=== PATIENT | male | born 1950 | race Caucasian/White ===

== ENCOUNTER 2020-04-26 12:28 | Outpatient (CLI) | payer MEDICARE, OTHER, SELFPAY ==
--- NOTE | ~2020-04-26 | US_ITS ---
EXAMINATION: US thyroid EXAM DATE: 04/26/2020 13:09 INDICATION: Thyroid nodules. TECHNIQUE: Multiple grayscale and Doppler images of the thyroid were obtained (by a technologist who performed the scan) and subsequently reviewed. Individual nodules and recommendations may be reporte d in accordance with TI-RADS system as designated by the 2017 ACR White Paper TI-RADS committee. Kyle elation was made with prior thyroid ultrasound report from 06/18/2016. FINDINGS: Right thyroid lobe measures 7.0 x 3.3 x 3.3 cm, left measures 6.4 x 2.8 cm (3rd dimension not provide d). Right thyroid lobe is enlarged predominantly due to a nodule measuring 4.7 x 3.3 x 3.2 centimeter s, mixed cystic and solid (1 point), isoechoic (1 point), wider than tall, smooth margin, without ech ogenic foci, category TR3 for this nodule. Dimensions in 2016 states this nodule measured 3.8 x 2.6 x 2.1 cm at that time. Reportedly this nodule was previously in 2016 with results reported as consist ent with benign follicular nodule. There are 3 left thyroid nodules which are category TR 4. 1st nodule measures 1.1 x 0.8 x 1.1 cm, unchanged. 2nd nodule measures 1.8 x 1.5 x 1.6 cm (previously region was measured at 2.5 x 2.6 cm). A 3rd region, possible nodule measuring 1.2 x 1.9 x 1.7 cm although this could be just some heterogen eity. This region was not measured on prior study. IMPRESSION: 1. Multinodular goiter. Reviewed, dictated and finalized at location B. IMPRESSION: 1. Multinodular goiter.
== END 2020-04-26 12:29 | disposition home or self-care (01) ==
LOC: CHSIMG 12:36
PROVIDERS: PCP Internal Medicine; Visit Provider Internal Medicine
DX: E04.1 Nontoxic single thyroid nodule (principal)
CPT/HCPCS: 76536

== ENCOUNTER 2020-07-07 12:53 | Outpatient (CLI) | payer MEDICARE, OTHER, SELFPAY ==
--- NOTE | ~2020-07-07 | XR_ITS ---
EXAMINATION: XR chest 2V DATE: 07/07/2020 13:22 INDICATION: Diabetes. Preop. TECHNIQUE: Frontal and lateral views of the chest were obtained. COMPARISON: Chest 2 views 12/14/16 FINDINGS: The chest demonstrates clear lungs without pneumonia, pleural effusion, or pneumothorax. Th e heart size is normal. There is a left shoulder arthroplasty. There is a chronic compression fractur e of T11. IMPRESSION: 1. No acute cardiopulmonary disease. Reviewed, dictated and finalized at location A.
[2020-07-07 13:16] LABS: Basophils Absolute Auto 0.03 K/mm3 (0.00-0.10); Basophils Percent Auto 0.7 % (0.0-1.0); Eosinophils Absolute Auto 0.19 K/mm3 (0.02-0.50); Eosinophils Percent Auto 4.2 % (1.0-6.0); Hematocrit 37.9 % (37.0-46.0); Hemoglobin 13.2 g/dL (12.4-15.3); Immature Granulocyte Absolute 0.01 K/mm3 (0.00-0.00); Immature Granulocyte Percent A 0.2 % (0.0-0.0); Lymphocytes Absolute Auto 1.21 K/mm3 (1.10-4.50); Lymphocytes Percent Auto 26.9 % (18.0-42.0); Mean Corpuscular HGB Conc 34.8 g/dL (32.0-36.0); Mean Corpuscular Hemoglobin 29.4 pg (27.0-31.0); Mean Corpuscular Volume 84.4 fL (78.0-102.0); Mean Platelet Volume 9.8 fl (8.7-11.0); Monocytes Absolute Auto 0.39 K/mm3 (0.10-0.90); Monocytes Percent Auto 8.7 % (2.0-11.0); Neutrophils Absolute Auto 2.7 K/mm3 (1.7-7.2); Neutrophils Percent Auto 59.3 % (50.0-70.0); Platelet Count Result 161 K/mm3 (150-420); Red Blood Count 4.49 M/mm3 (4.70-6.10); Red Cell Distribution Width 11.9 % (11.6-14.4); White Blood Count 4.5 K/mm3 (4.8-10.8)
[2020-07-07 13:28] LABS: Hemoglobin A1C 5.8 % (<5.7)
[2020-07-07 13:29] LABS: Add Urine Microscopic? NO; Appearance Urine Clear (Clear); Bilirubin Urine Negative (Negative); Blood Urine Negative (Negative); Color Urine Yellow (Yellow); Glucose Urine UA Negative (Negative); Ketones Urine Negative (Negative); Leukocyte Esterase Ur Negative (Negative); Nitrate Urine Negative (Negative); Protein Urine Negative (Negative); Urobilinogen Urine 0.2 mg/dL (0.2-1.0)
[2020-07-07 13:49] LABS: Alanine Aminotransferase 34 U/L (16-63); Albumin Level 3.9 g/dL (3.4-5.0); Alkaline Phosphatase 85 U/L (46-116); Anion Gap 11 mmol/L (8-16); Aspartate Amino Transferase 20 U/L (15-37); Bilirubin,Total 0.6 mg/dL (0.00-1.00); Blood Urea Nitrogen 17 mg/dL (7-18); Calcium 9.1 mg/dL (8.5-10.1); Carbon Dioxide 27 mmol/L (21-32); Chloride 105 mmol/L (98-108); Estimated Glomerular Filt Rate > 60; Glucose 121 mg/dL (70-99); Osmolality Calculated 298 mOsm/kg (285-295); Potassium 4.4 mmol/L (3.5-5.1); Sodium 143 mmol/L (136-145); Total Protein 6.2 g/dL (6.4-8.2)
== END 2020-07-07 12:54 | disposition home or self-care (01) ==
LOC: CHSLAB 12:56
PROVIDERS: PCP Internal Medicine; Visit Provider Internal Medicine
DX: E11.9 Type 2 diabetes mellitus without complications (principal); Z01.818 Encounter for other preprocedural examination
CPT/HCPCS: 36415; 71046; 80053; 81003; 83036; 85025; 87081

== ENCOUNTER 2020-10-28 12:48 | Outpatient (CLI) | payer MEDICARE, SELFPAY ==
--- NOTE | ~2020-10-28 | XR_ITS ---
XR knee RT 3V DATE: 10/28/2020 13:17 INDICATION: Right anterior knee pain after a fall 3 weeks ago TECHNIQUE: [place], AP and lateral views COMPARISON: 12/25/2018 right knee FINDINGS: Probable knee joint effusion. There is tricompartment osteoarthritis, most prominent at the patellofemoral compartment. There is moderate loss of height of medial compartment joint space. Ther e is chondrocalcinosis of medial and lateral compartments. No fracture, dislocation, periosteal reaction or bone destruction. 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 No significant change since 12/25/2018 Reviewed, dictated and finalized at location B. 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 No significant change since 12/25/2018
== END 2020-10-28 12:49 | disposition home or self-care (01) ==
LOC: CHSIMG 12:52
PROVIDERS: PCP Internal Medicine; Visit Provider Internal Medicine
DX: M25.561 Pain in right knee (principal)
CPT/HCPCS: 73562

== ENCOUNTER 2020-11-08 16:40 | Outpatient (CLI) | payer MEDICARE, SELFPAY ==
--- NOTE | ~2020-11-08 | XR_ITS ---
EXAMINATION: XR knee LT min 4V DATE: 11/08/2020 17:08 INDICATION: Left knee pain TECHNIQUE: Four views of the left knee were obtained. COMPARISON: None. FINDINGS: Alignment is normal. No fracture or osteochondral lesion. There is moderate osteoarthritis of the knee. Chondrocalcinosis is noted. No joint effusion/synovitis. Anterior soft tissue swelling is present. IMPRESSION: 1. No acute osseous abnormality. Reviewed, dictated and finalized at location A. 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
== END 2020-11-08 16:41 | disposition home or self-care (01) ==
LOC: CHSIMG 16:41
PROVIDERS: PCP Internal Medicine; Visit Provider Internal Medicine
DX: M25.562 Pain in left knee (principal)
CPT/HCPCS: 73564

== ENCOUNTER 2021-03-27 10:24 | Outpatient (CLI) | payer MEDICARE, SELFPAY ==
[2021-03-27 10:41] LABS: Basophils Absolute Auto 0.03 K/mm3 (0.00-0.10); Basophils Percent Auto 0.5 % (0.0-1.0); Eosinophils Absolute Auto 0.18 K/mm3 (0.02-0.50); Eosinophils Percent Auto 2.9 % (1.0-6.0); Hematocrit 36.5 % (37.0-46.0); Immature Granulocyte Absolute 0.01 K/mm3 (0.00-0.00); Immature Granulocyte Percent A 0.2 % (0.0-0.0); Immature Platelet Fraction Pct 1.4 % (1.0-7.0); Lymphocytes Absolute Auto 0.91 K/mm3 (1.10-4.50); Lymphocytes Percent Auto 14.7 % (18.0-42.0); Mean Corpuscular HGB Conc 35.6 g/dL (32.0-36.0); Mean Corpuscular Hemoglobin 30.2 pg (27.0-31.0); Mean Corpuscular Volume 84.9 fL (78.0-102.0); Mean Platelet Volume 9.7 fl (8.7-11.0); Monocytes Absolute Auto 0.69 K/mm3 (0.10-0.90); Monocytes Percent Auto 11.2 % (2.0-11.0); Neutrophils Absolute Auto 4.4 K/mm3 (1.7-7.2); Neutrophils Percent Auto 70.5 % (50.0-70.0); Platelet Count Result 138 K/mm3 (150-420); Red Cell Distribution Width 11.9 % (11.6-14.4); White Blood Count 6.2 K/mm3 (4.8-10.8)
[2021-03-27 10:51] LABS: Add Urine Microscopic? YES; Appearance Urine Clear (Clear); Bilirubin Urine Negative (Negative); Blood Urine Negative (Negative); Color Urine Light Yellow (Yellow); Glucose Urine UA Negative (Negative); Ketones Urine Negative (Negative); Leukocyte Esterase Ur Trace (Negative); Nitrate Urine Negative (Negative); Protein Urine Negative (Negative); Specific Grav Ur <= 1.005 (1.010-1.020); Urobilinogen Urine 0.2 mg/dL (0.2-1.0)
[2021-03-27 10:55] LABS: Bacteria Urine None seen /hpf; RBC Urine None seen /hpf (0-2); WBC Urine None seen /hpf (0-3)
[2021-03-27 11:27] LABS: Alanine Aminotransferase 38 U/L (16-63); Albumin Level 3.7 g/dL (3.4-5.0); Alkaline Phosphatase 89 U/L (46-116); Anion Gap 9 mmol/L (8-16); Aspartate Amino Transferase 16 U/L (15-37); Bilirubin,Total 0.7 mg/dL (0.00-1.00); Blood Urea Nitrogen 22 mg/dL (7-18); Calcium 8.6 mg/dL (8.5-10.1); Carbon Dioxide 27 mmol/L (21-32); Chloride 107 mmol/L (98-108); Cholesterol 87 mg/dL (0-200); Estimated Glomerular Filt Rate > 60; Glucose 86 mg/dL (70-99); HDL Direct 34 mg/dL (40-60); LDL Cholesterol Calculated 19 mg/dL (<130); Osmolality Calculated 298 mOsm/kg (285-295); Sodium 143 mmol/L (136-145); Thyroid Stimulating Hormone 0.65 uIU/mL (0.36-3.74); Total Protein 6.1 g/dL (6.4-8.2); Triglycerides 172 mg/dL (0-150)
[2021-03-27 14:50] LABS: Hemoglobin A1C 5.5 % (<5.7)
[2021-03-30 18:36] LABS: Hepatitis C Signal to Cutoff 0.01 ratio (<1.00); Hepatitis C Virus Antibody Nonreactive (Nonreactive)
== END 2021-03-27 10:25 | disposition home or self-care (01) ==
LOC: CHSLAB 10:26
PROVIDERS: PCP Internal Medicine; Visit Provider Internal Medicine
DX: E78.5 Hyperlipidemia, unspecified (principal); I10 Essential (primary) hypertension; E11.9 Type 2 diabetes mellitus without complications
CPT/HCPCS: 36415; 80053; 80061; 81001; 83036; 84443; 85025; 85055

== ENCOUNTER 2021-11-16 09:43 | Outpatient (CLI) | payer MEDICARE, SELFPAY ==
[2021-11-16 10:02] LABS: Hematocrit 40.1 % (37.0-46.0); Mean Corpuscular HGB Conc 34.9 g/dL (32.0-36.0); Mean Corpuscular Volume 86.1 fL (78.0-102.0); Mean Platelet Volume 9.6 fl (8.7-11.0); Platelet Count Result 139 K/mm3 (150-420); Red Blood Count 4.66 M/mm3 (4.70-6.10); Red Cell Distribution Width 11.9 % (11.6-14.4); White Blood Count 3.8 K/mm3 (4.8-10.8)
[2021-11-16 10:17] LABS: Add Urine Microscopic? NO; Appearance Urine Clear (Clear); Bilirubin Urine Negative (Negative); Blood Urine Negative (Negative); Color Urine Yellow (Yellow); Glucose Urine UA Negative (Negative); Ketones Urine Negative (Negative); Leukocyte Esterase Ur Negative (Negative); Nitrate Urine Negative (Negative); Protein Urine Negative (Negative); Urobilinogen Urine 0.2 mg/dL (0.2-1.0)
[2021-11-16 11:00] LABS: Alanine Aminotransferase 39 U/L (16-63); Albumin Level 3.9 g/dL (3.4-5.0); Alkaline Phosphatase 71 U/L (46-116); Anion Gap 7 mmol/L (8-16); Aspartate Amino Transferase 21 U/L (15-37); Bilirubin,Total 0.6 mg/dL (0.00-1.00); Blood Urea Nitrogen 18 mg/dL (7-18); Calcium 8.8 mg/dL (8.5-10.1); Carbon Dioxide 30 mmol/L (21-32); Chloride 106 mmol/L (98-108); Cholesterol 97 mg/dL (0-200); Estimated Glomerular Filt Rate > 60; Glucose 96 mg/dL (70-99); HDL Direct 35 mg/dL (40-60); LDL Cholesterol Calculated 45 mg/dL (<130); Osmolality Calculated 297 mOsm/kg (285-295); Potassium 3.8 mmol/L (3.5-5.1); Prostate Specific Antigen 2.7 ng/mL (< OR = 4.0); Sodium 143 mmol/L (136-145); Total Protein 6.5 g/dL (6.4-8.2); Triglycerides 87 mg/dL (0-150)
[2021-11-16 11:08] LABS: Total Cells Counted 100
[2021-11-16 11:09] LABS: Band Neutrophils Percent 0 % (0-6); Basophils Absolute Manual 0.03 K/mm3 (0-0.1); Basophils Percent Manual 1 % (0-1); Eosinophils Absolute Manual 0.11 K/mm3 (0.02-0.5); Eosinophils Percent Manual 3 % (1-6); Lymphocytes Absolute Manual 0.87 K/mm3 (1.1-4.5); Lymphocytes Percent Manual 23 % (18-44); Monocytes Absolute Manual 0.22 K/mm3 (0.1-0.90); Monocytes Percent Manual 6 % (3-9); Neutrophils Absolute Manual 2.54 K/mm3 (1.3-6.7); Neutrophils Percent Manual 67 % (46-73); Platelet Estimate Adequate (Adequate)
== END 2021-11-16 09:44 | disposition home or self-care (01) ==
LOC: CHSLAB 09:45
PROVIDERS: PCP Internal Medicine; Visit Provider Internal Medicine
DX: E11.9 Type 2 diabetes mellitus without complications (principal); E78.5 Hyperlipidemia, unspecified; I10 Essential (primary) hypertension; Z12.5 Encounter for screening for malignant neoplasm of prostate
CPT/HCPCS: 36415; 80053; 80061; 81003; 84153; 85025; G0103

== ENCOUNTER 2022-02-12 15:19 | Outpatient (CLI) | payer MEDICARE, SELFPAY ==
--- NOTE | ~2022-02-12 | XR_ITS ---
XR chest 2V 02/12/2022 15:55 Indication: Hypertension. Preop back surgery. Procedure: 2 view chest Comparison: Comparison to multiple prior studies sequentially, with oldest reviewed study dated 06/10. Findings: Heart size normal. No focal air space disease, pulmonary edema, pleural effusion or suspect ed pneumothorax. No acute osseous abnormality. There is a left shoulder arthroplasty. There is scolio sis. Impression: 1: No acute cardiopulmonary disease. Reviewed, dictated and finalized at location B. Impression: 1: No acute cardiopulmonary disease.
--- NOTE | 2022-02-12 15:40 | ECG_ITS ---
Measurements Intervals [place] Rate: 58 P: 52 MO: 249 QRS: -3 QRSD: 103 T: 39 QT: 373 QTc: 368 Interpretive Statements SINUS BRADYCARDIA WITH FIRST DEGREE AV BLOCK Electronically Signed On 02-13-2022 11:09:25 CDT by Yohan Strauss M.D.
== END 2022-02-12 15:20 | disposition home or self-care (01) ==
LOC: CHSIMG 15:22
PROVIDERS: PCP Internal Medicine; Visit Provider Internal Medicine
DX: Z01.818 Encounter for other preprocedural examination (principal); I10 Essential (primary) hypertension
CPT/HCPCS: 71046; 93005

== ENCOUNTER 2022-03-08 14:35 | Outpatient (CLI) | payer MEDICARE, SELFPAY ==
[2022-03-08 15:26] LABS: SARS-CoV-2 RNA PCR Negative (Negative)
== END 2022-03-08 14:36 | disposition home or self-care (01) ==
LOC: CHSLAB 14:38
PROVIDERS: PCP Internal Medicine; Visit Provider Nurse Practitioner Family
DX: J06.9 Acute upper respiratory infection, unspecified (principal); Z20.822 Contact with and (suspected) exposure to COVID-19
CPT/HCPCS: C9803; U0003; U0005

== ENCOUNTER 2022-03-20 09:55 | Outpatient (CLI) | payer MEDICARE, SELFPAY ==
[2022-03-20 10:16] LABS: Basophils Absolute Auto 0.05 K/mm3 (0.00-0.10); Basophils Percent Auto 1.1 % (0.0-1.0); Eosinophils Percent Auto 4.3 % (1.0-6.0); Hematocrit 41.1 % (37.0-46.0); Hemoglobin 14.3 g/dL (12.4-15.3); Immature Granulocyte Absolute 0.01 K/mm3 (0.00-0.00); Immature Granulocyte Percent A 0.2 % (0.0-0.0); Lymphocytes Absolute Auto 0.93 K/mm3 (1.10-4.50); Lymphocytes Percent Auto 19.9 % (18.0-42.0); Mean Corpuscular HGB Conc 34.8 g/dL (32.0-36.0); Mean Corpuscular Hemoglobin 29.9 pg (27.0-31.0); Mean Platelet Volume 9.4 fl (8.7-11.0); Monocytes Absolute Auto 0.51 K/mm3 (0.10-0.90); Monocytes Percent Auto 10.9 % (2.0-11.0); Neutrophils Percent Auto 63.6 % (50.0-70.0); Platelet Count Result 120 K/mm3 (150-420); Red Blood Count 4.78 M/mm3 (4.70-6.10); Red Cell Distribution Width 11.9 % (11.6-14.4); White Blood Count 4.7 K/mm3 (4.8-10.8)
[2022-03-20 10:44] LABS: Alanine Aminotransferase 39 U/L (16-63); Albumin Level 3.4 g/dL (3.4-5.0); Alkaline Phosphatase 64 U/L (46-116); Anion Gap 6 mmol/L (8-16); Aspartate Amino Transferase 19 U/L (15-37); Bilirubin,Total 0.8 mg/dL (0.00-1.00); Blood Urea Nitrogen 20 mg/dL (7-18); Calcium 8.6 mg/dL (8.5-10.1); Carbon Dioxide 26 mmol/L (21-32); Chloride 106 mmol/L (98-108); Estimated Glomerular Filt Rate > 60; Glucose 90 mg/dL (70-99); Osmolality Calculated 288 mOsm/kg (285-295); Potassium 4.2 mmol/L (3.5-5.1); Sodium 138 mmol/L (136-145)
[2022-03-20 10:45] LABS: CRP < 0.2 mg/dL (0.0-0.9)
== END 2022-03-20 09:56 | disposition home or self-care (01) ==
LOC: CHSLAB 09:58
PROVIDERS: PCP Internal Medicine; Visit Provider Internal Medicine
DX: R21 Rash and other nonspecific skin eruption (principal); L23.7 Allergic contact dermatitis due to plants, except food; I10 Essential (primary) hypertension
CPT/HCPCS: 36415; 80053; 85025; 86140

== ENCOUNTER 2022-07-18 07:58 | Outpatient (CLI) | payer MEDICARE, SELFPAY ==
--- NOTE | ~2022-07-18 | CT_ITS ---
EXAMINATION: CT soft tissue neck w con DATE: 07/18/2022 09:18 INDICATION: Left parotid swelling. TECHNIQUE: Computed tomography (CT) of the neck was performed with 75 mL Omnipaque-350 intravenous co ntrast. Automated exposure control and iterative reconstruction technique were employed. The dose-leno gth product was 474.58 mGy-cm. COMPARISON: Chest CT 06/13/2016 FINDINGS: Again seen is a multinodular goiter extending into the superior mediastinum. There are no p athologically enlarged lymph nodes. There is plaque in the proximal internal carotid arteries with 0% stenosis relative to normal distal artery lumen diameters. There is a 1.2 x 1.0 cm mass in superfici al left parotid gland. There is a 2.1 x 1.4 cm mass in superficial left parotid gland. There is sever e cervical spondylosis. IMPRESSION: 1. Two masses in superficial left parotid gland. The differential diagnosis includes benign mixed maite or, Warthin tumor, and less likely kris metastatic disease or primary malignancy. Consider ultrasoun d-guided fine-needle aspiration. Reviewed, dictated and finalized at location A. 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 Two masses in superficial left parotid gland. The differential diagnosis inc ludes benign mixed tumor, Warthin tumor, and less likely kris metastatic disea se or primary malignancy. Consider ultrasound-guided fine-needle aspiration.
[2022-07-18 08:12] LABS: Basophils Absolute Auto 0.03 K/mm3 (0.00-0.10); Basophils Percent Auto 0.7 % (0.0-1.0); Eosinophils Absolute Auto 0.13 K/mm3 (0.02-0.50); Eosinophils Percent Auto 2.9 % (1.0-6.0); Hematocrit 41.9 % (37.0-46.0); Hemoglobin 14.4 g/dL (12.4-15.3); Immature Granulocyte Absolute 0.01 K/mm3 (0.00-0.00); Immature Granulocyte Percent A 0.2 % (0.0-0.0); Lymphocytes Absolute Auto 1.14 K/mm3 (1.10-4.50); Lymphocytes Percent Auto 25.6 % (18.0-42.0); Mean Corpuscular HGB Conc 34.4 g/dL (32.0-36.0); Mean Corpuscular Volume 87.3 fL (78.0-102.0); Mean Platelet Volume 9.3 fl (8.7-11.0); Monocytes Absolute Auto 0.44 K/mm3 (0.10-0.90); Monocytes Percent Auto 9.9 % (2.0-11.0); Neutrophils Absolute Auto 2.7 K/mm3 (1.7-7.2); Neutrophils Percent Auto 60.7 % (50.0-70.0); Platelet Count Result 147 K/mm3 (150-420); Red Cell Distribution Width 11.9 % (11.6-14.4); White Blood Count 4.5 K/mm3 (4.8-10.8)
[2022-07-18 08:38] LABS: Hemoglobin A1C 5.1 % (<5.7)
[2022-07-18 08:39] LABS: Alanine Aminotransferase 30 U/L (16-63); Albumin Level 3.9 g/dL (3.4-5.0); Alkaline Phosphatase 78 U/L (46-116); Anion Gap 5 mmol/L (8-16); Aspartate Amino Transferase 15 U/L (15-37); Bilirubin,Total 0.6 mg/dL (0.00-1.00); Blood Urea Nitrogen 18 mg/dL (7-18); Calcium 8.8 mg/dL (8.5-10.1); Carbon Dioxide 30 mmol/L (21-32); Chloride 106 mmol/L (98-108); Estimated Glomerular Filt Rate > 60; Glucose 107 mg/dL (70-99); Lactate Dehydrogenase 153 U/L (85-227); Osmolality Calculated 293 mOsm/kg (285-295); Potassium 4.1 mmol/L (3.5-5.1); Sodium 141 mmol/L (136-145); Total Protein 6.7 g/dL (6.4-8.2)
[2022-07-23 17:06] LABS: Reference Lab Test Name FLOW CYTOMETRY
== END 2022-07-18 07:59 | disposition home or self-care (01) ==
LOC: CHSIMG 08:00
PROVIDERS: PCP Internal Medicine; Visit Provider Internal Medicine
DX: D72.819 Decreased white blood cell count, unspecified (principal); D69.6 Thrombocytopenia, unspecified; E11.9 Type 2 diabetes mellitus without complications; R22.0 Localized swelling, mass and lump, head
CPT/HCPCS: 36415; 70491; 80053; 83036; 83615; 85025; 88184; 88185; 88189; Q9967

== ENCOUNTER 2022-11-13 13:25 | Outpatient (RCR) | payer MEDICARE, SELFPAY ==
--- NOTE | 2022-11-13 14:33 | PTOPEVAL1 ---
Assessment and note entered by Louisa Bermudez DPT Evaluation Information Assessment Status Evaluation Diagnosis low back pain and weakness Onset 10/29/22 Subjective Information Patient reports he had back surgery on 10/29/22 from L4-S1. He states since surgery his pain has improved a lot. He reports that pain occurs after he gets tired and that pain is in the legs with what feels like sciatic pain. Prior to surgery patient reports he had back pain for 10 years. Patient reports that dressing, reaching into cabinets and cooking. Patient's restrictions of no lifting over 8#, no bending and no twisting. Patient reports he uses the FWW at all times now but does report he had a STC that he used prior to surgery. RTMD is 11/14/22. 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 Reported Pain Level Pain Score 0: Self Report Assessment PT Clinical Summary Patient is a 72 year old male who presents to PT s /p low back surgery. He demonstrates decreased B LE strength, decreased LE flexibility and impaired gait impairing his ability to care for his , cook and complete house hold tasks. He would benefit from skilled PT to address impairments and return to PLOF. Plan of Care Interventions Electrical Stimulation,Gait Training,Hot Pack/Cold Pack,Manual Therapy,Neuro Re-education,Patient/ Caregiver Educati,Therapeutic Activities, Therapeutic Exercise,Self-Care/Home Management PT Services Indicated Yes Treatment Frequency and 2x weekly x 12 visits Duration These treatments will address the objective and functional deficits as defined above. The patient will be advanced safely and appropriately in order for the patient to progress towards his/her prior level of function. Additional exercises will be introduced and as well as a comprehensive home exercise program upon discharge, if needed, ?to ensure carryover of functional gains achieved in the clinic. This treatment plan has been reviewed and agreement upon by the patient.
--- NOTE | 2022-12-20 10:56 | PTOPREEVAL ---
Assessment and note entered by Neisha Wiggins, PT Evaluation Information Assessment Status Re-evaluation Diagnosis s/p L4-S1 fusion Onset 10/29/22 Subjective Information Boo reports he had L4-S1 fusion on 10/29/22. He is having a little pain first thing in the am but it subsides as he moves around. He uses a cane around the house but a walker when out of the house. He has increased pain with lifting his walker and his 's wheelchair into and out of his vehicle. He has 4 steps out the back door which he handles without increased pain. He also c /o left calf pain after he has a restless leg syndrome attack. He saw his surgeon a couple Reported Pain Level Pain Score 0: Self Report Assessment PT Clinical Summary Boo Rodrigues is 7.5 weeks s/p L4-S1 fusion. He is reporting minimal pain since surgery with moderate pain upon waking and after lifting his walker and 's wheelchair into and out of his vehicle a couple times. He also has decreased endurance for walking and activity. He objectively demonstrates decreased lumbar AROM, decreased core strenth, impaired gait, decreased endurance, and decreased functional abilities. He will benefit from skilled PT to address these limitations. Plan of Care Interventions Electrical Stimulation,Gait Training,Hot Pack/Cold Pack,Manual Therapy,Neuro Re-education,Patient/ Caregiver Educati,Therapeutic Activities, Therapeutic Exercise PT Services Indicated Yes Treatment Frequency and 2 times a week for 12 visits Duration These treatments will address the objective and functional deficits as defined above. The patient will be advanced safely and appropriately in order for the patient to progress towards his/her prior level of function. Additional exercises will be introduced and as well as a comprehensive home exercise program upon discharge, if needed, ?to ensure carryover of functional gains achieved in the clinic. This treatment plan has been reviewed and agreement upon by the patient.
--- NOTE | 2023-02-07 10:09 | PTOPDC ---
Assessment and note entered by Neisha Wiggins, PT Evaluation Information Assessment Status Discharge Diagnosis s/p L4-S1 fusion Onset 10/29/22 Subjective Information Boo Rodrigues reports he has stiffness in his lower back first thing in the morning that improves with moving around. He notes stiffness and pain do not last more than 5 minutes. He notes pain at worst has been 3-4/10 which typically occurs with pulling weeds or sweeping the floor. He has returned to all other daily activities without difficulty. He feels he has improved 97% overall since initiating PT. Reported Pain Level Pain Score 0: Self Report Assessment PT Clinical Summary Boo Rodrigues has completed 13 skilled PT visits following a L4-S1 fusion performed on 10/29/22. He is reporting a 97% overall improvement with ability to perform all daily activities. He is able to take care of his who is in wheelchair and his only complaint is stiffness in the morning and mild pain with yard work. He objectively demonstrates functional lumbar AROM without pain elicited, good bilateral LE and core strength, good static and dynamic balance, normal gait, and good endurance. He will be discharged to an independent [facility]. Plan of Care PT Services Indicated Yes
== END 2023-02-07 23:59 | disposition home or self-care (01) ==
LOC: CHSPT 13:25
PROVIDERS: PCP Internal Medicine
DX: M43.10 Spondylolisthesis, site unspecified (principal)
CPT/HCPCS: 97110; 97112; 97161; 97530; 97750

== ENCOUNTER 2023-05-14 11:48 | Outpatient (CLI) | payer MEDICARE, SELFPAY ==
[2023-05-14 12:03] LABS: Appearance Urine Clear (Clear); Basophils Absolute Auto 0.03 K/mm3 (0.00-0.10); Basophils Percent Auto 0.7 % (0.0-1.0); Bilirubin Urine Negative (Negative); Blood Urine Negative (Negative); Color Urine Light Yellow (Yellow); Eosinophils Absolute Auto 0.17 K/mm3 (0.02-0.50); Eosinophils Percent Auto 3.8 % (1.0-6.0); Glucose Urine UA Negative (Negative); Hemoglobin 14.1 g/dL (12.4-15.3); Immature Granulocyte Absolute 0.01 K/mm3 (0.00-0.00); Immature Granulocyte Percent A 0.2 % (0.0-0.0); Ketones Urine Negative (Negative); Leukocyte Esterase Ur Negative LEU/UL (Negative); Lymphocytes Absolute Auto 1.07 K/mm3 (1.10-4.50); Lymphocytes Percent Auto 23.7 % (18.0-42.0); Mean Corpuscular HGB Conc 33.6 g/dL (32.0-36.0); Mean Corpuscular Hemoglobin 27.1 pg (27.0-31.0); Mean Corpuscular Volume 80.6 fL (78.0-102.0); Mean Platelet Volume 9.2 fl (8.7-11.0); Monocytes Absolute Auto 0.65 K/mm3 (0.10-0.90); Monocytes Percent Auto 14.4 % (2.0-11.0); Neutrophils Absolute Auto 2.6 K/mm3 (1.7-7.2); Neutrophils Percent Auto 57.2 % (50.0-70.0); Nitrate Urine Negative (Negative); Platelet Count Result 180 K/mm3 (150-420); Protein Urine Negative (Negative); Red Blood Count 5.21 M/mm3 (4.70-6.10); Red Cell Distribution Width 13.2 % (11.6-14.4); Specific Grav Ur <= 1.005 (1.010-1.020); Urobilinogen Urine 0.2 mg/dL (0.2-1.0); White Blood Count 4.5 K/mm3 (4.8-10.8); pH Urine 5.5 (5.0-8.0)
[2023-05-14 12:07] LABS: Add Urine Microscopic? NO
[2023-05-14 12:12] LABS: Hemoglobin A1C 6.2 % (<5.7)
[2023-05-14 13:17] LABS: Alanine Aminotransferase 43 U/L (16-63); Albumin Level 3.7 g/dL (3.4-5.0); Alkaline Phosphatase 106 U/L (46-116); Anion Gap 5 mmol/L (8-16); Aspartate Amino Transferase 25 U/L (15-37); Bilirubin,Total 0.5 mg/dL (0.00-1.00); Blood Urea Nitrogen 16 mg/dL (7-18); Calcium 9.3 mg/dL (8.5-10.1); Carbon Dioxide 30 mmol/L (21-32); Chloride 105 mmol/L (98-108); Cholesterol 109 mg/dL (0-200); Creatine Kinase 116 U/L (39-308); Estimated Glomerular Filt Rate > 60; Free T4 Free Thyroxine 0.34 ng/dL (0.76-1.46); Glucose 97 mg/dL (70-99); HDL Direct 29 mg/dL (40-60); LDL Cholesterol Calculated 13 mg/dL (<130); Osmolality Calculated 291 mOsm/kg (285-295); Potassium 4.8 mmol/L (3.5-5.1); Prostate Specific Antigen 1.7 ng/mL (< OR = 4.0); Sodium 140 mmol/L (136-145); Thyroid Stimulating Hormone 0.72 uIU/mL (0.36-3.74); Total Protein 6.6 g/dL (6.4-8.2); Triglycerides 336 mg/dL (0-150)
== END 2023-05-14 11:49 | disposition home or self-care (01) ==
LOC: CHSLAB 11:50
PROVIDERS: PCP Internal Medicine; Visit Provider Nurse Practitioner Family
DX: Z12.5 Encounter for screening for malignant neoplasm of prostate (principal); E11.9 Type 2 diabetes mellitus without complications; F34.1 Dysthymic disorder; I95.9 Hypotension, unspecified; R42 Dizziness and giddiness; G47.9 Sleep disorder, unspecified; I15.9 Secondary hypertension, unspecified; F32.A Depression, unspecified
CPT/HCPCS: 36415; 80053; 80061; 81003; 82550; 83036; 84153; 84439; 84443; 85025; G0103

== ENCOUNTER 2023-07-29 11:03 | Outpatient (CLI) | payer MEDICARE, SELFPAY | END 2023-07-29 11:04 | disposition home or self-care (01) | LOC: CHSAUDIO 11:05 | PROVIDERS: PCP Internal Medicine; Visit Provider Internal Medicine | DX: H90.3 Sensorineural hearing loss, bilateral (principal) | CPT/HCPCS: 92557; 92567 ==

== ENCOUNTER 2023-09-11 09:30 | Outpatient (CLI) | payer MEDICARE, SELFPAY ==
--- NOTE | ~2023-09-11 | XR_ITS ---
Left Hand Technique: PA, oblique, and lateral views were obtained. Clinical History: Thumb pain Findings: No acute fracture or dislocation is seen. Osseous alignment is anatomic. There is mild dege nerative change of the first CMC joint. Soft tissues are unremarkable. Impression: Mild degenerative change of the first CMC joint. Reviewed, dictated and finalized at location . 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
== END 2023-09-11 09:31 | disposition home or self-care (01) ==
LOC: CHSIMG 09:32
PROVIDERS: PCP Internal Medicine; Visit Provider Internal Medicine
DX: M25.542 Pain in joints of left hand (principal)
CPT/HCPCS: 73130

== ENCOUNTER 2023-10-10 10:30 | Outpatient (RCR) | payer MEDICARE, SELFPAY | END 2023-10-10 23:59 | disposition home or self-care (01) | LOC: ANHAUDIO 10:30 | PROVIDERS: PCP Internal Medicine; Visit Provider Audiologist | DX: Z46.1 Encounter for fitting and adjustment of hearing aid (principal) | CPT/HCPCS: 99199; V5257 ==

== ENCOUNTER 2023-11-12 09:32 | Outpatient (CLI) | payer MEDICARE, SELFPAY ==
[2023-11-12 09:58] LABS: Basophils Absolute Auto 0.03 K/mm3 (0.00-0.10); Basophils Percent Auto 0.7 % (0.0-1.0); Eosinophils Absolute Auto 0.16 K/mm3 (0.02-0.50); Eosinophils Percent Auto 3.5 % (1.0-6.0); Hematocrit 40.2 % (37.0-46.0); Hemoglobin 13.8 g/dL (12.4-15.3); Immature Granulocyte Absolute 0.01 K/mm3 (0.00-0.00); Immature Granulocyte Percent A 0.2 % (0.0-0.0); Lymphocytes Absolute Auto 1.05 K/mm3 (1.10-4.50); Lymphocytes Percent Auto 22.8 % (18.0-42.0); Mean Corpuscular HGB Conc 34.3 g/dL (32.0-36.0); Mean Corpuscular Hemoglobin 27.2 pg (27.0-31.0); Mean Corpuscular Volume 79.3 fL (78.0-102.0); Mean Platelet Volume 9.8 fl (8.7-11.0); Monocytes Absolute Auto 0.54 K/mm3 (0.10-0.90); Monocytes Percent Auto 11.7 % (2.0-11.0); Neutrophils Absolute Auto 2.8 K/mm3 (1.7-7.2); Neutrophils Percent Auto 61.1 % (50.0-70.0); Platelet Count Result 169 K/mm3 (150-420); Red Blood Count 5.07 M/mm3 (4.70-6.10); Red Cell Distribution Width 12.8 % (11.6-14.4); White Blood Count 4.6 K/mm3 (4.8-10.8)
[2023-11-12 10:49] LABS: Alanine Aminotransferase 36 U/L (16-63); Albumin Level 3.6 g/dL (3.4-5.0); Alkaline Phosphatase 93 U/L (46-116); Anion Gap 8 mmol/L (8-16); Aspartate Amino Transferase 23 U/L (15-37); Bilirubin,Total 0.8 mg/dL (0.00-1.00); Blood Urea Nitrogen 21 mg/dL (7-18); Calcium 8.7 mg/dL (8.5-10.1); Carbon Dioxide 29 mmol/L (21-32); Chloride 102 mmol/L (98-108); Cholesterol 95 mg/dL (0-200); Estimated Glomerular Filt Rate > 60; Free T3 2.52 pg/mL (2.18-3.98); Free T4 Free Thyroxine 0.37 ng/dL (0.76-1.46); Glucose 165 mg/dL (70-99); HDL Direct 34 mg/dL (40-60); LDL Cholesterol Calculated 5 mg/dL (<130); Osmolality Calculated 295 mOsm/kg (285-295); Potassium 4.1 mmol/L (3.5-5.1); Sodium 139 mmol/L (136-145); Thyroid Stimulating Hormone 0.44 uIU/mL (0.36-3.74); Total Protein 6.3 g/dL (6.4-8.2); Triglycerides 278 mg/dL (0-150)
== END 2023-11-12 09:33 | disposition home or self-care (01) ==
LOC: CHSLAB 09:34
PROVIDERS: PCP Internal Medicine; Visit Provider Internal Medicine
DX: E11.9 Type 2 diabetes mellitus without complications (principal); E03.9 Hypothyroidism, unspecified; I10 Essential (primary) hypertension
CPT/HCPCS: 36415; 80053; 80061; 83036; 84439; 84443; 84481; 85025

== ENCOUNTER 2024-02-12 22:34 | Emergency (ER) | payer MEDICARE, SELFPAY ==
[2024-02-12 22:35] VITALS: BP 134/76; PULSE 63; RESP 18; TEMP 36.1; O2SAT 96
[2024-02-12] MEDS: LIDOCAINE HCL 1% LOCAL INJ 10 ML VIAL INFILTRATE (23:05)
--- NOTE | 2024-02-12 23:10 | PC.NURSE ---
DR EISENBERG AT PATIENT BEDSIDE FOR SUTURING.
--- NOTE | 2024-02-12 23:15 | ED.GENADULT ---
HPI - General Adult General Chief complaint: Wound/Laceration Stated complaint: finger lac History of Present Illness HPI narrative: this is a 74-year-old male presenting for a finger laceration. He was trying to cut a dog disc and half using a pair of alex and missed and cut his middle finger. He has a v-shaped laceration to his left middle finger. No weakness in the extremity. Sensation intact. Tetanus is up-to-date. Related Data Allergies Allergy/AdvReac Type Severity Reaction Status Date / Time diazepam Allergy Unknown Verified 07/11/20 16:10 [employer] [facility] Allergy Mild Uncoded 07/11/20 16:10 [facility] Family History Family History (System 07/11/20 @ 16:10 by Mariah Arriaga) Mother Hypertension Family history of diabetes mellitus in first degree relative Family history of coronary artery disease Family history of malignant neoplasm of breast in first degree relative Diabetes mellitus Family history of cardiovascular disease Grandparent Cerebrovascular accident Family history of malignant neoplasm Family history of coronary artery disease Social History Social History (System 07/11/20 @ 16:10 by Mariah Arriaga) Smoking status: Never smoker Alcohol intake: never Exam Narrative: APPEARANCE: No apparent distress. Head: atraumatic. EYES: EOMI, NOSE: Atraumatic NECK: Trachea midline RESPIRATORY: No increased rate of breathing CARDIOVASCULAR: RRR, ABDOMINAL: Non-distended MUSCULOSKELETAl: No obvious deformities NEURO: Alert. Moving 4/4 extremities SKIN:: 2 cm v-shaped laceration to the proximal phalanx of the left middle finger. No foreign bodies noted. No damage to the deeper structures. Extension flexion of the finger intact. Cap refill less than 2sec PSYCHIATRIC: Normal affect Course Vital Signs Vital signs: Vital Signs Temperature 96.9 F L 02/12/24 22:35 Pulse Rate 63 02/12/24 22:35 Respiratory Rate 18 02/12/24 22:35 Blood Pressure 134/76 02/12/24 22:35 Pulse Oximetry 96 02/12/24 22:35 Oxygen Delivery Room Air 02/12/24 22:35 Temperature 96.9 F L 02/12/24 22:35 Pulse Rate 63 02/12/24 22:35 Respiratory Rate 18 02/12/24 22:35 Blood Pressure 134/76 02/12/24 22:35 Pulse Oximetry 96 02/12/24 22:35 Oxygen Delivery Room Air 02/12/24 22:35 Procedures Laceration Laceration 1: Date: 02/12/24 Site: hand Side (If applicable): left Size (cm): 2.0 Description: flap Depth: simple, single layer Local Anesthetic: lidocaine 1% Amount of anesthesia used (mL): 6 Pre-repair: wound explored, irrigated extensively and deep structures intact ====== Skin Level ====== Skin layer closed with: nylon Size (cm): 4-0 Number of sutures: 5 Technique: simple, interrupted ====== Subcutaneous Layer ====== ====== Muscle Layer ====== ====== Tendon Layer ====== Medical Decision Making MDM Narrative Medical decision making narrative: -Course: 74-year-old male presenting with a laceration to his middle finger. Wound was repaired. tetanus update. Patient discharged on a course of Keflex with primary care follow-up. Two weeks for suture removal. -Procedures: Laceration repair -RX Keflex 500 mg b.i.d. x5 days Vital Signs Vital Signs: Vital Signs Temperature 96.9 F L 02/12/24 22:35 Pulse Rate 63 02/12/24 22:35 Respiratory Rate 18 02/12/24 22:35 Blood Pressure 134/76 02/12/24 22:35 Pulse Oximetry 96 02/12/24 22:35 Oxygen Delivery Room Air 02/12/24 22:35 Temperature 96.9 F L 02/12/24 22:35 Pulse Rate 63 02/12/24 22:35 Respiratory Rate 18 02/12/24 22:35 Blood Pressure 134/76 02/12/24 22:35 Pulse Oximetry 96 02/12/24 22:35 Oxygen Delivery Room Air 02/12/24 22:35 Discharge Plan Discharge Clinical Impression: Laceration Patient Disposition: Home, Self-Care Condition: Stable Ins
== END 2024-02-12 23:50 | disposition home or self-care (01) ==
PROVIDERS: Emergency Provider Emergency Medicine; PCP Internal Medicine
DX: S61.213A Laceration without foreign body of left middle finger without damage to nail, initial encounter (principal); W27.2XXA Contact with scissors, initial encounter
CPT/HCPCS: 12001; 99283

== ENCOUNTER 2024-03-11 08:57 | Outpatient (RCR) | payer MEDICARE, SELFPAY ==
--- NOTE | 2024-03-11 10:06 | PTOPEVAL1 ---
Assessment and note entered by Marlon Jerry Evaluation Information Assessment Status Evaluation Diagnosis low back pain, previous L4-S1 fusion ICD-10 Condition Codes (PT) Pain in low back M54.50 Onset 12/11/23 Subjective Information Pt. reports that about 3 months ago he started noticing increasing back pain with activity. He describes pain in the middle of the low back and stays near the spine. He states that he enjoys gardening, but states that he cannot bend without pain to complete his gardening. He states that he can stand for about 30 minutes before having to sit due to back pain. He reports that he enjoys working in his garage, but states that it is becoming difficult to bend. He states that his is wc bound and states that he has to care for his . He reports that his goal is to reduce his pain and be able to stand and walk longer. Reported Pain Level Pain Score 3: Self Report Assessment PT Clinical Summary Pt. is a 74 year old male who enters the clinic due to low back pain. He presents with impaired postural awareness, impaired gait, impaired l.e. strength, pain and functional decline. Continued skilled PT is indicated in order to improve these areas to allow for improve comfort with IADL's and help to improve standing endurance. Plan of Care Interventions Electrical Stimulation,Gait Training,Hot Pack/Cold Pack,Manual Therapy,Neuro Re-education,Patient/ Caregiver Educati,Therapeutic Activities, Therapeutic Exercise PT Services Indicated Yes Treatment Frequency and 2x/week x 10 visits Duration These treatments will address the objective and functional deficits as defined above. The patient will be advanced safely and appropriately in order for the patient to progress towards his/her prior level of function. Additional exercises will be introduced and as well as a comprehensive home exercise program upon discharge, if needed, ?to ensure carryover of functional gains achieved in the clinic. This treatment plan has been reviewed and agreement upon by the patient.
--- NOTE | 2024-03-11 10:07 | OPREHPOC ---
Outpatient Therapy Plan of Care This is a Multidisciplinary Plan of Care that may contain components documented by all disciplines (PT, OT, and ST.) PT Problem 1 PT Problem #1 Knowledge Deficit PT Goal 1 Goal Pt. will be independent with a HEP addressing trunk mobility and core stability. Target Visit 2 PT Problem 2 PT Problem #2 Impaired Flexibility PT Goal 1 Goal Pt. will present at less than 20 degrees from full knee extension with the 90/90 test Target Visit 10 PT Problem 3 PT Problem #3 Impaired Range of Motion PT Goal 1 Goal Pt. will improve trunk flexion and be able to safely lift a light object from floor to waist with proper mechanics Target Visit 10 PT Problem 4 PT Problem #4 Impaired Functional Mobil PT Goal 1 Goal Pt. will present with less than 15% limitation on the Modified Oswestry indicating overall functional improvement. Target Visit 10 PT Problem 5 PT Problem #5 Impaired Strength PT Goal 1 Goal Pt. will present with 4+/5 strength or greater at the l.e.
--- NOTE | 2024-04-01 15:06 | PCPTNOTE ---
pt cancelled due to having issues.
--- NOTE | 2024-04-22 15:09 | PCPTNOTE ---
Pt. cancelled his appointment due to having increased pain. He requested to come in next week.
--- NOTE | 2024-04-28 11:03 | OPREHPOC ---
Outpatient Therapy Plan of Care This is a Multidisciplinary Plan of Care that may contain components documented by all disciplines (PT, OT, and ST.) PT Problem 1 PT Problem #1 Knowledge Deficit PT Goal 1 Goal / Goal Update Pt. will be independent with a HEP addressing trunk mobility and core stability. Target Visit 2 Progress Met PT Problem 2 PT Problem #2 Impaired Flexibility PT Goal 1 Goal / Goal Update Pt. will present at less than 20 degrees from full knee extension with the 90/90 test Target Visit 16 Progress Not Met PT Problem 3 PT Problem #3 Impaired Range of Motion PT Goal 1 Goal / Goal Update Pt. will improve trunk flexion and be able to safely lift a light object from floor to waist with proper mechanics Target Visit 16 Progress Partially Met PT Problem 4 PT Problem #4 Impaired Functional Mobil PT Goal 1 Goal / Goal Update Pt. will present with less than 15% limitation on the Modified Oswestry indicating overall functional improvement. Target Visit 16 Progress Not Met PT Problem 5 PT Problem #5 Impaired Strength PT Goal 1 Goal / Goal Update Pt. will present with 4+/5 strength or greater at the l.e. Target Visit 10 Progress Met PT Goal 2 Goal / Goal Update 1. patient will display 5/5 bilateral hip strength 2. patient will display 4/5 or better core strength Target Visit 16
--- NOTE | 2024-04-28 11:03 | PTOPREEVAL ---
Assessment and note entered by JT File, PT Evaluation Information Assessment Status Re-evaluation Diagnosis low back pain, previous L4-S1 fusion ICD-10 Condition Codes (PT) Pain in low back M54.50 Onset 12/11/23 Subjective Information patient reports on 04/16/24 he carried some trash out for the first time. he reports he had to carry the trash in one hand and walk roughly 80ft. he reports no injury at the time, but woke up the next day in pain. he reports in therapy on he was really sore and unable to walk well. he reports he has no yet recovered from this set back , and believes he needs to continue therapy. Reported Pain Level Pain Score 4: Self Report Assessment PT Clinical Summary mr. nixon presents to skilled PT with an acute flare up and set back of progress. he is limited in ambulation and activities again due to pain from a lifting/carry injury at home. he has made progress and partially achieved goals for HEP performance, ROM, and strength. however, given his recent set back and lack of achievement of all goals, patient would benefit from continued skilled PT Plan of Care Interventions Electrical Stimulation,Gait Training,Hot Pack/Cold Pack,Manual Therapy,Neuro Re-education,Patient/ Caregiver Educati,Therapeutic Activities, Therapeutic Exercise PT Services Indicated Yes Treatment Frequency and continue skilled PT 2x weekly for 6 more visits Duration These treatments will address the objective and functional deficits as defined above. The patient will be advanced safely and appropriately in order for the patient to progress towards his/her prior level of function. Additional exercises will be introduced and as well as a comprehensive home exercise program upon discharge, if needed, ?to ensure carryover of functional gains achieved in the clinic. This treatment plan has been reviewed and agreement upon by the patient.
--- NOTE | 2024-05-19 13:15 | PTOPDC ---
Assessment and note entered by Louias Calloway DPT Evaluation Information Assessment Status Discharge Diagnosis low back pain, previous L4-S1 fusion ICD-10 Condition Codes (PT) Pain in low back M54.50 Onset 12/11/23 Subjective Information patient reports he is back to level he was prior to carrying his trash that caused increased pain. patient reports he can lift light objects up off of the ground with no difficulty. he reports he has been able to return to walking out in the yard and completing house hold tasks. Reported Pain Level Pain Score 0: Self Report Assessment PT Clinical Summary Mr. Herrera attended 16 visits of skilled PT with great progression towards goals. He has been able to demonstrate ability to picker operator object from the ground, improved LE strength and improve HS flexibility. He reports he has been able to picker operator light objects from the ground, ambulate around the yard and complete house hold tasks. He is independent with HEP and appropriate for DC at this time. Plan of Care PT Services Indicated No
== END 2024-05-19 20:00 | disposition home or self-care (01) ==
LOC: CHSPT 08:57
DX: Z98.1 Arthrodesis status (principal)
CPT/HCPCS: 97110; 97112; 97150; 97161; 97530

== ENCOUNTER 2024-04-27 11:28 | Outpatient (RCR) | payer MEDICARE, SELFPAY | END 2024-07-26 23:59 | disposition home or self-care (01) | LOC: CHSAUDIO 11:28 | PROVIDERS: PCP Internal Medicine; Visit Provider Internal Medicine | DX: Z46.1 Encounter for fitting and adjustment of hearing aid (principal) | CPT/HCPCS: 99199 ==

== ENCOUNTER 2024-06-11 10:02 | Emergency (ER) | payer MEDICARE, SELFPAY ==
[2024-06-11 10:03] VITALS: BP 159/71; PULSE 64; RESP 18; TEMP 35.4; O2SAT 95
--- NOTE | 2024-06-11 10:21 | ED.WOUNDLAC ---
HPI - Wound/Laceration General Chief Complaint: Wound/Laceration Stated Complaint: cut finger Source: patient Mode of arrival: ambulatory Limitations: no limitations History of Present Illness HPI narrative: patient while using his saw cause an avulsion/laceration to his distal left index finger no other injuries currently not bleeding up-to-date with his tetanus. Onset (ago): hour(s) Location: other Extremity Location: Left: hand ( laceration distal end of his left index finger) Place: home Patient tetanus UTD: Yes Context: accidental Associated symptoms: none Related Data Allergies Allergy/AdvReac Type Severity Reaction Status Date / Time diazepam Allergy Unknown Verified 07/11/20 16:10 TRANQUILIZERS UNK Allergy Mild Uncoded 07/11/20 16:10 Review of Systems Review of Systems: All systems reviewed & are unremarkable except as noted in HPI and below PMFSH Past Medical History Medical History Patient denies medical problems Family History Family History Mother Hypertension Family history of diabetes mellitus in first degree relative Family history of coronary artery disease Family history of malignant neoplasm of breast in first degree relative Diabetes mellitus Family history of cardiovascular disease Grandparent Cerebrovascular accident Family history of malignant neoplasm Family history of coronary artery disease Social History Social History Smoking status: Never smoker Alcohol intake: never Exam Const: General: healthy appearing and no acute distress Nutritional Appearance: well nourished Orientation/consciousness: patient oriented x3 Resp: Effort & Inspection: normal respiratory effort Auscultation: clear to auscultation bilaterally Cardio: Rate: regular rate Rhythm: regular rhythm Skin: Wounds: wounds noted Neuro: General: patient oriented x3, moves all extremities and no meningeal signs Course Course Emergency Course: patient had 2 sutures and Dermabond placed on his left index finger up-to-date with his tetanus patient tolerated procedure well Vital Signs Vital signs: Vital Signs Temperature 35.4 C L 06/11/24 10:03 Pulse Rate 64 06/11/24 10:03 Respiratory Rate 18 06/11/24 10:03 Blood Pressure 159/71 H 06/11/24 10:03 Pulse Oximetry 95 06/11/24 10:03 Oxygen Delivery Room Air 06/11/24 10:03 Temperature 35.4 C L 06/11/24 10:03 Pulse Rate 64 06/11/24 10:03 Respiratory Rate 18 06/11/24 10:03 Blood Pressure 159/71 H 06/11/24 10:03 Pulse Oximetry 95 06/11/24 10:03 Oxygen Delivery Room Air 06/11/24 10:03 Procedures Laceration Laceration 1: Date: 06/11/24 Time: Site: hand Side (If applicable): left Size (cm): 2 Description: linear Depth: simple, single layer Local Anesthetic: lidocaine 1% Amount of anesthesia used (mL): 4 Pre-repair: wound explored and irrigated ====== Skin Level ====== Skin layer closed with: vicryl and dermabond Size (cm): 4-0 Number of sutures: 2 ====== Subcutaneous Layer ====== ====== Muscle Layer ====== ====== Tendon Layer ====== Critical Care Time Critical Care Time Critical Care Time: No Discharge Plan Discharge Clinical Impression: Laceration Condition: Stable Instructions: Antibiotic Form, Laceration (ED) Additional Instructions: advised follow-up with primary in 1 week for suture removal. Prescriptions: No Action cephalexin 500 mg capsule 500 mg PO Q12H Qty: 10 0RF Follow-up/Referrals: Dave,Italia Gamino MD [Primary Care Provider] - Time of Disposition: 10:25
== END 2024-06-11 10:32 | disposition home or self-care (01) ==
PROVIDERS: Emergency Provider Emergency Medicine; PCP Family Medicine
DX: S61.211A Laceration without foreign body of left index finger without damage to nail, initial encounter (principal); W27.0XXA Contact with workbench tool, initial encounter
CPT/HCPCS: 12001; 99282; 99283; J2003

== ENCOUNTER 2024-07-08 09:59 | Emergency (ER) | payer MEDICARE, SELFPAY ==
--- NOTE | ~2024-07-08 | XR_ITS ---
EXAMINATION: XR knee RT 3V DATE: 07/08/2024 10:21 INDICATION: Right knee pain post fall TECHNIQUE: Anteroposterior, oblique and crosstable lateral views of the right knee were obtained COMPARISON: 10/28/2020 FINDINGS: Alignment is normal. No fracture. Chondrocalcinosis in the medial and lateral compartments of the ri ght knee. There is at least mild joint space narrowing the medial compartment right knee which could be underestimated on nonweightbearing imaging. Small marginal osteophytes in all 3 compartments consi stent with tricompartmental osteoarthritis with moderate to severe joint space narrowing at the later al patellofemoral compartment evident on the sunrise view from the prior study which is not obtained in the current study. No right knee joint effusion. Calcified likely loose osteochondral bodies along the superior and lateral margin of the patella. Prepatellar soft tissue swelling. IMPRESSION: 1. Chondrocalcinosis and tricompartmental osteoarthritis at the right knee with no joint effusion or acute osseous abnormality. Reviewed, dictated and finalized at location A.
[2024-07-08 10:07] VITALS: BP 161/77; PULSE 76; RESP 20; TEMP 36.4; O2SAT 96
--- NOTE | 2024-07-08 10:11 | ED_ITS ---
HPI - Extremity Injury (Lower) General Chief Complaint: Extremity Injury, Lower Stated Complaint: leg injury Source: patient Mode of arrival: ambulatory Limitations: no limitations History of Present Illness HPI Narrative: 74-year-old male with a history of extensive lumbar spondylosis, spondylolisthesis status post L4-S1 spinal fusion 2 years ago presents to the ED with -- 2 day history of right knee pain. Patient had his legs crossed and any attempted to get up when he noted sharp severe pain about his right knee joint. Subsequently he has not been able to lock his knee while walking. The patient walked into the ED without any difficulty. No other complaint. MD complaint: knee injury Onset (ago): day(s) ( 2 days) Injury: Right: knee Type of Injury: unknown Place: home Severity: moderate Relieving factors: nothing Exacerbating factors: weight bearing Other symptoms: none Related Data Allergies Allergy/AdvReac Type Severity Reaction Status Date / Time diazepam Allergy Unknown Unknown Verified 07/08/24 10:17 TRANQUILIZERS UNK Allergy Mild Unknown Uncoded 07/08/24 10:17 Review of Systems Review of Systems: All systems reviewed & are unremarkable except as noted in HPI and below Constitutional: Constitutional: Reports as per HPI and Reports no additional constitutional complaints Eyes: Eyes: Reports as per HPI and Reports no additional eye complaints ENT: Reports system reviewed and no additional complaints, except as documented and Reports as per HPI Cardiovascular: Cardiovascular: Reports as per HPI and Reports no additional cardiovascular complaints Respiratory: Respiratory: Reports as per HPI and Reports no additional respiratory complaints Gastrointestinal: Gastrointestinal: Reports as per HPI and Reports no additional gastrointestinal complaints Genitourinary: Genitourinary: Reports no additional male genitourinary complaints and Reports as per HPI Musculoskeletal: Musculoskeletal: Reports no additional musculoskeletal complaints Comments: swelling and pain about the right knee joint. Normal range of motion of the right knee. Integumentary/Breasts: Skin/Breast: Reports system reviewed and no additional complaints, except as docu and Reports as per HPI Neurologic: Reports system reviewed and no additional complaints, except as documented and Reports as per HPI Psychiatric: Psychiatric: Reports no additional psychiatric complaints and Reports as per HPI Endocrine: Endocrine: Reports no additional endocrine complaints and Reports as per HPI Hematologic/Lymphatic: Hematologic/Lymphatic: Reports no additional hematologic/lymphatic complaints and Reports as per HPI Allergic/Immunologic: Allergic/Immunologic: Reports no additional allergic/im munologic complaints and Reports as per [facility] Past Medical History Medical History (Updated 07/08/24 @ 11:18 by Negro Wright MD) Patient denies medical problems Spondylolisthesis Surgical History Surgical History (Updated 07/08/24 @ 10:17 by Negro Wright MD) S/P lumbar spinal fusion Family History Family History Mother Hypertension Family history of diabetes mellitus in first degree relative Family history of coronary artery disease Family history of malignant neoplasm of breast in first degree relative Diabetes mellitus Family history of cardiovascular disease Grandparent Cerebrovascular accident Family history of malignant neoplasm Family history of coronary artery disease Social History Social History Smoking status: Never smoker Alcohol intake: never Exam Narrative: vitals are stable. Afebrile Const: General: no acute distress Nutritional Appearance: well nourished Orientation/consciousness: patient oriented x3 Limitations: no limitations HENMT: Head: normal to inspection Ears: external ears normal Face/Nose/Sinus: Normal external nose present Face and sinus: normal facial exam Mouth: Yes Normal oral and palatal mucosa present Throat: posterior oropharynx normal Eyes: Conjunctivae: conjunctivae normal Pupils: Equal, round and reactive pupils present EOM: EOMs intact bilaterally Direct Ophthalmoscopy: no photophobia Neck: Neck: normal visual inspection, no lymphadenopathy and no meningeal signs Chest: Chest palpation & inspection: normal inspection of the chest Resp: Effort & Inspection: normal respiratory effort Auscultation: clear to auscultation bilaterally Cardio: Rate: regular rate Rhythm: regular rhythm GI: GI Palp: Yes Soft to palpation Auscultation: normal bowel sounds Other: no tenderness/ rigidity /rebound. : General: Yes no CVA tenderness Back/Spine/Pelvis: Back: no CVA tenderness Skin: General skin exam: normal color Rashes: no rashes Wounds: no wounds Neuro: General: patient oriented x3, moves all extremities, no meningeal signs, no focal motor deficits and CN's II-XI intact bilaterally Cranial nerves: Yes Nystagmus not present Speech: normal speech Gait exam (Neuro): Normal gait present Extrem: General: normal to inspection Other: Tenderness superior and lateral to the right knee. Normal range of motion of the knee. Psych: Mental Status: mental status grossly normal Affect: normal affect Attitude: cooperative Course Course Emergency Course: Knee pain-- x-ray of knee revealed chondrocalcinosis with tricompartmental osteoarthritis Vital Signs Vital signs: Vital Signs Temperature 36.4 C 07/08/24 10:07 Pulse Rate 76 07/08/24 10:07 Respiratory Rate 20 07/08/24 10:07 Blood Pressure 161/77 H 07/08/24 10:07 Pulse Oximetry 96 07/08/24 10:07 Oxygen Delivery Room Air 07/08/24 10:07 Temperature 36.4 C 07/08/24 10:07 Pulse Rate 76 07/08/24 10:07 Respiratory Rate 20 07/08/24 10:07 Blood Pressure 161/77 H 07/08/24 10:07 Pulse Oximetry 96 07/08/24 10:07 Oxygen Delivery Room Air 07/08/24 10:07 MDM - Extremity Injury (Lower) MDM Narrative Medical decision making narrative: knee pain secondary to severe tricompartmental osteoarthritis and chondrocalcinosis. Differential Diagnosis Differential diagnosis: Likely acute internal derangement of knee Medical Records Attestation: I reviewed the patient's medical records. Lab Data Attestation: I reviewed the patient's lab results. Discharge Plan Discharge Clinical Impression: Osteoarthritis of right knee Qualifiers: Osteoarthritis type: unspecified Qualified Code(s): M17.11 - Unilateral primary osteoarthritis, right knee Patient Disposition: Home, Self-Care Condition: Stable Instructions: Antibiotic Form, Osteoarthritis (ED) Patient Language: Russian Prescriptions: New hydrocodone-acetaminophen 5-325 mg tablet 1 tablet PO Q8H PRN (Reason: pain) Qty: 10 0RF Follow-up/Referrals: UNKNOWN,DOCTOR [Non-Staff] - Time of Disposition: :17
[2024-07-08 11:24] VITALS: BP 171/63; PULSE 59; RESP 20; TEMP 36.4; O2SAT 95
== END 2024-07-08 11:26 | disposition home or self-care (01) ==
PROVIDERS: Emergency Provider Internal Medicine Critical Care Medicine; PCP Family Medicine
DX: M17.11 Unilateral primary osteoarthritis, right knee (principal)
CPT/HCPCS: 73562; 99283

== ENCOUNTER 2024-07-22 14:25 | Outpatient (CLI) | payer MEDICARE, SELFPAY ==
--- NOTE | ~2024-07-22 | XR_ITS ---
AP view of the pelvis and AP and lateral views of the left hip Clinical history: Pain Findings: No acute fracture or dislocation is seen. Osseous alignment is anatomic. Bilateral hip and SI joint spaces are preserved. Lumbosacral spinal fixation hardware noted. Soft tissues are unremarka ble. Impression: No acute abnormality. Lumbosacral spinal fixation hardware. Reviewed, dictated and finalized at location . RVISOR MENDING Impression: No acute abnormality. Lumbosacral spinal fixation hardware.
--- NOTE | ~2024-07-22 | XR_ITS ---
AP and lateral views of the left femur Clinical History: Pain Findings: No acute fracture or dislocation is seen. Osseous alignment is anatomic. Visualized joint s paces are grossly preserved. Soft tissues are unremarkable. Impression: Unremarkable left femoral radiographs. Reviewed, dictated and finalized at location M. CAPTAIN Impression: Unremarkable left femoral radiographs.
== END 2024-07-22 14:26 | disposition home or self-care (01) ==
PROVIDERS: PCP Family Medicine; Visit Provider Family Medicine
DX: S79.912A Unspecified injury of left hip, initial encounter (principal)
CPT/HCPCS: 73502; 73552

== ENCOUNTER 2024-09-10 07:03 | Outpatient (CLI) | payer MEDICARE, SELFPAY ==
--- NOTE | ~2024-09-10 | MR_ITS ---
MRI of the brain Clinical History: Left leg weakness Technique: Axial and sagittal T1-weighted images were acquired. These were followed by axial T2-weigh gwen, diffusion weighted, gradient, and FLAIR images. Findings: There is no acute infarct, intracranial hemorrhage or mass lesion. There are minimal chroni c white matter changes in the periventricular white matter. Ventricles and subarachnoid spaces are unremarkable. Orbits are unremarkable. Paranasal sinuses and m astoid air cells are clear. Major intracranial flow voids are intact. Sagittal midline structures are intact. IMPRESSION: Minimal chronic microvascular ischemic change, otherwise unremarkable exam. Reviewed, dictated and finalized at location M. 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
--- NOTE | ~2024-09-10 | US_ITS ---
EXAMINATION: US carotid duplex BI DATE: 09/10/2024 08:07 INDICATION: Syncope and collapse TECHNIQUE: Grayscale, color Doppler, and pulsed Doppler images of the cervical carotid arteries were obtained. The degree of vessel stenosis is placed in one of the following categories: normal, <50%, 5 0-69%, >=70% but less than near-occlusion, near-occlusion, or total occlusion. Note that percent sten osis relative to normal distal artery lumen diameter is indirectly measured from velocity measurement s as described by Timur, et al. Radiology 2003; [id number]. COMPARISON: None. FINDINGS: RIGHT: The right common carotid artery (CCA) peak systolic velocity (PSV) is 89 cm/s. The right internal car otid artery (ICA) PSV is 75 cm/s. The right ICA end-diastolic velocity (EDV) is 27 cm/s. The right IC A/CCA PSV ratio is 0.8. Grayscale and color Doppler images yield an estimate of <50% diameter reducti on from plaque in the ICA. The external carotid artery (ECA) PSV is 89 cm/s. There is antegrade flow in the right vertebral artery. LEFT: The left CCA PSV is 92 cm/s. The left ICA PSV is 74 cm/s. The left ICA EDV is 26 cm/s. The left ICA/C CA PSV ratio is 0.8. Grayscale and color Doppler images yield an estimate of <50% diameter reduction from plaque in the ICA. The ECA PSV is 69 cm/s. There is antegrade flow in the left vertebral artery. IMPRESSION: 1. <50% stenosis in the right internal carotid artery. 2. <50% stenosis in the left internal carotid artery. Reviewed, dictated and finalized at location B. 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
== END 2024-09-10 07:04 | disposition home or self-care (01) ==
LOC: CHSIMG 07:05
PROVIDERS: PCP Family Medicine; Visit Provider Family Medicine
DX: R55 Syncope and collapse (principal); R29.898 Other symptoms and signs involving the musculoskeletal system; I65.23 Occlusion and stenosis of bilateral carotid arteries
CPT/HCPCS: 70551; 93880

== ENCOUNTER 2024-09-17 09:29 | Outpatient (CLI) | payer MEDICARE, SELFPAY ==
--- NOTE | 2024-09-21 09:28 | WPDHOLTEREM ---
Holter/Event Monitor Holter/Event Monitor Date of procedure: 09/17/24 Holter/Event Procedure: 48 Hr Holter Monitor Indications: Syncope Conclusion: 1. 48 hour holter monitor on 09/17/24. 2. Underlying rhythm is sinus rhythm. HR range 50-94 bpm; average HR 63 bpm. 3. There are 46 premature supraventricular complexes and 10 supraventricular couplets. No supraventricular tachycardia. 4. There are 1 premature ventricular complex and 1 ventricular couplet. No ventricular tachycardia. 5. No sinoatrial or atrioventricular blocks. No significant pauses greater than 2 seconds. 6. No symptoms available for correlation.
== END 2024-09-17 09:30 | disposition home or self-care (01) ==
LOC: CHSCARD 09:32
PROVIDERS: PCP Family Medicine; Visit Provider Family Medicine
DX: R55 Syncope and collapse (principal); R29.898 Other symptoms and signs involving the musculoskeletal system
CPT/HCPCS: 93225; 93226

== ENCOUNTER 2024-11-16 10:23 | Outpatient (CLI) | payer MEDICARE, SELFPAY ==
--- NOTE | ~2024-11-16 | XR_ITS ---
XR knee LT 3V Ordering provider: Italia Acosta, History: . LEFT KNEE PAIN . Comparison: None. FINDINGS: BONES: No acute fracture or dislocation. JOINT SPACES: Normal. Chondrocalcinosis. Osteophytes in the patella. SOFT TISSUES: Normal. IMPRESSION: No acute osseous abnormality left knee. Chondrocalcinosis. Reviewed, dictated and finalized at location A.
--- NOTE | ~2024-11-16 | XR_ITS ---
XR hip LT 2V w AP pelvis Ordering provider: Italia Acosta, History: . LEFT HIP PAIN . Comparison: July 22, 2024 FINDINGS: BONES: No acute fracture or dislocation. HIP JOINT SPACES: Normal. SACROILIAC JOINT SPACES/LUMBAR SPINE: The sacroiliac joint spaces are normal. Mild degenerative fountain es of the visualized lower lumbar spine. Postoperative changes in the spine. PUBIC SYMPHYSIS: Pubic symphysitis. SOFT TISSUES: Normal. IMPRESSION: No acute osseous abnormality pelvis and left hip. Reviewed, dictated and finalized at location A.
--- OUTSIDE RECORDS SUMMARY | 2024-11-16 12:11 | XMS_ITS | Referral Summary ---
Author Organization [facility] Address [address] [place] [address] Care Team Providers Care Ship Worker Name Role Phone David Casanova MD Primary Care Provider [phone] Eamon Lucia RN Unavailable Unav ailable Allergies No known active allergies Medications metoprolol XL (TOPROL-XL) 25 mg 24 hr tabletIndication s:hypertension Take 1 tablet (25 mg total) by mouth every morning 5 8 Active ergocalciferol, vitamin D2, 50 mcg (2,000 unit) capsuleIndicatio ns:Osteoporosis Take 2,000 Units by mouth nightly 0 9 Active finasteride (PROSCAR) 5 mg tabletIndication s:benign prostatic hyperplasia with lower urinary tract sx Take 1 tablet (5 mg total) by mouth nightly 0 Active sodium chloride (Jo 128) 5 % ophthalmic ointmentIndicati ons:Ssl-leb-csls erprint corneal dystrophy APPLY 1/4 INCH INTO BOTH EYES AT NIGHT 3.5 g 11 0 Active Additional Information Patient taking differently: 1 drop each eye Nightly, APPLY 1/4 INCH INTO BOTH EYES AT NIGHT,Indications: Corneal Edema, Informant: Self, Reported on 09/11/2023 montelukast (SINGULAIR) 10 mg tabletIndication s:allergies Take 1 tablet (10 mg total) by mouth as needed 0 Active buPROPion SR (WELLBUTRIN SR) 150 mg 12 hr tabletIndication s:Anxiety with Depression Take 1 tablet (150 mg total) by mouth 2 (two) times a day 0 Active OneTouch Ultra Blue Test Strip strip 1 Active atorvastatin (LIPITOR) 10 mg tabletIndication s:hyperlipidemia Take 1 tablet (10 mg total) by mouth nightly 2 Active pregabalin (LYRICA) 150 mg capsuleIndicatio ns:Restless Legs Syndrome,neurpat hic pain Take 1 cap a.m., 1 cap p.m., and 2 caps bedtime 360 capsule 1 2 Active Additional Information Patient taking differently: 150-300 mg oral 3 times daily, 1 tablet in the morning, 1 tablet after lunch, 2 tablets at bedtime. , Indications: Restless Legs Syndrome, nerve pain, Informant: Self, Reported on 09/11/2023 losartan (COZAAR) 100 mg tabletIndication s:hypertension Take 1 tablet (100 mg total) by mouth nightly at bedtime. 3 Active folic acid (FOLVITE) 1 mg tabletIndication s:Folate Deficiency Take 1 tablet (1 mg total) by mouth nightly Active milk thistle 175 mg tabletIndication s:supplement Take 1 tablet (175 mg total) by mouth nightly Active triamcinolone (KENALOG) 0.1 % creamIndications :skin rash Apply topically as needed for rash or irritation 3 Active liothyronine (CYTOMEL) 25 mcg tabletIndication s:depression Take 1 tablet (25 mcg total) by mouth 2 (two) times a day Active metFORMIN (GLUCOPHAGE) 500 mg tabletIndication s:type 2 diabetes mellitus Take 1 tablet (500 mg total) by mouth 2 (two) times a day 3 Active cyanocobalamin, vitamin B-12, (VITAMIN B-12 ORAL)Indications :supplement Take 1 tablet by mouth 4 (four) times a week Adenotype only, no particular days Active oxyCODONE (ROXICODONE) 5 mg immediate release tabletIndication s:Pain Take 1 tablet (5 mg total) by mouth every 4 (four) hours as needed for pain for up to 8 doses May also take half a tablet (2.5 mg total) by mouth every 4 (four) hours as needed for pain instead of a full tablet 8 tablet 4 Active Additional Information Patient not taking.Reported on 05/27/2024 acetaminophen (TYLENOL) 325 mg tablet Take 2 tablets (650 mg total) by mouth every 6 (six) hours as needed for pain for up to 30 doses 30 tablet 1 4 Active ibuprofen (ADVIL,MOTRIN) 600 mg tablet Take 1 tablet (600 mg total) by mouth every 6 (six) hours as needed for pain 30 tablet 1 4 Active Active Problems Problem Noted Date Diagnosed Date Mild cognitive impairment 11/21/2023 Type 2 diabetes mellitus wit hout complication, without long-term current use of insulin 11/08/2022 Spondylolisthesis 10/29/2022 Parotid mass 08/21/2022 Overview (10/16/2023): DIAGNOSIS: Left parotid tumors PROCEDURE PERFORMED: ([facility] 09/30/23) Left parotidectomy Osteoarthritis of spine with radiculopathy, lumb ar region 04/27/2021 Overview (04/27/2021): Added automatically from request for surgery [id number] Frequent falls 02/21/2021 Primary osteoarthritis of right knee 11/17/2020 Lumbar spondylosis 06/17/2020 Overview (06/17/2020): Added automatically from request for surgery [id number] Chronic use of opiate drug for therapeutic purpo se 11/29/2019 Overview (10/08/2022): Chronic Opioid Therapy - 10/08/21 Current opioid: - tramadol - 100 mg QID = 400 mg max/day Morphine daily equivalent: 40 mg/day Other : NO NSAIDS - elevated his blood pressure Benzo : none Storage : told to keep secure Plan: Continue, encourage restricting uses possible Urine Drug Screen [facility] 11/10/19 - consistent with prescribed tramadol Urine Drug Screen [facility] 11/21/20 - consistent with prescribed tramadol Urine drug screen [facility] 07/04/22 - consistent with prescribed tramadol Lumbar radiculopathy 11/02/2019 Displacement of lumbar intervertebral disc 07/19 Nocturnal leg cramps 05/13/2019 Agb-gnm-ehglqgxatfd 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 Right posterior capsular opacification 9 Age-related nuclear cataract of left eye 019 Varicose veins of bilateral lower extremities wi th pain 04/18/2017 Osteoarthritis of hip 03/03/2017 Obstructive sleep apnea syndrome in adult 2016 Diabetes mellitus 11/27/2016 Palpitations 10/15/2016 Diabetes mellitus 10/15/2016 Lumbago 10/01/2016 Right shoulder pain 05/30/2015 Chronic pain 07/14/2013 Other chronic pain 07/14/2013 Obesity 07/14/2013 Sciatica neuralgia 07/14/2013 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 07/14/2013 Increased frequency of urination 12/09/2012 Seizure 04/16/2011 Abnormal electrocardiogram 01/01/2011 Chest pain, unspecified 01/01/2011 Family history of heart disease 01/01/2011 Shortness of breath 01/01/2011 Sleep apnea 01/01/2011 Abnormal weight gain 09/12/2010 Attention deficit disorder (ADD) without hyperac tivity 09/12/2010 Anaclitic depression 09/12/2010 Pain in extremity 09/12/2010 Restless leg syndrome 09/12/2010 Encounter for preventive health examination 01/07 Immunizations Immunization Administration Dates Next Due Influenza, Quadrivalent, Hig h Dose, Preservative Free, Intrr 05/19/2020 Influenza, Trivalent, Adjuva nted, Intramuscular 05/28/2018 Influenza, Trivalent, High D ose, Split, Preservative Free, Intramuscular 05/21/2019 Pfizer SARS-CoV-2 Monovalent Vaccination (12+ Yrs) PURPLE 06/12/2021,11/01/2020,10/11/2020 ZOSTER Recombinant 05/21/2019,03/05/2019 Social History Tobacco Use Types Packs/Day Years Used Date Smoking Tobacco: Never Passive Smoke Exposure: Current Smokeless Tobacco: Never Tobacco Cessation:Counseling Given: Not Answered Alcohol Use Standard Drinks/Week Comments Not Currently 0 (1 standard drink = 0.6 oz pur e alcohol) denies AUDIT-C Answer Date Recorded Q1: How often do you have a drink containing alcohol? Never 09/11/2023 Q2: How many drinks containi ng alcohol do you have on a typical day when you are drinking? Patient does not drink Q3: How often do you have si x or more drinks on one occasion? Never 09/11/2023 Personal Safety Answer Date Recorded Have you ever been in or are you currently in a harmful physical or emotional relationship or is someone making you feel afraid or unsafe? 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 Gender Identity Not on file Sexual Orientation Not on file Occupation Industry Job Start Date Job End Date RETIRED Not on file Not on file Not on file Last Filed Vital Signs Vital Sign Reading Time Taken Comments Blood Pressure 146/78 05/27/2024 11:06 AM CDT Pulse 60 05/27/2024 11:06 AM CDT Temperature 36.5 C (97.7 F) 05/27/2024 11:06 AM CDT Respiratory Rate 18 10/01/2023 7:57 AM HARDSCAPE FOREMAN Oxygen Saturation 99% 05/27/2024 11:06 AM CDT Inhaled Oxygen Concentration - - Weight 118.2 kg (260 lb 8 oz) 05/27/2024 11:06 A M CDT Height 167.6 cm (5' 6 ) 05/27/2024 11:06 AM CDT Body Mass Index 42.05 05/27/2024 11:06 AM CDT Plan of Treatment Not on file Goals Goal Patient Goal Type Associated Problems Recent Progress Patient-Stated? Author CCM Chronic Pain Care Plan Chronic Care Management Improving( 12:43 PM HARDSCAPE FOREMAN) Rabia Davies, RN Note: Problem: Chronic Pain Goals: 1. Minimize further functional decline 2. Maximize quality of life 3. Control pain Strategies: - Activity/exercise program recommendation - Conservative stepwise pain medicine strategy with multi-disciplinary approach - Recommend healthy lifestyle strategies and compensatory methods as needed Medical Devices Implanted Type Area Facilities Supervisor Device Identifier Shelf Expiration Date Model / Serial / Lot Lt Total Shoulder Arthroplasty Left: Shoulder Procedures Procedure Name Priority Date/Time Associated Diagnosis Comments EGFR Routine 05/28/2022 9:35 AM CDT Preoperative testing POCT HEMOGLOBIN A1C Routine 05/28/2022 9 :16 AM CDT from Last 3 Months or Most Recently Relevant to Health Maintenance Results * eGFR (05/28/2022 9:35 AM CDT) eGFR >90 90 - 130 mL/min/1. 73 m2 [facility] Comment: Interpretive Data Reference Interval Normal >/= 90 mL/min/1.73m2 Mildly decreased* 60 - 89 mL/min/1.73m2 Mildly to moderately decreased 45 - 59 mL/min/1.73m2 Moderately to severely decreased 30 - 44 mL/min/1.73m2 Severely decreased 15 - 29 mL/min/1.73m2 Kidney Failure < 15 mL/min/1.73m2 *Relative to young adult level Estimated glomerular filtration rate is determined by the 2020 CKD-EPI equation recommended by the National Kidney Foundation (A Unifying Approach to GFR Estimation: Recommendations of the NKF-ASK Task Force on Reassessing the Inclusion of Race in Diagnosing Kidney Disease, JASN 2020). The CKD-EPI equation should not be used for patients with unstable renal function and has not been validated in children and those over 70. Current interpretive data was last reviewed 2021. Blood 05/28/2022 9:35 AM CDT 05/28/2022 10:25 AM CDT us Yang Rose NP LAB BLOOD ORDERABLES [facility] al Result [facility] Department [place] [address] * POCT hemoglobin A1c (05/28/2022 9:16 AM CDT) Hgb A1C, POC 5.6 4.0 - 5.6 % [facility] Est Average Gluc POC 114 mg/dL [facility] Comment: The ADA recommends reporting an estimated Average Glucose (eAG) with all Hemoglobin A1c results using the equation derived from a study of 507 normal and diabetic adults. Minority populations were underrepresented and children were not included. (Diabetes Care 31:9002-9797, 2008). The eAG is not equivalent to a fasting glucose. Blood 05/28/2022 9:16 AM CDT 05/28/2022 9:16 AM CDT Dre Riggins MD POINT OF CARE TEST ORDERABLES F inal Result [facility] Department [place] [address] from Last 3 Months or Most Recently Relevant to Health Maintenance Insurance MEDICARE [facility] Address: [address] [address] [place] [address] [facility] MDCR HMO REF [facility] MEDICARE Address: [address] [address] [place] [address] MEDICARE SOLUTIONS MEDICARE SOLUTIONS Advance Directives For more information, please contact: [phone] * Full Code (Latest Code Status on File) Date Activated Date Inactivated Comments 09/30/2023 7:34 PM 10/01/2023 5:13 PM Care Teams Ship Worker Relationship Specialty Start Date End Date David Casanova MD PCP - General Internal Medicine 10/02/18 Eamon Lucia, RN Registered Nurse 07/03/19
--- OUTSIDE RECORDS SUMMARY | 2024-11-16 12:11 | XMS_ITS | Encounter Summary ---
Author Organization [facility] Healthcare Address [address] [place] [address] Care Team Providers Care Operations Lieutenant Name Role Phone Regino García MD Primary Care Provider [phone] David Casanova MD Primary Care Provider [phone] Eamon Lucia RN Unavailable Unav ailable Encounter Details Date Type Department Care Team (Late st Contact Info) Description 03/05/2018 Telephone [facility] [address] [facility] [address] [place], [place] [id number] Richie Garcia MD [address] [facility] [phone] [place] [address] Social History Tobacco Use Types Packs/Day Years Used Date Smoking Tobacco: Never Assessed Sex and Gender Information Value Date Recorded Sex Assigned at Not on file 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
--- OUTSIDE RECORDS SUMMARY | 2024-11-16 12:11 | XMS_ITS | Encounter Summary ---
Author Organization [facility] Address [address] [place] [address] Phone Care Team Providers Care Purchasing Clerk Name Role Phone David Casanova MD Primary Care Provider [phone] Eamon Lucia RN Unavailable Unav ailable Encounter Details Date Type Department Care Team (Latest Contact Info) Description 12/06/2020 Orders Only [facility] Scanning, Provider Social History Tobacco Use Types Packs/Day Years Used Date Smoking Tobacco: Never Smokeless Tobacco: Never Alcohol Use Standard Drinks/Week Comments Not Currently 0 (1 standard drink = 0.6 oz pur e alcohol) denies AUDIT-C Answer Date Recorded Q1: How often do you have a drink containing alc ohol? Never 11/21/2020 Average Number of Drinks Not on file 021 Q3: How often do you have si x or more drinks on one occasion? 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 Author [facility] Chronic Pain Care Plan Chronic Care Management Improving( 12:43 PM CUTTER GRINDER) No Rabia Aquino RN Note: Problem: Chronic Pain Goals: 1. Minimize further functional decline 2. Maximize quality of life 3. Control pain Strategies: - Activity/exercise program recommendation - Conservative stepwise pain medicine strategy with multi-disciplinary approach - Recommend healthy lifestyle strategies and compensatory methods as needed documented as of this encounter Procedures Procedure Name Priority Date/Time Associated Diagnosis Comments SLEEP LAB/STUDY - RESULT 12/06/2020 documented in this encounter Results * SLEEP LAB/STUDY - RESULT (12/06/2020) us Provider Scanning Final Result documented in this encounter Visit Diagnoses Not on filedocumented in this encounter Care Teams Purchasing Clerk Relationship Specialty Start Date End Date David Casanova MD PCP - General Internal Medicine 10/02/18 Eamon Lucia, RN Registered Nurse 07/03/19 documented as of this encounter
--- OUTSIDE RECORDS SUMMARY | 2024-11-16 12:11 | XMS_ITS | Encounter Summary ---
Author Organization [facility] Healthcare Address [address] [place] [address] Care Team Providers Care Director Of Event Management Name Role Phone David Casanova MD Primary Care Provider [phone] Eamon Lucia RN Unavailable Unav ailable Encounter Details Date Type Department Care Team (Late st Contact Info) Description 10/17/2021 Telephone [facility] [address] [facility] [address] [place], [place] [id number] Richie Garcia MD [address] [facility] [address] [facility] [phone] [place], [place] [id number] Social History Tobacco Use Types Packs/Day Years Used Date Smoking Tobacco: Never Smokeless Tobacco: Never Alcohol Use Standard Drinks/Week Comments Not Currently 0 (1 standard drink = 0.6 oz pur e alcohol) denies AUDIT-C Answer Date Recorded Q1: How often do you have a drink containing alc ohol? Never 03/03/2021 Average Number of Drinks Not on file 021 Q3: How often do you have si x or more drinks on one occasion? 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 Minimize further functional decline 2. Maximize quality of life 3. Control pain Strategies: - Activity/exercise program recommendation - Conservative stepwise pain medicine strategy with multi-disciplinary approach - Recommend healthy lifestyle strategies and compensatory methods as needed documented as of this encounter Visit Diagnoses Not on filedocumented in this encounter Care Teams Director Of Event Management Relationship Specialty Start Date End Date David Casanova MD PCP - General Internal Medicine 10/02/18 Eamon Lucia, RN Registered Nurse 07/03/19 documented as of this encounter
--- OUTSIDE RECORDS SUMMARY | 2024-11-16 12:11 | XMS_ITS | Continuity of Care Document ---
Author Organization [facility] Address [address] [place] [address] [address] [place] [address] Phone Care Team Providers Care External Auditor Name Role Phone Nilo Stout Unavailable Unavailable Procedures Procedure Date Eye Exam, New Patient Refraction Advance Directives Directive Yes / No Effective Date File Name No Information Encounters Encounter Description Practice Location Reason(s) For Visit Diagnoses Date Provider Providers Copied on Encounter [facility], [id number] [place] [address] [address], [place], [place], [id number], [place] tel:[phone] [facility] No Information [phone]. [address] [facility] , [address], [place], [address], [place]. tel:[phone] Family History Family Member Type Diagnosis Age At Onset No Information Payers Payer name Insurance type Covered green party ID Authorfaithrosey chhayakriss(s) [employer] SOI 09 [id number] Social History Type Description Quantity Date Captured Comments Sex Male Smoking Status No Information Chief Complaint And Reason For Visit No Information Reason For Referral Reason For Referral No Information History Of Present Illness Encounter Date Complaint History Of Prese nt Illness No Information Functional Status Date Functional Assessmen t No Information Instructions Date Instruction Additional Infor mation No Information Assessments Type Assessment Date No Information Patient Care Teams Name Effective Dates (start - stop) Status Members No Information
--- OUTSIDE RECORDS SUMMARY | 2024-11-16 12:11 | XMS_ITS | Encounter Summary ---
Author Organization [facility] Healthcare Address [address] [place] [address] Care Team Providers Care Signal Manager Name Role Phone Regino García MD Primary Care Provider [phone] David Casanova MD Primary Care Provider [phone] Eamon Lucia RN Unavailable Unav ailable Reason for Visit * Reason Onset Date Comments Med Refill 08/05/2018 Encounter Details Date Type Department Care Team (Late st Contact Info) Description 08/05/2018 Telephone [facility] [address] [facility] [address] [place], [place] [id number] Richie Garcia MD [address] [facility] [address] 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 He was hesitant to make an appointment but I did convince him to see Darya. Appointment made for 08-15- @ 11 am. Refill sent to resident pool. EM TRAINER documented in this encounter Plan of Treatment Not on file documented as of this encounter Visit Diagnoses Not on filedocumented in this encounter Care Teams Signal Manager Relationship Specialty Start Date End Date Regino García MD PCP - General 11/09/16 10/01/18 David Casanova MD PCP - General Internal Medicine 10/02/18 Eamon Lucia, RN Registered Nurse 07/03/19 documented as of this encounter
--- OUTSIDE RECORDS SUMMARY | 2024-11-16 12:11 | XMS_ITS | Referral Summary ---
Author Organization [facility] Address [address] [place] [address] Care Team Providers Care Bulker Name Role Phone David Casanova MD Primary Care Provider [phone] Source Comments [facility],non-owned Affiliates and Associated Physician Practices is amultiple site organization consisting of ambulatory clinics and hospital sitesin [place], [place], [place] and [place]. This disclosure is being madepursuant to the Care Everywhere program and may not contain all information available regarding this patient. Last updated 18.[facility] Allergies No known active allergies Medications * Be aware that medications may not be up to date on this document. Alwaysverify current medications with the patient. Medication Sig Dispensed Refills Start Date End Date Status atorvastatin (Lipitor) 10 MG tablet Take 1 (one) tablet by mouth once daily Active baclofen (Lioresal) 10 MG tablet Take 1 (one) tablet by mouth 3 times daily Active buPROPion XL 24hr (Wellbutrin-XL) 150 MG tablet Take 1 (one) tablet by mouth 2 times daily Active cyanocobalamin, vitamin B-12, 2500 MCG tablet Dissolve 1 (one) tablet under the tongue Two times a week Active finasteride (Proscar) 5 MG tablet Take 1 (one) tablet by mouth once daily Active liothyronine (Cytomel) 25 MCG tablet Take 1 (one) tablet by mouth 2 times daily 04/24/2022 Active pregabalin (Lyrica) 150 MG capsule Take 1 cap a.m., 1 cap p.m., and 2 caps bedtime 01/24/2022 Active folic acid (Folvite) 1 MG tablet Take 1 (one) tablet by mouth once daily Active MILK THISTLE PO Take by mouth once daily Active Vzln-Jvlxxm-G-Biot -C80-Vddc 160-1.7 MG TABS Active metoprolol succinate XL 24hr (Toprol XL) 25 MG tablet Take 1 (one) tablet by mouth once daily Active semaglutide (Ozempic) 2 MG/1.5ML pen Inject subcutaneously every 7 days Wednesdays Active acetaminophen (Tylenol) 325 MG tablet Take 2 (two) tablets by mouth every 4 hours Maximum allowable Acetaminophen amount = 4 Grams (4000 mg) / 24 hours. 11/01/2022 Active docusate sodium (Colace) 100 MG capsule Take 1 (one) capsule by mouth once daily 0 11/01/2022 Active polyethylene glycol 3350 (Miralax) 17 GM/SCOOP powder Take 17 (seventeen) g by mouth once daily 238 g 11/01/2022 Active buPROPion SR 12hr (Wellbutrin-SR) 150 MG tablet 08/15/2022 Active menthol, Topical Analgesic, (GNP THERAPEUTIC BLUE GEL) 2 % gel Apply 1 Dose to affected area as needed Active montelukast (Singulair) 10 MG tablet 08/27/2022 Active oxyCODONE, immediate release, (Roxicodone) 5 MG tabletIndications: Spondylolisthesis, unspecified spinal region Take 1 (one) tablet by mouth every 4 hours as needed 12 tablet 11/08/2022 Active metFORMIN (Glucophage) 500 MG tablet 11/21/2022 Active losartan (Cozaar) 100 MG tablet 01/17/2023 Active Active Problems Problem Noted Date Diagnosed Date Type 2 diabetes mellitus wit hout complication, without long-term current use of insulin 11/08/2022 Spondylolisthesis, unspecified spinal region Social History Tobacco Use Types Packs/Day Years Used Date Smoking Tobacco: Never Smokeless Tobacco: Never Tobacco Cessation:Counseling Given: Not Answered Alcohol Use Standard Drinks/Week Comments Not Currently 0 (1 standard drink = 0.6 oz pur e alcohol) AUDIT-C Answer Date Recorded Q1: How often do you have a drink containing alc ohol? Monthly or less 10/31/2022 Q2: How many drinks containi ng alcohol do you have on a typical day when you are drinking? 1 or 2 10/31/2022 Q3: How often do you have si x or more drinks on one occasion? Never 10/31/2022 Overall Financial Resource Strain (CARDIA) Answe r Date Recorded How hard is it for you to pa y for the very basics like food, housing, medical care, and heating? Not hard at all 10/31/2022 PHQ-2 Answer Date Recorded Patient Health Questionnaire-2 Score 0 01/14/2024 [facility] - Occupational Stress Questionnaire Answer Date Recorded Do you feel stress - tense, restless, nervous, or anxious, or unable to sleep at night because your mind is troubled all the time - these days? Only a little 10/31/2022 Hunger Vital Sign Answer Date Recorded Within the past 12 months, y ou worried that your food would run out before you got the money to buy more. Never true 10/31/19 23 Within the past 12 months, t he food you bought just didn't last and you didn't have money to get more. Never true 10/31/2022 PRAPARE - Transportation Answer Date Re corded In the past 12 months, has l ack of transportation kept you from medical appointments or from getting medications? No 10/11 In the past 12 months, has l ack of transportation kept you from meetings, work, or from getting things needed for daily living? No 10/31/2022 Housing Stability Vital Sign Answer Reji e Recorded In the last 12 months, was t here a time when you were not able to pay the mortgage or rent on time? No 10/31/2022 In the last 12 months, how many places have you lived? 1 10/31/2022 In the last 12 months, was t here a time when you did not have a steady place to sleep or slept in a snf (including now)? No 10/31/2022 Sex and Gender Information Value Date Recorded Sex Assigned at Not on file Gender Identity Not on file Sexual Orientation Not on file Last Filed Vital Signs Vital Sign Reading Time Taken Comments Blood Pressure 142/79 11/08/2022 7:52 AM BUSINESS TEAM LEADER Pulse 57 11/08/2022 7:52 AM BUSINESS TEAM LEADER Temperature 36.4 C (97.5 F) 11/08/2022 7:52 AM BUSINESS TEAM LEADER Respiratory Rate 18 11/08/2022 7:52 AM BUSINESS TEAM LEADER Oxygen Saturation 96% 11/08/2022 7:52 AM BUSINESS TEAM LEADER Inhaled Oxygen Concentration - - Weight 110.7 kg (244 lb) 06/11/2023 11:58 AM CDT Height 167.6 cm (5' 6 ) 06/11/2023 11:58 AM CDT Body Mass Index 39.38 06/11/2023 11:58 AM CDT Functional Status Functional Status Response Date of Assess ment Is person deaf or have serious hearing difficult y? Yes 10/31/2022 Is person blind or have serious difficulty seein g? No 10/31/2022 Does person have serious dif ficulty walking/climbing stairs? Yes 10/31/2022 Does person have difficulty dressing/bathing? No 10/31/2022 Does person have difficulty doing errands alone? No 10/31/2022 Cognitive Status Response Date of Assessm ent Does person have difficulty concentrating/remembering/making decisions? Yes 10/31/2022 Plan of Treatment Not on file Medical Devices Implanted Type Area Mergers And Acquisitions Consultant Device Identifier Shelf Expiration Date Model / Serial / Lot Graft Bone Canc 30ml Cube Frzdr Irr Implanted:Qty: 1 on 10/29/2022 by Shaggy Rodriguez MD at [facility] N/A: Spine Lumbar Allosource 03/28/2027 [id number] / / [id number] Graft Bone Accell Evo3 Dbm 10ml Ptty - [id number] Implanted:Qty: 1 on 10/29/2022 by Shaggy Rodriguez MD at [facility] N/A: Spine Lumbar Integra [employer] 09/05/2023 / [id number] / [id number] Graft Bone Accell Evo3 Dbm 10ml Ptty - [id number] Implanted:Qty: 1 on 10/29/2022 by Shaggy Rodriguez MD at [facility] N/A: Spine Lumbar Inte[employer] 09/05/2023 / [id number] / [id number] Eit Plif H 13mm, 8 Degrees, 26/9 Implanted:Qty: 1 on 10/29/2022 by Shaggy Rodriguez MD at [facility] N/A: Spine Lumbar [id number] / / [id number] Screw 7.5mm 45mm Pa Spne Pdcl Xpdm Ti Implanted:Qty: 4 on 10/29/2022 by Shaggy Rodriguez MD at [facility] N/A: Spine Lumbar Synthes Spine [id number] / / Screw 7.5mm 50mm Pa Spne Pdcl Xpdm Ti Implanted:Qty: 2 on 10/29/2022 by Shaggy Rodriguez MD at [facility] N/A: Spine Lumbar Synthes Spine [id number] / / Screw Set Ti 5.5mm Spne 1 Inr Ma Xpdm Implanted:Qty: 6 on 10/29/2022 by Shaggy Rodriguez MD at [facility] N/A: Spine Lumbar Synthes Spine [id number] / / 65mm Mike Implanted:Qty: 2 on 10/29/2022 by Shaggy Rodriguez MD at [facility] N/A: Spine Lumbar Synthes Spine [id number] / / Procedures Procedure Name Priority Date/Time Associated Diagnosis Comments BASIC METABOLIC PANEL (CALCIUM TOTAL) Routine 11/08/2022 4:32 AM BUSINESS TEAM LEADER Spondylolisthesis, unspecified spinal region HEMOGLOBIN A1C Routine 10/30/2022 1:36 AM BUSINESS TEAM LEADER from Last 3 Months or Most Recently Relevant to Health Maintenance Results * (ABNORMAL) BASIC METABOLIC PANEL (CALCIUM TOTAL) (11/08/2022 4:32 AM BUSINESS TEAM LEADER) BUN 15 7 - 26 mg/dL 11/08/2022 5:28 AM [facility] Creatinine 0.82 0.71 - 1.16 mg/dL 11/08/2022 5:28 AM [facility] Sodium 138 136 - 145 mmol/L 11/08/2022 5:28 AM [facility] Potassium 3.9 3.5 - 4.5 mmol/L 11/08/2022 5:28 AM [facility] Chloride 108(H) 98 - 107 mmol/L 11/08/2022 5:28 AM [facility] CO2 21(L) 22 - 29 mmol/L 11/08/2022 5:28 AM [facility] Glucose 111 70 - 115 mg/dL 11/08/2022 5:28 AM [facility] Calcium 9.3 8.4 - 10.2 mg/dL 11/08/2022 5:28 AM [facility] Anion Gap 13 8 - 18 11/08/2022 5:28 AM [facility] BUN/Creatinine Ratio 18 7 - 23 11/08/2022 5:28 AM [facility] Osmolality Calculated 288 270 - 300 mOsm/kg 11/08/2022 5:28 AM [facility] eGFR by CKD-EPI >90 >=90 mL/min/1.7 3 m2 11/08/2022 5:28 AM [facility] Blood BLOOD SPECIMEN / Unknown Lab Venipuncture / Unknown 11/08/2022 4:32 AM BUSINESS TEAM LEADER 11/08/2022 4:59 AM [facility] Shaggy Rodriguez MD LAB - CHEMISTRY ANDREW LEW[facility] Organization Address City/State/ZIP Co de Phone Number [facility] [address] [place] [id number] [phone] * HEMOGLOBIN A1C (10/30/2022 1:36 AM [facility]) Hemoglobin A1c 5.3 <=5.6 % 10/30/2022 11:47 AM [facility] Estimated Average Glucose 105 mg/dL 10/30/2022 11:47 AM [facility] Comment: HbA1c Interpretation: Normal : < 5.7% Pre-diabetes: 5.7-6.4% Diabetes: Equal to or greater than 6.5% Test results diagnostic of diabetes should be repeated for confirmation. Treatment target values recommended by ADA and other clinical organizations should be used to evaluate metabolic control in patients. Reference: [place] Diabetes Association, Standards of Care in Diabetes -2020 In patients 70 years and older consider HbA1c target range of 7.0-7.5% (Reference: Omi Garcia et al. JAMDA. 2012) The Sebia assay for the measurement of HbA1c is a National Glycohemoglobin Standardization Program (NGSP) certified method. Blood BLOOD SPECIMEN / Unknown Lab Venipuncture / Unknown 10/30/2022 1:36 AM BUSINESS TEAM LEADER 10/30/2022 2:37 AM BUSINESS TEAM LEADER Shaggy Rodriguez MD LAB - CHEMISTRY ANDREW LEWIS [facility] [address] [place] [address], [facility] [phone] from Last 3 Months or Most Recently Relevant to Health Maintenance Advance Directives * Full Code (Latest Code Status on File) Date Activated Date Inactivated Comments 10/29/2022 7:45 PM 11/08/2022 3:30 PM Care Teams Bulker Relationship Specialty Start Date End Date David Casanova MD [address] [place], [place] [id number] PCP - General 06/25/22
--- OUTSIDE RECORDS SUMMARY | 2024-11-16 12:11 | XMS_ITS | Clinical Summary ---
Author Organization [facility] Address [address] [place] [address] Phone Care Team Providers Care Braided Band Assembler Name Role Phone Unavailable Primary Care Provider Unavailabl e Allergies No known active allergies Medications traMADoL (ULTRAM) 50 mg tablet Take 1 Tablet by mouth every 6 hours as needed. Active celecoxib (CeleBREX) 200 mg capsule Take 200 mg by mouth 2 times daily. Active baclofen (LIORESAL) 10 mg tablet Take 1 Tablet by mouth 3 times daily. Active finasteride (PROSCAR) 5 mg tablet Take 5 mg by mouth daily. Active atorvastatin (LIPITOR) 10 mg tablet Take 10 mg by mouth daily. Active losartan (COZAAR) 50 mg tablet Take 50 mg by mouth daily. Active buPROPion HCL (WELLBUTRIN XL) 150 mg Extended Release 24 hour tablet Take 150 mg by mouth daily in the morning. Active metFORMIN (GLUCOPHAGE) 500 mg tablet Take 500 mg by mouth 2 times daily with meals. Active pregabalin (LYRICA) 150 mg Capsule Take 150 mg by mouth 2 times daily. Active liothyronine (CYTOMEL) 25 mcg Tablet Take 25 mcg by mouth daily. Active Family History Medical History Relation Name Comments Diabetes Father Heart Disease Father No Known Problems Maternal Grandfather No Known Problems Maternal Grandmother Breast Cancer Mother Cancer Mother Breast Diabetes Mother Heart Disease Mother Hypertension Mother No Known Problems Paternal Grandfather No Known Problems Paternal Grandmother Relation Name Status Comments Father Maternal Grandfather Maternal Grandmother Mother Paternal Grandfather Paternal Grandmother Social History Tobacco Use Types Packs/Day Years Used Date Smoking Tobacco: Never Smokeless Tobacco: Never Tobacco Cessation:Counseling Given: Not Answered Alcohol Use Standard Drinks/Week Comments Not Currently 0 (1 standard drink = 0.6 oz pur e alcohol) Sex and Gender Information Value Date Recorded Sex Assigned at Not on file Legal Sex Male 3:45 PM CDT Gender Identity Not on file Sexual Orientation Not on file Plan of Treatment Health Maintenance Due Date Last Done Comments DTAP/TDAP/TD VACCINES (1 - Tdap) 02/07/1971 COLORECTAL SCREENING 02/07/1997 Colorectal Cancer Screening 02/07/1997 FIT-DNA Q 3 years 02/07/1997 FIT/FOBT Q 1 year 02/07/1997 Flex Sig/CT Colonography Q 5 years 02/07/1997 PNEUMOCOCCAL VACCINE 50+ YEARS (1 of 1 - PCV) 02/08/20 02 ZOSTER VACCINE (1 of 2) 02/07/2002 INFLUENZA VACCINE (#1) 2024 RSV VACCINE (60+ or ) (1 - 1-dose 75+ series) 02/07/2027
--- OUTSIDE RECORDS SUMMARY | 2024-11-16 12:11 | XMS_ITS | Clinical Summary ---
Author Organization [facility] Address [address] [place] [address] Care Team Providers Care Lance Crewmember/Mlrs Sergeant Name Role Phone David Casanova MD Primary Care Provider [phone] Social History Tobacco Use Types Packs/Day Years Used Date Smoking Tobacco: Never Assessed Sex and Gender Information Value Date Recorded Sex Assigned at Not on file Legal Sex Male 10:28 PM AIRPLANE FUELER Gender Identity Not on file Sexual Orientation Not on file Plan of Treatment Health Maintenance Due Date Last Done Comments Colorectal Cancer Screening Colonoscopy (10 Years) 1950 Hepatitis C 02/07/1970 DTaP, Tdap and Td Vaccines ( 1 - Tdap) 02/07/1971 Zoster Vaccines (1 of 2) 02/07/2002 Pneumococcal Vaccine: 65+ Ye ars (1 of 1 - PCV) 02/07/2017 COVID-19 Vaccine ( - 2023-2 5 season) 2024 Influenza Adult (#1) 2024 RSV Immunization or 60+ Years (1 - 1-dose 75+ series) 02/07/2027 Meningococcal B Vaccine Aged Out No l onger eligible based on patient's age to complete this topic Meningococcal Vaccine Aged Out No isamar braxton eligible based on patient's age to complete this topic RSV Immunizations Under 20 Months Aged Out No longer eligible based on patient's age to complete this topic Care Teams Lance Crewmember/Mlrs Sergeant Relationship Specialty Start Date End Date David Casanova MD [address] [place] [id number] PCP - General INTERNAL MEDICINE 10/23/21
--- OUTSIDE RECORDS SUMMARY | 2024-11-16 12:11 | XMS_ITS | Encounter Summary ---
Author Organization [facility] Address [address] [place] [address] Phone Care Team Providers Care Vending Machine Coin Collector Name Role Phone David Casanova MD Primary Care Provider [phone] Eamon Lucia RN Unavailable Unav ailable Encounter Details Date Type Department Care Team (Latest Contact Info) Description 05/12/2019 Orders Only [facility] SLEEP Scanning, Provider Social History Tobacco Use Types Packs/Day Years Used Date Smoking Tobacco: Never Smokeless Tobacco: Never Sex and Gender Information Value Date Recorded Sex Assigned at Not on file Legal Sex Male 1:07 AM VETERINARY PARASITOLOGIST Gender Identity Not on file Sexual Orientation Not on file documented as of this encounter Plan of Treatment Not on file documented as of this encounter Goals Goal Patient Goal Type Associated Problems Recent Progress Patient-Stated? Author CCM Chronic Pain Care Plan Chronic Care Management Improving( 12:43 PM VETERINARY PARASITOLOGIST) No Rabia Aquino, RN Note: Problem: Chronic Pain Goals: 1. Minimize further functional decline 2. Maximize quality of life 3. Control pain Strategies: - Activity/exercise program recommendation - Conservative stepwise pain medicine strategy with multi-disciplinary approach - Recommend healthy lifestyle strategies and compensatory methods as needed documented as of this encounter Procedures Procedure Name Priority Date/Time Associated Diagnosis Comments SLEEP LAB/STUDY - RESULT 05/12/2019 documented in this encounter Results * SLEEP LAB/STUDY - RESULT (05/12/2019) us Provider Scanning Final Result documented in this encounter Visit Diagnoses Not on filedocumented in this encounter Care Teams Vending Machine Coin Collector Relationship Specialty Start Date End Date David Casanova MD PCP - General Internal Medicine 10/02/18 Eamon Lucia, RN Registered Nurse 07/03/19 documented as of this encounter
--- OUTSIDE RECORDS SUMMARY | 2024-11-16 12:11 | XMS_ITS | CONTINUITY OF CARE DOCUMENT ---
Author Name ty, ty Address Unknown Organization [facility] Address [address] [place] [address] Phone [phone] Care Team Providers Care Water Tester Name Role Phone Ariadna Jimenes MD Unavailable JAZZ CLEMONS MD Unavailable JAZZ CLEMONS MD Unavailable [phone] PROBLEMS Condition Status Date Provider Notes Chest pain--nl cath 2017 active Ariadna vargas MD Shortness of breath active Arianda Jimenes MD ANA active Ariadna Jimenes MD FAMILY HISTORY OF HEART DISEASE completed - Ariadna Jimenes MD ABNORMAL ELECTROCARDIOGRAM completed 01/01 - Ariadna Jimenes MD Diabetes mellitus active Ariadna Jimenes MD Palpitations PVCS active Ariadna Jimenes MD Preoperative cardiovascular evaluation--back surgery active Ariadna Jimenes MD ENCOUNTERS Date Type Provider Location Encounter Diag nosis - In-person encounter Office Visit Ariadna Jimenes MD [place] [facility] Chest pain--nl cath 2017Shortness of breathOSAFAMILY HISTORY OF HEART DISEASEABNORMAL ELECTROCARDIOGRAMPreoperative cardiovascular evaluation--back surgery - In-person encounter Office Visit Ariadna Jimenes MD [place] [facility] - In-person encounter Office Visit Ariadna Jimenes MD [place] [facility] Diabetes mellitusPalpitations PVCS - In-person encounter Office Visit Ariadna Jimenes MD [place] [facility] - In-person encounter Office Visit Ariadna Jimenes MD [place] [facility] Chest pain--nl cath 2017 - In-person encounter Office Visit Ariadna Jimenes MD [place] [facility] Chest pain--nl cath 2016Shortness of breathOSA VITAL SIGNS Date Observation Value Provider Body Mass Index (Ratio) 36.49 kg/m2 Ricky Jimenes MD blood pressure, diastolic 72 mm[Hg] Gauri castelan [place] blood pressure, systolic 151 mm[Hg] Vince agus [place] oxygen saturation, oximetry 99 % Leila Dawson pulse rate 93 /min Leila pope weight E&M 233 [lb_av] Leila pope respiratory rate E&M 16 /min Shira Dawson blood pressure, cuff size large Gauri castelan [place] height E&M 67 [in_i] Leila pope Body Mass Index (Ratio) 42.60 kg/m2 Ricky Jimenes MD blood pressure, cuff size large Ke henoki Deya blood pressure, diastolic 70 mm[Hg] Bud whitingi Deya blood pressure, systolic 132 mm[Hg] Chayito Falk oxygen saturation, oximetry 95 % Savanah Falk respiratory rate E&M 16 /min Savanah finley pulse rate 78 /min Saavnah perkins weight E&M 272 [lb_av] Savanah perkins height E&M 67 [in_i] Savanah perkins Body Mass Index (Ratio) 44.26 kg/m2 Ricky Jimenes MD blood pressure, diastolic 74 mm[Hg] Verona Armijo blood pressure, systolic 132 mm[Hg] Gayla Armijo oxygen saturation, oximetry 96 % Shoshana Armijo respiratory rate E&M 18 /min Elio Armijo pulse rate 86 /min Shoshana luna weight E&M 282.6 [lb_av] Shoshana khan height E&M 67 [in_i] Shoshana luna blood pressure, diastolic 86 mm[Hg] Baltazar Young RN blood pressure, systolic 153 mm[Hg] Dharmesh Young RN pulse rate 82 /min Dharmesh Young RN oxygen saturation, oximetry 98 % Dharmesh Young RN respiratory rate E&M 16 /min Dharmesh tracy RN Body Mass Index (Ratio) 46.06 kg/m2 Dharmesh Young RN weight E&M 293 [lb_av] Dharmesh Young RN height E&M 67 [in_i] Dharmesh Young RN blood pressure, diastolic 87 mm[Hg] Richards blood pressure, systolic 141 mm[Hg] Sandip Driver pulse rate 75 /min Olga Driver oxygen saturation, oximetry 96 % Olga Driver respiratory rate E&M 16 /min Olga Driver weight E&M 294 [lb_av] Olga Driver blood pressure, diastolic 82 mm[Hg] Richards blood pressure, systolic 122 mm[Hg] Sandip Driver pulse rate 79 /min Olga Driver oxygen saturation, oximetry 95 % Olga Driver respiratory rate E&M 16 /min Olga Driver weight E&M 293 [lb_av] Olga Driver ALLERGIES No Known Drug Allergies HISTORY OF MEDICATION USE Medication Status Instructions Dates Provider Indications Com ments MAGNESIUM CAPSULE active 133 mg once a day Savanah Deya Toprol XL 25 mg tablet extended release 24 hr active 1 tablet once a day Ariadna Jimenes MD sertraline 100 mg tablet active once a day Shoshana Armijo LORAZEPAM TABLET completed as directed - Savanah Falk metformin 500 mg tablet active twice a day Shoshana Armijo METOPROLOL TARTRATE 25 MG ORAL TABLET completed one tab po twice daily - Shoshana Armijo PLETAL 100 MG ORAL TABLET completed - Shoshana Armijo ASPIRIN 325 MG ORAL TABLET completed ONE TAB. twice DAILY - Shoshana BUSHP NIACIN 250 MG ORAL TABLET completed daily - Shoshana Armijo SLOW-MAG TABLET DELAYED RELEASE completed - Shoshana Armijo MIRAPEX TABLET active Ariadna Jimenes MD ASPIRIN 325 MG ORAL TABLET completed ONE TAB. DAILY - Shoshana Armijo Wellbutrin XL 300 mg tablet extended release 24 hr active 1 tablet once a day Leila Dawson SOCIAL HISTORY Date Observation Value Provider social history E&M Marital Statu s: Smoking History: Xochilt grimaldo has never smoked. Chintan Flor passive cigarette sm mee exposure no Leila Dawson smoking status Never smoker Leila Juarez social history reviewed E&M revi ewed - no changes required Chintan Flor alcohol use no Savanah ramoser drug use no Savanah ramoser passive cigarette sm mee exposure no Savanah Falk smoking status Never smoker Savanah henderson social history E&M Marital Statu s: Smoking History: P re has never smoked. Ariadna Jimenes MD social history reviewed E&M revi ewed - no changes required Ariadna Jimenes MD alcohol use no Shoshana luna drug use no Shoshana luna passive cigarette sm mee exposure no Shoshana Armijo smoking status Never smoker Shoshana Jimenez social history reviewed E&M reviewed Ariadna Jimenes MD drug use no Dharmesh Young RN passive cigarette sm mee exposure no Dharmesh Young RN smoking status never smoker Dharmesh Young RN social history reviewed E&M reviewed Ariadna Jimenes MD social history E&M Marital Status: Douglas d Ariadna Jimenes MD drug use none Ariadna Jimenes MD social history reviewed E&M reviewed Ariadna Jimenes MD MENTAL STATUS Date Observation Value Provider assessment of judgme nt and insight E&M Alert and oriented to time, place and person. Mood and affect are normal.Alert and oriented to time, place and person. Mood and affect are normal. Ariadna Jimenes MD assessment of judgme nt and insight E&M Alert and oriented to time, place and person. Mood and affect are normal.Alert and oriented to time, place and person. Mood and affect are normal. Ariadna Jimenes MD assessment of judgme nt and insight E&M Alert and oriented to time, place and person. Mood and affect are normal.Alert and oriented to time, place and person. Mood and affect are normal. Ariadna Jimenes MD FAMILY HISTORY Family Member Condition Mother Family History Unkno wn INSURANCE PROVIDERS Payer name Policy type / Coverage type [place] red green party ID [facility] MEDICARE COMPLETE HMO Other [id number] ADVANCE DIRECTIVES Name Date DISCUSSED - NO DECISION MADE TREATMENT PLAN Date Name Performer [id number],Chintan Lowe i [id number],Chintan Woodruff i [id number],SChintan i [id number],S, Chintan Arnett i [id number],S, Chintan Arnett i Cardiology Chintan Arnetti Cardiology Chintan Arnetti Cardiology Chintan Arnetti Cardiology Chintan Arnetti Cardiology Chintan Arnettelie Cardiology Ariadna Jimenes MD Cardiology Ariadna Jimenes MD Cardiology Ariadna Jimenes MD Cardiology Ariadna Jimenes MD : H is updated medication list for this problem includes: Aspirin 325 Mg Tabs (Aspirin) ..... One tab. daily Slow-mag Tbec (Magnesium cl-calcium carbonate tbec) Aspirin 325 Mg Tabs (Aspirin) ..... One tab. twice daily Metoprolol Tartrate 25 Mg Tabs (Metoprolol tartrate) ..... One tab po twice daily Ariadna Jimenes MD : H is updated medication list for this problem includes: Aspirin 325 Mg Tabs (Aspirin) ..... One tab. daily Aspirin 325 Mg Tabs (Aspirin) ..... One tab. twice daily Pletal 100 Mg Tabs (Cilostazol) Metoprolol Tartrate 25 Mg Tabs (Metoprolol tartrate) ..... One tab po twice daily BP today: 153/86 Prior BP: 141/87 (01/30/2011) N uclear Stress Findings: 1. Regadenoson mediated myocardial perfusion study 2 . Normal left ventricular systolic function with a calculated ejection fraction of 50%. 3 . No obvious significant scintigraphic evidence of myocardial ischemia or scar. (01/17/2011) Ariadna Jimenes MD : H is updated medication list for this problem includes: Aspirin 325 Mg Tabs (Aspirin) ..... One tab. daily Aspirin 325 Mg Tabs (Aspirin) ..... One tab. twice daily Pletal 100 Mg Tabs (Cilostazol) Metoprolol Tartrate 25 Mg Tabs (Metoprolol tartrate) ..... One tab po twice daily BP today: 153/86 Prior BP: 141/87 (01/30/2011) N uclear Stress Findings: 1. Regadenoson mediated myocardial perfusion study 2 . Normal left ventricular systolic function with a calculated ejection fraction of 50%. 3 . No obvious significant scintigraphic evidence of myocardial ischemia or scar. (01/17/2011) Ariadna Jimenes MD follow up: H is updated medication list for this problem includes: Aspirin 81 Mg Tabs (Aspirin) ..... 1 tab daily Slow-mag Tbec (Magnesium cl-calcium carbonate tbec) BP today: 141/87 Prior BP: 122/82 (01/01/2011) N uclear Stress Findings: 1. Regadenoson mediated myocardial perfusion study 2 . Normal left ventricular systolic function with a calculated ejection fraction of 50%. 3 . No obvious significant scintigraphic evidence of myocardial ischemia or scar. (01/17/2011) E chocardiogram: Normal left ventricular systolic function. Normal left ventricular size. Normal left ventricular wall thickness. There is E to A wave reversal consistent with impaired LV relaxation. Normal E/E` 6.0. Left ventricular ejection fraction is estimated at 70%. No significant valvular abnormalities. - (01/17/2011) Ariadna Jimenes MD follow up: H is updated medication list for this problem includes: Aspirin 81 Mg Tabs (Aspirin) ..... 1 tab daily Ariadna Jimenes MD follow up: H is updated medication list for this problem includes: Aspirin 81 Mg Tabs (Aspirin) ..... 1 tab daily BP today: 141/87 Prior BP: 122/82 (01/01/2011) N uclear Stress Findings: 1. Regadenoson mediated myocardial perfusion study 2 . Normal left ventricular systolic function with a calculated ejection fraction of 50%. 3 . No obvious significant scintigraphic evidence of myocardial ischemia or scar. (01/17/2011) E chocardiogram: Normal left ventricular systolic function. Normal left ventricular size. Normal left ventricular wall thickness. There is E to A wave reversal consistent with impaired LV relaxation. Normal E/E` 6.0. Left ventricular ejection fraction is estimated at 70%. No significant valvular abnormalities. - (01/17/2011) Ariadna Jimenes MD follow up: H is updated medication list for this problem includes: Aspirin 81 Mg Tabs (Aspirin) ..... 1 tab daily Orders: E KG ([id number]) Ariadna Jimenes MD follow up: H is updated medication list for this problem includes: Aspirin 81 Mg Tabs (Aspirin) ..... 1 tab daily Slow-mag Tbec (Magnesium cl-calcium carbonate tbec) Ariadna Jimenes MD Date Name Stress Regadenoson HISTORY OF PROCEDURES Procedure Date Procedure Name Provider Procedure Notes S tatus EKG Ariadna Jimenes MD completed SNOMED-CT: 666568701965455 Current Medications Documented Ariadna Jimenes MD completed Stress EKG Richie Obrien MD completed Regadenoson, 4 units Richie Obrien MD completed Cardiolite, 2 units Richie Obrien MD completed SPECT Images Richie Obrien MD completed ZIO Holter [facility] Ariadna Jimenes MD co mpleted SNOMED-CT: [id number] Physical Exam, Performed: Pulse Exam of Foot Ariadna Jimenes MD completed EKG Ariadna iJmenes MD completed SNOMED-CT: 114896436592955 Current Medications Documented Ariadna Jimenes MD completed ePrescribe - Check t his box if eRx is used Ariadna Jimenes MD completed EKG Ariadna Jimenes MD completed
--- OUTSIDE RECORDS SUMMARY | 2024-11-16 12:11 | XMS_ITS | Clinical Summary ---
Author Organization [facility] [employer] Address [address] [place] [address] Care Team Providers Care Marketing Compliance Manager Name Role Phone David Casanova MD Primary Care Provider [phone] Source Comments [facility] [employer],non-owned Affiliates and Associated Physician Practices is amultiple site organization consisting of ambulatory clinics and hospital sitesin [place], [place], [place] and [place]. This disclosure is being madepursuant to the Care Everywhere program and may not contain all information available regarding this patient. Last updated 18.[facility] [employer] Allergies No known active allergies Medications * [...] PO Take by mouth once daily Active Izwn-Wtkohf-H-Biot -I28-Hsrb 160-1.7 MG TABS Active metoprolol succinate XL [...] Recorded Patient Health Questionnaire-2 Score 0 01/14/2024 [facility] - [...] place to sleep or slept in a senior care (including now)? No 10/31/2022 Sex and Gender Information Value Date Recorded Sex Assigned at Not on file Gender Identity Not on file Sexual Orientation Not on file Last Filed Vital Signs Vital Sign Reading Time Taken Comments Blood Pressure 142/79 11/08/2022 7:52 AM TECHNICAL PUBLICATIONS WRITER Pulse 57 11/08/2022 7:52 AM TECHNICAL PUBLICATIONS WRITER Temperature 36.4 C (97.5 F) 11/08/2022 7:52 AM TECHNICAL PUBLICATIONS WRITER Respiratory Rate 18 11/08/2022 7:52 AM TECHNICAL PUBLICATIONS WRITER Oxygen Saturation 96% 11/08/2022 7:52 AM TECHNICAL PUBLICATIONS WRITER Inhaled Oxygen Concentration - - Weight 110.7 kg (244 lb) 06/11/2023 11:58 AM CDT Height 167.6 cm (5' 6 ) 06/11/2023 11:58 AM CDT Body Mass Index 39.38 06/11/2023 11:58 AM CDT Plan of Treatment Health Maintenance Due Date Last Done Comments COLOGUARD (AGES 45-75) - COLON CA SCREENING 1952 COLON MONITORING 1952 COLONOSCOPY - COLON CA SCREENING 1952 CT COLONOGRAPHY - COLON CA SCREENING 1952 Colorectal Cancer Screening 1952 FIT - COLON CA SCREENING 1952 FLEX SIG - COLON CA SCREENING 1952 HEPATITIS C SCREENING 02/03/1970 DTAP/TDAP/TD VACCINES (1 - Tdap) 02/07/1971 PNEUMOCOCCAL VACCINE 50+ (1 of 2 - PCV) 02/07/1971 ZOSTER VACCINE (1 of 2) 02/07/2002 DIABETES RETINOPATHY SCREENING 11/08/2022 DIABETES-FOOT EXAM WITH MONOFILAMENT 11/08/2022 DIABETES-HGB A1C 04/29/2023 10/30/2022, 05/28/2022 DIABETES-SERUM CREATININE 11/09/20232022, 11/07/2022, 11/06/2022, Additional history exists COVID-19 VACCINE ( season) 2024 06/12/2021, 11/01/2020, 10/11/2020 INFLUENZA VACCINE (#1) 2024 05/21/2019, 2017 DEPRESSION SCREENING 09/09/2024 DIABETES - URINE PROTEIN SCREENING 09/09/2024 MEDICARE AWV CALENDAR YEAR 2024 Respiratory Syncytial Virus (RSV) Vaccine Pt: or over 60 yrs (1 - 1-dose 75+ series) 02/07/2027 HEPATITIS B VACCINE Aged Out No longe r eligible based on patient's age to complete this topic HIB VACCINE Aged Out No longer eligi ble based on patient's age to complete this topic HPV VACCINE Aged Out No longer eligi ble based on patient's age to complete this topic MENINGOCOCCAL (Group B) VACCINE Aged Out No longer eligible based on patient's age to complete this topic MENINGOCOCCAL VACCINE Aged Out No isamar braxton eligible based on patient's age to complete this topic Medical Devices Implanted Type Area Entertainment Dancer Device Identifier Shelf Expiration Date Model / Serial / Lot Graft Bone Canc 30ml Cube Frzdr Irr Implanted:Qty: 1 on 10/29/2022 by Shaggy Rodriguez MD at [facility] N/A: Spine Lumbar Allosource 03/28/2027 [id number] / / [id number] Graft Bone Accell Evo3 Dbm 10ml Ptty - [id number] Implanted:Qty: 1 on 10/29/2022 by Shaggy Rodriguez MD at [facility] N/A: Spine Lumbar Integra [employer] 09/05/2023 / [id number] / [id number] Graft Bone Accell Evo3 Dbm 10ml Ptty - [id number] Implanted:Qty: 1 on 10/29/2022 by Shaggy Rodriguez MD at [facility] N/A: Spine Lumbar [employer] 09/05/2023 / [id number] / [id number] Eit Plif H 13mm, 8 Degrees, 04/06 Implanted:Qty: 1 on 10/29/2022 by Shaggy Rodriguez MD at [facility] N/A: Spine Lumbar [id number] / / [id number] Screw 7.5mm 45mm Pa Spne Pdcl Xpdm Ti Implanted:Qty: 4 on 10/29/2022 by Shaggy Rodriguez MD at [facility] N/A: Spine Lumbar Synthes Spine [id number] / / Screw 7.5mm 50mm Pa Spne Pdcl Xpdm Ti Implanted:Qty: 2 on 10/29/2022 by Shaggy Rodriguez MD at [facility] N/A: Spine Lumbar Synthes Spine [id number] / / Screw Set Ti 5.5mm Spne 1 Inr Ma Xpdm Implanted:Qty: 6 on 10/29/2022 by Shaggy Rodriguez MD at [facility] N/A: Spine Lumbar Synthes Spine [id number] / / 65mm Mike Implanted:Qty: 2 on 10/29/2022 by Shaggy Rodriguez MD at [facility] N/A: Spine Lumbar Synthes Spine [id number] / / Procedures Procedure Name Priority Date/Time Associated Diagnosis Comments BASIC METABOLIC PANEL (CALCIUM TOTAL) Routine 11/08/2022 4:32 AM TECHNICAL PUBLICATIONS WRITER Spondylolisthesis, unspecified spinal region HEMOGLOBIN A1C Routine 10/30/2022 1:36 AM TECHNICAL PUBLICATIONS WRITER from Last 3 Months or Most Recently Relevant to Health Maintenance Results * (ABNORMAL) BASIC METABOLIC PANEL (CALCIUM TOTAL) (11/08/2022 4:32 AM TECHNICAL PUBLICATIONS WRITER) BUN 15 7 - 26 mg/dL 11/08/2022 5:28 AM [facility] Creatinine 0.82 0.71 - 1.16 mg/dL 11/08/2022 5:28 AM [facility] Sodium 138 136 - 145 mmol/L 11/08/2022 5:28 AM [facility] Potassium 3.9 3.5 - 4.5 mmol/L 11/08/2022 5:28 AM [facility] Chloride 108(H) 98 - 107 mmol/L 11/08/2022 5:28 AM [facility] CO2 21(L) 22 - 29 mmol/L 11/08/2022 5:28 AM [facility] Glucose 111 70 - 115 mg/dL 11/08/2022 5:28 AM [facility] Calcium 9.3 8.4 - 10.2 mg/dL 11/08/2022 5:28 AM [facility] Anion Gap 13 8 - 18 11/08/2022 5:28 AM [facility] BUN/Creatinine Ratio 18 7 - 23 11/08/2022 5:28 AM [facility] Osmolality Calculated 288 270 - 300 mOsm/kg 11/08/2022 5:28 AM [facility] eGFR by CKD-EPI >90 >=90 mL/min/1.7 3 m2 11/08/2022 5:28 AM [facility] Blood BLOOD SPECIMEN / Unknown Lab Venipuncture / Unknown 11/08/2022 4:32 AM TECHNICAL PUBLICATIONS WRITER 11/08/2022 4:59 AM TECHNICAL PUBLICATIONS WRITER Shaggy Rodriguez MD LAB - CHEMISTRY ANDREW LEWIS Performing Organization Address City/[facility]/ZIP Co de Phone Number [facility] [address] [place] [address], [place] [phone] * HEMOGLOBIN A1C (10/30/2022 1:36 AM TECHNICAL PUBLICATIONS WRITER) Hemoglobin A1c 5.3 <=5.6 % 10/30/2022 11:47 AM [facility] Estimated Average Glucose 105 mg/dL 10/30/2022 11:47 AM [facility] Comment: HbA1c Interpretation: Normal : < 5.7% Pre-diabetes: 5.7-6.4% Diabetes: Equal to or greater than 6.5% Test results diagnostic of diabetes should be repeated for confirmation. Treatment target values recommended by ADA and other clinical organizations should be used to evaluate metabolic control in patients. Reference: [place] [employer], Standards of Care in Diabetes -2020 In patients 70 years and older consider HbA1c target range of 7.0-7.5% (Reference: Omi Garcia et al. JAMDA. 2012) The Sebia assay for the measurement of HbA1c is a National Glycohemoglobin Standardization Program (NGSP) certified method. Blood BLOOD SPECIMEN / Unknown Lab Venipuncture / Unknown 10/30/2022 1:36 AM TECHNICAL PUBLICATIONS WRITER 10/30/2022 2:37 AM TECHNICAL PUBLICATIONS WRITER Shaggy Rodriguez MD LAB - CHEMISTRY ANDREW LEWIS Performing Organization Address City/[facility]/ZIP Co de Phone Number [facility] [address] [place] [address], [place] [phone] from Last 3 Months or Most Recently Relevant to Health Maintenance Advance Directives * Full Code (Latest Code Status on File) Date Activated Date Inactivated Comments 10/29/2022 7:45 PM 11/08/2022 3:30 PM Care Teams Marketing Compliance Manager Relationship Specialty Start Date End Date David Casanova MD [address] [place] [address] PCP - General 06/25/22
--- OUTSIDE RECORDS SUMMARY | 2024-11-16 12:11 | XMS_ITS | Clinical Summary ---
Author Organization [facility] Address [address] [place] [address] Care Team Providers Care Microarray Analyst Name Role Phone David Casanova MD Primary Care Provider [phone] Eamon Lucia RN Unavailable Unav ailable Allergies [...] chloride (Jo 128) 5 % ophthalmic ointmentIndicati ons:Vbu-[id number] erprint corneal dystrophy APPLY 1/4 INCH INTO [...] (04/27/2021): Added automatically from request for surgery [id number] Frequent falls 02/21/2021 Primary osteoarthritis of right knee 11/17/2020 Lumbar spondylosis 06/17/2020 Overview (06/17/2020): Added automatically from request for surgery [id number] Chronic use of opiate drug for therapeutic purpo se 11/29/2019 Overview (10/08/2022): Chronic Opioid Therapy - 10/08/21 Current opioid: - tramadol - 100 mg QID = 400 mg max/day Morphine daily equivalent: 40 mg/day Other : NO NSAIDS - elevated his blood pressure Benzo : none Storage : told to keep secure Plan: Continue, encourage restricting uses possible Urine Drug Screen [facility] 11/10/19 - consistent with prescribed tramadol Urine Drug Screen [facility] 11/21/20 - consistent with prescribed tramadol Urine drug screen [facility] 07/04/22 - consistent with prescribed tramadol Lumbar radiculopathy 11/02/2019 Displacement of lumbar intervertebral disc 07/19 Nocturnal leg cramps 05/13/2019 Uud-elx-lhbkpweosxd 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 Right posterior capsular opacification [...] (12+ Yrs) PURPLE 06/12/2021,11/01/2020,10/11/2020 ZOSTER Recombinant 05/21/2019,03/05/2019 Surgical History Surgery Date Site/Laterality Comments ROTATOR CUFF REPAIR 09/09/2014 - 09/08/2015 Right NJ INJ LUMBAR/SACRAL,W/WO CNTRST Corticosteroid Injection Interlaminar Approach Lumbar - (Added by TW Conv) NERVE BLOCK Nerve Block Paravertebral Facet Joint - LMBB- Bilateral L3, L4, L5,S1 (Added by TW Conv) NERVE BLOCK Nerve Block Paravertebral Facet Joint - LMBB #2 bilateral L3,4,5 S1 (Added by TW Conv) NJ DSTR NROLYTC AGNT PARVERTEB FCT SNGL LMBR/SACRAL Nerve Ablation Paravertebral Facet Joint With Imaging Guidance Lumbar - Lumbar RFA: bilateral L3,L4,L5,S1 (Added by TW Conv) TOTAL SHOULDER ARTHROPLASTY 09/09/2007 - 09/08/2008 Left CARPAL TUNNEL RELEASE 09/09/2007 - 09/08/2008 Bilateral LUMBAR FUSION 10/10/2022 - 11/06/2022 COLONOSCOPY 09/09/2005 - 09/08/2006 Medical History Medical History Date Comments Hx Other Medical ADHD Hx Other Medical High Cholestero l Hx Other Medical Back pain Hx Other Medical left shoulder r eplaced Hx Other Medical right shoulder repair jul 1502/2015 Depression Depression Hypertension Hypertension Low back pain Hip pain Enlarged prostate Anxiety Type 2 diabetes mellitus (HCC) Enlarged prostate Osteoarthritis Sleep apnea Wears CPAP Restless leg syndrome Peripheral neuropathy Delayed emergence from general anesthesia slow to wake, remembers having CPAP in place Family History Medical History Relation Name Comments Heart disease Father Hypertension Father Cancer Mother Diabetes Mother Heart disease Mother Hypertension Mother Diabetes Other 1 Family history of Diabetes mellitus; Hypertension Other 2 Family history of Hypertension; Heart disease Other 3 Family history of Heart problems; Kidney disease Other 4 Family histor y of Kidney problems; Anesthesia problems Neg Hx Relation Name Status Comments Father Mother Other 1 Other 2 Other 3 Other 4 Social History Tobacco Use Types Packs/Day Years [...] on file Legal Sex Male 1:07 AM BAND SAW MARKER Gender Identity Not on file Sexual Orientation Not on file Occupation Industry Job Start Date Job End Date RETIRED Not on file Not on file Not on file Obstetrics History Last Filed Vital Signs Vital Sign Reading Time Taken Comments Blood Pressure 146/78 05/27/2024 11:06 AM CDT Pulse 60 05/27/2024 11:06 AM CDT Temperature 36.5 C (97.7 F) 05/27/2024 11:06 AM CDT Respiratory Rate 18 10/01/2023 7:57 AM BAND SAW MARKER Oxygen Saturation 99% 05/27/2024 11:06 AM CDT Inhaled Oxygen Concentration - - Weight 118.2 kg (260 lb 8 oz) 05/27/2024 11:06 A M CDT Height 167.6 cm (5' 6 ) 05/27/2024 11:06 AM CDT Body Mass Index 42.05 05/27/2024 11:06 AM CDT Plan of Treatment Health Maintenance Due Date Last Done Comments Albumin Creatinine Ratio, Urine 1950 Colon Cancer Screening-Colonoscopy 1950 Depression Screening 1950 Hepatitis C Screening 1950 Dilated Eye Exam 1952 Foot Exam 1952 Lipid Panel 1950 DTaP/Tdap/Td Vaccine (1 - Tdap) 02/07/1963 Hepatitis B Screening 02/07/1970 Pneumococcal vaccine 65+ (1 of 2 - PCV) 02/07/1971 Well Visit 65+ 02/07/2017 Hemoglobin A1C 04/29/2023 10/30/2022, 05/10, 11/28/2021, Additional history exists eGFR 05/28/2023 05/28/2022, 06/0 11/2021, 11/28/2021, Additional history exists Covid-19 Vaccine (2023-2 5 season) 2024 06/12/2021, 11/01/2020, 10/11/2020 Influenza Vaccine (#1) 2024 , 05/21/2019, 05/28/2018 Fall Risk Assessment 10/01/2024 10/01/2023 Zoster Vaccine Completed 05/21/2019, 03/05/2019 Goals Goal Patient Goal Type Associated Problems Recent Progress Patient-Stated? Author CCM Chronic Pain Care Plan Chronic Care Management Improving( 12:43 PM BAND SAW MARKER) Rabia Davies, RN Note: Problem: Chronic Pain Goals: 1. Minimize further functional decline 2. Maximize quality of life 3. Control pain Strategies: - Activity/exercise program recommendation - Conservative stepwise pain medicine strategy with multi-disciplinary approach - Recommend healthy lifestyle strategies and compensatory methods as needed Medical Devices Implanted Type Area Dietitian Teaching Device Identifier Shelf Expiration Date Model / [...] 90 - 130 mL/min/1. 73 m2 BRANDI WHITE Comment: Interpretive Data Reference Interval Normal >/= [...] us Yang Rose NP LAB BLOOD ORDERABLES Fin al Result [facility] [place] [address] * POCT hemoglobin A1c (05/28/2022 9:16 AM CDT) Hgb A1C, POC 5.6 4.0 - 5.6 % [facility] Est Average Gluc POC 114 mg/dL [facility] Comment: The ADA recommends reporting an estimated Average Glucose (eAG) with all Hemoglobin A1c results using the equation derived from a study of 507 normal and diabetic adults. Minority populations were underrepresented and children were not included. (Diabetes Care 31:3741-7013, 2008). The eAG is not equivalent to a fasting glucose. Blood 05/28/2022 9:16 AM CDT 05/28/2022 9:16 AM CDT Dre Riggins MD POINT OF CARE TEST ORDERABLES F inal Result [facility] [place] [address] from Last 3 Months or Most Recently Relevant to Health Maintenance Insurance [address] [place] [address] MEDICARE [facility] MDCR HMO REF [place] [id number] MEDICARE SOLUTIONS MEDICARE SOLUTIONS Advance Directives For more information, please contact: [phone] * Full Code (Latest Code Status on File) Date Activated Date Inactivated Comments 09/30/2023 7:34 PM 10/01/2023 5:13 PM Care Teams Microarray Analyst Relationship Specialty Start Date End Date David Casanova MD PCP - General Internal Medicine 10/02/18 Eamon Lucia, RN Registered Nurse 07/03/19
--- OUTSIDE RECORDS SUMMARY | 2024-11-16 12:11 | XMS_ITS | Encounter Summary ---
Author Organization [facility] Address [address] [place] [address] Care Team Providers Care Senior Data Mining Analyst Name Role Phone David Casanova MD Primary Care Provider Eamon Luica RN Unavailable Unav ailable Reason for Visit * Reason Onset Date Comments Scheduling Appointments 08/17/2019 Encounter Details Date Type Department Care Team (Late st Contact Info) Description 08/17/2019 Telephone [facility] [place] [facility] [address] [facility] [address] [place] [address] Richie Garcia MD [address] [facility] [address] [facility] [phone] [place], [place] [id number] Scheduling Appointments Social History Tobacco Use Types Packs/Day Years Used Date Smoking Tobacco: Never Smokeless Tobacco: Never Alcohol Use Standard Drinks/Week Comments Not Currently 0 (1 standard drink = 0.6 oz pur e alcohol) denies Sex and Gender Information Value Date Recorded Sex Assigned at Not on file Legal Sex Male 1:07 AM BASKET WEAVER Gender Identity Not on file Sexual Orientation Not on file documented as of this encounter Plan of Treatment Not on file documented as of this encounter Goals Goal Patient Goal Type Associated Problems Recent Progress Patient-Stated? Author CCM Chronic Pain Care Plan Chronic Care Management Improving( 12:43 PM BASKET WEAVER) No Rabia Aquino, RN Note: Problem: Chronic Pain Goals: 1. Minimize further functional decline 2. Maximize quality of life 3. Control pain Strategies: - Activity/exercise program recommendation - Conservative stepwise pain medicine strategy with multi-disciplinary approach - Recommend healthy lifestyle strategies and compensatory methods as needed documented as of this encounter Visit Diagnoses Not on filedocumented in this encounter Care Teams Senior Data Mining Analyst Relationship Specialty Start Date End Date David Casanova MD PCP - General Internal Medicine 10/02/18 Eamon Lucia, RN Registered Nurse 07/03/19 documented as of this encounter
--- OUTSIDE RECORDS SUMMARY | 2024-11-16 12:11 | XMS_ITS | Patient Health Summary ---
Author Organization [facility] Address [address] [place] [address] Care Team Providers Care [employer] House Broker Name Role Phone David Casanova MD Primary Care Provider [phone] Note from [facility],non-owned Affiliates and Associated Physician Practices is amultiple site organization consisting of ambulatory clinics and hospital sitesin [place], [place], [place] and [place]. This disclosure is being madepursuant to the Care Everywhere program and may not contain all information available regarding this patient. Last updated 18.[facility] Allergies No known active allergies Medications * Be aware that medications may not be up to date on this document. Alwaysverify current medications with the patient. * atorvastatin (Lipitor) 10 MG tablet Take 1 (one) tablet by mouth once daily * baclofen (Lioresal) 10 MG tablet Take 1 (one) tablet by mouth 3 times daily * buPROPion XL 24hr (Wellbutrin-XL) 150 MG tablet Take 1 (one) tablet by mouth 2 times daily * cyanocobalamin, vitamin B-12, 2500 MCG tablet Dissolve 1 (one) tablet under the tongue Two times a week * finasteride (Proscar) 5 MG tablet Take 1 (one) tablet by mouth once daily * liothyronine (Cytomel) 25 MCG tablet(Started 04/24/2022) Take 1 (one) tablet by mouth 2 times daily * pregabalin (Lyrica) 150 MG capsule(Started 01/24/2022) Take 1 cap a.m., 1 cap p.m., and 2 caps bedtime * folic acid (Folvite) 1 MG tablet Take 1 (one) tablet by mouth once daily * MILK THISTLE PO Take by mouth once daily * Urnh-Gaybtw-Y-Ajxy-O88-Akls 160-1.7 MG TABS * metoprolol succinate XL 24hr (Toprol XL) 25 MG tablet Take 1 (one) tablet by mouth once daily * semaglutide (Ozempic) 2 MG/1.5ML pen Inject subcutaneously every 7 days Wednesdays * acetaminophen (Tylenol) 325 MG tablet(Started 11/01/2022) Take 2 (two) tablets by mouth every 4 hours Maximum allowable Acetaminophen amount = 4 Grams (4000 mg) / 24 hours. * docusate sodium (Colace) 100 MG capsule(Started 11/01/2022) Take 1 (one) capsule by mouth once daily * polyethylene glycol 3350 (Miralax) 17 GM/SCOOP powder(Started 11/01/2022) Take 17 (seventeen) g by mouth once daily * buPROPion SR 12hr (Wellbutrin-SR) 150 MG tablet(Started 08/15/2022) * menthol, Topical Analgesic, (GNP THERAPEUTIC BLUE GEL) 2 % gel Apply 1 Dose to affected area as needed * montelukast (Singulair) 10 MG tablet(Started 08/27/2022) * oxyCODONE, immediate release, (Roxicodone) 5 MG tablet(Started 11/08/2022) Take 1 (one) tablet by mouth every 4 hours as needed * metFORMIN (Glucophage) 500 MG tablet(Started 11/21/2022) * losartan (Cozaar) 100 MG tablet(Started 01/17/2023) Active Problems Problem Noted Date Diagnosed Date [...] Recorded Patient Health Questionnaire-2 Score 0 01/14/2024 [facility] - [...] place to sleep or slept in a halfway (including now)? No 10/31/2022 Sex and Gender Information Value Date Recorded Sex Assigned at Not on file Gender Identity Not on file Sexual Orientation Not on file Last Filed Vital Signs Vital Sign Reading Time Taken Comments Blood Pressure 142/79 11/08/2022 7:52 AM [facility] Pulse 57 11/08/2022 7:52 AM [facility] Temperature 36.4 C (97.5 F) 11/08/2022 7:52 AM [facility] Respiratory Rate 18 11/08/2022 7:52 AM [facility] Oxygen Saturation 96% 11/08/2022 7:52 AM [facility] Inhaled Oxygen Concentration - - Weight 110.7 kg (244 lb) 06/11/2023 11:58 AM CDT Height 167.6 cm (5' 6 ) 06/11/2023 11:58 AM CDT Body Mass Index 39.38 06/11/2023 11:58 AM CDT Medical Devices Implanted Type Area Leader Assembler Device Identifier Shelf Expiration Date Model / Serial / Lot Graft Bone Canc 30ml Cube Frzdr Irr Implanted:Qty: 1 on 10/29/2022 by Shaggy Rodriguez MD at [facility] N/A: Spine Lumbar Allosource 03/28/2027 [id number] / / [id number] Graft Bone Accell Evo3 Dbm 10ml Ptty - [id number] Implanted:Qty: 1 on 10/29/2022 by Shaggy Rodriguez MD at [facility] N/A: Spine Lumbar [employer] 09/05/2023 / [id number] / [id number] Graft Bone Accell Evo3 Dbm 10ml Ptty - [id number] Implanted:Qty: 1 on 10/29/2022 by Shaggy Rodriguez MD at [facility] N/A: Spine Lumbar [employer] 09/05/2023 / [id number] / [id number] Eit Plif H 13mm, 8 Degrees, 26/9 Implanted:Qty: 1 on 10/29/2022 by Shaggy Rodriguez MD at [facility] N/A: Spine Lumbar [id number] / / [id number] Screw 7.5mm 45mm Pa Spne Pdcl Xpdm Ti Implanted:Qty: 4 on 10/29/2022 by Shaggy Rodriguez MD at [facility] N/A: Spine Lumbar Synthes Spine [id number] / / Screw 7.5mm 50mm Pa Spne Pdcl Xpdm Ti Implanted:Qty: 2 on 10/29/2022 by Shaggy Rodriguez MD at [facility] N/A: Spine Lumbar Synthes Spine [id number] / / Screw Set Ti 5.5mm Spne 1 Inr Ma Xpdm Implanted:Qty: 6 on 10/29/2022 by Shaggy Rodriguez MD at [facility] N/A: Spine Lumbar Synthes Spine [id number] / / 65mm Mike Implanted:Qty: 2 on 10/29/2022 by Shaggy Rodriguez MD at [facility] N/A: Spine Lumbar Synthes Spine [id number] / / Procedures * XR LUMBAR SPINE 2 OR 3VW(Performed 01/14/2024) Performed for S/P lumbar fusion * XR LUMBAR SPINE 2 OR 3VW(Performed 06/11/2023) Performed for S/P lumbar fusion * XR LUMBAR SPINE 2 OR 3VW(Performed 02/12/2023) Performed for S/P lumbar fusion * XR LUMBAR SPINE 2 OR 3VW(Performed 12/12/2022) Performed for S/P lumbar fusion * CARDIAC EKG ORDER(Performed 11/19/2022) * XR LUMBAR SPINE 2 OR 3VW(Performed 11/14/2022) Performed for Lumbar radiculopathy * GLUCOSE - POINT OF CARE(Performed 11/08/2022) * GLUCOSE - POINT OF CARE(Performed 11/08/2022) * CBC W/O DIFFERENTIAL(Performed 11/08/2022) Performed for Spondylolisthesis, unspecified spinal region * BASIC METABOLIC PANEL (CALCIUM TOTAL)(Performed 11/08/2022) Performed for Spondylolisthesis, unspecified spinal region * GLUCOSE - POINT OF CARE(Performed 11/08/2022) * GLUCOSE - POINT OF CARE(Performed 11/07/2022) * GLUCOSE - POINT OF CARE(Performed 11/07/2022) * GLUCOSE - POINT OF CARE(Performed 11/07/2022) * GLUCOSE - POINT OF CARE(Performed 11/07/2022) * CBC W/O DIFFERENTIAL(Performed 11/07/2022) Performed for Spondylolisthesis, unspecified spinal region * BASIC METABOLIC PANEL (CALCIUM TOTAL)(Performed 11/07/2022) Performed for Spondylolisthesis, unspecified spinal region * GLUCOSE - POINT OF CARE(Performed 11/07/2022) * GLUCOSE - POINT OF CARE(Performed 11/06/2022) * GLUCOSE - POINT OF CARE(Performed 11/06/2022) * GLUCOSE - POINT OF CARE(Performed 11/06/2022) * GLUCOSE - POINT OF CARE(Performed 11/06/2022) * CBC W/O DIFFERENTIAL(Performed 11/06/2022) Performed for Spondylolisthesis, unspecified spinal region * BASIC METABOLIC PANEL (CALCIUM TOTAL)(Performed 11/06/2022) Performed for Spondylolisthesis, unspecified spinal region * GLUCOSE - POINT OF CARE(Performed 11/06/2022) * GLUCOSE - POINT OF CARE(Performed 11/05/2022) * GLUCOSE - POINT OF CARE(Performed 11/05/2022) * GLUCOSE - POINT OF CARE(Performed 11/05/2022) * GLUCOSE - POINT OF CARE(Performed 11/05/2022) * CBC W/O DIFFERENTIAL(Performed 11/05/2022) Performed for Spondylolisthesis, unspecified spinal region * BASIC METABOLIC PANEL (CALCIUM TOTAL)(Performed 11/05/2022) Performed for Spondylolisthesis, unspecified spinal region * GLUCOSE - POINT OF CARE(Performed 11/04/2022) * GLUCOSE - POINT OF CARE(Performed 11/04/2022) * GLUCOSE - POINT OF CARE(Performed 11/04/2022) * GLUCOSE - POINT OF CARE(Performed 11/04/2022) * CBC W/O DIFFERENTIAL(Performed 11/04/2022) Performed for Spondylolisthesis, unspecified spinal region * BASIC METABOLIC PANEL (CALCIUM TOTAL)(Performed 11/04/2022) Performed for Spondylolisthesis, unspecified spinal region * GLUCOSE - POINT OF CARE(Performed 11/03/2022) * GLUCOSE - POINT OF CARE(Performed 11/03/2022) * GLUCOSE - POINT OF CARE(Performed 11/03/2022) * GLUCOSE - POINT OF CARE(Performed 11/03/2022) * CBC W/O DIFFERENTIAL(Performed 11/03/2022) Performed for Spondylolisthesis, unspecified spinal region * BASIC METABOLIC PANEL (CALCIUM TOTAL)(Performed 11/03/2022) Performed for Spondylolisthesis, unspecified spinal region * GLUCOSE - POINT OF CARE(Performed 11/02/2022) * GLUCOSE - POINT OF CARE(Performed 11/02/2022) * GLUCOSE - POINT OF CARE(Performed 11/02/2022) * GLUCOSE - POINT OF CARE(Performed 11/02/2022) * CBC W/O DIFFERENTIAL(Performed 11/02/2022) Performed for Spondylolisthesis, unspecified spinal region * BASIC METABOLIC PANEL (CALCIUM TOTAL)(Performed 11/02/2022) Performed for Spondylolisthesis, unspecified spinal region * GLUCOSE - POINT OF CARE(Performed 11/01/2022) * GLUCOSE - POINT OF CARE(Performed 11/01/2022) * GLUCOSE - POINT OF CARE(Performed 11/01/2022) * GLUCOSE - POINT OF CARE(Performed 11/01/2022) * GLUCOSE - POINT OF CARE(Performed 11/01/2022) * CBC W/O DIFFERENTIAL(Performed 11/01/2022) Performed for Spondylolisthesis, unspecified spinal region * BASIC METABOLIC PANEL (CALCIUM TOTAL)(Performed 11/01/2022) Performed for Spondylolisthesis, unspecified spinal region * GLUCOSE - POINT OF CARE(Performed 10/31/2022) * GLUCOSE - POINT OF CARE(Performed 10/31/2022) * GLUCOSE - POINT OF CARE(Performed 10/31/2022) * GLUCOSE - POINT OF CARE(Performed 10/31/2022) * CBC W/O DIFFERENTIAL(Performed 10/31/2022) Performed for Spondylolisthesis, unspecified spinal region * BASIC METABOLIC PANEL (CALCIUM TOTAL)(Performed 10/31/2022) Performed for Spondylolisthesis, unspecified spinal region * GLUCOSE - POINT OF CARE(Performed 10/30/2022) * GLUCOSE - POINT OF CARE(Performed 10/30/2022) * XR LUMBAR SPINE 2 OR 3VW(Performed 10/30/2022) Performed for Spondylolisthesis, unspecified spinal region * GLUCOSE - POINT OF CARE(Performed 10/30/2022) * GLUCOSE - POINT OF CARE(Performed 10/30/2022) * HEMOGLOBIN A1C(Performed 10/30/2022) * CBC W/O DIFFERENTIAL(Performed 10/30/2022) Performed for Spondylolisthesis, unspecified spinal region * BASIC METABOLIC PANEL (CALCIUM TOTAL)(Performed 10/30/2022) Performed for Spondylolisthesis, unspecified spinal region * GLUCOSE - POINT OF CARE(Performed 10/29/2022) * FL YANDEL SURGERY(Performed 10/29/2022) Performed for Spondylolisthesis, unspecified spinal region * BLOOD GAS+COOX+LYTES+METAB ARTERIAL POCT(Performed 10/29/2022) * BLOOD GAS+COOX+LYTES+METAB ARTERIAL POCT(Performed 10/29/2022) * BLOOD GAS ART+LYTES+METAB+COOX POC NOTIF(Performed 10/29/2022) Performed for Spondylolisthesis, unspecified spinal region * ARTERIAL LINE NOTE(Performed 10/29/2022) * FUSION POSTERIOR LUMBAR INTERBODY (PLIF)(Performed 10/29/2022) Performed for Spondylolisthesis of lumbar region, Lumbar radiculopathy * ENDOTRACHEAL TUBE NOTE(Performed 10/29/2022) * GLUCOSE - POINT OF CARE(Performed 10/29/2022) * TYPE + SCREEN PANEL(Performed 10/29/2022) Performed for Spondylolisthesis, unspecified spinal region * TYPE + SCREEN PANEL(Performed 10/09/2022) Performed for Spondylolisthesis, unspecified spinal region * CBC W/O DIFFERENTIAL(Performed 10/09/2022) Performed for Spondylolisthesis, unspecified spinal region * BASIC METABOLIC PANEL (CALCIUM TOTAL)(Performed 10/09/2022) Performed for Spondylolisthesis, unspecified spinal region * EKG 12-LEAD(Performed 10/09/2022) Performed for Preop examination * XR LUMBAR SPINE 2 OR 3VW(Performed 07/17/2022) Performed for Back pain, unspecified back location, unspecified back pain laterality, unspecified chronicity Results * XR LUMBAR SPINE 2 OR 3VW (01/14/2024 10:46 AM CDT) Only the most recent of7 resultswithin the time period is included. Anatomical Region Laterality Modality Spine Radiographic Radha ging 01/14/2024 10:4 9 AM CDT Impressions 01/14/2024 11:02 AM CDT IMPRESSION: Instrumented spinal fusion of L4-S1, unchanged. Report dictated by Ashu Cisneros DO (vice president of communications). I, Surinder Locke MD have personally reviewed and interpreted this examination/study. > Interpreting Provider: Surinder Locke MD on 01/14/2024 11:02 AM Narrative 01/14/2024 11:02 AM CDT PROCEDURE: XR LUMBAR SPINE 2 OR 3VW, DATE/TIME OF EXAM: 01/14/2024 10:46 AM, LOCATION [facility] INDICATION: Z98.1: S/P lumbar fusion ADDITIONAL CLINICAL INFORMATION: Ordering Provider Reason For Exam: s/p lumbar fusion Technologist Note: Additional: COMPARISON: 06/11/2023 FINDINGS: Redemonstrated posterior spinal fusion of L4-S1 with posterior rods and screws and intervertebral fusion device at L5-S1. Unchanged grade 1 anterolisthesis of L4 on L5. Unchanged mild retrolisthesis of T12 on L1, L1 on L2, and L2 on L3. No acute fractures. Mild to moderate degenerative changes, grossly unchanged. Procedure Note Surinder Locke MD - 01/14/2024 PROCEDURE: XR LUMBAR SPINE 2 OR 3VW, DATE/TIME OF EXAM: 01/14/2024 10:46 AM, LOCATION [facility] INDICATION: Z98.1: S/P lumbar fusion ADDITIONAL CLINICAL INFORMATION: Ordering Provider Reason For Exam: s/p lumbar fusion Technologist Note: Additional: COMPARISON: 06/11/2023 FINDINGS: Redemonstrated posterior spinal fusion of L4-S1 with posterior rods and screws and intervertebral fusion device at L5-S1. Unchanged grade 1 anterolisthesis of L4 on L5. Unchanged mild retrolisthesis of T12 on L1,L1 on L2, and L2 on L3. No acute fractures. Mild to moderate degenerative changes, grossly unchanged. IMPRESSION: Instrumented spinal fusion of L4-S1, unchanged. Report dictated by Ashu Cisneros DO (vice president of communications). I, Surinder Locke MD have personally reviewed and interpreted this examination/study. > Interpreting Provider: Surinder Locke MD on 01/14/2024 11:02 AM Shaggy Rodriguez MD DIAGNOSTIC IMAGING O RDERABLES * CARDIAC EKG ORDER (11/19/2022 5:49 PM CDT) Narrative 11/19/2022 5:49 PM CDT Ordered by an unspecified provider. Scanned Document CARDIAC SERVICES ORD ERABLES * (ABNORMAL) GLUCOSE - POINT OF CARE (11/08/2022 11:47 AM [facility]) Only the most recent of44 resultswithin the time period is included. [facility] Glucose WB/POC 117(H) 70 - 115 mg/dL 11/08/2022 11:48 AM [facility] Specimen Type Cap Fingerstick 2022 11:48 AM [facility] Blood BLOOD SPECIMEN / Unknown 11/08/2022 11:47 AM [facility] 11/08/2022 11:48 AM [facility] Dennise Fajardo MD LAB - POINT OF CARE ORDERABLES [facility] [address] [place] [address], [facility] [email or web address]] [phone] * (ABNORMAL) CBC W/O DIFFERENTIAL (11/08/2022 4:32 AM [facility]) Only the most recent of11 resultswithin the time period is included. [facility] WBC 4.6 3.5 - 10.5 10 3/uL 11/08/2022 5:11 AM [facility] RBC 4.01(L) 4.30 - 5.70 10 6/uL 11/08/2022 5:11 AM [facility] Hemoglobin 11.5(L) 12.0 - 17.6 g/dL 11/08/2022 5:11 AM [facility] Hematocrit 32.9(L) 35.2 - 51.7 % 11/08/2022 5:11 AM [facility] MCV 82.0 80.7 - 98.3 fL 11/08/2022 5:11 AM [facility] MCH 28.7 26.7 - 34.0 pg 11/08/2022 5:11 AM [facility] MCHC 35.0 30.8 - 35.9 g/dL 11/08/2022 5:11 AM [facility] RDW-SD 36.2 36.0 - 50.0 fL 11/08/2022 5:11 AM [facility] RDW-CV 11.9 11.2 - 14.8 % 11/08/2022 5:11 AM [facility] Platelet Count 248 150 - 400 10 3/uL 11/08/2022 5:11 AM [facility] MPV 9.6 9.4 - 12.9 fL 11/08/2022 5:11 AM [facility] nRBC Absolute 0.00 0 10 3/uL 11/08/2022 5:11 AM [facility] nRBC Auto 0.0 0 /100 WBC 11/08/2022 5:11 AM [facility] Blood BLOOD SPECIMEN / Unknown Lab Venipuncture / Unknown 11/08/2022 4:32 AM [facility] 11/08/2022 4:58 AM [facility] Shaggy Rodriguez MD LAB - HEMATOLOGY ORD ERABLES [facility] [address] [place] [address], [facility] [email or web address]] [phone] * (ABNORMAL) BASIC METABOLIC PANEL (CALCIUM TOTAL) (11/08/2022 4:32 AM [facility]) Only the most recent of11 resultswithin the time period is included. BUN 15 7 - 26 mg/dL 11/08/2022 [...] Lab Venipuncture / Unknown 11/08/2022 4:32 AM [facility] 11/08/2022 4:59 AM [facility] Shaggy Rodriguez MD LAB - CHEMISTRY ANDREW LEWIS [facility] [address] [place] [address], [place] [phone] * HEMOGLOBIN A1C (10/30/2022 1:36 AM [facility]) Hemoglobin A1c 5.3 <=5.6 % 10/30/2022 11:47 AM [facility] Estimated Average Glucose 105 mg/dL 10/30/2022 11:47 AM [facility] Comment: HbA1c Interpretation: Normal : < 5.7% Pre-diabetes: 5.7-6.4% Diabetes: Equal to or greater than 6.5% Test results diagnostic of diabetes should be repeated for confirmation. Treatment target values recommended by ADA and other clinical organizations should be used to evaluate metabolic control in patients. Reference: [place] [employer], Standards of Care in Diabetes -2020 In patients 70 years and older consider HbA1c target range of 7.0-7.5% (Reference: Omi Garcia et al. JAMDA. 2012) The Sebia assay for the measurement of HbA1c is a National Glycohemoglobin Standardization Program (NGSP) certified method. Blood BLOOD SPECIMEN / Unknown Lab Venipuncture / Unknown 10/30/2022 1:36 AM [facility] 10/30/2022 2:37 AM [facility] Shaggy Rodriguez MD LAB - CHEMISTRY ANDREW LEWIS [facility] [address] [place] [address], [place] [phone] * FL YANDEL SURGERY (10/29/2022 4:50 PM [facility]) Narrative [facility] RADIOLOGY - 10/29/2022 6:00 PM [facility] Fluoroscopy was used for this exam in the OR. Please see the Operative report. Shaggy Rodriguez MD FLUOROSCOPY ORDERABL ES [facility] RADIOLOGY * (ABNORMAL) BLOOD GAS+COOX+LYTES+METAB ARTERIAL POCT (10/29/2022 4:30 PM [facility]) Only the most recent of2 resultswithin the time period is included. pH Arterial 7.40 7.35 - 7.45 pH 10/29/2022 4:30 PM [facility] pO2 Arterial 209(H) 80 - 100 mmHg 10/29/2022 4:30 PM [facility] pCO2 Arterial 41 35 - 45 mmHg 4:30 PM [facility] HCO3 Arterial 25 20 - 30 mmol/l 10/29/2022 4:30 PM [facility] BE Arterial 0.5 -2.0 - 2.0 mmol/L 10/29/2022 4:30 PM [facility] Oxyhemoglobin Arterial 96.9 % 10/29/2022 4:30 PM [facility] Dexoyhemoglobin (HHB) % 0.5 % 10/29/2022 4:30 PM [facility] Methemoglobin 1.1 0.0 - 2.0 % 10/29/2022 4:30 PM [facility] Carboxyhemoglobin 1.5 0.0 - 2.0 % 2022 4:30 PM [facility] Comment:Carboxyhemoglobin No rmal Concentration: Non-smokers: 0-2%; Smokers: 0- 9%; Toxic: >20% O2 Content Arterial 19.2 Interpret within clinical context ml/dL 10/29/2022 4:30 PM [facility] Hemoglobin by COOX 13.8 12.0 - 17.6 g/dL 10/29/2022 4:30 PM [facility] O2 Saturation Arterial 100 90 - 100 % 10/29/2022 4:30 PM [facility] Sodium Whole Blood 140 135 - 145 mmol/L 10/29/2022 4:30 PM [facility] Potassium Whole Blood 3.7 3.5 - 5.5 mmol/L 10/29/2022 4:30 PM [facility] Chloride WB 106 101 - 111 mmol/L 10/29/2022 4:30 PM [facility] Calcium Ionized 1.22 mmol/L 4:30 PM [facility] Ionized Calcium pH Adjusted 1.22 1.19 - 1.34 mmol/L 10/29/2022 4:30 PM [facility] Anion Gap (AG) Arterial 12 8 - 18 mmol/L 10/29/2022 4:30 PM [facility] Glucose WB 92 70 - 105 mg/dL 10/29/2022 4:30 PM [facility] Lactic Acid Whole Blood 0.9 <=2.0 mmol/L 10/29/2022 4:30 PM [facility] Blood, arterial ARTERIAL BLOOD SPECIMEN / Unknown 10/29/2022 4:30 PM [facility] 10/29/2022 4:30 PM [facility] Shaggy Rodriguez MD LAB - POINT OF CARE ORDERABLES [address] [address], [place] [phone] * BLOOD GAS ART+LYTES+METAB+COOX POC NOTIF (10/29/2022 2:49 PM [facility]) Comment Notification Label Only - See Separate Report 10/29/2022 4:00 PM [facility] Other MISCELLANEOUS SAMPLES / Unknown 10/29/2022 2:49 PM [facility] 10/29/2022 2:51 PM [facility] James Rinaldi MD LAB - BLOOD GASES ORDERABLES [address] [address], [place] [phone] * ARTERIAL LINE PERFORMABLE (10/29/2022 1:34 PM [facility]) Narrative Marlon Eng Anes Asst - 10/29/2022 1:34 PM [facility] Marlon Eng Anes Asst 10/29/2022 1:35 PM Arterial Line Placement Procedure Note Patient Location: OR. Procedure: Arterial Line ([id number]). Procedure Section Indications: continuous blood pressure monitoring. Consent: informed consent could not be obtained due to the patient's condition, urgency of situation, and/or lack of family members to sign consent. Skin Prep: Chloraprep. Orientation: Left. Site: radial. Site Identification: palpation. Gauge: 20. Catheter Type: Arrow. Number of Attempts: 2. Line Secured with: Tegaderm. Procedure Tolerance: tolerated well and performed while patient under general anesthesia. Events: none. Staff Section Anesthesia Provider: Marlon Eng Anes Asst, Performed the procedure James Rinaldi MD GENERAL ANESTHESI A ORDERABLES * ETT LINE PERFORMABLE (10/29/2022 12:13 PM [facility]) Narrative Marlon Eng Anes Asst - 10/29/2022 12:13 PM [facility] Marlon Eng Anes Asst 10/29/2022 1:18 PM Endotracheal Tube Placement: Patient Location: OR. Intubation Event Date/Time: 10/29/2022 12:13 PM Procedure: intubation ([id number]). Procedure Section: Sedation: under general anesthesia. Indications for Airway Management: anesthesia Procedure pretreatments used? No Induction: standard IV Patient Position: sniffing, ramp/troop pillow and supine Mask Ventilation: difficult and required 2 people (2 handed). Blade Type: Jerry Blade Size: 4 Laryngoscopy View: grade 2 (partial cords) Intubation Adjuncts: stylet Tube: endotracheal tube Placement: oral Tube type: cuff - inflated Tube Size (MM): 7.5 Depth of Insertion (CM): 23 Measured From: lips Cuff volume (mL): 8 Cuff Inflated With: air Number of Attempts: 1. Placement Verified By: bilateral breath sounds, direct visualization, chest auscultation and CO2 monitor Tube secured with: adhesive tape. Dentition unchanged? Yes Difficult Airway? No. Procedure Start Time: 10/29/2022 12:13 PM. Procedure End Time: 10/29/2022 12:13 PM. Procedure Total Time: 0 minutes. Staff Section Anesthesia Provider: Marlon Eng Anes Asst, Performed the procedure Provider #1: James Zarate MD, Performed the procedure. James Rinaldi MD GENERAL ANESTHESI A ORDERABLES * TYPE + SCREEN PANEL (10/29/2022 9:38 AM [facility]) Only the most recent of2 resultswithin the time period is included. Antibody Screen NEG 10:38 AM [facility] BLOOD BANK LAB ABO Rh B POS 10/29/2022 10:38 AM [facility] LAB Blood Bank BLOOD SPECIMEN / Unknown Venipuncture / Unknown 10/29/2022 9:38 AM [facility] 10/29/2022 9:57 AM [facility] Provider Unknown LAB - BLOOD BANK ORD ERABLES [facility] LAB [address] [place] [address], [facility] [email or web address] [phone] * EKG 12-LEAD (10/09/2022 2:40 PM [facility]) Ventricular Rate 67 BPM SL MUSE Atrial Rate 67 BPM [facility] MUSE P-R Interval 234 ms [facility] MUSE QRS Duration ms 80 ms [facility] MUSE Q-T Interval ms 374 ms [facility] MUSE QTC Calculation (Bezet) 395 ms [facility] MUSE Calculated P [place] 37 degrees SL MUSE Calculated R [place] 6 degrees SL MUSE Calculated T [place] 29 degrees [facility] MUSE Interpretation EKG SINUS RHYTHM WITH 1ST DEGREE A-V BLOCK OTHERWISE NORMAL ECG NO PREVIOUS ECGS AVAILABLE Confirmed by CARLOS BERNAL MD ([id number]) on 10/10/2022 1:21:26 PM [facility] MUSE 10/09/2022 2:40 PM [facility] 10/10/2022 1:21 PM [facility] Provider Unknown ECG ORDERABLES [facility] MUSE Care Teams [employer] Broker Relationship Specialty Start Date End Date David Casanova MD [address] [place] [address] PCP - General 06/25/22
== END 2024-11-16 10:24 | disposition home or self-care (01) ==
LOC: CHSIMG 10:25
PROVIDERS: PCP Family Medicine; Visit Provider Family Medicine
DX: M25.552 Pain in left hip (principal); M25.562 Pain in left knee; M11.262 Other chondrocalcinosis, left knee
CPT/HCPCS: 73502; 73562

== ENCOUNTER 2024-12-01 15:12 | Outpatient (RCR) | payer MEDICARE, SELFPAY ==
--- NOTE | 2024-12-01 16:18 | PTOPEVAL1 ---
Assessment and note entered by Louisa Calloway DPT Evaluation Information Assessment Status Evaluation Diagnosis weakness, B LE pain Other ICD-10 Condition Codes ( R29.898 PT) Onset 11/17/24 Subjective Information Patient reports he has B LE weakness and joint pain. He reports he fell back in July and since then he has had the pain and weakness. He reports he has not used a cane or a walker since. He reports pain and weakness occur when he is walking and standing to complete house hold tasks. He reports he has done PT in the past but has not kept on exercises as much as he shoulder. He reports his balance has not been good. Reported Pain Level Pain Score 0,4: Self Report Assessment PT Clinical Summary Mr. Herrera is a 74 year old male who presents to PT with B LE pain and weakness. He demonstrates decreased B LE flexibility, decreased B LE strength and impaired posture limiting his ability to ambulate prolonged stances and complete house hold tasks. Patient also has a history of falls. He would benefit from skilled PT to address impairments and return to PLOF Plan of Care Interventions Gait Training,Hot Pack/Cold Pack,Manual Therapy, Neuro Re-education,Patient/Caregiver Education, Therapeutic Activities,Therapeutic Exercise PT Services Indicated Yes Treatment Frequency and 2x weekly for 10 visits Duration These treatments will address the objective and functional deficits as defined above. The patient will be advanced safely and appropriately in order for the patient to progress towards his/her prior level of function. Additional exercises will be introduced and as well as a comprehensive home exercise program upon discharge, if needed, ?to ensure carryover of functional gains achieved in the clinic. This treatment plan has been reviewed and agreement upon by the patient.
--- NOTE | 2024-12-24 10:20 | PTOPPROG ---
Assessment and note entered by Stephanie See, PT Evaluation Information Assessment Status Progress Diagnosis weakness, B LE pain Other ICD-10 Condition Codes ( R29.898 PT) Onset 11/17/24 Subjective Information Boo reports his back continues to hurt. He currently reports 2/10 pain but it increases to 7/ 10 or more. His pain increases suddenly and he notes frequent spasms. He had a fall last week and was unable to get up, and had to go to the hospital ER. He had some of his meds changed. His knees and hips are feeling better but he still feels like they could give out at any time. He wore a knee brace yesterday and that helped him feel more supported. He reports he has not been doing his exercises at home due to being busy. Assessment PT Clinical Summary Mr. Herrera has attended 6 total skilled PT visits addressing bilateral leg pain and weakness. Since beginning therapy he reports his pain is relatively unchanged and still comes and goes in severe waves. He has made good improvements but is still unable to stand or walk for more than 30 mins due to onset of pain. He will benefit from continued skilled PT intervention to improve on these deficits to be able to perform daily functional tasks with less pain. Educated pt on adherence to HEP. Plan of Care Interventions Electrical Stimulation,Gait Training,Hot Pack/Cold Pack,Manual Therapy,Neuro Re-education,Patient/ Caregiver Education,Therapeutic Activities, Therapeutic Exercise,Self-Care/Home Management PT Services Indicated Yes Treatment Frequency and 2x/week for 4 additional visits Duration These treatments will address the objective and functional deficits as defined above. The patient will be advanced safely and appropriately in order for the patient to progress towards his/her prior level of function. Additional exercises will be introduced and as well as a comprehensive home exercise program upon discharge, if needed, ?to ensure carryover of functional gains achieved in the clinic. This treatment plan has been reviewed and agreement upon by the patient.
--- NOTE | 2024-12-24 10:20 | OPREHPOC ---
Outpatient Therapy Plan of Care This is a Multidisciplinary Plan of Care that may contain components documented by all disciplines (PT, OT, and ST.) PT Problem 1 PT Problem #1 Knowledge Deficit PT Goal 1 Goal / Goal Update Patient to demonstrate independence with HEP Target Visit 5 Progress Not Met PT Problem 2 PT Problem #2 Pain PT Goal 1 Goal / Goal Update patient to report ability to stand for >30 minutes with no increase in LE pain to complete kitchen tasks Target Visit 10 Progress Not Met PT Problem 3 PT Problem #3 Impaired Strength PT Goal 1 Goal / Goal Update patient to demonstrate 4+/5 B LE strength in order to return to house hold chores at PLOF Target Visit 10 Progress Met PT Problem 4 PT Problem #4 Impaired Functional Mobility PT Goal 1 Goal / Goal Update 1. patient to improve LEFS by 20% -not met 2. patient to report ability to ambulate >30 minutes to return to grocery shopping -not met 3. patient to ambulate 6 minutes without needing to sit -met Target Visit 10 Progress Partially Met
--- NOTE | 2025-01-07 10:33 | OPREHPOC ---
Outpatient Therapy Plan of Care This is a Multidisciplinary Plan of Care that may contain components documented by all disciplines (PT, OT, and ST.) PT Problem 1 PT Problem #1 Knowledge Deficit PT Goal 1 Goal / Goal Update Patient to demonstrate independence with HEP Target Visit 5 Progress Met PT Problem 2 PT Problem #2 Pain PT Goal 1 Goal / Goal Update patient to report ability to stand for >30 minutes with no increase in LE pain to complete kitchen tasks Target Visit 10 Progress Not Met PT Problem 3 PT Problem #3 Impaired Strength PT Goal 1 Goal / Goal Update patient to demonstrate 4+/5 B LE strength in order to return to house hold chores at PLOF Target Visit 10 Progress Partially Met PT Problem 4 PT Problem #4 Impaired Functional Mobility PT Goal 1 Goal / Goal Update 1. patient to improve LEFS by 20% -not met 2. patient to report ability to ambulate >30 minutes to return to grocery shopping -not met 3. patient to ambulate 6 minutes without needing to sit -met Target Visit 10 Progress Partially Met
--- NOTE | 2025-01-07 10:33 | PTOPDC ---
Assessment and note entered by JT File, PT Evaluation Information Assessment Status Discharge Diagnosis weakness, B LE pain Other ICD-10 Condition Codes ( R29.898 PT) Onset 11/17/24 Subjective Information patient reports he still has increased pain in the lower back and legs at times, but today he is not feeling too bad so far. he reports the weather does increase his pain, and he anticipates he will be feeling worse later today. he reports he believes he can try going for a bit without skilled PT, and reports he will be better about doing his HEP. he reports he still only tolerates about 20-30 minutes max of standing and walking before needing to sit due to pain. he reports he has to use a shopping cart in the grocery store to be able to go any longer than 30 minutes. Reported Pain Level Pain Score 2,1,1: Self Report Assessment PT Clinical Summary mr. nixon presents to skilled PT for his 10th skilled PT visit today. he continues to have lower back and LE pain that increases at times. however , today his pain is low at rest. he has made progress towards goals, but has made no more significant progress towards goals achievement since his last therapy re-evaluation. he will DC skilled PT today and continue with HEP independent at home. Plan of Care PT Services Indicated Yes
== END 2025-01-07 14:13 | disposition home or self-care (01) ==
LOC: CHSPT 15:12
PROVIDERS: Visit Provider Family Medicine
DX: R29.898 Other symptoms and signs involving the musculoskeletal system (principal)
CPT/HCPCS: 97014; 97110; 97150; 97161; 97530; G0283

== ENCOUNTER 2024-12-14 09:16 | Emergency (ER) | payer MEDICARE, SELFPAY ==
[2024-12-14 09:22] VITALS: BP 139/78; PULSE 57; RESP 20; TEMP 36.6; O2SAT 93
--- NOTE | 2024-12-14 09:38 | ED.BACK ---
HPI - Back Pain/Injury General Chief Complaint: Back Pain/Injury Stated Complaint: back pain Time Seen by Provider: 12/14/24 09:36 Source: patient and EMS Mode of arrival: EMS History of Present Illness HPI Narrative: patient came to the ED with pain and spasm of the muscles home the mid lower back mainly on the right side started yesterday around noon. Patient was in a doing the laundry, turned around suddenly to answer his call and felt sharp stabbing pain at the mid back mainly on the right side worse with movement and position, better at rest, patient was not able to get out of bed this morning because the pain is worse than yesterday. He denies radiation of pain, Patient denies bowel dysfunction, bladder dysfunction, altered sensation, focal weakness, or saddle numbness, history of lower back surgery 2 years ago. History of diabetes, hypertension, hyperlipidemia, patient does not take anti-platelet or anticoagulant medication, patient currently on omeprazole 20 mg once a day. He takes Tylenol as needed for pain. Last back pain was 3 weeks ago after cleaning his car Related Data Allergies Allergy/AdvReac Type Severity Reaction Status Date / Time diazepam Allergy Unknown Unknown Verified 12/14/24 09:20 TRANQUILIZERS UNK Allergy Mild Unknown Uncoded 12/14/24 09:20 Review of Systems Review of Systems: All systems reviewed & are unremarkable except as noted in HPI and below PMFSH Past Medical History Medical History Spondylolisthesis Patient denies medical problems Surgical History Surgical History S/P lumbar spinal fusion Family History Family History Mother Hypertension Family history of diabetes mellitus in first degree relative Family history of coronary artery disease Family history of malignant neoplasm of breast in first degree relative Diabetes mellitus Family history of cardiovascular disease Grandparent Cerebrovascular accident Family history of malignant neoplasm Family history of coronary artery disease Social History Social History Smoking status: Never smoker Alcohol intake: never Exam Narrative: General appearance: Well-developed, well-nourished Skin: Normal color Head: Normocephalic, nontraumatic Eyes: Clear conjunctiva ENT: Oropharynx normal, ears normal, nose normal Neck: Supple, nontender Chest and respiratory: Airway patent, no respiratory distress, no accessory muscle use Heart: Regular rate/rhythm Abdomen: Soft, nontender, no organomegaly, quiet bowel sounds Vascular: Normal peripheral pulses, normal capillary refill. Musculoskeletal: mild tenderness right side of the mid back, paraspinous, no bruises, no swelling or rash, limited range of motion at the lumbar area Neurologic: Alert and oriented ?3, ASSOCIATE DIRECTOR OF BIOSTATISTICS is normal as tested, no gross motor deficit Course Vital Signs Vital signs: Vital Signs Temperature 36.6 C 12/14/24 09:22 Pulse Rate 57 L 12/14/24 09:22 Respiratory Rate 20 12/14/24 09:22 Blood Pressure 139/78 12/14/24 09:22 Pulse Oximetry 93 12/14/24 09:22 Oxygen Delivery Room Air 12/14/24 09:22 Temperature 36.6 C 12/14/24 09:22 Pulse Rate 57 L 12/14/24 09:22 Respiratory Rate 20 12/14/24 09:22 Blood Pressure 139/78 12/14/24 09:22 Pulse Oximetry 93 12/14/24 09:22 Oxygen Delivery Room Air 12/14/24 09:22 MDM - Back Pain/Injury MDM Narrative Medical decision making narrative: differential diagnosis include acute back pain on top of chronic. No labs or imaging are required at this time. Differential Diagnosis Differential diagnosis: Likely strain of lumbar region and thoracic back pain Critical Care Time Critical Care Time Critical Care Time: No Discharge Plan Discharge Clinical Impression: Back pain Patient Disposition: Home Condition: Stable Instructions: Antibiotic Form, Acute Low Back Pain (ED), Lower Back Exercises (ED) Additional Instructions: Return if symptoms are worsening , call your family physician for appointment, take Tylenol as as needed for aches and pain, continue home medications. Massage Heating pad Physical therapy Increased the dose of omeprazole to 40 mg once a day Patient Language: Thai Prescriptions: New diclofenac sodium 75 mg tablet,delayed release (DR/EC) 75 mg PO BID PRN (Reason: pain) Qty: 14 0RF cyclobenzaprine 7.5 mg tablet 7.5 mg PO TID Qty: 20 0RF No Action hydrocodone-acetaminophen 5-325 mg tablet 1 tablet PO Q8H PRN (Reason: pain) Qty: 10 0RF Follow-up/Referrals: Dave,Italia Gamino MD [Primary Care Provider] -
[2024-12-14] MEDS: ONDANSETRON INJ 4 MG/2 ML VIAL IV PUSH (09:55)
[2024-12-14] MEDS: KETOROLAC 15 MG/ML VIAL (*BKC) IV PUSH (09:57)
[2024-12-14] MEDS: HYDROmorphone HCL INJ (*CRX) 2 MG/ML VIAL 0.5 MG IV PUSH (09:59)
[2024-12-14 10:00] VITALS: BP 143/78; PULSE 57; RESP 16; O2SAT 95
--- OUTSIDE RECORDS SUMMARY | 2024-12-14 10:02 | XMS_ITS | Clinical Summary ---
Author Organization [facility] Address [address] [place] [address] Phone Care Team Providers Care Master Control Supervisor Name Role Phone Unavailable Primary Care Provider [...]
--- OUTSIDE RECORDS SUMMARY | 2024-12-14 10:02 | XMS_ITS | Encounter Summary ---
Author Organization [facility] Healthcare Address [address] [place] [address] Care Team Providers Care Wind Turbine Blade Repair Technician Name Role Phone Davdi Casanova MD Primary Care Provider [phone] Eamon Lucia RN Unavailable Unav ailable Reason for Visit * Reason Onset Date Comments Scheduling Appointments 08/17/2019 Encounter Details Date Type Department Care Team (Late st Contact Info) Description 08/17/2019 Telephone [facility] [place] [facility] [address] [facility] [address] [place] [address] Richie Garcia MD [address] [facility] [address] [facility] [phone] [place], [place] [id number] Scheduling Appointments Social History Tobacco Use Types Packs/Day Years Used Date Smoking Tobacco: Never Smokeless Tobacco: Never Alcohol Use Standard Drinks/Week Comments Not Currently 0 (1 standard drink = 0.6 oz pur e alcohol) denies Sex and Gender Information Value Date Recorded Sex Assigned at Not on file Legal Sex Male 1:07 AM NYLON MACHINE OPERATOR Gender Identity Not on file Sexual Orientation Not on file documented as of this encounter Plan of Treatment Not on file documented as of this encounter Goals Goal Patient Goal Type Associated Problems Recent Progress Patient-Stated? Author CCM Chronic Pain Care Plan Chronic Care Management Improving( 12:43 PM NYLON MACHINE OPERATOR) No Rabia Aquino, RN Note: Problem: Chronic Pain Goals: 1. Minimize further functional decline 2. Maximize quality of life 3. Control pain Strategies: - Activity/exercise program recommendation - Conservative stepwise pain medicine strategy with multi-disciplinary approach - Recommend healthy lifestyle strategies and compensatory methods as needed documented as of this encounter Visit Diagnoses Not on filedocumented in this encounter Care Teams Wind Turbine Blade Repair Technician Relationship Specialty Start Date End Date David Casanova MD PCP - General Internal Medicine 10/02/18 Eamon Lucia, RN Registered Nurse 07/03/19 documented as of this encounter
--- OUTSIDE RECORDS SUMMARY | 2024-12-14 10:02 | XMS_ITS | Clinical Summary ---
Author Organization [facility] Address [address] [address] Care Team Providers Care Centrifugal Machine Tender Name Role Phone David Casanova MD Primary Care Provider [phone] Source Comments [facility],non-owned Affiliates and Associated Physician Practices is amultiple site organization consisting of ambulatory clinics and hospital sitesin [place], [place], [place] and [place]. This disclosure is being madepursuant to the Care Everywhere program and may not contain all information available regarding this patient. Last updated 18.[facility] Allergies No known active allergies Medications [...] PO Take by mouth once daily Active Lihj-Widgni-C-Biot -G52-Cawn 160-1.7 MG TABS Active metoprolol succinate XL [...] Recorded Patient Health Questionnaire-2 Score 0 01/14/2024 [facility] - Occupational [...] Comments Blood Pressure 142/79 11/08/2022 7:52 AM LAMP WIRER Pulse 57 11/08/2022 7:52 AM LAMP WIRER Temperature 36.4 C (97.5 F) 11/08/2022 7:52 AM LAMP WIRER Respiratory Rate 18 11/08/2022 7:52 AM LAMP WIRER Oxygen Saturation 96% 11/08/2022 7:52 AM LAMP WIRER Inhaled Oxygen Concentration - - Weight 110.7 [...] VACCINE ( season) 2024 06/12/2021, 11/01/2020, 10/11/2020 DEPRESSION SCREENING 09/09/2024 DIABETES - URINE PROTEIN SCREENING 09/09/2024 MEDICARE AWV CALENDAR YEAR 2024 INFLUENZA VACCINE (Season Ended) 2025 05/21/2019, 05/28/2018 Respiratory Syncytial Virus (RSV) Vaccine Pt: or [...] complete this topic MENINGOCOCCAL (Group B) VACCINE SHARED DECISION-MAKING Aged Out No longer eligible based on patient's age to complete this topic MENINGOCOCCAL GROUPS A/C/Y/W VACCINE Aged Out No longer eligible based on patient's age to complete this topic Medical Devices Implanted Type Area Plasterer Maintenance Device Identifier Shelf Expiration Date Model / Serial / Lot Graft Bone Canc 30ml Cube Frzdr Irr Implanted:Qty: 1 on 10/29/2022 by Shaggy Rodriguez MD at [facility] N/A: Spine Lumbar Allosource 03/28/2027 [id number] / / [id number] Graft Bone Accell Evo3 Dbm 10ml Ptty - [id number] Implanted:Qty: 1 on 10/29/2022 by Shaggy Rodriguez MD at [facility] N/A: Spine Lumbar Integra [employer]iences 09/05/2023 / [id number] / [id number] Graft Bone Accell Evo3 Dbm 10ml Ptty - [id number] Implanted:Qty: 1 on 10/29/2022 by Shaggy Rodriguez MD at [facility] N/A: Spine Lumbar Inte[employer] 09/05/2023 / [id number] / [id number] Eit Plif H 13mm, 8 Degrees, 04/06 Implanted:Qty: 1 on 10/29/2022 by Shaggy Rodriguez MD at [facility] N/A: Spine Lumbar [id number] / / [id number] Screw 7.5mm 45mm Pa Spne Pdcl Xpdm Ti Implanted:Qty: 4 on 10/29/2022 by Shaggy Rodriguez MD at [facility] N/A: Spine Lumbar Synthes Spine [id number] / / Screw 7.5mm 50mm Pa Spne Pdcl Xpdm Ti Implanted:Qty: 2 on 10/29/2022 by Shaggy Rodriguez MD at [facility] N/A: Spine Lumbar Synthes Spine [id number] / / Screw Set Ti 5.5mm Spne 1 Inr Ma Xpdm Implanted:Qty: 6 on 10/29/2022 by Shaggy Rodriguez MD at [facility] N/A: Spine Lumbar Synthes Spine [id number] / / 65mm Mike Implanted:Qty: 2 on 10/29/2022 by Shaggy Rodriguez MD at [facility] N/A: Spine Lumbar Synthes Spine [id number] / / Procedures Procedure Name Priority Date/Time Associated Diagnosis Comments BASIC METABOLIC PANEL (CALCIUM TOTAL) Routine 11/08/2022 4:32 AM LAMP WIRER Spondylolisthesis, unspecified spinal region HEMOGLOBIN A1C Routine 10/30/2022 1:36 AM LAMP WIRER from Last 3 Months or Most Recently Relevant to Health Maintenance Results * (ABNORMAL) BASIC METABOLIC PANEL (CALCIUM TOTAL) (11/08/2022 4:32 AM LAMP WIRER) BUN 15 7 - 26 mg/dL 11/08/2022 5:28 AM [facility] Creatinine 0.82 0.71 - 1.16 mg/dL 11/08/2022 5:28 AM [facility] Sodium 138 136 - 145 mmol/L 11/08/2022 5:28 AM [facility] Potassium 3.9 3.5 - 4.5 mmol/L 11/08/2022 5:28 AM [facility] Chloride 108(H) 98 - 107 mmol/L 11/08/2022 5:28 AM [facility] CO2 21(L) 22 - 29 mmol/L 11/08/2022 5:28 AM [facility] Glucose 111 70 - 115 mg/dL 11/08/2022 5:28 AM [facility] Calcium 9.3 8.4 - 10.2 mg/dL 11/08/2022 5:28 AM [facility] Anion Gap 13 8 - 18 11/08/2022 5:28 AM [facility] BUN/Creatinine Ratio 18 7 - 23 11/08/2022 5:28 AM [facility] Osmolality Calculated 288 270 - 300 mOsm/kg 11/08/2022 5:28 AM [facility] eGFR by CKD-EPI >90 >=90 mL/min/1.7 3 m2 11/08/2022 5:28 AM [facility] Blood BLOOD SPECIMEN / Unknown Lab Venipuncture / Unknown 11/08/2022 4:32 AM LAMP WIRER 11/08/2022 4:59 AM LAMP WIRER Shaggy Rodriguez MD LAB - CHEMISTRY ANDREW LEWIS Performing Organization Address [facility]/ZIP Co de Phone Number [facility] [address] [place] [address], [place] [phone] * HEMOGLOBIN A1C (10/30/2022 1:36 AM LAMP WIRER) Hemoglobin A1c 5.3 <=5.6 % 10/30/2022 11:47 AM [facility] Estimated Average Glucose 105 mg/dL 10/30/2022 11:47 AM [facility] Comment: HbA1c Interpretation: Normal : < 5.7% Pre-diabetes: 5.7-6.4% Diabetes: Equal to or greater than 6.5% Test results diagnostic of diabetes should be repeated for confirmation. Treatment target values recommended by ADA and other clinical organizations should be used to evaluate metabolic control in patients. Reference: [place] Diabetes Association, Standards of Care in Diabetes -2020 In patients 70 years and older consider HbA1c target range of 7.0-7.5% (Reference: Omi Garcia et al. JAMDA. 2012) The Sebia assay for the measurement of HbA1c is a National Glycohemoglobin Standardization Program (NGSP) certified method. Blood BLOOD SPECIMEN / Unknown Lab Venipuncture / Unknown 10/30/2022 1:36 AM LAMP WIRER 10/30/2022 2:37 AM LAMP WIRER Shaggy Rodriguez MD LAB - CHEMISTRY ANDREW LEWIS Performing Organization Address City/[facility]/ZIP Co de Phone Number [facility] [address] [place] [address], [place] [phone] from Last 3 Months or Most Recently Relevant to Health Maintenance Advance Directives * Full Code (Latest Code Status on File) Date Activated Date Inactivated Comments 10/29/2022 7:45 PM 11/08/2022 3:30 PM Care Teams Centrifugal Machine Tender Relationship Specialty Start Date End Date David Casanova MD [address] [place] [address] PCP - General 06/25/22
--- OUTSIDE RECORDS SUMMARY | 2024-12-14 10:02 | XMS_ITS | Encounter Summary ---
Author Organization [facility] Healthcare Address [address] [place] [address] Care Team Prov[address] Care Court Operations Clerk Name Role Phone Regino García MD Primary Care Provider [phone] David Casanova MD Primary Care Provider [phone] Eamon Lucia RN Unavailable Unav ailable Reason for Visit * Reason Onset Date Comments Med Refill 08/05/2018 Encounter Details Date Type Department Care Team (Late st Contact Info) Description 08/05/2018 Telephone [facility] [place] [facility] [address] [facility] [address] [place] [address] Richie Garcia MD [address] [facility] [address] [facility] [phone] [place], [place] [id number] Med Refill Social History Tobacco Use Types Packs/Day Years Used Date Smoking Tobacco: Never Assessed Sex and Gender Information Value Date Recorded Sex Assigned at Not on file Legal Sex Male 1:07 AM ACCIDENT INVESTIGATOR Gender Identity Not on file Sexual Orientation Not on file documented as of this encounter Miscellaneous Notes * Telephone Encounter - Rox Lim RN - 08/05/2018 11:24 AM ACCIDENT INVESTIGATOR I spoke with this patient to tell him that he must be seen so that we can safely continue to fill his meds. He was hesitant to make an appointment but I did convince him to see Darya. Appointment made for 08-15- @ 11 am. Refill sent to resident pool. DENT INVESTIGATOR documented in this encounter Plan of Treatment Not on file documented as of this encounter Visit Diagnoses Not on filedocumented in this encounter Care Teams Court Operations Clerk Relationship Specialty Start Date End Date Regino García MD PCP - General 11/09/16 10/01/18 David Casanova MD PCP - General Internal Medicine 10/02/18 Eamon Lucia, RN Registered Nurse 07/03/19 documented as of this encounter
--- OUTSIDE RECORDS SUMMARY | 2024-12-14 10:02 | XMS_ITS | Encounter Summary ---
Author Organization [facility] Address [address] [facility] [address] Phone Care Team Providers Care Jet Mechanic Name Role Phone David Casanova MD Primary Care Provider [phone] Eamon Lucia RN Unavailable Unav ailable Encounter Details Date Type Department Care Team (Latest Contact Info) Description 05/12/2019 Orders Only [facility] SLEEP Scanning, Provider Social History Tobacco Use Types Packs/Day Years Used Date Smoking Tobacco: Never Smokeless Tobacco: Never Sex and Gender Information Value Date Recorded Sex Assigned at Not on file Legal Sex Male 1:07 AM RISK CONTROL DIRECTOR Gender Identity Not on file Sexual Orientation Not on file documented as of this encounter Plan of Treatment Not on file documented as of this encounter Goals Goal Patient Goal Type Associated Problems Recent Progress Patient-Stated? Author CCM Chronic Pain Care Plan Chronic Care Management Improving( 12:43 PM RISK CONTROL DIRECTOR) No Rabia Aquino, RN Note: Problem: Chronic [...] on filedocumented in this encounter Care Teams Jet Mechanic Relationship Specialty Start Date End Date David Casanova MD PCP - General Internal Medicine 10/02/18 Eamon Lucia, RN Registered Nurse 07/03/19 documented as of this encounter
--- OUTSIDE RECORDS SUMMARY | 2024-12-14 10:02 | XMS_ITS | Clinical Summary ---
Author Organization [facility] Address [address] [place] [address] Care Team Providers Care Office Machine Installer Name Role Phone David Casanova MD Primary Care Provider [phone] Eamon Lucia RN Unavailable Unav ailable Allergies [...] chloride (Jo 128) 5 % ophthalmic ointmentIndicati ons:Rci-vrx-tspm erprint corneal dystrophy APPLY 1/4 INCH INTO [...] (04/27/2021): Added automatically from request for surgery [id number] Frequent falls 02/21/2021 Primary osteoarthritis of right knee 11/17/2020 Lumbar spondylosis 06/17/2020 Overview (06/17/2020): Added automatically from request for surgery [id number] Chronic use of opiate drug for therapeutic purpo se 11/29/2019 Overview (10/08/2022): Chronic Opioid Therapy - 10/08/21 Current opioid: - tramadol - 100 mg QID = 400 mg max/day Morphine daily equivalent: 40 mg/day Other : NO NSAIDS - elevated his blood pressure Benzo : none Storage : told to keep secure Plan: Continue, encourage restricting uses possible Urine Drug Screen [facility] 11/10/19 - consistent with prescribed tramadol Urine Drug Screen [facility] 11/21/20 - consistent with prescribed tramadol Urine drug screen [facility] 07/04/22 - consistent with prescribed tramadol Lumbar radiculopathy 11/02/2019 Displacement of lumbar intervertebral disc 07/19 Nocturnal leg cramps 05/13/2019 Wad-cng-bywclydljay 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 Right posterior capsular opacification [...] ROTATOR CUFF REPAIR 09/09/2014 - 09/08/2015 Right MD INJ LUMBAR/SACRAL,W/WO CNTRST Corticosteroid Injection Interlaminar Approach Lumbar - (Added by TW Conv) NERVE BLOCK Nerve Block Paravertebral Facet Joint - LMBB- Bilateral L3, L4, L5,S1 (Added by TW Conv) NERVE BLOCK Nerve Block Paravertebral Facet Joint - LMBB #2 bilateral L3,4,5 S1 (Added by TW Conv) MD DSTR NROLYTC AGNT PARVERTEB FCT SNGL LMBR/SACRAL [...] on file Legal Sex Male 1:07 AM MEDICAL ADMINISTRATIVE Gender Identity Not on file Sexual Orientation [...] CDT Respiratory Rate 18 10/01/2023 7:57 AM MEDICAL ADMINISTRATIVE Oxygen Saturation 99% 05/27/2024 11:06 AM CDT [...] Plan Chronic Care Management Improving( 12:43 PM MEDICAL ADMINISTRATIVE) Rabia Davies, RN Note: Problem: Chronic Pain Goals: 1. Minimize further functional decline 2. Maximize quality of life 3. Control pain Strategies: - Activity/exercise program recommendation - Conservative stepwise pain medicine strategy with multi-disciplinary approach - Recommend healthy lifestyle strategies and compensatory methods as needed Medical Devices Implanted Type Area Lineman A Class Device Identifier Shelf Expiration Date Model / [...] NP LAB BLOOD ORDERABLES Fin al Result [facility] [place] [address] * POCT hemoglobin A1c (05/28/2022 9:16 AM CDT) Hgb A1C, POC 5.6 4.0 - 5.6 % [facility] Est Average Gluc POC 114 mg/dL [facility] Comment: The ADA recommends reporting an estimated Average Glucose (eAG) with all Hemoglobin A1c results using the equation derived from a study of 507 normal and diabetic adults. Minority populations were underrepresented and children were not included. (Diabetes Care 31:3477-9175, 2008). The eAG is not equivalent to a fasting glucose. Blood 05/28/2022 9:16 AM CDT 05/28/2022 9:16 AM CDT Dre Riggins MD POINT OF CARE TEST ORDERABLES F inal Result [facility] [place] [address] from Last 3 Months or Most Recently Relevant to Health Maintenance Insurance [address] [place] [address] MEDICARE [facility]CR HMO [facility] Address: [address] [address] [place] [address] UHC MEDICARE ADVANTAGE [facility] Address: [address] [place] [phone] [employer]HC MEDICARE AD[facility]ANTAGE [facility] Address: [address] [address] [place] [address] Advance Directives For more information, please contact: [phone] * Full Code (Latest Code Status on File) Date Activated Date Inactivated Comments 09/30/2023 7:34 PM 10/01/2023 5:13 PM Care Teams Office Machine Installer Relationship Specialty Start Date End Date David Casanova MD PCP - General Internal Medicine 10/02/18 Eamon Lucia, RN Registered Nurse 07/03/19
--- OUTSIDE RECORDS SUMMARY | 2024-12-14 10:02 | XMS_ITS | Clinical Summary ---
Author Organization [facility] Address [address] [place] [address] Care Team Providers Care Roll Forger Name Role Phone David Casanova MD Primary Care Provider [phone] Social History Tobacco Use Types Packs/Day Years Used Date Smoking Tobacco: Never Assessed Sex and Gender Information Value Date Recorded Sex Assigned at Not on file Legal Sex Male 10:28 PM ENGINEERING PROFESSOR Gender Identity Not on file Sexual Orientation [...] age to complete this topic Care Teams Roll Forger Relationship Specialty Start Date End Date David Casanova MD [address] [place] [id number] PCP - General INTERNAL MEDICINE 10/23/21
--- OUTSIDE RECORDS SUMMARY | 2024-12-14 10:02 | XMS_ITS | CONTINUITY OF CARE DOCUMENT ---
Author Name ty, ty Address Unknown Organization [facility] Address [address] [place] [address] Phone [phone] Care Team Providers Care Reeler Operator Name Role Phone Ariadna Jimenes MD Unavailable [phone] JAZZ CLEMONS MD Unavailable JAZZ CLEMONS MD Unavailable PROBLEMS Condition Status Date Provider Notes Chest pain--nl cath 2017 active Ariadna vargas MD Shortness of breath active Ariadna Jimenes MD ANA active Ariadna Jimenes MD FAMILY HISTORY OF HEART DISEASE completed - Ariadna Jimenes MD ABNORMAL ELECTROCARDIOGRAM completed 01/01 - Ariadna Jimenes MD Diabetes mellitus active Ariadna Jimenes MD Palpitations PVCS active Ariadna Jimenes MD Preoperative cardiovascular evaluation--back surgery active Ariadna Jimenes MD ENCOUNTERS Date Type Provider Location Encounter Diag nosis - In-person encounter Office Visit Ariadna Jimenes MD [place] [facility] Chest pain--nl cath 2017Shortness of breathOSAFAMILY HISTORY OF HEART DISEASEABNORMAL ELECTROCARDIOGRAMPreoperative cardiovascular evaluation--back surgery - In-person encounter Office Visit Ariadna Jimenes MD [place] [facility] - In-person encounter Office Visit Ariadna Jimenes MD [place] [facility] Diabetes mellitusPalpitations PVCS - In-person encounter Office Visit Ariadna Jimenes MD [place] [facility] - In-person encounter Office Visit Ariadna Jimenes MD [place] Chest pain--nl cath 2017 - In-person encounter Office Visit Ariadna Jimenes MD [place] Chest pain--nl cath 2016Shortness of breathOSA VITAL SIGNS Date Observation Value Provider Body Mass Index (Ratio) 36.49 kg/m2 Ricky Jimenes MD blood pressure, diastolic 72 mm[Hg] Gauri castelan Schoolcraft blood pressure, systolic 151 mm[Hg] Vince agus Schoolcraft oxygen saturation, oximetry 99 % Leila Dawson [...] /min Savanah finley pulse rate 78 /min Savanah perkins weight E&M 272 [lb_av] Savanah perkins [...] Payer name Policy type / Coverage type [place] red constitution party ID [facility] MEDICARE COMPLETE HMO Other [id number] ADVANCE DIRECTIVES Name Date DISCUSSED - NO DECISION MADE TREATMENT PLAN Date Name Performer [id number],Chintan Lowe i [id number],Chintan Woodruff i [id number],SChintan i [id number],S, Chintan Arnett i [id number],S, Chintan Arnett i Cardiology Chintan Arnetti Cardiology [...] ..... 1 tab daily Orders: E KG ([id number]) Ariadna Jimenes MD follow up: H is updated medication list for this problem includes: Aspirin 81 Mg Tabs (Aspirin) ..... 1 tab daily Slow-mag Tbec (Magnesium cl-calcium carbonate tbec) Ariadna Jimenes MD Date Name Stress Regadenoson HISTORY OF PROCEDURES Procedure Date Procedure Name Provider Procedure Notes S tatus EKG Ariadna Jimenes MD completed SNOMED-CT: 539721174198922 Current Medications Documented Ariadna Jimenes MD completed Stress EKG Richie Obrien MD completed Regadenoson, 4 units Richie Obrien MD completed Cardiolite, 2 units Richie Obrien MD completed SPECT Images Richie Obrien MD completed ZIO Holter [facility] Ariadna Jimenes MD co mpleted SNOMED-CT: 13852835 Physical Exam, Performed: Pulse Exam of Foot Ariadna Jimenes MD completed EKG Ariadna Jimenes MD completed SNOMED-CT: 013646832904792 Current Medications Documented Ariadna Jimenes MD completed ePrescribe - Check t his box if eRx is used Ariadna Jimenes MD completed EKG Ariadna Jimenes MD completed
--- OUTSIDE RECORDS SUMMARY | 2024-12-14 10:02 | XMS_ITS | Referral Summary ---
Author Organization [facility] Address [address] [place] [address] Care Team Providers Care Digital Printer Name Role Phone David Casanova MD Primary Care Provider [phone] Eamon Lucia RN Unavailable Unav ailable Allergies [...] chloride (Jo 128) 5 % ophthalmic ointmentIndicati ons:Sun-ppd-hbkv erprint corneal dystrophy APPLY 1/4 INCH INTO [...] (04/27/2021): Added automatically from request for surgery [id number] Frequent falls 02/21/2021 Primary osteoarthritis of right knee 11/17/2020 Lumbar spondylosis 06/17/2020 Overview (06/17/2020): Added automatically from request for surgery [id number] Chronic use of opiate drug for therapeutic purpo se 11/29/2019 Overview (10/08/2022): Chronic Opioid Therapy - 10/08/21 Current opioid: - tramadol - 100 mg QID = 400 mg max/day Morphine daily equivalent: 40 mg/day Other : NO NSAIDS - elevated his blood pressure Benzo : none Storage : told to keep secure Plan: Continue, encourage restricting uses possible Urine Drug Screen [facility] 11/10/19 - consistent with prescribed tramadol Urine Drug Screen [facility] 11/21/20 - consistent with prescribed tramadol Urine drug screen [facility] 07/04/22 - consistent with prescribed tramadol Lumbar radiculopathy 11/02/2019 Displacement of lumbar intervertebral disc 07/19 Nocturnal leg cramps 05/13/2019 Tdj-aqv-ynkjksjroem 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 Right posterior capsular opacification [...] on file Legal Sex 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 Minimize further functional decline 2. Maximize quality of life 3. Control pain Strategies: - Activity/exercise program recommendation - Conservative stepwise pain medicine strategy with multi-disciplinary approach - Recommend healthy lifestyle strategies and compensatory methods as needed Medical Devices Implanted Type Area Dietary Internship Device Identifier Shelf Expiration Date Model / [...] 90 - 130 mL/min/1. 73 m2 [facility] Comment: Interpretive Data Reference Interval Normal >/= [...] us Yang Rose NP LAB BLOOD ORDERABLES [facility] al Result [facility] Department [place] [address] * POCT hemoglobin A1c (05/28/2022 9:16 AM CDT) Hgb A1C, POC 5.6 4.0 - 5.6 % [facility] Est Average Gluc POC 114 mg/dL [facility] Comment: The ADA recommends reporting an estimated Average Glucose (eAG) with all Hemoglobin A1c results using the equation derived from a study of 507 normal and diabetic adults. Minority populations were underrepresented and children were not included. (Diabetes Care 31:8429-6566, 2008). The eAG is not equivalent to a fasting glucose. Blood 05/28/2022 9:16 AM CDT 05/28/2022 9:16 AM CDT Dre Riggins MD POINT OF CARE TEST ORDERABLES F inal Result [facility] [place] [address] from Last 3 Months or Most Recently Relevant to Health Maintenance Insurance [facility] REF UHC MEDICARE ADVANTAGE [facility] MEDICARE ADVANTAGE Advance Directives For more information, please contact: [phone] * Full Code (Latest Code Status on File) Date Activated Date Inactivated Comments 09/30/2023 7:34 PM 10/01/2023 5:13 PM Care Teams Digital Printer Relationship Specialty Start Date End Date David Casanova MD PCP - General Internal Medicine 10/02/18 Eamon Lucia, RN Registered Nurse 07/03/19
--- OUTSIDE RECORDS SUMMARY | 2024-12-14 10:02 | XMS_ITS | Encounter Summary ---
Author Organization [facility] Healthcare Address [address] [place] [address] Care Team Providers Care Trauma Nurse Name Role Phone Regino García MD Primary Care Provider [phone] David Casanova MD Primary Care Provider [phone] Eamon Lucia RN Unavailable Unav ailable Encounter Details Date Type Department Care Team (Late st Contact Info) Description 03/05/2018 Telephone [facility] [address] [facility] [address] [facility] [address] [place], [place] [id number] Richie Garcia MD [address] [facility] [phone] [place] [address] Social History Tobacco Use Types Packs/Day Years Used Date Smoking Tobacco: Never Assessed Sex and Gender Information Value Date Recorded Sex Assigned at Not on file Legal Sex Male 1:07 AM PACK OUT OPERATOR Gender Identity Not on file Sexual Orientation Not on file documented as of this encounter Plan of Treatment Not on file documented as of this encounter Visit Diagnoses Not on filedocumented in this encounter Care Teams Trauma Nurse Relationship Specialty Start Date End Date Regino García MD PCP - General 11/09/16 10/01/18 David Casanova MD PCP - General Internal Medicine 10/02/18 Eamon Lucia, RN Registered Nurse 07/03/19 documented as of this encounter
--- OUTSIDE RECORDS SUMMARY | 2024-12-14 10:02 | XMS_ITS | Encounter Summary ---
Author Organization [facility] Healthcare Address [address] [place] [address] Care Team Providers Care Complaint Analyst Name Role Phone David Casanova MD Primary Care Provider [phone] Eamon Lucia RN Unavailable Unav ailable Encounter Details Date Type Department Care Team (Late st Contact Info) Description 10/17/2021 Telephone [facility] at the [place] [facility] [address] [facility] [address] [place], [place] [id number] Richie Garcia MD [address] [facility] [address] [facility] [phone] [place], [place] [id number] Social History Tobacco Use Types Packs/Day Years [...] on file Legal Sex Male 1:07 AM RADIO PRODUCER Gender Identity Not on file Sexual Orientation [...] Plan Chronic Care Management Improving( 12:43 PM RADIO PRODUCER) Rabia Davies, RN Note: Problem: Chronic Pain Goals: 1. Minimize further functional decline 2. Maximize quality of life 3. Control pain Strategies: - Activity/exercise program recommendation - Conservative stepwise pain medicine strategy with multi-disciplinary approach - Recommend healthy lifestyle strategies and compensatory methods as needed documented as of this encounter Visit Diagnoses Not on filedocumented in this encounter Care Teams Complaint Analyst Relationship Specialty Start Date End Date David Casanova MD PCP - General Internal Medicine 10/02/18 Eamon Lucia, RN Registered Nurse 07/03/19 documented as of this encounter
--- OUTSIDE RECORDS SUMMARY | 2024-12-14 10:02 | XMS_ITS | Continuity of Care Document ---
Author Organization [facility] Address [address] [place] [address] [address] [place] [address] Phone Care Team Providers Care Aircraft Detail Draftsperson Name Role Phone Nilo Stout Unavailable Unavailable Procedures Procedure Date Eye Exam, New Patient Refraction Advance Directives Directive Yes / No Effective Date File Name No Information Encounters Encounter Description Practice Location Reason(s) For Visit Diagnoses Date Provider Providers Copied on Encounter [facility], [address] [place] [address] [address], [place], [place], [id number], [place] tel:[phone] SEC [facility] No Information [address]. [address] [facility] , [address], [place], [address], [place]. tel:[phone] Family History Family Member Type Diagnosis Age At Onset No Information Payers Payer name Insurance type Covered alliance party ID Authorfaithrosey chhayakriss(s) [employer] SOI 09 [id number] Social History Type Description Quantity Date Captured [...]
--- OUTSIDE RECORDS SUMMARY | 2024-12-14 10:02 | XMS_ITS | Encounter Summary ---
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 Author [facility] Chronic Pain Care Plan Chronic Care Management Improving( 12:43 PM SEMICONDUCTOR PACKAGES SEALER) No Rabia Aquino RN Note: Problem: Chronic [...] on filedocumented in this encounter Care Teams Composite Mechanic Relationship Specialty Start Date End Date David Casanova MD PCP - General Internal Medicine 10/02/18 Eamon Lucia, RN Registered Nurse 07/03/19 documented as of this encounter
[2024-12-14 10:30] VITALS: BP 130/78; PULSE 55; RESP 17; O2SAT 96
[2024-12-14 10:35] VITALS: BP 130/78; PULSE 55; RESP 17; TEMP 36.6; O2SAT 96
--- OUTSIDE RECORDS SUMMARY | 2024-12-14 11:02 | XMS_ITS | Encounter Summary ---
Author Organization [facility] Healthcare Address [address] [place] [address] Care Team Providers Care Extract Operator Name Role Phone David Casanova MD Primary Care Provider [phone] Eamon Lucia RN Unavailable Unav ailable Reason for Visit * Reason Onset Date Comments Scheduling Appointments 08/17/2019 Encounter Details Date Type Department Care Team (Late st Contact Info) Description 08/17/2019 Telephone [facility] at the [place] [facility] [address] [facility] [address] [place] [address] Richie Garcia MD [address] [facility] [address] [facility] [phone] [place], [place] [id number] Scheduling Appointments Social History Tobacco Use Types Packs/Day Years Used Date Smoking Tobacco: Never Smokeless Tobacco: Never Alcohol Use Standard Drinks/Week Comments Not Currently 0 (1 standard drink = 0.6 oz pur e alcohol) denies Sex and Gender Information Value Date Recorded Sex Assigned at Not on file Legal Sex Male 1:07 AM 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 Author [facility] Chronic Pain Care Plan Chronic Care Management Improving( 12:43 PM ENTERPRISE RESOURCE PLANNER) No Rabia Aquino, RN Note: Problem: Chronic Pain Goals: 1. Minimize further functional decline 2. Maximize quality of life 3. Control pain Strategies: - Activity/exercise program recommendation - Conservative stepwise pain medicine strategy with multi-disciplinary approach - Recommend healthy lifestyle strategies and compensatory methods as needed documented as of this encounter Visit Diagnoses Not on filedocumented in this encounter Care Teams Extract Operator Relationship Specialty Start Date End Date David Casanova MD PCP - General Internal Medicine 10/02/18 Eamon Lucia, RN Registered Nurse 07/03/19 documented as of this encounter
--- OUTSIDE RECORDS SUMMARY | 2024-12-14 11:02 | XMS_ITS | Continuity of Care Document ---
Author Organization [facility] Address [address] [place] [address] [address] [place] [address] Phone Care Team Providers Care Bag Bleacher Name Role Phone Nilo Stout Unavailable Unavailable Procedures Procedure Date Eye Exam, New Patient Refraction Advance Directives Directive Yes / No Effective Date File Name No Information Encounters Encounter Description Practice Location Reason(s) For Visit Diagnoses Date Provider Providers Copied on Encounter [facility], [address] [place] [address] [address], [place], [place], [id number], [place] tel:[phone] SEC [facility] No Information [address]cor[address]. [address] [facility] , [address], [place], [address], [place]. tel:[phone] Family History Family Member Type Diagnosis Age At Onset No Information Payers Payer name Insurance type Covered democrat ID Authorfaithrosey chhayakriss(s) [employer] SOI 09 [id number] Social History Type Description Quantity Date Captured [...]
--- OUTSIDE RECORDS SUMMARY | 2024-12-14 11:02 | XMS_ITS | Encounter Summary ---
Author Organization [facility] Healthcare Address [address] [place] [address] Care Team Providers Care Bedspread Seamer Name Role Phone Regino García MD Primary Care Provider [phone] David Casanova MD Primary Care Provider [phone] Eamon Lucia RN Unavailable Unav ailable Reason for Visit * Reason Onset Date Comments Med Refill 08/05/2018 Encounter Details Date Type Department Care Team (Late st Contact Info) Description 08/05/2018 Telephone 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 He was hesitant to make an appointment but I did convince him to see Darya. Appointment made for 08-15- @ 11 am. Refill sent to resident pool. NICS SYSTEMS REPAIRER documented in this encounter Plan of Treatment Not on file documented as of this encounter Visit Diagnoses Not on filedocumented in this encounter Care Teams Bedspread Seamer Relationship Specialty Start Date End Date Regino García MD PCP - General 11/09/16 10/01/18 David Casanova MD PCP - General Internal Medicine 10/02/18 Eamon Lucia, RN Registered Nurse 07/03/19 documented as of this encounter
--- OUTSIDE RECORDS SUMMARY | 2024-12-14 11:02 | XMS_ITS | Encounter Summary ---
Author Organization [facility] Address [address] [facility] [place] [address] Phone Care Team Providers Care Numerologist Name Role Phone David Casanova MD Primary Care Provider [phone] Eamon Lucia RN Unavailable Unav ailable Encounter Details Date Type Department Care Team (Latest Contact Info) Description 05/12/2019 Orders Only [facility] Scanning, Provider Social History Tobacco Use Types Packs/Day Years Used Date Smoking Tobacco: Never Smokeless Tobacco: Never Sex and Gender Information Value Date Recorded Sex Assigned at Not on file Legal Sex Male 1:07 AM VINYL DIPPER Gender Identity Not on file Sexual Orientation Not on file documented as of this encounter Plan of Treatment Not on file documented as of this encounter Goals Goal Patient Goal Type Associated Problems Recent Progress Patient-Stated? Author CCM Chronic Pain Care Plan Chronic Care Management Improving( 12:43 PM VINYL DIPPER) No Rabia Aquino, RN Note: Problem: Chronic [...] on filedocumented in this encounter Care Teams Numerologist Relationship Specialty Start Date End Date David Casanova MD PCP - General Internal Medicine 10/02/18 Eamon Lucia, RN Registered Nurse 07/03/19 documented as of this encounter
--- OUTSIDE RECORDS SUMMARY | 2024-12-14 11:02 | XMS_ITS | Clinical Summary ---
Author Organization [facility] Address [address] [place] [address] Phone Care Team Providers Care Printing Machine Operator Name Role Phone Unavailable Primary Care Provider [...]
--- OUTSIDE RECORDS SUMMARY | 2024-12-14 11:02 | XMS_ITS | Clinical Summary ---
Author Organization [facility] Address [address] [place] [address] Care Team Providers Care Staff Physical Therapist Name Role Phone David Casanova MD Primary Care Provider [phone] Eamon Lucia RN Unavailable Unav ailable Allergies [...] chloride (Jo 128) 5 % ophthalmic ointmentIndicati ons:Pot-frs-wjio erprint corneal dystrophy APPLY 1/4 INCH INTO [...] (04/27/2021): Added automatically from request for surgery [id number] Frequent falls 02/21/2021 Primary osteoarthritis of right knee 11/17/2020 Lumbar spondylosis 06/17/2020 Overview (06/17/2020): Added automatically from request for surgery [id number] Chronic use of opiate drug for therapeutic purpo se 11/29/2019 Overview (10/08/2022): Chronic Opioid Therapy - 10/08/21 Current opioid: - tramadol - 100 mg QID = 400 mg max/day Morphine daily equivalent: 40 mg/day Other : NO NSAIDS - elevated his blood pressure Benzo : none Storage : told to keep secure Plan: Continue, encourage restricting uses possible Urine Drug Screen [facility] 11/10/19 - consistent with prescribed tramadol Urine Drug Screen [facility] 11/21/20 - consistent with prescribed tramadol Urine drug screen [facility] 07/04/22 - consistent with prescribed tramadol Lumbar radiculopathy 11/02/2019 Displacement of lumbar intervertebral disc 07/19 Nocturnal leg cramps 05/13/2019 Eih-jro-asarxgobhox 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 Right posterior capsular opacification [...] ROTATOR CUFF REPAIR 09/09/2014 - 09/08/2015 Right NC INJ LUMBAR/SACRAL,W/WO CNTRST Corticosteroid Injection Interlaminar Approach Lumbar - (Added by TW Conv) NERVE BLOCK Nerve Block Paravertebral Facet Joint - LMBB- Bilateral L3, L4, L5,S1 (Added by TW Conv) NERVE BLOCK Nerve Block Paravertebral Facet Joint - LMBB #2 bilateral L3,4,5 S1 (Added by TW Conv) NC DSTR NROLYTC AGNT PARVERTEB FCT SNGL LMBR/SACRAL [...] on file Legal Sex Male 1:07 AM 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 Minimize further functional decline 2. Maximize quality of life 3. Control pain Strategies: - Activity/exercise program recommendation - Conservative stepwise pain medicine strategy with multi-disciplinary approach - Recommend healthy lifestyle strategies and compensatory methods as needed Medical Devices Implanted Type Area Shoe Clerk Device Identifier Shelf Expiration Date Model / [...] NP LAB BLOOD ORDERABLES Fin al Result [facility] Department [place] [address] * POCT hemoglobin A1c (05/28/2022 9:16 AM CDT) Hgb A1C, POC 5.6 4.0 - 5.6 % [facility] Est Average Gluc POC 114 mg/dL [facility] Comment: The ADA recommends reporting an estimated Average Glucose (eAG) with all Hemoglobin A1c results using the equation derived from a study of 507 normal and diabetic adults. Minority populations were underrepresented and children were not included. (Diabetes Care 31:3730-5708, 2008). The eAG is not equivalent to a fasting glucose. Blood 05/28/2022 9:16 AM CDT 05/28/2022 9:16 AM CDT Dre Riggins MD POINT OF CARE TEST ORDERABLES F inal Result [facility] [place] [address] from Last 3 Months or Most Recently Relevant to Health Maintenance Insurance [address] [place] [address] MEDICARE [facility] MDCR HMO REF UHC MEDICARE ADVANTAGE UHC MEDICARE ADVANTAGE Advance Directives For more information, please contact: [phone] * Full Code (Latest Code Status on File) Date Activated Date Inactivated Comments 09/30/2023 7:34 PM 10/01/2023 5:13 PM Care Teams Staff Physical Therapist Relationship Specialty Start Date End Date David Casanova MD PCP - General Internal Medicine 10/02/18 Eamon Lucia, RN Registered Nurse 07/03/19
--- OUTSIDE RECORDS SUMMARY | 2024-12-14 11:02 | XMS_ITS | Clinical Summary ---
Author Organization [facility] Address [address] [address] Care Team Providers Care Slabber Light Name Role Phone David Casanova MD Primary Care Provider [phone] Source Comments [facility],non-owned Affiliates and Associated Physician Practices is amultiple site organization consisting of ambulatory clinics and hospital sitesin [place], [place], [place] and [place]. This disclosure is being madepursuant to the Care Everywhere program and may not contain all information available regarding this patient. Last updated 18.[facility] Allergies No known active allergies Medications * [...] PO Take by mouth once daily Active Kpll-Gdjpgo-D-Biot -R81-Htgz 160-1.7 MG TABS Active metoprolol succinate XL [...] Recorded Patient Health Questionnaire-2 Score 0 01/14/2024 [facility] - [...] place to sleep or slept in a custodial (including now)? No 10/31/2022 Sex and Gender Information Value Date Recorded Sex Assigned at Not on file Gender Identity Not on file Sexual Orientation Not on file Last Filed Vital Signs Vital Sign Reading Time Taken Comments Blood Pressure 142/79 11/08/2022 7:52 AM FLORAL DESIGNER Pulse 57 11/08/2022 7:52 AM FLORAL DESIGNER Temperature 36.4 C (97.5 F) 11/08/2022 7:52 AM FLORAL DESIGNER Respiratory Rate 18 11/08/2022 7:52 AM FLORAL DESIGNER Oxygen Saturation 96% 11/08/2022 7:52 AM FLORAL DESIGNER Inhaled Oxygen Concentration - - Weight 110.7 [...] this topic Medical Devices Implanted Type Area Senior Sales Operations Manager Device Identifier Shelf Expiration Date Model / Serial / Lot Graft Bone Canc 30ml Cube Frzdr Irr Implanted:Qty: 1 on 10/29/2022 by Shaggy Rodriguez MD at [facility] N/A: Spine Lumbar Allosource 03/28/2027 [id number] / / [id number] Graft Bone Accell Evo3 Dbm 10ml Ptty - [id number] Implanted:Qty: 1 on 10/29/2022 by Shaggy Rodriguez MD at [facility] N/A: Spine Lumbar Integra [employer]iences 09/05/2023 / [id number] / [id number] Graft Bone Accell Evo3 Dbm 10ml Ptty - [id number] Implanted:Qty: 1 on 10/29/2022 by Shaggy Rodriguez MD at [facility] N/A: Spine Lumbar Inte[employer] 09/05/2023 / [id number] / [id number] Eit Plif H 13mm, 8 Degrees, 04/06 Implanted:Qty: 1 on 10/29/2022 by Shaggy Rodriguez MD at [facility] N/A: Spine Lumbar [id number] / / [id number] Screw 7.5mm 45mm Pa Spne Pdcl Xpdm Ti Implanted:Qty: 4 on 10/29/2022 by Shaggy Rodriguez MD at [facility] N/A: Spine Lumbar Synthes Spine [id number] / / Screw 7.5mm 50mm Pa Spne Pdcl Xpdm Ti Implanted:Qty: 2 on 10/29/2022 by Shaggy Rodriguez MD at [facility] N/A: Spine Lumbar Synthes Spine [id number] / / Screw Set Ti 5.5mm Spne 1 Inr Ma Xpdm Implanted:Qty: 6 on 10/29/2022 by Shaggy Rodriguez MD at [facility] N/A: Spine Lumbar Synthes Spine [id number] / / 65mm Mike Implanted:Qty: 2 on 10/29/2022 by Shaggy Rodriguez MD at [facility] N/A: Spine Lumbar Synthes Spine [id number] / / Procedures Procedure Name Priority Date/Time Associated Diagnosis Comments BASIC METABOLIC PANEL (CALCIUM TOTAL) Routine 11/08/2022 4:32 AM FLORAL DESIGNER Spondylolisthesis, unspecified spinal region HEMOGLOBIN A1C Routine 10/30/2022 1:36 AM FLORAL DESIGNER from Last 3 Months or Most Recently Relevant to Health Maintenance Results * (ABNORMAL) BASIC METABOLIC PANEL (CALCIUM TOTAL) (11/08/2022 4:32 AM FLORAL DESIGNER) BUN 15 7 - 26 mg/dL 11/08/2022 5:28 AM [facility] Creatinine 0.82 0.71 - 1.16 mg/dL 11/08/2022 5:28 AM [facility] Sodium 138 136 - 145 mmol/L 11/08/2022 5:28 AM [facility] Potassium 3.9 3.5 - 4.5 mmol/L 11/08/2022 5:28 AM [facility] Chloride 108(H) 98 - 107 mmol/L 11/08/2022 5:28 AM [facility] CO2 21(L) 22 - 29 mmol/L 11/08/2022 5:28 AM [facility] Glucose 111 70 - 115 mg/dL 11/08/2022 5:28 AM [facility] Calcium 9.3 8.4 - 10.2 mg/dL 11/08/2022 5:28 AM [facility] Anion Gap 13 8 - 18 11/08/2022 5:28 AM [facility] BUN/Creatinine Ratio 18 7 - 23 11/08/2022 5:28 AM [facility] Osmolality Calculated 288 270 - 300 mOsm/kg 11/08/2022 5:28 AM [facility] eGFR by CKD-EPI >90 >=90 mL/min/1.7 3 m2 11/08/2022 5:28 AM [facility] Blood BLOOD SPECIMEN / Unknown Lab Venipuncture / Unknown 11/08/2022 4:32 AM FLORAL DESIGNER 11/08/2022 4:59 AM FLORAL DESIGNER Shaggy Rodriguez MD LAB - CHEMISTRY ANDREW LEWIS Performing Organization Address [facility]/ZIP Co de Phone Number [facility] [address] [place] [address], [place] [phone] * HEMOGLOBIN A1C (10/30/2022 1:36 AM FLORAL DESIGNER) Hemoglobin A1c 5.3 <=5.6 % 10/30/2022 11:47 AM [facility] Estimated Average Glucose 105 mg/dL 10/30/2022 11:47 AM [facility] Comment: HbA1c Interpretation: Normal : < 5.7% Pre-diabetes: 5.7-6.4% Diabetes: Equal to or greater than 6.5% Test results diagnostic of diabetes should be repeated for confirmation. Treatment target values recommended by ADA and other clinical organizations should be used to evaluate metabolic control in patients. Reference: [place] Diabetes Association, Standards of Care in Diabetes -2020 In patients 70 years and older consider HbA1c target range of 7.0-7.5% (Reference: Omi Garcia et al. JAMDA. 2012) The Sebia assay for the measurement of HbA1c is a National Glycohemoglobin Standardization Program (NGSP) certified method. Blood BLOOD SPECIMEN / Unknown Lab Venipuncture / Unknown 10/30/2022 1:36 AM FLORAL DESIGNER 10/30/2022 2:37 AM FLORAL DESIGNER Shaggy Rodriguez MD LAB - CHEMISTRY ANDREW LEWIS Performing Organization Address City/[facility]/ZIP Co de Phone Number [facility] [address] [place] [address], [place] [phone] from Last 3 Months or Most Recently Relevant to Health Maintenance Advance Directives * Full Code (Latest Code Status on File) Date Activated Date Inactivated Comments 10/29/2022 7:45 PM 11/08/2022 3:30 PM Care Teams Slabber Light Relationship Specialty Start Date End Date David Casanova MD [address] [place] [address] PCP - General 06/25/22
--- OUTSIDE RECORDS SUMMARY | 2024-12-14 11:02 | XMS_ITS | Encounter Summary ---
Author Organization [facility] Address [address] [place] [address] Phone Care Team Providers Care Die Engraver Name Role Phone David Casanova MD Primary Care Provider [phone] Eamon Lucia RN Unavailable Unav ailable Encounter [...] on file Legal Sex Male 1:07 AM INSURANCE CHECKER Gender Identity Not on file Sexual Orientation Not on file Occupation Industry Job Start Date Job End Date RETIRED Not on file Not on file Not on file documented as of this encounter Plan of Treatment Not on file documented as of this encounter Goals Goal Patient Goal Type Associated Problems Recent Progress Patient-Stated? Author [facility] Chronic Pain Care Plan Chronic Care Management Improving( 12:43 PM INSURANCE CHECKER) No Rabia Aquino RN Note: Problem: Chronic [...] on filedocumented in this encounter Care Teams Die Engraver Relationship Specialty Start Date End Date David Casanova MD PCP - General Internal Medicine 10/02/18 Eamon Lucia, RN Registered Nurse 07/03/19 documented as of this encounter
--- OUTSIDE RECORDS SUMMARY | 2024-12-14 11:02 | XMS_ITS | CONTINUITY OF CARE DOCUMENT ---
Author Name ty, ty Address Unknown Organization [facility] Address [address] [place] [address] Phone [phone] Care Team Providers Care Top Edge Beveler Name Role Phone Ariadna Jimenes MD Unavailable JAZZ CLEMONS MD Unavailable JAZZ CLEMONS MD Unavailable PROBLEMS Condition Status Date Provider Notes Preoperative cardiovascular evaluation--back surgery active Ariadna Jimenes MD Palpitations PVCS active Ariadna Jimenes MD Diabetes mellitus active Ariadna Jimenes MD ABNORMAL ELECTROCARDIOGRAM completed 01/01 - Ariadna Jimenes MD FAMILY HISTORY OF HEART DISEASE completed - Ariadna Jimenes MD ANA active Ariadna Jimenes MD Shortness of breath active Ariadna Jimenes MD Chest pain--nl cath 2017 active Ariadna vargas MD ENCOUNTERS Date Type Provider Location Encounter Diag nosis - In-person encounter Office Visit Ariadna Jimenes MD [facility] Chest pain--nl cath 2016Shortness of breathOSAFAMILY HISTORY OF HEART DISEASEABNORMAL ELECTROCARDIOGRAMPreoperative cardiovascular evaluation--back surgery - In-person encounter Office Visit Ariadna Jimenes MD [facility] - In-person encounter Office Visit Ariadna Jimenes MD [facility] Diabetes mellitusPalpitations PVCS - In-person encounter Office Visit Ariadna Jimenes MD [facility] - In-person encounter Office Visit Ariadna Jimenes MD [facility] Chest pain--nl cath 2017 - In-person encounter Office Visit Ariadna Jimenes MD [facility] Chest pain--nl cath 2016Shortness of breathOSA VITAL SIGNS Date Observation Value Provider Body Mass Index (Ratio) 36.49 kg/m2 Ricky Jimenes MD blood pressure, diastolic 72 mm[Hg] Gauri castelan [place] blood pressure, systolic 151 mm[Hg] Vince agus [place] oxygen saturation, oximetry 99 % Leila Dawson [...] Payer name Policy type / Coverage type Barker red constitution party ID [facility] MEDICARE COMPLETE HMO Other [id number] ADVANCE DIRECTIVES Name Date DISCUSSED - NO DECISION MADE TREATMENT PLAN Date Name Performer [id number],Chintan Lowe i [id number],Chintan Woodruff i [id number],SChintan i [id number],S, Chintan Arnett i [id number],S, Chintan Arnett i Cardiology Chintan Arnetti Cardiology [...] ..... 1 tab daily Orders: E KG ([id number]) Ariadna Jimenes MD follow up: H is updated medication list for this problem includes: Aspirin 81 Mg Tabs (Aspirin) ..... 1 tab daily Slow-mag Tbec (Magnesium cl-calcium carbonate tbec) Ariadna Jimenes MD Date Name Stress Regadenoson HISTORY OF PROCEDURES Procedure Date Procedure Name Provider Procedure Notes S tatus EKG Ariadna Jimenes MD completed SNOMED-CT: 756181066026087 Current Medications Documented Ariadna Jimenes MD completed Stress EKG Richie Obrien MD completed Regadenoson, 4 units Richie Obrien MD completed Cardiolite, 2 units Richie Obrien MD completed SPECT Images Richie Obrien MD completed ZIO Holter [facility] Ariadna Jimenes MD co mpleted SNOMED-CT: 46332291 Physical Exam, Performed: Pulse Exam of Foot Ariadna Jimenes MD completed EKG Ariadna Jimenes MD completed SNOMED-CT: 533510272186489 Current Medications Documented Ariadna Jimenes MD completed ePrescribe - Check t his box if eRx is used Ariadna Jimenes MD completed EKG Ariadna Jimenes MD completed
--- OUTSIDE RECORDS SUMMARY | 2024-12-14 11:02 | XMS_ITS | Encounter Summary ---
Author Organization [facility] Address [address] [place] [address] Care Team Providers Care Graduate School Dean Name Role Phone Regino García MD Primary Care Provider [phone] David Casanova MD Primary Care Provider [phone] Eamon Lucia RN Unavailable Unav ailable Encounter Details Date Type Department Care Team (Late st Contact Info) Description 03/05/2018 Telephone [facility] [address] [place], [place] [id number] Richie Garcia MD [id number] [place] [address] Social History Tobacco Use Types Packs/Day Years Used Date Smoking Tobacco: Never Assessed Sex and Gender Information Value Date Recorded Sex Assigned at Not on file Legal Sex Male 1:07 AM TRANSPORTATION DIRECTOR Gender Identity Not on file Sexual Orientation Not on file documented as of this encounter Plan of Treatment Not on file documented as of this encounter Visit Diagnoses Not on filedocumented in this encounter Care Teams Graduate School Dean Relationship Specialty Start Date End Date Regino García MD PCP - General 11/09/16 10/01/18 David Casanova MD PCP - General Internal Medicine 10/02/18 Eamon Lucia, RN Registered Nurse 07/03/19 documented as of this encounter
--- OUTSIDE RECORDS SUMMARY | 2024-12-14 11:02 | XMS_ITS | Referral Summary ---
Author Organization [facility] Address [address] [place] [address] Care Team Providers Care Coke Crane Operator Name Role Phone David Casanova MD Primary Care Provider [phone] Eamon Lucia RN Unavailable Unav ailable Allergies [...] chloride (Jo 128) 5 % ophthalmic ointmentIndicati ons:Rxy-diz-dylf erprint corneal dystrophy APPLY 1/4 INCH INTO [...] (04/27/2021): Added automatically from request for surgery [id number] Frequent falls 02/21/2021 Primary osteoarthritis of right knee 11/17/2020 Lumbar spondylosis 06/17/2020 Overview (06/17/2020): Added automatically from request for surgery [id number] Chronic use of opiate drug for therapeutic purpo se 11/29/2019 Overview (10/08/2022): Chronic Opioid Therapy - 10/08/21 Current opioid: - tramadol - 100 mg QID = 400 mg max/day Morphine daily equivalent: 40 mg/day Other : NO NSAIDS - elevated his blood pressure Benzo : none Storage : told to keep secure Plan: Continue, encourage restricting uses possible Urine Drug Screen [facility] 11/10/19 - consistent with prescribed tramadol Urine Drug Screen [facility] 11/21/20 - consistent with prescribed tramadol Urine drug screen [facility] 07/04/22 - consistent with prescribed tramadol Lumbar radiculopathy 11/02/2019 Displacement of lumbar intervertebral disc 07/19 Nocturnal leg cramps 05/13/2019 Vqu-cji-joxwwcfypjb 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 Right posterior capsular opacification [...] on file Legal Sex Male 1:07 AM STRETCHER LEVELER OPERATOR Gender Identity Not on file Sexual [...] CDT Respiratory Rate 18 10/01/2023 7:57 AM STRETCHER LEVELER OPERATOR Oxygen Saturation 99% 05/27/2024 11:06 AM CDT [...] Plan Chronic Care Management Improving( 12:43 PM STRETCHER LEVELER OPERATOR) Rabia Davies, RN Note: Problem: Chronic Pain Goals: 1. Minimize further functional decline 2. Maximize quality of life 3. Control pain Strategies: - Activity/exercise program recommendation - Conservative stepwise pain medicine strategy with multi-disciplinary approach - Recommend healthy lifestyle strategies and compensatory methods as needed Medical Devices Implanted Type Area Screedman Device Identifier Shelf Expiration Date Model / [...] 90 - 130 mL/min/1. 73 m2 [facility] Comment: Interpretive Data Reference Interval [...] us Yang Rose NP LAB BLOOD ORDERABLES [facility] al Result [facility] Department [place] [address] * POCT hemoglobin A1c (05/28/2022 9:16 AM CDT) Hgb A1C, POC 5.6 4.0 - 5.6 % [facility] Est Average Gluc POC 114 mg/dL [facility] Comment: The ADA recommends reporting an estimated Average Glucose (eAG) with all Hemoglobin A1c results using the equation derived from a study of 507 normal and diabetic adults. Minority populations were underrepresented and children were not included. (Diabetes Care 31:0202-2131, 2008). The eAG is not equivalent to a fasting glucose. Blood 05/28/2022 9:16 AM CDT 05/28/2022 9:16 AM CDT Dre Riggins MD POINT OF CARE TEST ORDERABLES F inal Result [facility] Department [place] [address] from Last 3 Months or Most Recently Relevant to Health Maintenance Insurance MEDICARE [facility] Address: [address] [address] [place] [address] [facility] MEDIC[facility] Address: [address] [address] [place] [address] UHC MEDICARE ADVANTAGE [facility] MEDICARE ADVANTAGE [facility] MEDIC[facility] Address: [address] [address] [place] [address] Advance Directives For more information, please contact: [phone] * Full Code (Latest Code Status on File) Date Activated Date Inactivated Comments 09/30/2023 7:34 PM 10/01/2023 5:13 PM Care Teams Coke Crane Operator Relationship Specialty Start Date End Date David Casanova MD PCP - General Internal Medicine 10/02/18 Eamon Lucia, RN Registered Nurse 07/03/19
--- OUTSIDE RECORDS SUMMARY | 2024-12-14 11:02 | XMS_ITS | Encounter Summary ---
Author Organization [facility] Address [address] [place] [address] Care Team Providers Care Tmh Teacher Name Role Phone David Casanova MD Primary Care Provider [phone] Eamon Lucia RN Unavailable Unav ailable Encounter Details Date Type Department Care Team (Late st Contact Info) Description 10/17/2021 Telephone [facility] [place] [facility] [address] [place], [place] [id number] Richie Garcia MD [address] [facility] [phone] [place], [place] [id number] Social History Tobacco Use Types Packs/Day Years [...] on file Legal Sex Male 1:07 AM 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 Minimize further functional decline 2. Maximize quality of life 3. Control pain Strategies: - Activity/exercise program recommendation - Conservative stepwise pain medicine strategy with multi-disciplinary approach - Recommend healthy lifestyle strategies and compensatory methods as needed documented as of this encounter Visit Diagnoses Not on filedocumented in this encounter Care Teams Tmh Teacher Relationship Specialty Start Date End Date David Casanova MD PCP - General Internal Medicine 10/02/18 Eamon Lucia, RN Registered Nurse 07/03/19 documented as of this encounter
== END 2024-12-14 10:35 | disposition home or self-care (01) ==
PROVIDERS: Emergency Provider Emergency Medicine; PCP Family Medicine
DX: M54.50 Low back pain, unspecified (principal); E11.9 Type 2 diabetes mellitus without complications; I10 Essential (primary) hypertension; E78.5 Hyperlipidemia, unspecified
CPT/HCPCS: 96374; 96375; 99284; J1171; J1885; J2405

== ENCOUNTER 2024-12-15 10:21 | Emergency (ER) | payer MEDICARE, SELFPAY ==
--- NOTE | ~2024-12-15 | XR_ITS ---
3 VIEWS LUMBAR SPINE Ordering provider: Luigi Warner MD History: . twisted injury X yesterday, radiating down LE,HX of hardware . Comparison: None. FINDINGS: VERTEBRAL BODIES:Possible loss of volume of T12 most likely chronic. No visible fracture or subluxat ion. Postoperative changes at the level of L4, L5 and S1. Degenerative changes of the spine. DISK SPACES: Disc spacers seen at the level of L5-S1. Narrowing of the disc T12-L1, L1-L2, L2-L3 and L3-L4. SOFT TISSUES: Normal. Pubic symphysitis. Bilateral mild to moderate hip osteoarthritic changes. IMPRESSION: No acute osseous abnormality lumbar spine. Postoperative changes in the lower lumbar area. Multilevel degenerative disc disease. Reviewed, dictated and finalized at location A.
[2024-12-15 10:22] VITALS: BP 184/94; PULSE 58; RESP 18; TEMP 36.1; O2SAT 98
--- NOTE | 2024-12-15 10:32 | ED_ITS ---
HPI - Back Pain/Injury General Chief Complaint: Back Pain/Injury Stated Complaint: back pain Time Seen by Provider: 12/15/24 10:31 Source: patient and family Mode of arrival: ambulatory Limitations: no limitations History of Present Illness HPI Narrative: patient is a 74-year-old male with recurrent issues of his lower back and now having acute on chronic lumbar pain over the past week. It mostly hurts when he sits down on his tailbone. The pain is lumbar spine area. Pain is sharp and debilitating to the patient at this time. He had surgery of his lower spine in the past for sciatica issues. He is having his chronic lower extremity shooting pains but that is not new at this time. No injuries. Patient did fall controlled and walked himself to the ground without head or neck injuries or other injuries. MD elicited complaint: back pain Pertinent past history: prior back pain, back surgery and other Onset (ago): week(s) ( One) Timing: constant Severity: moderate Pain scale (0-10): 5 Similar Symptoms Previously: Yes Quality: sharp, tingling and spasming Location: lumbar spine Radiation: buttocks, left upper leg and right upper leg Exacerbating factors: sitting upright Relieving factors: supine Context: other ( patient has progressively worse lower back pain over the past few days without any major injury but he does have hardware and prior surgery to this area) Associated symptoms: other ( no urinary retention or loss and no saddle anesthes ia, no bowel changes) Treatments prior to arrival: NSAIDS and acetaminophen Work related injury: No Related Data Allergies Allergy/AdvReac Type Severity Reaction Status Date / Time diazepam Allergy Unknown Unknown Verified 12/15/24 10:33 TRANQUILIZERS UNK Allergy Mild Unknown Uncoded 12/15/24 10:33 Review of Systems Review of Systems: All systems reviewed & are unremarkable except as noted in HPI and below Constitutional: Constitutional: Reports no additional constitutional complaints Eyes: Eyes: Reports no additional eye complaints ENT: Reports system reviewed and no additional complaints, except as documented Cardiovascular: Cardiovascular: Reports no additional cardiovascular complaints Respiratory: Respiratory: Reports no additional respiratory complaints Gastrointestinal: Gastrointestinal: Reports no additional gastrointestinal complaints Genitourinary: Genitourinary: Reports no additional male genitourinary complaints Musculoskeletal: Musculoskeletal: Reports no additional musculoskeletal compl aints Integumentary/Breasts: Skin/Breast: Reports system reviewed and no additional complaints, except as docu Neurologic: Reports system reviewed and no additional complaints, except as documented Psychiatric: Psychiatric: Reports no additional psychiatric complaints Endocrine: Endocrine: Reports no additional endocrine complaints Hematologic/Lymphatic: Hematologic/Lymphatic: Reports no additional hematologic/lymphatic complaints Allergic/Immunologic: Allergic/Immunologic: Reports no additional allergic/immunologic complaints PMFSH Past Medical History Medical History Spondylolisthesis Patient denies medical problems Surgical History Surgical History S/P lumbar spinal fusion Family History Family History Mother Hypertension Family history of diabetes mellitus in first degree relative Family history of coronary artery disease Family history of malignant neoplasm of breast in first degree relative Diabetes mellitus Family history of cardiovascular disease Grandparent Cerebrovascular accident Family history of malignant neoplasm Family history of coronary artery disease Social History Social History Smoking status: Never smoker Alcohol intake: never Exam Const: General: healthy appearing Nutritional Appearance: well nourished Orientation/consciousness: patient oriented x3 Limitations: no limitations HENMT: Head: normal to inspection Ears: external ears normal Face/Nose/Sinus: Normal external nose present Eyes: Conjunctivae: conjunctivae normal Pupils: Equal, round and reactive pupils present EOM: EOMs intact bilaterally Neck: Neck: normal visual inspection Chest: Chest palpation & inspection: normal inspection of the chest Resp: Effort & Inspection: normal respiratory effort and not labored Auscultation: clear to auscultation bilaterally and no crackles Cardio: Rate: regular rate Rhythm: regular rhythm Heart sounds: no murmurs GI: Inspection: non-distended GI Palp: Yes Soft to palpation and No Tenderness to palpation present (GI) Auscultation: normal bowel sounds : General: Yes bladder normal to palpation Back/Spine/Pelvis: Back: no CVA tenderness Cervical Spine: No collar present Other: patient has tenderness of the lower midline and paraspinal muscles to the right side more so than the left side of the lumbar spine Skin: General skin exam: normal color Rashes: no rashes Wounds: no wounds Neuro: General: patient oriented x3, moves all extremities, no meningeal signs, no focal motor deficits and CN's II-XI intact bilaterally Cranial nerves: Yes Nystagmus not present Speech: normal speech Gait exam (Neuro): Normal gait present Extrem: General: normal to inspection and no clubbing, cyanosis or edema Other: patient having difficulty getting comfortable and has pain of his lumbar spine and lower legs which is more so chronic with sciatica bilateral Psych: Mental Status: mental status grossly normal Affect: normal affect Attitude: cooperative Course Vital Signs Vital signs: Vital Signs Temperature 36.1 C L 12/15/24 10:22 Pulse Rate 58 L 12/15/24 10:22 Respiratory Rate 18 12/15/24 10:22 Blood Pressure 184/94 H 12/15/24 10:22 Pulse Oximetry 98 12/15/24 10:22 Oxygen Delivery Room Air 12/15/24 10:22 Temperature 36.1 C L 12/15/24 10:22 Pulse Rate 58 L 12/15/24 10:22 Respiratory Rate 18 12/15/24 10:22 Blood Pressure 184/94 H 12/15/24 10:22 Pulse Oximetry 98 12/15/24 10:22 Oxygen Delivery Room Air 12/15/24 10:22 MDM - Back Pain/Injury MDM Narrative Medical decision making narrative: patient is a 74-year-old male with lower back pain. No injury. We will get x- rays and treat with steroids and pain medication. He was in the ER yesterday for similar situation and he was given a different set of medication. He was on Flexeril and diclofenac without change in his pain. We are going to proceed with steroids at this time and [place]. Imaging Data Attestation: I personally reviewed and interpreted this imaging study as fo llows: Radiologist's impression: X-ray of the lumbar spine shows IMPRESSION: No acute osseous abnormality lumbar spine. Postoperative changes in the lower lumbar area. Multilevel degenerative disc disease. Discharge Plan Discharge Clinical Impression: Lumbar radiculopathy Patient Disposition: Home Condition: Improved Instructions: Lumbar Radiculopathy (ED) Patient Language: Bangladeshi Prescriptions: New prednisone 20 mg tablet 40 mg PO DAILY 3 Days Qty: 6 0RF hydrocodone-acetaminophen 10-325 mg tablet 1 tablet PO BID PRN (Reason: pain) Qty: 20 0RF No Action hydrocodone-acetaminophen 5-325 mg tablet 1 tablet PO Q8H PRN (Reason: pain) Qty: 10 0RF diclofenac sodium 75 mg tablet,delayed release (DR/EC) 75 mg PO BID PRN (Reason: pain) Qty: 14 0RF cyclobenzaprine 7.5 mg tablet 7.5 mg PO TID Qty: 20 0RF Follow-up/Referrals: Dave,Italia Gamino MD [Primary Care Provider] - Time of Disposition: 12:01
[2024-12-15 11:00] VITALS: BP 122/53; PULSE 50; RESP 17; O2SAT 97
[2024-12-15] MEDS: predniSONE 20 MG TABLET 40 MG PO (11:08)
[2024-12-15] MEDS: HYDROcodone/acetaminophen (*CRX) 10-325 MG TABLET 1 TAB PO (11:08)
--- NOTE | 2024-12-15 11:08 | PC.NURSE ---
patient back in room from radiology
[2024-12-15 11:30] VITALS: BP 118/60; PULSE 51; RESP 17; O2SAT 96
--- OUTSIDE RECORDS SUMMARY | 2024-12-15 11:32 | XMS_ITS | Referral Summary ---
Author Organization [facility] Address [address] [place] [address] Care Team Providers Care Driller And Reamer Name Role Phone David Casanova MD Primary Care Provider [phone] Eamon Lucia RN Unavailable Unav ailable Allergies [...] chloride (Jo 128) 5 % ophthalmic ointmentIndicati ons:Fxd-ohi-yitd erprint corneal dystrophy APPLY 1/4 INCH INTO [...] (04/27/2021): Added automatically from request for surgery [id number] Frequent falls 02/21/2021 Primary osteoarthritis of right knee 11/17/2020 Lumbar spondylosis 06/17/2020 Overview (06/17/2020): Added automatically from request for surgery [id number] Chronic use of opiate drug for therapeutic purpo se 11/29/2019 Overview (10/08/2022): Chronic Opioid Therapy - 10/08/21 Current opioid: - tramadol - 100 mg QID = 400 mg max/day Morphine daily equivalent: 40 mg/day Other : NO NSAIDS - elevated his blood pressure Benzo : none Storage : told to keep secure Plan: Continue, encourage restricting uses possible Urine Drug Screen [facility] 11/10/19 - consistent with prescribed tramadol Urine Drug Screen [facility] 11/21/20 - consistent with prescribed tramadol Urine drug screen [facility] 07/04/22 - consistent with prescribed tramadol Lumbar radiculopathy 11/02/2019 Displacement of lumbar intervertebral disc 07/19 Nocturnal leg cramps 05/13/2019 Vdc-lvw-jbehfbrwcgk 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 Right posterior capsular opacification [...] on file Legal Sex Male 1:07 AM 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 Minimize further functional decline 2. Maximize quality of life 3. Control pain Strategies: - Activity/exercise program recommendation - Conservative stepwise pain medicine strategy with multi-disciplinary approach - Recommend healthy lifestyle strategies and compensatory methods as needed Medical Devices Implanted Type Area Test Automation Architect Device Identifier Shelf Expiration Date Model / [...] 90 - 130 mL/min/1. 73 m2 [facility] Comment: Interpretive Data Reference Interval Normal >/= [...] us Yang Rose NP LAB BLOOD ORDERABLES [facility] al Result [facility] Department [place] [address] * POCT hemoglobin A1c (05/28/2022 9:16 AM CDT) Hgb A1C, POC 5.6 4.0 - 5.6 % BRAND[facility] Est Average Gluc POC 114 mg/dL [facility] Comment: The ADA recommends reporting an estimated Average Glucose (eAG) with all Hemoglobin A1c results using the equation derived from a study of 507 normal and diabetic adults. Minority populations were underrepresented and children were not included. (Diabetes Care 31:5063-4795, 2008). The eAG is not equivalent to a fasting glucose. Blood 05/28/2022 9:16 AM CDT 05/28/2022 9:16 AM CDT rDe Riggins MD POINT OF CARE TEST ORDERABLES F inal Result BR[facility] Department [place] [address] from Last 3 Months or Most Recently Relevant to Health Maintenance Insurance MEDICARE [facility] Address: [address] [address] [place] [address] [facility]F UHC MEDICARE ADVANTAGE [facility] MEDICARE ADVANTAGE Advance Directives For more information, please contact: [phone] * Full Code (Latest Code Status on File) Date Activated Date Inactivated Comments 09/30/2023 7:34 PM 10/01/2023 5:13 PM Care Teams Driller And Reamer Relationship Specialty Start Date End Date David Casanova MD PCP - General Internal Medicine 10/02/18 Eamon Lucia, RN Registered Nurse 07/03/19
--- OUTSIDE RECORDS SUMMARY | 2024-12-15 11:32 | XMS_ITS | Continuity of Care Document ---
Author Organization [facility] Address [address] [place] [address] [address] [place] [address] Phone Care Team Providers Care Truck Repair Service Estimator Name Role Phone Nilo Stout Unavailable Unavailable Procedures Procedure Date Eye Exam, New Patient Refraction Advance Directives Directive Yes / No Effective Date File Name No Information Encounters Encounter Description Practice Location Reason(s) For Visit Diagnoses Date Provider Providers Copied on Encounter [facility], [id number] [place] [address] [address], [place], [place], [id number], [place] tel:[phone] [facility] No Information [address]. [address] [facility] , [address], [place], [address], [place]. tel:[phone] Family History Family Member Type Diagnosis Age At Onset No Information Payers Payer name Insurance type Covered republican ID Authorfaithrosey chhayakriss(s) [employer] SOI 09 [id number] Social History Type Description Quantity Date Captured [...]
--- OUTSIDE RECORDS SUMMARY | 2024-12-15 11:32 | XMS_ITS | Encounter Summary ---
Author Organization [facility] Healthcare Address [address] [place] [address] Care Team Providers Care Printed Circuit Boards Stripper Etcher Name Role Phone Regino García MD Primary Care Provider [phone] Dvaid Casanova MD Primary Care Provider [phone] Eamon Lucia RN Unavailable Unav ailable Reason for Visit * Reason Onset Date Comments Med Refill 08/05/2018 Encounter Details Date Type Department Care Team (Late st Contact Info) Description 08/05/2018 Telephone [facility] at [facility] [address] 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 He was hesitant to make an appointment but I did convince him to see Darya. Appointment made for 08-15- @ 11 am. Refill sent to resident pool. M FRAME OPERATOR documented in this encounter Plan of Treatment Not on file documented as of this encounter Visit Diagnoses Not on filedocumented in this encounter Care Teams Printed Circuit Boards Stripper Etcher Relationship Specialty Start Date End Date Regino García MD PCP - General 11/09/16 10/01/18 David Casanova MD PCP - General Internal Medicine 10/02/18 Eamon Lucia, RN Registered Nurse 07/03/19 documented as of this encounter
--- OUTSIDE RECORDS SUMMARY | 2024-12-15 11:32 | XMS_ITS | Encounter Summary ---
Author Organization [facility] Address [address] [place] [address] Phone Care Team Providers Care Market Research Specialist Name Role Phone David Casanova MD Primary Care Provider [phone] Eamon Lucia RN Unavailable Unav ailable Encounter Details Date Type Department Care Team (Latest Contact Info) Description 05/12/2019 Orders Only [facility], Provider Social History Tobacco Use Types Packs/Day Years Used Date Smoking Tobacco: Never Smokeless Tobacco: Never Sex and Gender Information Value Date Recorded Sex Assigned at Not on file Legal Sex Male 1:07 AM LAYER OUT Gender Identity Not on file Sexual Orientation Not on file documented as of this encounter Plan of Treatment Not on file documented as of this encounter Goals Goal Patient Goal Type Associated Problems Recent Progress Patient-Stated? Author CCM Chronic Pain Care Plan Chronic Care Management Improving( 12:43 PM LAYER OUT) No Rabia Aquino, RN Note: Problem: Chronic [...] on filedocumented in this encounter Care Teams Market Research Specialist Relationship Specialty Start Date End Date David Casanova MD PCP - General Internal Medicine 10/02/18 Eamon Lucia, RN Registered Nurse 07/03/19 documented as of this encounter
--- OUTSIDE RECORDS SUMMARY | 2024-12-15 11:32 | XMS_ITS | Clinical Summary ---
Author Organization [facility] Address [address] [place] [address] Phone Care Team Providers Care Mexican Food Cook Name Role Phone Unavailable Primary Care Provider [...]
--- OUTSIDE RECORDS SUMMARY | 2024-12-15 11:32 | XMS_ITS | Encounter Summary ---
Author Organization [facility] Address [address] [place] [address] Phone Care Team Providers Care Safety Glass Installer Name Role Phone David Casanova MD Primary Care Provider Eamon Lucia RN Unavailable Unav ailable Encounter [...] on file Legal Sex Male 1:07 AM SCRUM PRODUCT OWNER Gender Identity Not on file Sexual Orientation Not on file Occupation Industry Job Start Date Job End Date RETIRED Not on file Not on file Not on file documented as of this encounter Plan of Treatment Not on file documented as of this encounter Goals Goal Patient Goal Type Associated Problems Recent Progress Patient-Stated? Author [facility] Chronic Pain Care Plan Chronic Care Management Improving( 12:43 PM SCRUM PRODUCT OWNER) No Rabia Aquino RN Note: Problem: Chronic [...] on filedocumented in this encounter Care Teams Safety Glass Installer Relationship Specialty Start Date End Date David Casanova MD PCP - General Internal Medicine 10/02/18 Eamon Lucia, RN Registered Nurse 07/03/19 documented as of this encounter
--- OUTSIDE RECORDS SUMMARY | 2024-12-15 11:32 | XMS_ITS | Encounter Summary ---
Author Organization [facility] Healthcare Address [address] [place] [address] Care Team Providers Care Descriptive Catalog Librarian Name Role Phone Regino García MD Primary Care Provider [phone] Dvaid Casanova MD Primary Care Provider [phone] Eamon Lucia RN Unavailable Unav ailable Encounter Details Date Type Department Care Team (Late st Contact Info) Description 03/05/2018 Telephone [facility] [address] [facility] Advanced Medicine [address] [place], [place] [id number] Richie Garcia MD [address] [facility] [address] [facility] [phone] [place] [address] Social History Tobacco Use Types Packs/Day Years Used Date Smoking Tobacco: Never Assessed Sex and Gender Information Value Date Recorded Sex Assigned at Not on file Legal Sex Male 1:07 AM SOFTWARE ENGINEER Gender Identity Not on file Sexual Orientation Not on file documented as of this encounter Plan of Treatment Not on file documented as of this encounter Visit Diagnoses Not on filedocumented in this encounter Care Teams Descriptive Catalog Librarian Relationship Specialty Start Date End Date Regino García MD PCP - General 11/09/16 10/01/18 David Casanova MD PCP - General Internal Medicine 10/02/18 Eamon Lucia, RN Registered Nurse 07/03/19 documented as of this encounter
--- OUTSIDE RECORDS SUMMARY | 2024-12-15 11:32 | XMS_ITS | Clinical Summary ---
Author Organization [facility] Address [address] [place] [address] Care Team Providers Care Recreation Officer Name Role Phone David Casanova MD Primary Care Provider [phone] Eamon Lucia RN Unavailable Unav ailable Allergies [...] chloride (Jo 128) 5 % ophthalmic ointmentIndicati ons:Kxc-wkd-xwbs erprint corneal dystrophy APPLY 1/4 INCH INTO [...] (04/27/2021): Added automatically from request for surgery [id number] Frequent falls 02/21/2021 Primary osteoarthritis of right knee 11/17/2020 Lumbar spondylosis 06/17/2020 Overview (06/17/2020): Added automatically from request for surgery [id number] Chronic use of opiate drug for therapeutic [...] intervertebral disc 07/19 Nocturnal leg cramps 05/13/2019 Kun-rtq-wrtacijdnon 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 Right posterior capsular opacification [...] ROTATOR CUFF REPAIR 09/09/2014 - 09/08/2015 Right FL INJ LUMBAR/SACRAL,W/WO CNTRST Corticosteroid Injection Interlaminar Approach Lumbar - (Added by TW Conv) NERVE BLOCK Nerve Block Paravertebral Facet Joint - LMBB- Bilateral L3, L4, L5,S1 (Added by TW Conv) NERVE BLOCK Nerve Block Paravertebral Facet Joint - LMBB #2 bilateral L3,4,5 S1 (Added by TW Conv) FL DSTR NROLYTC AGNT PARVERTEB FCT SNGL LMBR/SACRAL [...] on file Legal Sex Male 1:07 AM FLEET DRIVER Gender Identity Not on file Sexual Orientation [...] CDT Respiratory Rate 18 10/01/2023 7:57 AM FLEET DRIVER Oxygen Saturation 99% 05/27/2024 11:06 AM CDT [...] Plan Chronic Care Management Improving( 12:43 PM FLEET DRIVER) Rabia Davies, RN Note: Problem: Chronic Pain Goals: 1. Minimize further functional decline 2. Maximize quality of life 3. Control pain Strategies: - Activity/exercise program recommendation - Conservative stepwise pain medicine strategy with multi-disciplinary approach - Recommend healthy lifestyle strategies and compensatory methods as needed Medical Devices Implanted Type Area Wrapping Machine Operator Device Identifier Shelf Expiration Date Model / [...] NP LAB BLOOD ORDERABLES Fin al Result [facility] Department [place] [address] * POCT hemoglobin A1c (05/28/2022 9:16 AM CDT) Hgb A1C, POC 5.6 4.0 - 5.6 % [facility] Est Average Gluc POC 114 mg/dL [facility] Comment: The ADA recommends reporting an estimated Average Glucose (eAG) with all Hemoglobin A1c results using the equation derived from a study of 507 normal and diabetic adults. Minority populations were underrepresented and children were not included. (Diabetes Care 31:4561-8296, 2008). The eAG is not equivalent to a fasting glucose. Blood 05/28/2022 9:16 AM CDT 05/28/2022 9:16 AM CDT Dre Riggins MD POINT OF CARE TEST ORDERABLES F inal Result [facility] [place] [address] from Last 3 Months or Most Recently Relevant to Health Maintenance Insurance [address] [place] [address] [place] [address] [facility]CR HMO REF UHC MEDICARE ADVANTAGE UHC MEDICARE ADVANTAGE Advance Directives For more information, please contact: [phone] * Full Code (Latest Code Status on File) Date Activated Date Inactivated Comments 09/30/2023 7:34 PM 10/01/2023 5:13 PM Care Teams Recreation Officer Relationship Specialty Start Date End Date David Casanova MD PCP - General Internal Medicine 10/02/18 Eamon Lucia, RN Registered Nurse 07/03/19
--- OUTSIDE RECORDS SUMMARY | 2024-12-15 11:32 | XMS_ITS | Clinical Summary ---
Author Organization [facility] [employer] Address [address] [place] [address] Care Team Providers Care Field Sales Agent Name Role Phone David Casanova MD Primary Care Provider Source Comments [facility] [employer],non-owned Affiliates and Associated Physician Practices is amultiple site organization consisting of ambulatory clinics and hospital sitesin [place], [place], [place] and [place]. This disclosure is being madepursuant to the Care Everywhere program and may not contain all information available regarding this patient. Last updated 18.[facility] [employer] Allergies No known active allergies Medications * [...] PO Take by mouth once daily Active Gcij-Dudupz-I-Biot -W66-Fgca 160-1.7 MG TABS Active metoprolol succinate XL [...] Recorded Patient Health Questionnaire-2 Score 0 01/14/2024 [facility] - [...] place to sleep or slept in a long term (including now)? No 10/31/2022 Sex and Gender Information Value Date Recorded Sex Assigned at Not on file Gender Identity Not on file Sexual Orientation Not on file Last Filed Vital Signs Vital Sign Reading Time Taken Comments Blood Pressure 142/79 11/08/2022 7:52 AM CORPORATE LOGISTICS MANAGER Pulse 57 11/08/2022 7:52 AM CORPORATE LOGISTICS MANAGER Temperature 36.4 C (97.5 F) 11/08/2022 7:52 AM CORPORATE LOGISTICS MANAGER Respiratory Rate 18 11/08/2022 7:52 AM CORPORATE LOGISTICS MANAGER Oxygen Saturation 96% 11/08/2022 7:52 AM CORPORATE LOGISTICS MANAGER Inhaled Oxygen Concentration - - Weight 110.7 [...] this topic Medical Devices Implanted Type Area Surgical Technology Instructor Device Identifier Shelf Expiration Date Model / Serial / Lot Graft Bone Canc 30ml Cube Frzdr Irr Implanted:Qty: 1 on 10/29/2022 by Shaggy Rodriguez MD at [facility] N/A: Spine Lumbar Allosource 03/28/2027 [id number] / / [id number] Graft Bone Accell Evo3 Dbm 10ml Ptty - [id number] Implanted:Qty: 1 on 10/29/2022 by Shaggy Rodriguez MD at [facility] N/A: Spine Lumbar Integra Neurosciences 09/05/2023 / [id number] / [id number] Graft Bone Accell Evo3 Dbm 10ml Ptty - [id number] Implanted:Qty: 1 on 10/29/2022 by Shaggy Rodriguez MD at [facility] N/A: Spine Lumbar Integra [employer] 09/05/2023 / [id number] / [id number] Eit Plif H 13mm, 8 Degrees, 04/06 Implanted:Qty: 1 on 10/29/2022 by Shaggy Rodriguez MD at [facility] N/A: Spine Lumbar [id number] / / [id number] Screw 7.5mm 45mm Pa Spne Pdcl Xpdm Ti Implanted:Qty: 4 on 10/29/2022 by Shaggy Rodriguez MD at [facility] N/A: Spine Lumbar Synthes Spine [id number] / / Screw 7.5mm 50mm Pa Spne Pdcl Xpdm Ti Implanted:Qty: 2 on 10/29/2022 by Shaggy Rodriguez MD at [facility] N/A: Spine Lumbar Synthes Spine [id number] / / Screw Set Ti 5.5mm Spne 1 Inr Ma Xpdm Implanted:Qty: 6 on 10/29/2022 by Shaggy Rodriguez MD at [facility] N/A: Spine Lumbar Synthes Spine [id number] / / 65mm Mike Implanted:Qty: 2 on 10/29/2022 by Shaggy Rodriguez MD at [facility] N/A: Spine Lumbar Synthes Spine [id number] / / Procedures Procedure Name Priority Date/Time Associated Diagnosis Comments BASIC METABOLIC PANEL (CALCIUM TOTAL) Routine 11/08/2022 4:32 AM CORPORATE LOGISTICS MANAGER Spondylolisthesis, unspecified spinal region HEMOGLOBIN A1C Routine 10/30/2022 1:36 AM CORPORATE LOGISTICS MANAGER from Last 3 Months or Most Recently Relevant to Health Maintenance Results * (ABNORMAL) BASIC METABOLIC PANEL (CALCIUM TOTAL) (11/08/2022 4:32 AM CORPORATE LOGISTICS MANAGER) BUN 15 7 - 26 mg/dL 11/08/2022 5:28 AM [facility] Creatinine 0.82 0.71 - 1.16 mg/dL 11/08/2022 5:28 AM [facility] Sodium 138 136 - 145 mmol/L 11/08/2022 5:28 AM [facility] Potassium 3.9 3.5 - 4.5 mmol/L 11/08/2022 5:28 AM [facility] Chloride 108(H) 98 - 107 mmol/L 11/08/2022 5:28 AM [facility] CO2 21(L) 22 - 29 mmol/L 11/08/2022 5:28 AM [facility] Glucose 111 70 - 115 mg/dL 11/08/2022 5:28 AM [facility] Calcium 9.3 8.4 - 10.2 mg/dL 11/08/2022 5:28 AM [facility] Anion Gap 13 8 - 18 11/08/2022 5:28 AM [facility] BUN/Creatinine Ratio 18 7 - 23 11/08/2022 5:28 AM [facility] Osmolality Calculated 288 270 - 300 mOsm/kg 11/08/2022 5:28 AM [facility] eGFR by CKD-EPI >90 >=90 mL/min/1.7 3 m2 11/08/2022 5:28 AM [facility] Blood BLOOD SPECIMEN / Unknown Lab Venipuncture / Unknown 11/08/2022 4:32 AM CORPORATE LOGISTICS MANAGER 11/08/2022 4:59 AM CORPORATE LOGISTICS MANAGER Shaggy Rodriguez MD LAB - CHEMISTRY ANDREW LEWIS Performing Organization Address [facility]/ZIP Co de Phone Number [facility] [address] [place] [address], [place] [phone] * HEMOGLOBIN A1C (10/30/2022 1:36 AM CORPORATE LOGISTICS MANAGER) Hemoglobin A1c 5.3 <=5.6 % 10/30/2022 11:47 AM [facility] Estimated Average Glucose 105 mg/dL 10/30/2022 11:47 AM [facility] Comment: HbA1c Interpretation: Normal : < 5.7% Pre-diabetes: 5.7-6.4% Diabetes: Equal to or greater than 6.5% Test results diagnostic of diabetes should be repeated for confirmation. Treatment target values recommended by ADA and other clinical organizations should be used to evaluate metabolic control in patients. Reference: [place] Diabetes Association, Standards of Care in Diabetes -2020 In patients 70 years and older consider HbA1c target range of 7.0-7.5% (Reference: Omi Garcia et al. JAMDA. 2012) The Sebia assay for the measurement of HbA1c is a National Glycohemoglobin Standardization Program (NGSP) certified method. Blood BLOOD SPECIMEN / Unknown Lab Venipuncture / Unknown 10/30/2022 1:36 AM CORPORATE LOGISTICS MANAGER 10/30/2022 2:37 AM CORPORATE LOGISTICS MANAGER Shaggy Rodriguez MD LAB - CHEMISTRY ANDREW LEWIS Performing Organization Address City/[facility]/ZIP Co de Phone Number [facility] [address] [place] [address], [place] [phone] from Last 3 Months or Most Recently Relevant to Health Maintenance Advance Directives * Full Code (Latest Code Status on File) Date Activated Date Inactivated Comments 10/29/2022 7:45 PM 11/08/2022 3:30 PM Care Teams Field Sales Agent Relationship Specialty Start Date End Date David Casanova MD [address] [place] [address] PCP - General 06/25/22
--- OUTSIDE RECORDS SUMMARY | 2024-12-15 11:32 | XMS_ITS | Clinical Summary ---
Author Organization [facility] Address [address] [place] [address] Care Team Providers Care Safemaker Name Role Phone David Casanova MD Primary Care Provider [phone] Social History Tobacco Use Types Packs/Day Years Used Date Smoking Tobacco: Never Assessed Sex and Gender Information Value Date Recorded Sex Assigned at Not on file Legal Sex Male 10:28 PM PRICING ANALYST Gender Identity Not on file Sexual Orientation [...] Vaccine ( - 2023-2 5 season) 2024 RSV Immunization or 60+ Years (1 [...] age to complete this topic Care Teams Safemaker Relationship Specialty Start Date End Date David Casanova MD [address] [place] [address] PCP - General INTERNAL MEDICINE 10/23/21
--- OUTSIDE RECORDS SUMMARY | 2024-12-15 11:32 | XMS_ITS | Encounter Summary ---
Author Organization [facility] Healthcare Address [address] [place] [address] Care Team Providers Care Traveler Changer Name Role Phone David Casanova MD Primary Care Provider [phone] Eamon Lucia RN Unavailable Unav ailable Reason for Visit * Reason Onset Date Comments Scheduling Appointments 08/17/2019 Encounter Details Date Type Department Care Team (Late st Contact Info) Description 08/17/2019 Telephone [facility] at the [place] [facility] [address] [facility] [address] [place] [address] Richie Garcia MD [address] [facility] [address] [facility] [phone] [place], [place] [id number] Scheduling Appointments Social History Tobacco Use Types Packs/Day Years Used Date Smoking Tobacco: Never Smokeless Tobacco: Never Alcohol Use Standard Drinks/Week Comments Not Currently 0 (1 standard drink = 0.6 oz pur e alcohol) denies Sex and Gender Information Value Date Recorded Sex Assigned at Not on file Legal Sex Male 1:07 AM ETYMOLOGY PROFESSOR Gender Identity Not on file Sexual Orientation Not on file documented as of this encounter Plan of Treatment Not on file documented as of this encounter Goals Goal Patient Goal Type Associated Problems Recent Progress Patient-Stated? Author CCM Chronic Pain Care Plan Chronic Care Management Improving( 12:43 PM ETYMOLOGY PROFESSOR) No Rabia Aquino, RN Note: Problem: Chronic Pain Goals: 1. Minimize further functional decline 2. Maximize quality of life 3. Control pain Strategies: - Activity/exercise program recommendation - Conservative stepwise pain medicine strategy with multi-disciplinary approach - Recommend healthy lifestyle strategies and compensatory methods as needed documented as of this encounter Visit Diagnoses Not on filedocumented in this encounter Care Teams Traveler Changer Relationship Specialty Start Date End Date David Casanova MD PCP - General Internal Medicine 10/02/18 Eamon Lucia, RN Registered Nurse 07/03/19 documented as of this encounter
--- OUTSIDE RECORDS SUMMARY | 2024-12-15 11:32 | XMS_ITS | CONTINUITY OF CARE DOCUMENT ---
Author Name ty, ty Address Unknown Organization [facility] Address [address] [place] [address] Phone [phone] Care Team Providers Care Front Desk Supervisor Name Role Phone Ariadna Jimenes MD Unavailable JAZZ CLEMONS MD Unavailable [phone] JAZZ CLEMONS MD Unavailable PROBLEMS Condition Status Date Provider Notes Chest pain--nl cath 2017 active Ariadna vargas MD Shortness of breath active Ariadna Jimenes MD ANA active Ariadna Jimenes MD FAMILY HISTORY OF HEART DISEASE completed - Ariadna Jimenes MD ABNORMAL ELECTROCARDIOGRAM completed 01/01 - Ariadna Jimenes MD Diabetes mellitus active Ariadna Jimenes MD Palpitations PVCS active Ariadna iJmenes MD Preoperative cardiovascular evaluation--back surgery active Ariadna Jimenes MD ENCOUNTERS Date Type Provider Location Encounter Diag nosis - In-person encounter Office Visit Ariadna Jimenes MD [facility] Chest pain--nl cath 2017Shortness of breathOSAFAMILY HISTORY OF HEART DISEASEABNORMAL ELECTROCARDIOGRAMPreoperative cardiovascular evaluation--back surgery - In-person encounter Office Visit Ariadna Jimenes MD [facility] - In-person encounter Office Visit Ariadna Jimenes MD [facility] Diabetes mellitusPalpitations PVCS - In-person encounter Office Visit Ariadna Jimenes MD [facility] - In-person encounter Office Visit Ariadna Jimenes MD [facility] Chest pain--nl cath 2017 - In-person encounter Office Visit Ariadna Jimenes MD [facility] Chest pain--nl cath 2016Shortness of breathOSA VITAL SIGNS Date Observation Value Provider Body Mass Index (Ratio) 36.49 kg/m2 Ricky Jimenes MD blood pressure, diastolic 72 mm[Hg] Gauri castelan [place] blood pressure, systolic 151 mm[Hg] Vince agus [place] oxygen saturation, oximetry 99 % Leila Dawson [...] Payer name Policy type / Coverage type [place] red democrat ID [facility] MEDICARE COMPLETE HMO Other [id number] ADVANCE DIRECTIVES Name Date DISCUSSED - NO DECISION MADE TREATMENT PLAN Date Name Performer [id number],Chintan Lowe i [id number],Chintan Woodruff i [id number],SChintan i [id number],S, Chintan Arnett i [id number],S, Chintan Arnett i Cardiology Chintan Arnetti Cardiology [...] ..... 1 tab daily Orders: E KG ([id number]) Ariadna Jimenes MD follow up: H is updated medication list for this problem includes: Aspirin 81 Mg Tabs (Aspirin) ..... 1 tab daily Slow-mag Tbec (Magnesium cl-calcium carbonate tbec) Ariadna Jimenes MD Date Name Stress Regadenoson HISTORY OF PROCEDURES Procedure Date Procedure Name Provider Procedure Notes S tatus EKG Ariadna Jimenes MD completed SNOMED-CT: 704369912663407 Current Medications Documented Ariadna Jimenes MD completed Stress EKG Richie Obrien MD completed Regadenoson, 4 units Richie Obrien MD completed Cardiolite, 2 units Richie Obrien MD completed SPECT Images Richie Obrien MD completed ZIO Holter [facility] Ariadna Jimenes MD co mpleted SNOMED-CT: 63896255 Physical Exam, Performed: Pulse Exam of Foot Ariadna Jimenes MD completed EKG Ariadna Jimenes MD completed SNOMED-CT: 522652809546354 Current Medications Documented Ariadna Jimenes MD completed ePrescribe - Check t his box if eRx is used Ariadna Jimenes MD completed EKG Ariadna Jimenes MD completed
--- OUTSIDE RECORDS SUMMARY | 2024-12-15 11:32 | XMS_ITS | Encounter Summary ---
Author Organization [facility] Healthcare Address [address] [place] [address] Care Team Providers Care Fabrication Department Supervisor Name Role Phone David Casanova MD Primary Care Provider [phone] Eamon Lucia RN Unavailable Unav ailable Encounter Details Date Type Department Care Team (Late st Contact Info) Description 10/17/2021 Telephone [facility] Center at the [place] [facility] [address] Advanced Medicine [address] [place], [place] [id number] Richie Garcia MD [address] [facility] [address] [facility] [place] [phone] [place], [place] [id number] Social History Tobacco Use Types Packs/Day Years [...] on file 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 Minimize further functional decline 2. Maximize quality of life 3. Control pain Strategies: - Activity/exercise program recommendation - Conservative stepwise pain medicine strategy with multi-disciplinary approach - Recommend healthy lifestyle strategies and compensatory methods as needed documented as of this encounter Visit Diagnoses Not on filedocumented in this encounter Care Teams Fabrication Department Supervisor Relationship Specialty Start Date End Date David Casanova MD PCP - General Internal Medicine 10/02/18 Eamon Lucia, RN Registered Nurse 07/03/19 documented as of this encounter
[2024-12-15 12:00] VITALS: BP 122/81; PULSE 58; RESP 17; O2SAT 97
[2024-12-15 12:08] VITALS: BP 122/81; PULSE 58; RESP 17; TEMP 36.6; O2SAT 97
--- OUTSIDE RECORDS SUMMARY | 2024-12-15 12:29 | XMS_ITS | Encounter Summary ---
Author Organization [facility] Healthcare Address [address] [place] [address] Care Team Providers Care Cottage Master Name Role Phone Regino García MD Primary Care Provider [phone] David Casanova MD Primary Care Provider [phone] Eamon Lucia RN Unavailable Unav ailable Reason for Visit * Reason Onset Date Comments Med Refill 08/05/2018 Encounter Details Date Type Department Care Team (Late st Contact Info) Description 08/05/2018 Telephone [facility] Center at the [place] [facility] [address] [facility] Advanced Medicine [address] [place] [address] Richie Garcia MD [address] [facility] [address] [facility] [phone] [place], [place] [id number] Med Refill Social History Tobacco Use Types Packs/Day Years Used Date Smoking Tobacco: Never Assessed Sex and Gender Information Value Date Recorded Sex Assigned at Not on file Legal Sex Male 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 He was hesitant to make an appointment but I did convince him to see Darya. Appointment made for 08-15- @ 11 am. Refill sent to resident pool. TROSTATIC POWDER COATING TECHNICIAN documented in this encounter Plan of Treatment Not on file documented as of this encounter Visit Diagnoses Not on filedocumented in this encounter Care Teams Cottage Master Relationship Specialty Start Date End Date Regino García MD PCP - General 11/09/16 10/01/18 David Casanova MD PCP - General Internal Medicine 10/02/18 Eamon Lucia, RN Registered Nurse 07/03/19 documented as of this encounter
--- OUTSIDE RECORDS SUMMARY | 2024-12-15 12:29 | XMS_ITS | Continuity of Care Document ---
Author Organization [facility] Address [address] [place] [address] [address] [place] [address] Phone Care Team Providers Care Calker Name Role Phone Nilo Stout Unavailable Unavailable Procedures Procedure Date Eye Exam, New Patient Refraction Advance Directives Directive Yes / No Effective Date File Name No Information Encounters Encounter Description Practice Location Reason(s) For Visit Diagnoses Date Provider Providers Copied on Encounter [facility], [id number] [place] [address] [address], [place], [place], [id number], [place] tel:[phone] [facility] No Information [phone] Girish Corcoran. [address] [facility] , [address], [place], [address], [place]. tel:[phone] Family History Family Member Type Diagnosis Age At Onset No Information Payers Payer name Insurance type Covered libertarian ID Authorfaithrosey chhayakriss(s) [employer] SOI [id number] Social History Type Description Quantity Date Captured [...]
--- OUTSIDE RECORDS SUMMARY | 2024-12-15 12:29 | XMS_ITS | Encounter Summary ---
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 Author [facility] Chronic Pain Care Plan Chronic Care Management Improving( 12:43 PM SURGICAL SUPPLIES STERILIZER) No Rabia Aquino RN Note: Problem: Chronic [...] on filedocumented in this encounter Care Teams Patient Services Assistant Relationship Specialty Start Date End Date David Casanova MD PCP - General Internal Medicine 10/02/18 Eamon Lucia, RN Registered Nurse 07/03/19 documented as of this encounter
--- OUTSIDE RECORDS SUMMARY | 2024-12-15 12:29 | XMS_ITS | Encounter Summary ---
Author Organization [facility] Healthcare Address [address] [place] [address] Care Team Providers Care Office Services Manager Name Role Phone David Casanova MD Primary Care Provider [phone] Eamon Lucia RN Unavailable Unav ailable Encounter Details Date Type Department Care Team (Late st Contact Info) Description 10/17/2021 Telephone [facility] Center at the [place] [facility] [address] 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 Minimize further functional decline 2. Maximize quality of life 3. Control pain Strategies: - Activity/exercise program recommendation - Conservative stepwise pain medicine strategy with multi-disciplinary approach - Recommend healthy lifestyle strategies and compensatory methods as needed documented as of this encounter Visit Diagnoses Not on filedocumented in this encounter Care Teams Office Services Manager Relationship Specialty Start Date End Date David Casanova MD PCP - General Internal Medicine 10/02/18 Eamon Lucia, RN Registered Nurse 07/03/19 documented as of this encounter
--- OUTSIDE RECORDS SUMMARY | 2024-12-15 12:29 | XMS_ITS | Encounter Summary ---
Author Organization [facility] Healthcare Address [address] [place] [address] Care Team Providers Care Architecture Consultant Name Role Phone Regino García MD Primary Care Provider [phone] David Casanova MD Primary Care Provider [phone] Eamon Lucia RN Unavailable Unav ailable Encounter Details Date Type Department Care Team (Late st Contact Info) Description 03/05/2018 Telephone [facility] [place] [facility] [address] [facility] Advanced Medicine [address] [place], [place] [phone] Richie Garcia MD [address] [facility] [address] [facility] [phone] [place] [address] Social History Tobacco Use Types Packs/Day Years Used Date Smoking Tobacco: Never Assessed Sex and Gender Information Value Date Recorded Sex Assigned at Not on file Legal Sex Male 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
--- OUTSIDE RECORDS SUMMARY | 2024-12-15 12:29 | XMS_ITS | Encounter Summary ---
Author Organization [facility] Address [address] [place] [address] Phone Care Team Providers Care Tool Polisher Name Role Phone David Casanova MD Primary Care Provider [phone] Eamon Lucia RN Unavailable Unav ailable Encounter Details Date Type Department Care Team (Latest Contact Info) Description 05/12/2019 Orders Only [facility] SLEEP Scanning, Provider Social History Tobacco Use Types Packs/Day Years Used Date Smoking Tobacco: Never Smokeless Tobacco: Never Sex and Gender Information Value Date Recorded Sex Assigned at Not on file 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 Author CCM Chronic Pain Care Plan Chronic Care Management Improving( 12:43 PM ACCOUNTING ANALYST) No Rabia Aquino, RN Note: Problem: Chronic [...] on filedocumented in this encounter Care Teams Tool Polisher Relationship Specialty Start Date End Date David Casanova MD PCP - General Internal Medicine 10/02/18 Eamon Lucia, RN Registered Nurse 07/03/19 documented as of this encounter
--- OUTSIDE RECORDS SUMMARY | 2024-12-15 12:29 | XMS_ITS | Clinical Summary ---
Author Organization [facility] [employer] Address [address] [place] [address] Care Team Providers Care Coreroom Foundry Laborer Name Role Phone David Casanova MD Primary Care Provider [phone] Source Comments [facility] [employer],non-owned Affiliates and Associated Physician Practices is amultiple site organization consisting of ambulatory clinics and hospital sitesin [place], [place] and [place]. This disclosure is being madepursuant to the Care Everywhere program and may not contain all information available regarding this patient. Last updated 18.[facility] [employer] Allergies No known active allergies Medications * [...] PO Take by mouth once daily Active Kbhl-Ktdkgw-D-Biot -Y40-Xxhp 160-1.7 MG TABS Active metoprolol succinate XL [...] Recorded Patient Health Questionnaire-2 Score 0 01/14/2024 [facility] - Occupational Stress [...] Comments Blood Pressure 142/79 11/08/2022 7:52 AM CONSUMER ANALYST Pulse 57 11/08/2022 7:52 AM CONSUMER ANALYST Temperature 36.4 C (97.5 F) 11/08/2022 7:52 AM CONSUMER ANALYST Respiratory Rate 18 11/08/2022 7:52 AM CONSUMER ANALYST Oxygen Saturation 96% 11/08/2022 7:52 AM CONSUMER ANALYST Inhaled Oxygen Concentration - - Weight 110.7 [...] this topic Medical Devices Implanted Type Area All Round Butcher Device Identifier Shelf Expiration Date Model / Serial / Lot Graft Bone Canc 30ml Cube Frzdr Irr Implanted:Qty: 1 on 10/29/2022 by Shaggy Rodriguez MD at [facility] N/A: Spine Lumbar Allosource 03/28/2027 [id number] / / [id number] Graft Bone Accell Evo3 Dbm 10ml Ptty - [id number] Implanted:Qty: 1 on 10/29/2022 by Shaggy Rodriguez MD at [facility] N/A: Spine Lumbar Integra Neurosciences 09/05/2023 / [id number] / [id number] Graft Bone Accell Evo3 Dbm 10ml Ptty - [id number] Implanted:Qty: 1 on 10/29/2022 by Shaggy Rodriguez MD at [facility] N/A: Spine Lumbar Integra Neurosciences 09/05/2023 / [id number] / [id number] Eit Plif H 13mm, 8 Degrees, 04/06 Implanted:Qty: 1 on 10/29/2022 by Shaggy Rodriguez MD at [facility] N/A: Spine Lumbar [id number] / / [id number] Screw 7.5mm 45mm Pa Spne Pdcl Xpdm Ti Implanted:Qty: 4 on 10/29/2022 by Shaggy Rodriguez MD at [facility] N/A: Spine Lumbar Synthes Spine [id number] / / Screw 7.5mm 50mm Pa Spne Pdcl Xpdm Ti Implanted:Qty: 2 on 10/29/2022 by Shaggy Rodriguez MD at [facility] N/A: Spine Lumbar Synthes Spine [id number] / / Screw Set Ti 5.5mm Spne 1 Inr Ma Xpdm Implanted:Qty: 6 on 10/29/2022 by Shaggy Rodriguez MD at [facility] N/A: Spine Lumbar Synthes Spine [id number] / / 65mm Mike Implanted:Qty: 2 on 10/29/2022 by Shaggy Rodriguez MD at [facility] N/A: Spine Lumbar Synthes Spine [id number] / / Procedures Procedure Name Priority Date/Time Associated Diagnosis Comments BASIC METABOLIC PANEL (CALCIUM TOTAL) Routine 11/08/2022 4:32 AM CONSUMER ANALYST Spondylolisthesis, unspecified spinal region HEMOGLOBIN A1C Routine 10/30/2022 1:36 AM CONSUMER ANALYST from Last 3 Months or Most Recently Relevant to Health Maintenance Results * (ABNORMAL) BASIC METABOLIC PANEL (CALCIUM TOTAL) (11/08/2022 4:32 AM CONSUMER ANALYST) BUN 15 7 - 26 mg/dL 11/08/2022 5:28 AM [facility] Creatinine 0.82 0.71 - 1.16 mg/dL 11/08/2022 5:28 AM [facility] Sodium 138 136 - 145 mmol/L 11/08/2022 5:28 AM [facility] Potassium 3.9 3.5 - 4.5 mmol/L 11/08/2022 5:28 AM [facility] Chloride 108(H) 98 - 107 mmol/L 11/08/2022 5:28 AM [facility] CO2 21(L) 22 - 29 mmol/L 11/08/2022 [...] Lab Venipuncture / Unknown 11/08/2022 4:32 AM CONSUMER ANALYST 11/08/2022 4:59 AM CONSUMER ANALYST Shaggy Rodriguez MD LAB - CHEMISTRY ANDREW LEWIS Performing Organization Address [facility]/ZIP Co de Phone Number [facility] [address] [place] [address], [place] [phone] * HEMOGLOBIN A1C (10/30/2022 1:36 AM CONSUMER ANALYST) Hemoglobin A1c 5.3 <=5.6 % 10/30/2022 11:47 AM [facility]3] LABORATORY [facility] Estimated Average Glucose 105 mg/dL 10/30/2022 11:47 AM [facility] Comment: HbA1c Interpretation: Normal : < 5.7% Pre-diabetes: 5.7-6.4% Diabetes: Equal to or greater than 6.5% Test results diagnostic of diabetes should be repeated for confirmation. Treatment target values recommended by ADA and other clinical organizations should be used to evaluate metabolic control in patients. Reference: [place] Diabetes Association, Standards of Care in Diabetes -2020 In patients 70 years and older consider HbA1c target range of 7.0-7.5% (Reference: Omi Garcia et al. JAMDA. 2012) The Sebia assay for the measurement of HbA1c is a National Glycohemoglobin Standardization Program (NGSP) certified method. Blood BLOOD SPECIMEN / Unknown Lab Venipuncture / Unknown 10/30/2022 1:36 AM CONSUMER ANALYST 10/30/2022 2:37 AM CONSUMER ANALYST Shaggy Rodriguez MD LAB - CHEMISTRY ANDREW LEWIS Performing Organization Address City/[facility]/ZIP Co de Phone Number [facility] [address] [place] [address], [place] [phone] from Last 3 Months or Most Recently Relevant to Health Maintenance Advance Directives * Full Code (Latest Code Status on File) Date Activated Date Inactivated Comments 10/29/2022 7:45 PM 11/08/2022 3:30 PM Care Teams Coreroom Foundry Laborer Relationship Specialty Start Date End Date David Casanova MD [address] [place] [address] PCP - General 06/25/22
--- OUTSIDE RECORDS SUMMARY | 2024-12-15 12:29 | XMS_ITS | CONTINUITY OF CARE DOCUMENT ---
Author Name ty, anjalibriseyda Address Unknown Organization [facility] Address [address] [place] [address] Phone [phone] Care Team Providers Care Lime Burner Name Role Phone Ariadna Jimenes MD Unavailable [phone] JAZZ CLEMONS MD Unavailable [phone] JAZZ CLEMONS MD Unavailable PROBLEMS Condition Status Date Provider Notes Diabetes mellitus active Ariadna Jimenes MD Palpitations PVCS active Ariadna Jimenes MD Preoperative cardiovascular evaluation--back surgery active Ariadna Jimenes MD ABNORMAL ELECTROCARDIOGRAM completed 01/01 - Ariadna Jimenes MD FAMILY HISTORY OF HEART DISEASE completed - Ariadna Jimenes MD ANA active Ariadna Jimenes MD Shortness of breath active Ariadna Jimenes MD Chest pain--nl cath 2017 active Ariadna vargas MD ENCOUNTERS Date Type Provider Location Encounter Diag nosis - In-person encounter Office Visit Ariadna Jimenes MD [facility] Chest pain--nl cath 2016Shortness of breathOSAFAMILY HISTORY OF HEART DISEASEABNORMAL ELECTROCARDIOGRAMPreoperative cardiovascular evaluation--back surgery - In-person encounter Office Visit Ariadna Jimenes MD [facility] - In-person encounter Office Visit Ariadna Jimenes MD [facility] Diabetes mellitusPalpitations PVCS - In-person encounter Office Visit Ariadna Jimenes MD [facility] - In-person encounter Office Visit Ariadna Jimenes MD [facility] Chest pain--nl cath 2017 - In-person encounter Office Visit Ariadna Jimenes MD [facility] Chest pain--nl cath 2016Shortness of breathOSA VITAL SIGNS Date Observation Value Provider Body Mass Index (Ratio) 36.49 kg/m2 Ricky Jimenes MD blood pressure, diastolic 72 mm[Hg] Gauri castelan [place] blood pressure, systolic 151 mm[Hg] Vince agus [place] oxygen saturation, oximetry 99 % Leila Dawson [...] /min Elio Armijo pulse rate 86 /min hSoshana luna weight E&M 282.6 [lb_av] Shoshana khan [...] Armijo LORAZEPAM TABLET completed as directed - Savnaah Falk metformin 500 mg tablet active twice [...] Payer name Policy type / Coverage type Lane red democrat ID [facility] MEDICARE COMPLETE HMO Other [id number] ADVANCE DIRECTIVES Name Date DISCUSSED - NO DECISION MADE TREATMENT PLAN Date Name Performer [id number],Chintan Lowe i [id number],Chintan Woodruff i [id number],SChintan i [id number],S, Chintan Arnett i [id number],S, Chintan Arnett i Cardiology Chintan Arnetti Cardiology [...] ..... 1 tab daily Orders: E KG ([id number]) Ariadna Jimenes MD follow up: H is updated medication list for this problem includes: Aspirin 81 Mg Tabs (Aspirin) ..... 1 tab daily Slow-mag Tbec (Magnesium cl-calcium carbonate tbec) Ariadna Jimenes MD Date Name Stress Regadenoson HISTORY OF PROCEDURES Procedure Date Procedure Name Provider Procedure Notes S tatus EKG Ariadna Jimenes MD completed SNOMED-CT: [id number] Current Medications Documented Ariadna Jimenes MD completed Stress EKG Richie Obrien MD completed Regadenoson, 4 units Richie Obrien MD completed Cardiolite, 2 units Richie Obrien MD completed SPECT Images Richie Obrien MD completed ZIO Holter [facility] Ariadna Jimenes MD co mpleted SNOMED-CT: [id number] Physical Exam, Performed: Pulse Exam of Foot Ariadna Jimenes MD completed EKG Ariadna Jimenes MD completed SNOMED-CT: [id number] Current Medications Documented Ariadna Jimenes MD completed ePrescribe - Check t his box if eRx is used Ariadna Jimenes MD completed EKG Ariadna Jimenes MD completed
--- OUTSIDE RECORDS SUMMARY | 2024-12-15 12:30 | XMS_ITS | Clinical Summary ---
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
--- OUTSIDE RECORDS SUMMARY | 2024-12-15 12:30 | XMS_ITS | Referral Summary ---
Author Organization [facility] Address [address] [place] [address] Care Team Providers Care Clamp Forklift Operator Name Role Phone David Casanova MD Primary Care Provider [phone] Eamon Lucia RN Unavailable Unav ailable Allergies [...] chloride (Jo 128) 5 % ophthalmic ointmentIndicati ons:Tcr-qxc-josg erprint corneal dystrophy APPLY 1/4 INCH INTO [...] (04/27/2021): Added automatically from request for surgery [id number] Frequent falls 02/21/2021 Primary osteoarthritis of right knee 11/17/2020 Lumbar spondylosis 06/17/2020 Overview (06/17/2020): Added automatically from request for surgery [id number] Chronic use of opiate drug for therapeutic purpo se 11/29/2019 Overview (10/08/2022): Chronic Opioid Therapy - 10/08/21 Current opioid: - tramadol - 100 mg QID = 400 mg max/day Morphine daily equivalent: 40 mg/day Other : NO NSAIDS - elevated his blood pressure Benzo : none Storage : told to keep secure Plan: Continue, encourage restricting uses possible Urine Drug Screen [facility] 11/10/19 - consistent with prescribed tramadol Urine Drug Screen [facility] 11/21/20 - consistent with prescribed tramadol Urine drug screen [facility] 07/04/22 - consistent with prescribed tramadol Lumbar radiculopathy 11/02/2019 Displacement of lumbar intervertebral disc 07/19 Nocturnal leg cramps 05/13/2019 Ouf-ing-konhdkmxaun 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 Right posterior capsular opacification [...] on file Legal Sex Male 1: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 Minimize further functional decline 2. Maximize quality of life 3. Control pain Strategies: - Activity/exercise program recommendation - Conservative stepwise pain medicine strategy with multi-disciplinary approach - Recommend healthy lifestyle strategies and compensatory methods as needed Medical Devices Implanted Type Area Accounts Receivable Specialist Device Identifier Shelf Expiration Date Model / [...] 90 - 130 mL/min/1. 73 m2 [facility] Comment: Interpretive Data Reference Interval Normal >/= [...] us Yang Rose NP LAB BLOOD ORDERABLES [facility] al Result [facility] [place] [address] * POCT hemoglobin A1c (05/28/2022 9:16 AM CDT) Hgb A1C, POC 5.6 4.0 - 5.6 % [facility] Est Average Gluc POC 114 mg/dL [facility] Comment: The ADA recommends reporting an estimated Average Glucose (eAG) with all Hemoglobin A1c results using the equation derived from a study of 507 normal and diabetic adults. Minority populations were underrepresented and children were not included. (Diabetes Care 31:7455-9438, 2008). The eAG is not equivalent to a fasting glucose. Blood 05/28/2022 9:16 AM CDT 05/28/2022 9:16 AM CDT Dre Riggins MD POINT OF CARE TEST ORDERABLES F inal Result [facility] [place] [address] from Last 3 Months or Most Recently Relevant to Health Maintenance Insurance MEDICARE [facility] Address: [address] [address] [place] [address] [facility] MEDIC[facility] Address: [address] [address] [place] [address] UHC MEDICARE ADVANTAGE [facility] MEDICARE ADVANTAGE [facility] MEDICARE Address: [address] [address] [place] [address] Advance Directives For more information, please contact: [phone] * Full Code (Latest Code Status on File) Date Activated Date Inactivated Comments 09/30/2023 7:34 PM 10/01/2023 5:13 PM Care Teams Clamp Forklift Operator Relationship Specialty Start Date End Date David Casanova MD PCP - General Internal Medicine 10/02/18 Eamon Lucia, RN Registered Nurse 07/03/19
--- OUTSIDE RECORDS SUMMARY | 2024-12-15 12:30 | XMS_ITS | Clinical Summary ---
Author Organization [facility] Address [address] [place] [address] Care Team Providers Care Catalyst Supervisor Name Role Phone David Casanova MD Primary Care Provider [phone] Eamon Lucia RN Unavailable Unav ailable Allergies [...] chloride (Jo 128) 5 % ophthalmic ointmentIndicati ons:Fgp-qef-afie erprint corneal dystrophy APPLY 1/4 INCH INTO [...] (04/27/2021): Added automatically from request for surgery [id number] Frequent falls 02/21/2021 Primary osteoarthritis of right knee 11/17/2020 Lumbar spondylosis 06/17/2020 Overview (06/17/2020): Added automatically from request for surgery [id number] Chronic use of opiate drug for therapeutic purpo se 11/29/2019 Overview (10/08/2022): Chronic Opioid Therapy - 10/08/21 Current opioid: - tramadol - 100 mg QID = 400 mg max/day Morphine daily equivalent: 40 mg/day Other : NO NSAIDS - elevated his blood pressure Benzo : none Storage : told to keep secure Plan: Continue, encourage restricting uses possible Urine Drug Screen [facility] 11/10/19 - consistent with prescribed tramadol Urine Drug Screen [facility] 11/21/20 - consistent with prescribed tramadol Urine drug screen [facility] 07/04/22 - consistent with prescribed tramadol Lumbar radiculopathy 11/02/2019 Displacement of lumbar intervertebral disc 07/19 Nocturnal leg cramps 05/13/2019 Aqh-jhz-mlhqvxugkxi 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 Right posterior capsular opacification [...] ROTATOR CUFF REPAIR 09/09/2014 - 09/08/2015 Right CO INJ LUMBAR/SACRAL,W/WO CNTRST Corticosteroid Injection Interlaminar Approach Lumbar - (Added by TW Conv) NERVE BLOCK Nerve Block Paravertebral Facet Joint - LMBB- Bilateral L3, L4, L5,S1 (Added by TW Conv) NERVE BLOCK Nerve Block Paravertebral Facet Joint - LMBB #2 bilateral L3,4,5 S1 (Added by TW Conv) CO DSTR NROLYTC AGNT PARVERTEB FCT SNGL LMBR/SACRAL [...] on file 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 Minimize further functional decline 2. Maximize quality of life 3. Control pain Strategies: - Activity/exercise program recommendation - Conservative stepwise pain medicine strategy with multi-disciplinary approach - Recommend healthy lifestyle strategies and compensatory methods as needed Medical Devices Implanted Type Area Mortician Investigator Device Identifier Shelf Expiration Date Model / [...] NP LAB BLOOD ORDERABLES Fin al Result [facility] Department [place] [address] * POCT hemoglobin A1c (05/28/2022 9:16 AM CDT) Hgb A1C, POC 5.6 4.0 - 5.6 % [facility] Est Average Gluc POC 114 mg/dL [facility] Comment: The ADA recommends reporting an estimated Average Glucose (eAG) with all Hemoglobin A1c results using the equation derived from a study of 507 normal and diabetic adults. Minority populations were underrepresented and children were not included. (Diabetes Care 31:1943-4622, 2008). The eAG is not equivalent to a fasting glucose. Blood 05/28/2022 9:16 AM CDT 05/28/2022 9:16 AM CDT Dre Riggins MD POINT OF CARE TEST ORDERABLES F inal Result [facility] [place] [address] from Last 3 Months or Most Recently Relevant to Health Maintenance Insurance [address] [place] [address] MEDICARE [facility] MDCR HMO REF UHC MEDICARE ADVANTAGE UHC MEDICARE ADVANTAGE Advance Directives For more information, please contact: [phone] * Full Code (Latest Code Status on File) Date Activated Date Inactivated Comments 09/30/2023 7:34 PM 10/01/2023 5:13 PM Care Teams Catalyst Supervisor Relationship Specialty Start Date End Date David Casanova MD PCP - General Internal Medicine 10/02/18 Eamon Lucia, RN Registered Nurse 07/03/19
--- OUTSIDE RECORDS SUMMARY | 2024-12-15 12:31 | XMS_ITS | Encounter Summary ---
Author Organization [facility] Address [address] [place] [address] Care Team Providers Care Fuel Cell Battery Technician Name Role Phone David Casanova MD Primary Care Provider [phone] Eamon Lucia RN Unavailable Unav ailable Reason for Visit * Reason Onset Date Comments Scheduling Appointments 08/17/2019 Encounter Details Date Type Department Care Team (Late st Contact Info) Description 08/17/2019 Telephone [facility] [place] [facility] [address] [facility] [address] [place] [address] Richie Garcia MD [address] [address] [facility] [phone] [place], [place] [id number] Scheduling Appointments Social History Tobacco Use Types Packs/Day Years Used Date Smoking Tobacco: Never Smokeless Tobacco: Never Alcohol Use Standard Drinks/Week Comments Not Currently 0 (1 standard drink = 0.6 oz pur e alcohol) denies Sex and Gender Information Value Date Recorded Sex Assigned at Not on file Legal Sex Male 1: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 Author CCM Chronic Pain Care Plan Chronic Care Management Improving( 12:43 PM SCREEN MAKER) No Rabia Aquino, RN Note: Problem: Chronic Pain Goals: 1. Minimize further functional decline 2. Maximize quality of life 3. Control pain Strategies: - Activity/exercise program recommendation - Conservative stepwise pain medicine strategy with multi-disciplinary approach - Recommend healthy lifestyle strategies and compensatory methods as needed documented as of this encounter Visit Diagnoses Not on filedocumented in this encounter Care Teams Fuel Cell Battery Technician Relationship Specialty Start Date End Date David Casanova MD PCP - General Internal Medicine 10/02/18 Eamon Lucia, RN Registered Nurse 07/03/19 documented as of this encounter
--- OUTSIDE RECORDS SUMMARY | 2024-12-15 12:31 | XMS_ITS | Clinical Summary ---
Author Organization [facility] Address [address] [place] [address] Phone Care Team Providers Care Racing Secretary Name Role Phone Unavailable Primary Care Provider [...]
== END 2024-12-15 12:08 | disposition home or self-care (01) ==
PROVIDERS: Emergency Provider Emergency Medicine; PCP Family Medicine
DX: M54.16 Radiculopathy, lumbar region (principal)
CPT/HCPCS: 72100; 99283; A9270; J7512

== ENCOUNTER 2025-01-16 07:41 | Outpatient (CLI) | payer MEDICARE, SELFPAY ==
--- NOTE | ~2025-01-16 | MR_ITS ---
MRI of the left hip Clinical history: Pain Technique: Coronal T1-weighted, T2-weighted, and proton-density fat-sat images, and axial T1-weighted and proton-density fat-sat images were acquired through the pelvis. Coronal T2-weighted images and c oronal, axial, and sagittal proton-density fat-sat images were acquired through the left hip. Findings: There is no fracture or avascular necrosis of either hip. Bone marrow signals the proximal femora and pelvic bones are unremarkable. Bilateral hip joint spaces are preserved with probable mild diffuse chondral thinning. No joint effusion evident either hip joint. No left acetabular labral tea r evident. Visualized musculature about the pelvis and left hip is unremarkable. No muscle atrophy or edema. Vis ualized tendons are intact. No soft tissue mass or fluid collection. Postoperative change partially i rosanna the lower lumbar spine. IMPRESSION: No significant abnormality of the left hip or pelvis. Postoperative hardware partially imaged at the lumbosacral junction. Reviewed, dictated and finalized at [facility].
--- OUTSIDE RECORDS SUMMARY | 2025-01-16 07:44 | XMS_ITS | Referral Summary ---
Author Organization [facility] Address [address] [place] [address] Care Team Providers Care Industrial Recruiter Name Role Phone David Casanova MD Primary Care Provider [phone] Eamon Lucia RN Unavailable Unav ailable Allergies [...] chloride (Jo 128) 5 % ophthalmic ointmentIndicati ons:Yod-jyk-wquc erprint corneal dystrophy APPLY 1/4 INCH INTO [...] (04/27/2021): Added automatically from request for surgery [id number] Frequent falls 02/21/2021 Primary osteoarthritis of right knee 11/17/2020 Lumbar spondylosis 06/17/2020 Overview (06/17/2020): Added automatically from request for surgery [id number] Chronic use of opiate drug for therapeutic purpo se 11/29/2019 Overview (10/08/2022): Chronic Opioid Therapy - 10/08/21 Current opioid: - tramadol - 100 mg QID = 400 mg max/day Morphine daily equivalent: 40 mg/day Other : NO NSAIDS - elevated his blood pressure Benzo : none Storage : told to keep secure Plan: Continue, encourage restricting uses possible Urine Drug Screen [facility] 11/10/19 - consistent with prescribed tramadol Urine Drug Screen [facility] 11/21/20 - consistent with prescribed tramadol Urine drug screen [facility] 07/04/22 - consistent with prescribed tramadol Lumbar radiculopathy 11/02/2019 Displacement of lumbar intervertebral disc 07/19 Nocturnal leg cramps 05/13/2019 Wkd-rom-urzkqikyfej 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 Right posterior capsular opacification [...] on file Legal Sex Male 1:07 AM 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 Minimize further functional decline 2. Maximize quality of life 3. Control pain Strategies: - Activity/exercise program recommendation - Conservative stepwise pain medicine strategy with multi-disciplinary approach - Recommend healthy lifestyle strategies and compensatory methods as needed Medical Devices Implanted Type Area Flow Machine Operator Device Identifier Shelf Expiration Date [...] 90 - 130 mL/min/1. 73 m2 [facility] Comment: Interpretive Data Reference Interval Normal [...] us Yang Rose NP LAB BLOOD ORDERABLES [facility] al Result [facility] One [facility] Department [place] [address] * POCT hemoglobin A1c (05/28/2022 9:16 AM CDT) Hgb A1C, POC 5.6 4.0 - 5.6 % [facility] Est Average Gluc POC 114 mg/dL [facility] Comment: The ADA recommends reporting an estimated Average Glucose (eAG) with all Hemoglobin A1c results using the equation derived from a study of 507 normal and diabetic adults. Minority populations were underrepresented and children were not included. (Diabetes Care 31:2949-9595, 2008). The eAG is not equivalent to a fasting glucose. Blood 05/28/2022 9:16 AM CDT 05/28/2022 9:16 AM CDT Dre Riggins MD POINT OF CARE TEST ORDERABLES F inal Result [facility] One [facility] Department [place] [address] from Last 3 Months or Most Recently Relevant to Health Maintenance Insurance MEDICARE [facility] Address: [address] [address] [place] [address] [facility]F [facility] MEDICARE Address: [address] [address] [place] [address] UHC MEDICARE ADVANTAGE [facility] MEDICARE ADVANTAGE [facility] MEDIC[facility] Address: [address] [address] [place] [address] Advance Directives For more information, please contact: [phone] * Full Code (Latest Code Status on File) Date Activated Date Inactivated Comments 09/30/2023 7:34 PM 10/01/2023 5:13 PM Care Teams Industrial Recruiter Relationship Specialty Start Date End Date David Casanova MD PCP - General Internal Medicine 10/02/18 Eamon Lucia, RN Registered Nurse 07/03/19
--- OUTSIDE RECORDS SUMMARY | 2025-01-16 07:44 | XMS_ITS | Encounter Summary ---
Author Organization [facility] Address [address] [place] [address] Care Team Providers Care Master Planner Name Role Phone David Casanova MD Primary Care Provider [phone] Eamon Lucia RN Unavailable Unav ailable Reason for Visit * Reason Onset Date Comments Scheduling Appointments 08/17/2019 Encounter Details Date Type Department Care Team (Late st Contact Info) Description 08/17/2019 Telephone [facility] [address] [facility] [address] [place] [address] Richie Garcia MD [address] [facility] [address] [facility] [phone] [place], [place] [id number] Scheduling Appointments Social History Tobacco Use Types Packs/Day Years Used Date Smoking Tobacco: Never Smokeless Tobacco: Never Alcohol Use Standard Drinks/Week Comments Not Currently 0 (1 standard drink = 0.6 oz pur e alcohol) denies Sex and Gender Information Value Date Recorded Sex Assigned at Not on file 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 Author CCM Chronic Pain Care Plan Chronic Care Management Improving( 12:43 PM PROFESSOR OF POLITICAL SCIENCE) No Rabia Aquino, RN Note: Problem: Chronic Pain Goals: 1. Minimize further functional decline 2. Maximize quality of life 3. Control pain Strategies: - Activity/exercise program recommendation - Conservative stepwise pain medicine strategy with multi-disciplinary approach - Recommend healthy lifestyle strategies and compensatory methods as needed documented as of this encounter Visit Diagnoses Not on filedocumented in this encounter Care Teams Master Planner Relationship Specialty Start Date End Date David Casanova MD PCP - General Internal Medicine 10/02/18 Eamon Lucia, RN Registered Nurse 07/03/19 documented as of this encounter
--- OUTSIDE RECORDS SUMMARY | 2025-01-16 07:44 | XMS_ITS | Clinical Summary ---
Author Organization [facility] Address [address] [place] [address] Care Team Providers Care Biomass Technician Name Role Phone David Casanova MD Primary Care Provider [phone] Source Comments [facility],non-owned Affiliates and Associated Physician Practices is amultiple site organization consisting of ambulatory clinics and hospital sitesin [place], [place], [place] and [place]. This disclosure is being madepursuant to the Care Everywhere program and may not contain all information available regarding this patient. Last updated 18.[facility] Allergies No known active allergies Medications * Be aware that medications may not be up to date on this document. Alwaysverify current medications with the patient. atorvastatin (Lipitor) 10 MG tablet Take 1 [...] (one) tablet by mouth 2 times daily 04/24/20 22 Active pregabalin (Lyrica) 150 MG capsule Take 1 cap a.m., 1 cap p.m., and 2 caps bedtime 01/25/20 22 Active folic acid (Folvite) 1 MG tablet Take 1 (one) tablet by mouth once daily Active MILK THISTLE PO Take by mouth once daily Active Jeiv-Itxgcn-O-B wym-U93-Wsoj 160-1.7 MG TABS Acti ve metoprolol succinate XL 24hr (Toprol XL) 25 MG tablet Take 1 (one) tablet by mouth once daily Active semaglutide (Ozempic) 2 MG/1.5ML pen Inject subcutaneously every 7 days Wednesdays Active acetaminophen (Tylenol) 325 MG tablet Take 2 (two) tablets by mouth every 4 hours Maximum allowable Acetaminophen amount = 4 Grams (4000 mg) / 24 hours. 11/01/19 23 Active docusate sodium (Colace) 100 MG capsule Take 1 (one) capsule by mouth once daily 0 11/01/19 23 Active polyethylene glycol 3350 (Miralax) 17 GM/SCOOP powder Take 17 (seventeen) g by mouth once daily 238 g 11/01/19 23 Active buPROPion SR 12hr (Wellbutrin-SR) 150 MG tablet 08/15/20 22 Active menthol, Topical Analgesic, (GNP THERAPEUTIC BLUE GEL) 2 % gel Apply 1 Dose to affected area as needed Active montelukast (Singulair) 10 MG tablet 08/27/20 22 Active oxyCODONE, immediate release, (Roxicodone) 5 MG tabletIndicatio ns:Spondylolist hesis, unspecified spinal region Take 1 (one) tablet by mouth every 4 hours as needed 12 tablet 11/09/19 23 Active metFORMIN (Glucophage) 500 MG tablet 11/22/19 23 Active losartan (Cozaar) 100 MG tablet 01/18/20 23 Active Active Problems Problem Noted Date Diagnosed [...] Recorded Patient Health Questionnaire-2 Score 0 01/14/2024 [facility] - Occupational [...] place to sleep or slept in a residential (including now)? No 10/31/2022 Sex and Gender Information Value Date Recorded Sex Assigned at Not on file Legal Sex Male 7:45 PM BREAKFAST SERVER Gender Identity Not on file Sexual Orientation Not on file Last Filed Vital Signs Vital Sign Reading Time Taken Comments Blood Pressure 142/79 11/08/2022 7:52 AM BREAKFAST SERVER Pulse 57 11/08/2022 7:52 AM BREAKFAST SERVER Temperature 36.4 C (97.5 F) 11/08/2022 7:52 AM BREAKFAST SERVER Respiratory Rate 18 11/08/2022 7:52 AM BREAKFAST SERVER Oxygen Saturation 96% 11/08/2022 7:52 AM BREAKFAST SERVER Inhaled Oxygen Concentration - - Weight 110.7 [...] this topic Medical Devices Implanted Type Area Ostrich Farmer Device Identifier Shelf Expiration Date Model / Serial / Lot Graft Bone Canc 30ml Cube Frzdr Irr Implanted:Qty: 1 on 10/29/2022 by Shaggy Rodriguez MD at [facility] N/A: Spine Lumbar Allosource 03/28/2027 [id number] / / [id number] Graft Bone Accell Evo3 Dbm 10ml Ptty - [id number] Implanted:Qty: 1 on 10/29/2022 by Shaggy Rodriguez MD at [facility] N/A: Spine Lumbar Integra [employer]iences 09/05/2023 / [id number] / [id number] Graft Bone Accell Evo3 Dbm 10ml Ptty - [id number] Implanted:Qty: 1 on 10/29/2022 by Shaggy Rodriguez MD at [facility] N/A: Spine Lumbar Integra [employer] 09/05/2023 / [id number] / [id number] Eit Plif H 13mm, 8 Degrees, 04/06 Implanted:Qty: 1 on 10/29/2022 by Shaggy Rodriguez MD at [facility] N/A: Spine Lumbar [id number] / / [id number] Screw 7.5mm 45mm Pa Spne Pdcl Xpdm Ti Implanted:Qty: 4 on 10/29/2022 by Shaggy Rodriguez MD at [facility] N/A: Spine Lumbar Synthes Spine [id number] / / Screw 7.5mm 50mm Pa Spne Pdcl Xpdm Ti Implanted:Qty: 2 on 10/29/2022 by Shaggy Rodriguez MD at [facility] N/A: Spine Lumbar Synthes Spine [id number] / / Screw Set Ti 5.5mm Spne 1 Inr Ma Xpdm Implanted:Qty: 6 on 10/29/2022 by Shaggy Rodriguez MD at [facility] N/A: Spine Lumbar Synthes Spine [id number] / / 65mm Mike Implanted:Qty: 2 on 10/29/2022 by Shaggy Rodriguez MD at [facility] N/A: Spine Lumbar Synthes Spine [id number] / / Procedures Procedure Name Priority Date/Time Associated Diagnosis Comments BASIC METABOLIC PANEL (CALCIUM TOTAL) Routine 11/08/2022 4:32 AM BREAKFAST SERVER Spondylolisthesis, unspecified spinal region HEMOGLOBIN A1C Routine 10/30/2022 1:36 AM BREAKFAST SERVER from Last 3 Months or Most Recently Relevant to Health Maintenance Results * (ABNORMAL) BASIC METABOLIC PANEL (CALCIUM TOTAL) (11/08/2022 4:32 AM BREAKFAST SERVER) BUN 15 7 - 26 mg/dL 11/08/2022 5:28 AM [facility] Creatinine 0.82 0.71 - 1.16 mg/dL [...] 8.4 - 10.2 mg/dL 11/08/2022 5:28 AM [facility] Anion Gap 13 8 - 18 11/08/2022 5:28 AM [facility] BUN/Creatinine Ratio 18 7 - 23 11/08/2022 5:28 AM [facility] Osmolality Calculated 288 270 - 300 mOsm/kg 11/08/2022 5:28 AM [facility] eGFR by CKD-EPI >90 >=90 mL/min/1.7 3 m2 11/08/2022 5:28 AM [facility] Blood BLOOD SPECIMEN / Unknown Lab Venipuncture / Unknown 11/08/2022 4:32 AM BREAKFAST SERVER 11/08/2022 4:59 AM BREAKFAST SERVER Shaggy Rodriguez MD LAB - CHEMISTRY ORDERABLES Final Result Performing Organization Address [facility]/ZIP Co de Phone Number [facility] [address] [place] [address], [place] [phone] * HEMOGLOBIN A1C (10/30/2022 1:36 AM [facility]) Hemoglobin A1c 5.3 <=5.6 % 10/30/2022 [...] to evaluate metabolic control in patients. Reference: [place] Diabetes Association, Standards of Care in Diabetes -2020 In patients 70 years and older consider HbA1c target range of 7.0-7.5% (Reference: Omi Garcia et al. JAMDA. 2012) The Sebia assay for the measurement of HbA1c is a National Glycohemoglobin Standardization Program (NGSP) certified method. Blood BLOOD SPECIMEN / Unknown Lab Venipuncture / Unknown 10/30/2022 1:36 AM BREAKFAST SERVER 10/30/2022 2:37 AM BREAKFAST SERVER Shaggy Rodriguez MD LAB - CHEMISTRY ORDERABLES Final Result [facility] [address] [place] [address], [place] [phone] from Last 3 Months or Most Recently Relevant to Health Maintenance Insurance [facility] MANAGED MEDICARE ADV [facility] MANAGED MEDICARE ADV Member Subscriber Plan / Payer (Ef fective 2021-Present) Name:Boo Rodrigues Jr. Relation to Subscriber:Self Name:LiliaBoo Jr. Payer ID:[id number] (NAIC) Type:Medicare-Managed Care Address: [place] [id number] Advance Directives * Full Code (Latest Code Status on File) Date Activated Date Inactivated Comments 10/29/2022 7:45 PM 11/08/2022 3:30 PM Care Teams Biomass Technician Relationship Specialty Start Date End Date David Casanova MD [address] [place] [address] PCP - General 06/25/22
--- OUTSIDE RECORDS SUMMARY | 2025-01-16 07:44 | XMS_ITS | Clinical Summary ---
Author Organization [facility] Address [address] [place] [address] Care Team Providers Care Business Control Specialist Name Role Phone David Casanova MD Primary Care Provider [phone] Eamon Lucia RN Unavailable Unav ailable Allergies [...] chloride (Jo 128) 5 % ophthalmic ointmentIndicati ons:Eea-rdc-qsgl erprint corneal dystrophy APPLY 1/4 INCH INTO [...] (04/27/2021): Added automatically from request for surgery [id number] Frequent falls 02/21/2021 Primary osteoarthritis of right knee 11/17/2020 Lumbar spondylosis 06/17/2020 Overview (06/17/2020): Added automatically from request for surgery [id number] Chronic use of opiate drug for therapeutic purpo se 11/29/2019 Overview (10/08/2022): Chronic Opioid Therapy - 10/08/21 Current opioid: - tramadol - 100 mg QID = 400 mg max/day Morphine daily equivalent: 40 mg/day Other : NO NSAIDS - elevated his blood pressure Benzo : none Storage : told to keep secure Plan: Continue, encourage restricting uses possible Urine Drug Screen [facility] 11/10/19 - consistent with prescribed tramadol Urine Drug Screen [facility] 11/21/20 - consistent with prescribed tramadol Urine drug screen [facility] 07/04/22 - consistent with prescribed tramadol Lumbar radiculopathy 11/02/2019 Displacement of lumbar intervertebral disc 07/19 Nocturnal leg cramps 05/13/2019 Gsj-ewe-hydctehfqzz 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 Right posterior capsular opacification [...] ROTATOR CUFF REPAIR 09/09/2014 - 09/08/2015 Right VA INJ LUMBAR/SACRAL,W/WO CNTRST Corticosteroid Injection Interlaminar Approach Lumbar - (Added by TW Conv) NERVE BLOCK Nerve Block Paravertebral Facet Joint - LMBB- Bilateral L3, L4, L5,S1 (Added by TW Conv) NERVE BLOCK Nerve Block Paravertebral Facet Joint - LMBB #2 bilateral L3,4,5 S1 (Added by TW Conv) VA DSTR NROLYTC AGNT PARVERTEB FCT SNGL LMBR/SACRAL [...] on file Legal Sex Male 1:07 AM ALMOND HULLER Gender Identity Not on file Sexual Orientation [...] CDT Respiratory Rate 18 10/01/2023 7:57 AM ALMOND HULLER Oxygen Saturation 99% 05/27/2024 11:06 AM CDT [...] (2023-2 5 season) 2024 06/12/2021, 11/01/2020, 10/11/2020 Fall Risk Assessment 10/01/2024 10/01/2023 Influenza Vaccine (Season Ended) 2025 05/19/2020, 05/21/2019, 05/28/2018 Zoster Vaccine Completed 05/21/2019, 03/05/2019 Goals Goal Patient Goal Type Associated Problems Recent Progress Patient-Stated? Author CCM Chronic Pain Care Plan Chronic Care Management Improving( 12:43 PM ALMOND HULLER) Rabia Davies, RN Note: Problem: Chronic Pain Goals: 1. Minimize further functional decline 2. Maximize quality of life 3. Control pain Strategies: - Activity/exercise program recommendation - Conservative stepwise pain medicine strategy with multi-disciplinary approach - Recommend healthy lifestyle strategies and compensatory methods as needed Medical Devices Implanted Type Area Parachutist/Combatant Diver Qualified Device Identifier Shelf Expiration Date Model / [...] NP LAB BLOOD ORDERABLES Fin al Result [facility] [place] [address] * POCT hemoglobin A1c (05/28/2022 9:16 AM CDT) Hgb A1C, POC 5.6 4.0 - 5.6 % [facility] Est Average Gluc POC 114 mg/dL [facility] Comment: The ADA recommends reporting an estimated Average Glucose (eAG) with all Hemoglobin A1c results using the equation derived from a study of 507 normal and diabetic adults. Minority populations were underrepresented and children were not included. (Diabetes Care 31:7458-3538, 2008). The eAG is not equivalent to a fasting glucose. Blood 05/28/2022 9:16 AM CDT 05/28/2022 9:16 AM CDT Dre Riggins MD POINT OF CARE TEST ORDERABLES F inal Result [facility] [place] [address] from Last 3 Months or Most Recently Relevant to Health Maintenance Insurance [facility]IC[facility] REF UHC MEDICARE ADVANTAGE UHC MEDICARE ADVANTAGE Advance Directives For more information, please contact: [phone] * Full Code (Latest Code Status on File) Date Activated Date Inactivated Comments 09/30/2023 7:34 PM 10/01/2023 5:13 PM Care Teams Business Control Specialist Relationship Specialty Start Date End Date David Casanova MD PCP - General Internal Medicine 10/02/18 Eamon Lucia, RN Registered Nurse 07/03/19
--- OUTSIDE RECORDS SUMMARY | 2025-01-16 07:44 | XMS_ITS | Encounter Summary ---
Author Organization [facility] Address [address] [facility] [place] [place] [address] Phone Care Team Providers Care Food Production Manager Name Role Phone David Casanova MD Primary Care Provider [phone] Eamon Lucia RN Unavailable Unav ailable Encounter Details Date Type Department Care Team (Latest Contact Info) Description 05/12/2019 Orders Only [facility] Scanning, Provider Social History Tobacco Use Types Packs/Day Years Used Date Smoking Tobacco: Never Smokeless Tobacco: Never Sex and Gender Information Value Date Recorded Sex Assigned at Not on file Legal Sex Male 1:07 AM BOLT MACHINE OPERATOR Gender Identity Not on file Sexual Orientation Not on file documented as of this encounter Plan of Treatment Not on file documented as of this encounter Goals Goal Patient Goal Type Associated Problems Recent Progress Patient-Stated? Author CCM Chronic Pain Care Plan Chronic Care Management Improving( 12:43 PM BOLT MACHINE OPERATOR) No Rabia Aquino, RN Note: [...] on filedocumented in this encounter Care Teams Food Production Manager Relationship Specialty Start Date End Date David Casanova MD PCP - General Internal Medicine 10/02/18 Eamon Lucia, RN Registered Nurse 07/03/19 documented as of this encounter
--- OUTSIDE RECORDS SUMMARY | 2025-01-16 07:44 | XMS_ITS | Encounter Summary ---
Author Organization [facility] Healthcare Address [address] [place] [address] Care Team Providers Care Radar Operator Name Role Phone Regino García MD Primary Care Provider + [phone] David Casanova MD Primary Care Provider [phone] Eamon Lucia RN Unavailable Unav ailable Encounter Details Date Type Department Care Team (Late st Contact Info) Description 03/05/2018 Telephone [facility] [address] [facility] Advanced Medicine [address] [place], [place] [id number] Richie Garcia MD [address] [facility] [address] [facility] [phone] [place] [address] Social History Tobacco Use Types Packs/Day Years Used Date Smoking Tobacco: Never Assessed Sex and Gender Information Value Date Recorded Sex Assigned at Not on file Legal Sex Male 1:07 AM AVIATION ELECTRONIC WARFARE OPERATOR Gender Identity Not on file Sexual Orientation Not on file documented as of this encounter Plan of Treatment Not on file documented as of this encounter Visit Diagnoses Not on filedocumented in this encounter Care Teams Radar Operator Relationship Specialty Start Date End Date Regino García MD PCP - General 11/09/16 10/01/18 David Casanova MD PCP - General Internal Medicine 10/02/18 Eamon Lucia, RN Registered Nurse 07/03/19 documented as of this encounter
--- OUTSIDE RECORDS SUMMARY | 2025-01-16 07:44 | XMS_ITS | Encounter Summary ---
Author Organization [facility] Healthcare Address [address] [place] [address] Care Team Providers Care Tape Sewer Name Role Phone David Casanova MD Primary Care Provider [phone] Eamon Lucia RN Unavailable Unav ailable Encounter Details Date Type Department Care Team (Late st Contact Info) Description 10/17/2021 Telephone [facility] at [facility] [place] [facility] [address] [facility] Advanced Medicine [address] [place], [place] [id number] Richie Garcia MD [address] [facility] [address] [facility] [phone] [place], [place] [id number] Social History Tobacco Use Types Packs/Day Years [...] on file Legal Sex Male 1:[address] Gender Identity Not on file Sexual Orientation [...] Plan Chronic Care Management Improving( 12:[address]ENDOR) Rabia Davies, RN Note: Problem: Chronic Pain Goals: 1. Minimize further functional decline 2. Maximize quality of life 3. Control pain Strategies: - Activity/exercise program recommendation - Conservative stepwise pain medicine strategy with multi-disciplinary approach - Recommend healthy lifestyle strategies and compensatory methods as needed documented as of this encounter Visit Diagnoses Not on filedocumented in this encounter Care Teams Tape Sewer Relationship Specialty Start Date End Date David Casanova MD PCP - General Internal Medicine 10/02/18 Eamon Lucia, RN Registered Nurse 07/03/19 documented as of this encounter
--- OUTSIDE RECORDS SUMMARY | 2025-01-16 07:44 | XMS_ITS | Encounter Summary ---
Author Organization [facility] Healthcare Address [address] [place] [address] Care Team Providers Care Leave Specialist Name Role Phone Regino García MD Primary Care Provider [phone] David Casanova MD Primary Care Provider [phone] Eamon Lucia RN Unavailable Unav ailable Reason for Visit * Reason Onset Date Comments Med Refill 08/05/2018 Encounter Details Date Type Department Care Team (Late st Contact Info) Description 08/05/2018 Telephone [facility] [place] [facility] [address] [facility] Advanced Medicine [address] [place], [place] [id number] Richie Garcia MD [address] [facility] [address] [facility] [phone] [place], [place] [id number] Med Refill Social History Tobacco Use Types Packs/Day Years Used Date Smoking Tobacco: Never Assessed Sex and Gender Information Value Date Recorded Sex Assigned at Not on file Legal Sex Male 1:07 AM RESEARCH EXECUTIVE Gender Identity Not on file Sexual Orientation Not on file documented as of this encounter Miscellaneous Notes * Telephone Encounter - Rox Lim RN - 08/05/2018 11:24 AM RESEARCH EXECUTIVE I spoke with this patient to tell him that he must be seen so that we can safely continue to fill his meds. He was hesitant to make an appointment but I did convince him to see Darya. Appointment made for 08-15- @ 11 am. Refill sent to resident pool. ARCH EXECUTIVE documented in this encounter Plan of Treatment Not on file documented as of this encounter Visit Diagnoses Not on filedocumented in this encounter Care Teams Leave Specialist Relationship Specialty Start Date End Date Regino García MD PCP - General 11/09/16 10/01/18 David Casanova MD PCP - General Internal Medicine 10/02/18 Eamon Lucia, RN Registered Nurse 07/03/19 documented as of this encounter
--- OUTSIDE RECORDS SUMMARY | 2025-01-16 07:44 | XMS_ITS | Clinical Summary ---
Author Organization [facility] Address [address] [place] [address] Phone Care Team Providers Care Gas Maker Helper Name Role Phone Unavailable Primary Care Provider [...]
--- OUTSIDE RECORDS SUMMARY | 2025-01-16 07:44 | XMS_ITS | Clinical Summary ---
Author Organization [facility] Address [address] [place] [address] Care Team Providers Care Satellite Instruction Facilitator Name Role Phone David Casanova MD Primary Care Provider [phone] Social History Tobacco Use Types Packs/Day Years Used Date Smoking Tobacco: Never Assessed Sex and Gender Information Value Date Recorded Sex Assigned at Not on file Legal Sex Male 10:28 PM KEY ATTENDANT Gender Identity Not on file Sexual Orientation Not on file Plan of Treatment Health Maintenance Due Date Last Done Comments Colorectal Cancer Screening Colonoscopy (10 Years) 1950 Hepatitis C 02/07/1970 DTaP, Tdap and Td Vaccines ( 1 - Tdap) 02/07/1971 Pneumococcal Vaccine: 50+ Ye ars (1 of 1 - PCV) 02/07/2002 Zoster Vaccines (1 of 2) 02/07/2002 COVID-19 Vaccine ( - 2023-2 5 season) [...] age to complete this topic Care Teams Satellite Instruction Facilitator Relationship Specialty Start Date End Date David Casanova MD [address] [place] [address] PCP - General INTERNAL MEDICINE 10/23/21
--- OUTSIDE RECORDS SUMMARY | 2025-01-16 07:44 | XMS_ITS | Encounter Summary ---
Author Organization [facility] Address [address] [place] [address] Phone Care Team Providers Care Administrative Assistant Office Manager Name Role Phone David Casanvoa MD Primary Care Provider [phone] Eamon Lucia RN Unavailable Unav ailable Encounter [...] on file Legal Sex Male 1:07 AM SENIOR DIRECTOR CREATIVE SERVICES Gender Identity Not on file Sexual Orientation Not on file Occupation Industry Job Start Date Job End Date RETIRED Not on file Not on file Not on file documented as of this encounter Plan of Treatment Not on file documented as of this encounter Goals Goal Patient Goal Type Associated Problems Recent Progress Patient-Stated? Author [facility] Chronic Pain Care Plan Chronic Care Management Improving( 12:43 PM SENIOR DIRECTOR CREATIVE SERVICES) No Rabia Aquino RN Note: Problem: Chronic [...] on filedocumented in this encounter Care Teams Administrative Assistant Office Manager Relationship Specialty Start Date End Date David Casanova MD PCP - General Internal Medicine 10/02/18 Eamon Lucia, RN Registered Nurse 07/03/19 documented as of this encounter
--- OUTSIDE RECORDS SUMMARY | 2025-01-16 07:44 | XMS_ITS | CONTINUITY OF CARE DOCUMENT ---
Author Name ty, ty Address Unknown Organization [facility] Address [address] [facility] [address] [place] [address] Phone [phone] Care Team Providers Care Director Of Public Relations Name Role Phone Ariadna Jimenes MD Unavailable JAZZ CLEMONS MD Unavailable [phone] JAZZ CLEMONS MD Unavailable PROBLEMS Condition [...] In-person encounter Office Visit Ariadna Jimenes MD [facility] Chest pain--nl cath 2017Shortness of breathOSAFAMILY HISTORY OF HEART DISEASEABNORMAL ELECTROCARDIOGRAMPreoperative cardiovascular evaluation--back surgery - In-person encounter Office Visit Ariadna Jimenes MD [facility] - In-person encounter Office Visit Ariadna Jimenes MD [facility] Diabetes mellitusPalpitations PVCS - In-person encounter Office Visit Ariadna Jimenes MD [facility] - In-person encounter Office Visit Ariadna Jimenes MD [facility] Chest pain--nl cath 2017 - In-person encounter Office Visit Ariadna Jimenes MD [facility] Chest pain--nl cath 2016Shortness of breathOSA VITAL SIGNS Date Observation Value Provider Body Mass Index (Ratio) 36.49 kg/m2 Ricky Jimenes MD blood pressure, diastolic 72 mm[Hg] Gauri castelan [place] blood pressure, systolic 151 mm[Hg] Vince agus [place] oxygen saturation, oximetry 99 % Leila Dawson [...] Payer name Policy type / Coverage type [place] red alliance party ID [facility] MEDICARE COMPLETE HMO Other [id number] ADVANCE DIRECTIVES Name Date DISCUSSED - NO DECISION MADE TREATMENT PLAN Date Name Performer [id number],Chintan Lowe i [id number],Chintan Woodruff i [id number],SChintan i [id number],S, Chintan Arnett i [id number],S, Chintan Arnett i Cardiology Chintan Arnetti Cardiology [...] ..... 1 tab daily Orders: E KG ([id number]) Ariadna Jimenes MD follow up: H is updated medication list for this problem includes: Aspirin 81 Mg Tabs (Aspirin) ..... 1 tab daily Slow-mag Tbec (Magnesium cl-calcium carbonate tbec) Ariadna Jimenes MD Date Name Stress Regadenoson HISTORY OF PROCEDURES Procedure Date Procedure Name Provider Procedure Notes S tatus EKG Ariadna Jimenes MD completed SNOMED-CT: 689434666998200 Current Medications Documented Ariadna Jimenes MD completed Stress EKG Richie Obrien MD completed Regadenoson, 4 units Richie Obrien MD completed Cardiolite, 2 units Richie Obrien MD completed SPECT Images Richie Obrien MD completed ZIO [facility] Ariadna Jimenes MD co mpleted SNOMED-CT: 38121104 Physical Exam, Performed: Pulse Exam of Foot Ariadna Jimenes MD completed EKG Ariadna Jimenes MD completed SNOMED-CT: 985743931780749 Current Medications Documented Ariadna Jimenes MD completed ePrescribe - Check t his box if eRx is used Ariadna Jimenes MD completed EKG Ariadna Jimenes MD completed
--- OUTSIDE RECORDS SUMMARY | 2025-01-16 07:44 | XMS_ITS | Continuity of Care Document ---
Author Organization [facility] Address [address] [place] [address] [address] [place] [address] Phone Care Team Providers Care Program Scheduler Name Role Phone Nilo Stout Unavailable Unavailable Procedures Procedure Date Eye Exam, New Patient Refraction Advance Directives Directive Yes / No Effective Date File Name No Information Encounters Encounter Description Practice Location Reason(s) For Visit Diagnoses Date Provider Providers Copied on Encounter [facility], [address] [place] [address] [address], [place], [place], [id number], [place] tel:[phone] [facility] No Information 5-[address] Girish Corcoran. [address] [facility] , [address], [place], [address], [place]. tel:[phone] Family History Family Member Type Diagnosis Age At Onset No Information Payers Payer name Insurance type Covered alliance party ID Authorfaithrosey chhayakriss(s) [employer] SOI 09 [id number] Social History Type Description Quantity Date Captured [...]
== END 2025-01-16 07:42 | disposition home or self-care (01) ==
LOC: CHSIMG 07:42
PROVIDERS: PCP Family Medicine; Visit Provider Family Medicine
DX: M25.552 Pain in left hip (principal)
CPT/HCPCS: 73721

== ENCOUNTER 2025-01-18 07:56 | Outpatient (CLI) | payer MEDICARE, SELFPAY ==
--- NOTE | ~2025-01-18 | US_ITS ---
Left groin ULTRASOUND (Doppler ultrasound interrogation techniques used as needed for this exam.) Ordering provider: Italia Acosta, History: . Groin Pain, Left . Comparison: None. FINDINGS/impression: Lymph node is seen measuring 1.3 x 1.3 x 0.8 cm. No abnormality seen in the area of pain. Reviewed, dictated and finalized at location A.
--- OUTSIDE RECORDS SUMMARY | 2025-01-18 07:59 | XMS_ITS | Encounter Summary ---
Author Organization [facility] Address [address] [facility] [place] [address] Phone Care Team Providers Care Pipe Caulker Name Role Phone David Casanova MD Primary Care Provider [phone] Eamon Lucia RN Unavailable Unav ailable Encounter Details Date Type Department Care Team (Latest Contact Info) Description 05/12/2019 Orders Only [facility] SLEEP Scanning, Provider Social History Tobacco Use Types Packs/Day Years Used Date Smoking Tobacco: Never Smokeless Tobacco: Never Sex and Gender Information Value Date Recorded Sex Assigned at Not on file 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 Author [facility] Chronic Pain Care Plan Chronic Care Management Improving( 12:43 PM INDUSTRIAL SALES ENGINEER) No Rabia Aquino, RN Note: Problem: Chronic [...] on filedocumented in this encounter Care Teams Pipe Caulker Relationship Specialty Start Date End Date David Casanova MD PCP - General Internal Medicine 10/02/18 Eamon Lucia, RN Registered Nurse 07/03/19 documented as of this encounter
--- OUTSIDE RECORDS SUMMARY | 2025-01-18 07:59 | XMS_ITS | Clinical Summary ---
Author Organization [facility] Address [address] [place] [address] Care Team Providers Care Installation & Maintenance Executive Name Role Phone David Casanova MD Primary Care Provider [phone] Source Comments [facility],non-owned Affiliates and Associated Physician Practices is amultiple site organization consisting of ambulatory clinics and hospital sitesin [place], [place], [place] and [place]. This disclosure is being madepursuant to the Care Everywhere program and may not contain all information available regarding this patient. Last updated 18.[facility] Allergies No known active allergies Medications * [...] PO Take by mouth once daily Active Macd-Qnlrzm-R-B hjl-M68-Evcy 160-1.7 MG TABS Acti ve metoprolol succinate [...] Recorded Patient Health Questionnaire-2 Score 0 01/14/2024 [facility] - [...] to sleep or slept in a senior living (including now)? No 10/31/2022 Sex and Gender Information Value Date Recorded Sex Assigned at Not on file Legal Sex Male 7:45 PM CHHA Gender Identity Not on file Sexual Orientation Not on file Last Filed Vital Signs Vital Sign Reading Time Taken Comments Blood Pressure 142/79 11/08/2022 7:52 AM [facility] Pulse 57 11/08/2022 7:52 AM [facility] Temperature 36.4 C (97.5 F) 11/08/2022 7:52 AM [facility] Respiratory Rate 18 11/08/2022 7:52 AM [facility] Oxygen Saturation 96% 11/08/2022 7:52 AM [facility] Inhaled Oxygen Concentration - - Weight 110.7 [...] this topic Medical Devices Implanted Type Area Landscaping Crew Leader Device Identifier Shelf Expiration Date Model / Serial / Lot Graft Bone Canc 30ml Cube Frzdr Irr Implanted:Qty: 1 on 10/29/2022 by Shaggy Rodriguez MD at [facility] N/A: Spine Lumbar Allosource 03/28/2027 [id number] / / [id number] Graft Bone Accell Evo3 Dbm 10ml Ptty - [id number] Implanted:Qty: 1 on 10/29/2022 by Shaggy Rodriguez MD at [facility] N/A: Spine Lumbar Integra [employer]iences 09/05/2023 / [id number] / [id number] Graft Bone Accell Evo3 Dbm 10ml Ptty - [id number] Implanted:Qty: 1 on 10/29/2022 by Shaggy Rodriguez MD at [facility] N/A: Spine Lumbar Integra [employer]iences 09/05/2023 / [id number] / [id number] Eit Plif H 13mm, 8 Degrees, 04/06 Implanted:Qty: 1 on 10/29/2022 by Shaggy Rodriguez MD at [facility] N/A: Spine Lumbar [id number] / / [id number] Screw 7.5mm 45mm Pa Spne Pdcl Xpdm Ti Implanted:Qty: 4 on 10/29/2022 by Shaggy Rodriguez MD at [facility] N/A: Spine Lumbar Synthes Spine [id number] / / Screw 7.5mm 50mm Pa Spne Pdcl Xpdm Ti Implanted:Qty: 2 on 10/29/2022 by Shaggy Rodriguez MD at [facility] N/A: Spine Lumbar Synthes Spine [id number] / / Screw Set Ti 5.5mm Spne 1 Inr Ma Xpdm Implanted:Qty: 6 on 10/29/2022 by Shaggy Rodriguez MD at [facility] N/A: Spine Lumbar Synthes Spine [id number] / / 65mm Mike Implanted:Qty: 2 on 10/29/2022 by Shaggy Rodriguez MD at [facility] N/A: Spine Lumbar Synthes Spine [id number] / / Procedures Procedure Name Priority Date/Time Associated Diagnosis Comments BASIC METABOLIC PANEL (CALCIUM TOTAL) Routine 11/08/2022 4:32 AM [facility] Spondylolisthesis, unspecified spinal region HEMOGLOBIN A1C Routine 10/30/2022 1:36 AM [facility] from Last 3 Months or Most Recently Relevant to Health Maintenance Results * (ABNORMAL) BASIC METABOLIC PANEL (CALCIUM TOTAL) (11/08/2022 4:32 AM [facility]) BUN 15 7 - 26 mg/dL 11/08/2022 5:28 AM [facility] Creatinine 0.82 0.71 - 1.16 mg/dL 11/08/2022 5:28 AM [facility] Sodium 138 136 - 145 mmol/L 11/08/2022 5:28 AM [facility] Potassium 3.9 3.5 - 4.5 mmol/L 11/08/2022 5:28 AM [facility] Chloride 108(H) 98 - 107 mmol/L 11/08/2022 5:28 AM [facility] CO2 21(L) 22 - 29 mmol/L 11/08/2022 5:28 AM [facility] Glucose 111 70 - 115 mg/dL 11/08/2022 5:28 AM [facility] Calcium 9.3 8.4 - 10.2 mg/dL 11/08/2022 5:28 AM [facility] Anion Gap 13 8 - 18 11/08/2022 5:28 AM [facility] BUN/Creatinine Ratio 18 7 - 23 11/08/2022 5:28 AM [facility] Osmolality Calculated 288 270 - 300 mOsm/kg 11/08/2022 5:28 AM [facility] eGFR by CKD-EPI >90 >=90 mL/min/1.7 3 m2 11/08/2022 5:28 AM [facility] Blood BLOOD SPECIMEN / Unknown Lab Venipuncture / Unknown 11/08/2022 4:32 AM [facility] 11/08/2022 4:59 AM [facility] Shaggy Rodriguez MD LAB - CHEMISTRY ORDERABLES Final Result Performing Organization Address [facility]/ZIP Co de Phone Number [facility] [address] [place] [address], [place] [phone] * HEMOGLOBIN A1C (10/30/2022 1:36 AM [facility]) Hemoglobin A1c 5.3 <=5.6 % 10/30/2022 11:47 AM [facility] Estimated Average Glucose 105 mg/dL 10/30/2022 11:47 AM [facility] Comment: HbA1c Interpretation: Normal : < 5.7% Pre-diabetes: 5.7-6.4% Diabetes: Equal to or greater than 6.5% Test results diagnostic of diabetes should be repeated for confirmation. Treatment target values recommended by ADA and other clinical organizations should be used to evaluate metabolic control in patients. Reference: [place] Diabetes Association, Standards of Care in Diabetes -2020 In patients 70 years and older consider HbA1c target range of 7.0-7.5% (Reference: Omi Garcia et al. JAMDA. 2012) The Sebia assay for the measurement of HbA1c is a National Glycohemoglobin Standardization Program (NGSP) certified method. Blood BLOOD SPECIMEN / Unknown Lab Venipuncture / Unknown 10/30/2022 1:36 AM [facility] 10/30/2022 2:37 AM [facility] Shaggy Rodriguez MD LAB - CHEMISTRY ORDERABLES Final Result [facility] [address] [place] [address], [place] [phone] from Last 3 Months or Most Recently Relevant to Health Maintenance Insurance [facility] MANAGED MEDICARE ADV [facility] MANAGED MEDICARE ADV Member Subscriber Plan / Payer (Ef fective 2021-Present) Name:Boo Rodrigues Jr. Relation to Subscriber:Self Name:LiliaBoo Jr. Payer ID:[id number] (NAIC) Type:Medicare-Managed Care Address: [place] [phone] Advance Directives * Full Code (Latest Code Status on File) Date Activated Date Inactivated Comments 10/29/2022 7:45 PM 11/08/2022 3:30 PM Care Teams Installation & Maintenance Executive Relationship Specialty Start Date End Date David Casanova MD [address] [place] [address] PCP - General 06/25/22
--- OUTSIDE RECORDS SUMMARY | 2025-01-18 07:59 | XMS_ITS | Encounter Summary ---
Author Organization [facility] Healthcare Address [address] [place] [address] Care Team Providers Care Medical Administrative Assistant Name Role Phone Regino García MD Primary Care Provider [phone] David Casanova MD Primary Care Provider [phone] Eamon Lucia RN Unavailable Unav ailable Reason for Visit * Reason Onset Date Comments Med Refill 08/05/2018 Encounter Details Date Type Department Care Team (Late st Contact Info) Description 08/05/2018 Telephone [facility] at [facility] [place] for [facility] [address] [facility] Advanced Medicine [address] [place], [place] [id number] Richie Garcia MD [address] [facility] [address] [facility] [address] [place], [place] [id number] Med Refill Social History Tobacco Use Types Packs/Day Years Used Date Smoking Tobacco: Never Assessed Sex and Gender Information Value Date Recorded Sex Assigned at Not on file Legal Sex Male 1:07 AM PRODUCTION REPAIRER Gender Identity Not on file Sexual Orientation Not on file documented as of this encounter Miscellaneous Notes * Telephone Encounter - Rox Lim RN - 08/05/2018 11:24 AM PRODUCTION REPAIRER I spoke with this patient to tell him that he must be seen so that we can safely continue to fill his meds. He was hesitant to make an appointment but I did convince him to see Darya. Appointment made for 08-15- @ 11 am. Refill sent to resident pool. UCTION REPAIRER documented in this encounter Plan of Treatment Not on file documented as of this encounter Visit Diagnoses Not on filedocumented in this encounter Care Teams Medical Administrative Assistant Relationship Specialty Start Date End Date Regino García MD PCP - General 11/09/16 10/01/18 David Casanova MD PCP - General Internal Medicine 10/02/18 Eamon Lucia, RN Registered Nurse 07/03/19 documented as of this encounter
--- OUTSIDE RECORDS SUMMARY | 2025-01-18 07:59 | XMS_ITS | Continuity of Care Document ---
Author Organization [facility] Address [address] [place] [address] [address] [place] [address] Phone Care Team Providers Care Consolidation Accountant Name Role Phone Nilo Stout Unavailable Unavailable Procedures Procedure Date Eye Exam, New Patient Refraction Advance Directives Directive Yes / No Effective Date File Name No Information Encounters Encounter Description Practice Location Reason(s) For Visit Diagnoses Date Provider Providers Copied on Encounter Formerly [facility], [address] [place] [address] [address], [place], [place], [id number], [place] tel:[phone] SEC [facility] No Information 5-[address] Girish Corcoran. [address] [facility] , [address], [place], [address], [place]. tel:[phone] Family History Family Member Type Diagnosis Age At Onset No Information Payers Payer name Insurance type Covered republican ID Authorfaithrosey chhayakriss(s) [employer] SOI 09 [id number] Social History Type Description Quantity Date Captured [...]
--- OUTSIDE RECORDS SUMMARY | 2025-01-18 07:59 | XMS_ITS | CONTINUITY OF CARE DOCUMENT ---
Author Name ty, ty Address Unknown Organization [facility] Address [address] [facility] [address] [place] [address] Phone [phone] Care Team Providers Care Senior Gis Analyst Name Role Phone Ariadna Jimenes MD Unavailable [...] In-person encounter Office Visit Ariadna Jimenes MD [facility] Chest pain--nl cath 2017Shortness of breathOSAFAMILY HISTORY OF HEART DISEASEABNORMAL ELECTROCARDIOGRAMPreoperative cardiovascular evaluation--back surgery - In-person encounter Office Visit Ariadna Jimenes MD [facility] - In-person encounter Office Visit Ariadna Jimenes MD [facility] Diabetes mellitusPalpitations PVCS - In-person encounter Office Visit Ariadna Jimenes MD [facility] - In-person encounter Office Visit Ariadna Jimenes MD [facility] Chest pain--nl cath 2017 - In-person encounter Office Visit Ariadna Jimenes MD [facility] Chest pain--nl cath 2016Shortness of breathOSA VITAL SIGNS Date Observation Value Provider Body Mass Index (Ratio) 36.49 kg/m2 Ricky Jimenes MD blood pressure, diastolic 72 mm[Hg] Gauri castelan [place] blood pressure, systolic 151 mm[Hg] Vince agus [place] oxygen saturation, oximetry 99 % Leila Dawson [...] hr active 1 tablet once a day rAiadna Jimenes MD sertraline 100 mg tablet active [...] Payer name Policy type / Coverage type Shipman red green party ID [facility] MEDICARE COMPLETE HMO Other [id number] ADVANCE DIRECTIVES Name Date DISCUSSED - NO DECISION MADE TREATMENT PLAN Date Name Performer [id number],Chintan Lowe i [id number],Chintan Woodruff i [id number],SChintan i [id number],S, Chintan Arnett i [id number],S, Chintan Arnett i Cardiology Chintan Arnetti Cardiology Chintan Arnetti Cardiology Chintan Arnetti Cardiology Chintan Arnteti Cardiology Chintan Arnettelie Cardiology Ariadna Jimenes MD [...] ..... 1 tab daily Orders: E KG ([id number]) Ariadna Jimenes MD follow up: H is updated medication list for this problem includes: Aspirin 81 Mg Tabs (Aspirin) ..... 1 tab daily Slow-mag Tbec (Magnesium cl-calcium carbonate tbec) Ariadna Jimenes MD Date Name Stress Regadenoson HISTORY OF PROCEDURES Procedure Date Procedure Name Provider Procedure Notes S tatus EKG Ariadna Jimenes MD completed SNOMED-CT: 558618535831435 Current Medications Documented Ariadna Jimenes MD completed Stress EKG Richie Obrien MD completed Regadenoson, 4 units Richie Obrien MD completed Cardiolite, 2 units Richie Obrien MD completed SPECT Images Richie Obrien MD completed ZIO Holter [facility] Ariadna Jimenes MD co mpleted SNOMED-CT: [id number] Physical Exam, Performed: Pulse Exam of Foot Ariadna Jimenes MD completed EKG Ariadna Jimenes MD completed SNOMED-CT: 628044420086253 Current Medications Documented Ariadna Jimenes MD completed ePrescribe - Check t his box if eRx is used Ariadna Jimenes MD completed EKG Ariadna Jimenes MD completed
--- OUTSIDE RECORDS SUMMARY | 2025-01-18 07:59 | XMS_ITS | Encounter Summary ---
Author Organization [facility] Healthcare Address [address] [place] [address] Care Team Providers Care Glass Science Engineer Name Role Phone Regino García MD Primary Care Provider [phone] David Casanova MD Primary Care Provider [phone] Eamon Lucia RN Unavailable Unav ailable Encounter Details Date Type Department Care Team (Late st Contact Info) Description 03/05/2018 Telephone [facility] [address] [facility] Advanced Medicine [address] [place], [place] [id number] Richie Garcia MD [address] [facility] [phone] [place] [address] Social History Tobacco Use Types Packs/Day Years Used Date Smoking Tobacco: Never Assessed Sex and Gender Information Value Date Recorded Sex Assigned at Not on file 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
--- OUTSIDE RECORDS SUMMARY | 2025-01-18 07:59 | XMS_ITS | Encounter Summary ---
Author Organization [facility] Healthcare Address [address] [place] [address] Care Team Providers Care Retail Sales Associate Seasonal Name Role Phone David Casanova MD Primary Care Provider [phone] Eamon Lucia RN Unavailable Unav ailable Encounter Details Date Type Department Care Team (Late st Contact Info) Description 10/17/2021 Telephone [facility] [place] [facility] [address] [facility] Advanced Medicine [address] [place], [place] [id number] Richie Garcia MD [address] [facility] [address] [facility] [phone] [place], [place] [id number] Social History Tobacco Use Types Packs/Day Years [...] on file Legal Sex Male 1:07 AM PLASTIC SURGEON Gender Identity Not on file Sexual Orientation [...] Plan Chronic Care Management Improving( 12:43 PM PLASTIC SURGEON) Rabia Davies, RN Note: Problem: Chronic Pain Goals: 1. Minimize further functional decline 2. Maximize quality of life 3. Control pain Strategies: - Activity/exercise program recommendation - Conservative stepwise pain medicine strategy with multi-disciplinary approach - Recommend healthy lifestyle strategies and compensatory methods as needed documented as of this encounter Visit Diagnoses Not on filedocumented in this encounter Care Teams Retail Sales Associate Seasonal Relationship Specialty Start Date End Date David Casanova MD PCP - General Internal Medicine 10/02/18 Eamon Lucia, RN Registered Nurse 07/03/19 documented as of this encounter
--- OUTSIDE RECORDS SUMMARY | 2025-01-18 07:59 | XMS_ITS | Clinical Summary ---
Author Organization [facility] Address [address] [place] [address] Care Team Providers Care Heel Curver Name Role Phone David Casanova MD Primary Care Provider [phone] Social History Tobacco Use Types Packs/Day Years Used Date Smoking Tobacco: Never Assessed Sex and Gender Information Value Date Recorded Sex Assigned at Not on file Legal Sex Male 10:28 PM HIV PREVENTION SPECIALIST Gender Identity Not on file Sexual Orientation [...] age to complete this topic Care Teams Heel Curver Relationship Specialty Start Date End Date David Casanova MD [address] [place] [address] PCP - General INTERNAL MEDICINE 10/23/21
--- OUTSIDE RECORDS SUMMARY | 2025-01-18 07:59 | XMS_ITS | Encounter Summary ---
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 Author [facility] Chronic Pain Care Plan Chronic Care Management Improving( 12:43 PM POWER SYSTEM OPERATOR) No Rabia Aquino RN Note: Problem: Chronic [...] on filedocumented in this encounter Care Teams Hoop Punch And Coiler Operator Relationship Specialty Start Date End Date David Casanova MD PCP - General Internal Medicine 10/02/18 Eamon Lucia, RN Registered Nurse 07/03/19 documented as of this encounter
--- OUTSIDE RECORDS SUMMARY | 2025-01-18 08:00 | XMS_ITS | Clinical Summary ---
Author Organization [facility] Address [address] [place] [address] Care Team Providers Care Bag Printer Name Role Phone David Casanova MD Primary Care Provider [phone] Eamon Lucia RN Unavailable Unav ailable Allergies [...] chloride (Jo 128) 5 % ophthalmic ointmentIndicati ons:Eqm-jrj-ggom erprint corneal dystrophy APPLY 1/4 INCH INTO [...] (04/27/2021): Added automatically from request for surgery [id number] Frequent falls 02/21/2021 Primary osteoarthritis of right knee 11/17/2020 Lumbar spondylosis 06/17/2020 Overview (06/17/2020): Added automatically from request for surgery [id number] Chronic use of opiate drug for therapeutic purpo se 11/29/2019 Overview (10/08/2022): Chronic Opioid Therapy - 10/08/21 Current opioid: - tramadol - 100 mg QID = 400 mg max/day Morphine daily equivalent: 40 mg/day Other : NO NSAIDS - elevated his blood pressure Benzo : none Storage : told to keep secure Plan: Continue, encourage restricting uses possible Urine Drug Screen [facility] 11/10/19 - consistent with prescribed tramadol Urine Drug Screen [facility] 11/21/20 - consistent with prescribed tramadol Urine drug screen [facility] 07/04/22 - consistent with prescribed tramadol Lumbar radiculopathy 11/02/2019 Displacement of lumbar intervertebral disc 07/19 Nocturnal leg cramps 05/13/2019 Pgh-ikc-wnojuzgmpsd 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 Right posterior capsular opacification [...] ROTATOR CUFF REPAIR 09/09/2014 - 09/08/2015 Right MS INJ LUMBAR/SACRAL,W/WO CNTRST Corticosteroid Injection Interlaminar Approach Lumbar - (Added by TW Conv) NERVE BLOCK Nerve Block Paravertebral Facet Joint - LMBB- Bilateral L3, L4, L5,S1 (Added by TW Conv) NERVE BLOCK Nerve Block Paravertebral Facet Joint - LMBB #2 bilateral L3,4,5 S1 (Added by TW Conv) MS DSTR NROLYTC AGNT PARVERTEB FCT SNGL LMBR/SACRAL [...] on file 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 Minimize further functional decline 2. Maximize quality of life 3. Control pain Strategies: - Activity/exercise program recommendation - Conservative stepwise pain medicine strategy with multi-disciplinary approach - Recommend healthy lifestyle strategies and compensatory methods as needed Medical Devices Implanted Type Area Game Agent Device Identifier Shelf Expiration Date Model / [...] NP LAB BLOOD ORDERABLES Fin al Result [facility] [place] [address] * POCT hemoglobin A1c (05/28/2022 9:16 AM CDT) Hgb A1C, POC 5.6 4.0 - 5.6 % [facility] Est Average Gluc POC 114 mg/dL [facility] Comment: The ADA recommends reporting an estimated Average Glucose (eAG) with all Hemoglobin A1c results using the equation derived from a study of 507 normal and diabetic adults. Minority populations were underrepresented and children were not included. (Diabetes Care 31:5040-1541, 2008). The eAG is not equivalent to a fasting glucose. Blood 05/28/2022 9:16 AM CDT 05/28/2022 9:16 AM CDT Dre Riggins MD POINT OF CARE TEST ORDERABLES F inal Result [facility] [place] [address] from Last 3 Months or Most Recently Relevant to Health Maintenance [facility]F [facility] Address: [address] [place] [phone] UHC MEDICARE ADVANTAGE [facility] Address: [address] [place], [place] [id number] UHC MEDICARE ADVANTAGE [facility] Address: [address] [place] [phone] Advance Directives For more information, please contact: [phone] * Full Code (Latest Code Status on File) Date Activated Date Inactivated Comments 09/30/2023 7:34 PM 10/01/2023 5:13 PM Care Teams Bag Printer Relationship Specialty Start Date End Date David Casanova MD PCP - General Internal Medicine 10/02/18 Eamon Lucia, RN Registered Nurse 07/03/19
--- OUTSIDE RECORDS SUMMARY | 2025-01-18 08:00 | XMS_ITS | Encounter Summary ---
Author Organization [facility] Healthcare Address [address] [place] [address] Care Team Providers Care Emergency Veterinary Assistant Name Role Phone David Casanova MD Primary Care Provider [phone] Eamon Lucia RN Unavailable Unav ailable Reason for Visit * Reason Onset Date Comments Scheduling Appointments 08/17/2019 Encounter Details Date Type Department Care Team (Late st Contact Info) Description 08/17/2019 Telephone [facility] Pain [facility] at the [place] [facility] [address] [facility] Advanced Medicine [address] [place] [address] Richie Garcia MD [address] [facility] [address] [facility] [phone] [place], [place] [id number] Scheduling Appointments Social History Tobacco Use Types Packs/Day Years Used Date Smoking Tobacco: Never Smokeless Tobacco: Never Alcohol Use Standard Drinks/Week Comments Not Currently 0 (1 standard drink = 0.6 oz pur e alcohol) denies Sex and Gender Information Value Date Recorded Sex Assigned at Not on file Legal Sex Male 1:07 AM 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 Author [facility] Chronic Pain Care Plan Chronic Care Management Improving( 12:43 PM PRODUCT MANAGEMENT CONSULTANT) No Rabia Aquino, RN Note: Problem: Chronic Pain Goals: 1. Minimize further functional decline 2. Maximize quality of life 3. Control pain Strategies: - Activity/exercise program recommendation - Conservative stepwise pain medicine strategy with multi-disciplinary approach - Recommend healthy lifestyle strategies and compensatory methods as needed documented as of this encounter Visit Diagnoses Not on filedocumented in this encounter Care Teams Emergency Veterinary Assistant Relationship Specialty Start Date End Date David Casanova MD PCP - General Internal Medicine 10/02/18 Eamon Lucia, RN Registered Nurse 07/03/19 documented as of this encounter
--- OUTSIDE RECORDS SUMMARY | 2025-01-18 08:00 | XMS_ITS | Referral Summary ---
Author Organization [facility] Address [address] [place] [address] Care Team Providers Care Text Transcriber Name Role Phone David Casanova MD Primary Care Provider [phone] Eamon Lucia RN Unavailable Unav ailable Allergies [...] chloride (Jo 128) 5 % ophthalmic ointmentIndicati ons:Iww-dif-ewvv erprint corneal dystrophy APPLY 1/4 INCH INTO [...] (04/27/2021): Added automatically from request for surgery [id number] Frequent falls 02/21/2021 Primary osteoarthritis of right knee 11/17/2020 Lumbar spondylosis 06/17/2020 Overview (06/17/2020): Added automatically from request for surgery [id number] Chronic use of opiate drug for therapeutic purpo se 11/29/2019 Overview (10/08/2022): Chronic Opioid Therapy - 10/08/21 Current opioid: - tramadol - 100 mg QID = 400 mg max/day Morphine daily equivalent: 40 mg/day Other : NO NSAIDS - elevated his blood pressure Benzo : none Storage : told to keep secure Plan: Continue, encourage restricting uses possible Urine Drug Screen [facility] 11/10/19 - consistent with prescribed tramadol Urine Drug Screen [facility] 11/21/20 - consistent with prescribed tramadol Urine drug screen [facility] 07/04/22 - consistent with prescribed tramadol Lumbar radiculopathy 11/02/2019 Displacement of lumbar intervertebral disc 07/19 Nocturnal leg cramps 05/13/2019 Zux-jnt-suzkeqptjaw 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 Right posterior capsular opacification [...] on file Legal Sex Male 1:07 AM 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 Minimize further functional decline 2. Maximize quality of life 3. Control pain Strategies: - Activity/exercise program recommendation - Conservative stepwise pain medicine strategy with multi-disciplinary approach - Recommend healthy lifestyle strategies and compensatory methods as needed Medical Devices Implanted Type Area Marine Equipment Preservation Inspector Device Identifier Shelf Expiration Date Model / [...] 90 - 130 mL/min/1. 73 m2 [facility] Comment: Interpretive Data Reference Interval [...] us Yang Rose NP LAB BLOOD ORDERABLES [facility] al Result [facility] One [facility] Department [place] [address] * POCT hemoglobin A1c (05/28/2022 9:16 AM CDT) Hgb A1C, POC 5.6 4.0 - 5.6 % [facility] Est Average Gluc POC 114 mg/dL [facility] Comment: The ADA recommends reporting an estimated Average Glucose (eAG) with all Hemoglobin A1c results using the equation derived from a study of 507 normal and diabetic adults. Minority populations were underrepresented and children were not included. (Diabetes Care 31:7445-8985, 2008). The eAG is not equivalent to a fasting glucose. Blood 05/28/2022 9:16 AM CDT 05/28/2022 9:16 AM CDT Dre Riggins MD POINT OF CARE TEST ORDERABLES F inal Result [facility] One [facility] Department [place] [address] from Last 3 Months or Most Recently Relevant to Health Maintenance Insurance MEDICARE [facility] Address: [address] [address] [place] [address] [facility]F [facility] Address: [address] [address] [place] [address] UHC MEDICARE ADVANTAGE [facility] MEDICARE ADVANTAGE [facility] Address: [address] [address] [place] [address] Advance Directives For more information, please contact: [phone] * Full Code (Latest Code Status on File) Date Activated Date Inactivated Comments 09/30/2023 7:34 PM 10/01/2023 5:13 PM Care Teams Text Transcriber Relationship Specialty Start Date End Date David Casanova MD PCP - General Internal Medicine 10/02/18 Eamon Lucia, RN Registered Nurse 07/03/19
--- OUTSIDE RECORDS SUMMARY | 2025-01-18 08:00 | XMS_ITS | Clinical Summary ---
Author Organization [facility] Address [address] [place] [address] Phone Care Team Providers Care Mrp Controller Name Role Phone Unavailable Primary Care Provider [...]
== END 2025-01-18 07:57 | disposition home or self-care (01) ==
LOC: CHSIMG 07:57
PROVIDERS: PCP Family Medicine; Visit Provider Family Medicine
DX: R10.32 Left lower quadrant pain (principal)
CPT/HCPCS: 76882

== ENCOUNTER 2025-06-22 12:59 | Outpatient (RCR) | payer SELFPAY | END 2025-06-22 23:59 | disposition home or self-care (01) | LOC: ANHAUDIO 12:59 | PROVIDERS: PCP Family Medicine; Visit Provider Family Medicine | DX: Z46.1 Encounter for fitting and adjustment of hearing aid (principal) | CPT/HCPCS: V5014 ==

== ENCOUNTER 2025-07-16 10:34 | Outpatient (CLI) | payer MEDICARE, SELFPAY ==
--- OUTSIDE RECORDS SUMMARY | 2025-04-15 06:40 | XMS_ITS ---
Author Organization [facility] Address [address] [place], [place] [id number] Care Team Providers Care Drug Inspector Name Role Phone FRITZ SNEED Unavailable [phone] none, none Unavailable Unavailable Allergies No Known Allergies REASON FOR VISIT *Foot Pain Medications Medication SIG (Take, Route, Frequency, Duration) Notes Start Date End Date Status Cephalexin 250 MG Capsule 1 capsule Oral ly Once a day; Duration: 10 days 04/20/2025 04/30/2025 Active Wellbutrin Active Vital Signs Height 65 in 04/15/2025 Weight 245 lbs 04/15/2025 BMI 40.77 kg/m2 04/15/2025 Height-cm 165.1 cm 04/15/2025 Weight-kg 111.13 kg 04/15/2025 Encounters Encounter Location Date Provider Diagnosis [address] [id number] 04/15/2025 FRITZ SNEED Cellulitis of unspecified toe L03.039 ; Ingrowing nail L60.0 and Pain in right toe(s) M79.674 Assessments Encounter Date Diagnosis (ICD Code) Assessment Notes Treatment Notes Treatment Clinical Notes Section Notes 04/15/2025 Cellulitis of unspecified toe (ICD-10 - L03.039) 04/15/2025 Ingrowing nail (ICD-10 - L60.0) NAIL DEBRIDEMENT: Nails 1-5 Bilateral were debrided extensively with nail nippers and emery board, reducing length and girth to pink healthy tissue with any subungual debris and necrotic tissue removed. Total Nail Avulsion: I discussed various treatment options to the patient for their nail condition. I discussed removal of the offending nail and chemical matrixectomy to prevent regrowth. The patient decided on non-permanent removal of the nail. The consent was signed and placed in the patients chart and all questions were answered. Following skin prep, the toe was injected with 3ccs of a 1:1 mixture of 0.5% marcaine plain and 1% lidocaine plain. A digital tourniquet was applied and the offending nail was removed. The digital tourniquet was released and the toe was cleansed with isopropyl alccohol. A dry sterile compressive dressing was applied and the patient was given soaking instructions. 04/15/2025 Pain in right toe(s) (ICD-10 - M79.674) Plan Of Treatment Medication Medication Name Sig Start Date Stop Date Notes Cephalexin 250 MG Capsule 1 capsule Oral ly Once a day; Duration: 10 days 04/20/2025 04/30/2025 Treatment Notes Assessment Notes Ingrowing nail NAIL DEBRIDEMENT: Nails 1-5 Bilateral were debrided extensively with nail nippers and emery board, reducing length and girth to pink healthy tissue with any subungual debris and necrotic tissue removed. Total Nail Avulsion: I discussed various treatment options to the patient for their nail condition. I discussed removal of the offending nail and chemical matrixectomy to prevent regrowth. The patient decided on non-permanent removal of the nail. The consent was signed and placed in the patients chart and all questions were answered. Following skin prep, the toe was injected with 3ccs of a 1:1 mixture of 0.5% marcaine plain and 1% lidocaine plain. A digital tourniquet was applied and the offending nail was removed. The digital tourniquet was released and the toe was cleansed with isopropyl alccohol. A dry sterile compressive dressing was applied and the patient was given soaking instructions. Next Appt Details Follow Up: 1 Week,post op, Jeaneth colmenares: Provider Name:FRITZ PIPER, 09/16/2025 09:40:00 AM, [address] [place] [address], [id number], History and Physical Notes * HPI (History of Present Illness) Category Sub-Category Detail Notes Category Not es HPI New Complaint Patient presents for a new patient consultation., Patient complains of an issue to right foot big toe pain. Duration of problem is 4 days., Patient denies any injury., MA: nd Examination Category Sub-Category Detail Notes Category Not es Constitutional Constitutional The patient is a wake, alert, well developed, well groomed and well nourished. Dermatologic Skin findings: bilateral skin i s thin, atrophic and lacking pedal hair. Ingrown Nail Nail is incurvated a nd lifted to the distal aspect of the right great toenail. , There is erythema present., There is serous drainage noted. , There is pain on palpation. Musculoskeletal Muscle Strength Muscle strength is 5/5 in regards to dorsiflexion, plantarflexion, inversion, and eversion in bilateral lower extremities. Neurologic Mulders sign: bilateral, negative Gross sensation Gross sensation is i ntact to light touch Vascular Dorsalis pedis pulse: bilateral, 1/4 Posterior tibial pulse: bilaterally, 1/4 Progress Notes * Boo HERMOSILLODOB: [birth year] (75 yo M)Acc No.[id number]:04/15/2025 Patient: Boo Byers Provider: Eddie SNEED :1950 A ge:75 Y S ex:Male Date:04/15/2025 Address:[address] [place], [place] [id number] Subjective: * Chief Complaints: * * Foot Pain * HPI: H PI: New Complaint P atient presents for a new patient consultation., Patient complains of an issue to right foot big toe pain. Duration of problem is 4 days., Patient denies any injury., MA: nd. * ROS: G eneral / Constitutional: Patient denies c hills, fatigue, fever. P atient complains of p ain. M usculoskeletal: Patient denies w eakness. P eripheral Vascular: Patient denies b lood clots in legs. S kin: Patient denies u lcerations, skin cancer. P atient complains of d iscoloration, rash, nail changes. N eurologic: Patient denies p aralysis. * Medical History: Acid reflux Liver disease Diabetic Varicose veins Blood clots Medical History Verified * Surgical History: Shoulder repair spinal fusion Surgical History verified. * Hospitalization/Major Diagno stic Procedure: Denies Past Hospitalization. Hospitalization Verified. * Family History: N o Family History documented.. F amily History Verified.. * Social History: Social History Verified. No Social History documented. * Medications: T akingWellbutrin Medication List reviewed and reconciled with the patientTaking Wellbutrin Medication List reviewed and reconciled with the patient * Allergies: N .K.D.A.yesAllergies Verified. Objective: * Vitals: S hoe Size: 11.5, Wt:245lbs, Wt-k.13 kg, Ht: 65 in, Ht-cm: 165.1 cm, BMI:40.77Index, Body Surface Area: 2.26. * Examination: C onstitutional: Constitutional T he patient is awake, alert, well developed, well groomed and well nourished.. D ermatologic: Skin findings: b ilateral s kin is thin, atrophic and lacking pedal hair.. Ingrown Nail N ail is incurvated and lifted to the distal aspect of the right great toenail. , There is erythema present., There is serous drainage noted. , There is pain on palpation.. M usculoskeletal: Muscle Strength M uscle strength is 5/5 in regards to dorsiflexion, plantarflexion, inversion, and eversion in bilateral lower extremities.. ? N eurologic: Mulders sign: b ilateral, negative. Gross sensation G ross sensation is intact to light touch.? V ascular: Dorsalis pedis pulse: b ilateral, 1/4. Posterior tibial pulse: b ilaterally, 1/4. Assessment: * Assessment: 1. C ellulitis of unspecified toe - L03.039 (Primary) 2 . I ngrowing nail - L60.0 3 . P ain in right toe(s) - M79.674 Plan: * Treatment: 2. I ngrowing nail Notes: NAIL DEBRIDEMENT: Nails 1-5 Bilateral were debrided extensively with nail nippers and emery board, reducing length and girth to pink healthy tissue with any subungual debris and necrotic tissue removed. T otal Nail Avulsion: I discussed various treatment options to the patient for their nail condition. I discussed removal of the offending nail and chemical matrixectomy to prevent regrowth. The patient decided on non-permanent removal of the nail. The consent was signed and placed in the patients chart and all questions were answered. Following skin prep, the toe was injected with 3ccs of a 1:1 mixture of 0.5% marcaine plain and 1% lidocaine plain. A digital tourniquet was applied and the offending nail was removed. The digital tourniquet was released and the toe was cleansed with isopropyl alccohol. A dry sterile compressive dressing was applied and the patient was given soaking instructions. * Procedure Codes: 1 1730 REMOVAL OF NAIL PLATE, Modifiers: T5 * Follow Up: 1 Week,post op Billing Information: * Visit Code: 22349 Office Visit, New Pt., Level 3. Modifiers: 25 * Procedure Codes: 55350 REMOVAL OF NAIL PLATE. Modifiers: T5 * Electronic signature of TRUNG SNEED DPM on 07/16/2025 at 11:14 AM [employer] Sign off status: Pending * Provider: Eddie SNEED Date: 0 04/15/2025 Generated for Jason ramirez/Soledad/Katharina on: 09/15/2024 11:14 AM [employer]
--- OUTSIDE RECORDS SUMMARY | 2025-04-22 05:20 | XMS_ITS ---
Author Organization [facility] Address [address] [place], [place] [id number] Care Team Providers Care Sales Data Analyst Name Role Phone NAREN FRITZ Unavailable [phone] none, none Unavailable Unavailable Allergies No Known Allergies REASON FOR VISIT FOLLOW UP NAIL SURGERY Medications Medication SIG (Take, Route, Frequency, Duration) Notes Start Date End Date Status Wellbutrin Active Cephalexin 250 MG Capsule 1 capsule Oral ly Once a day; Duration: 10 days Active Vital Signs Height 65 in 04/22/2025 Weight 245 lbs 04/22/2025 BMI 40.77 kg/m2 04/22/2025 Height-cm 165.1 cm 04/22/2025 Weight-kg 111.13 kg 04/22/2025 Encounters Encounter Location Date Provider Diagnosis [address] [id number] 04/22/2025 FRITZ SNEED Cellulitis of unspecified toe L03.039 ; Ingrowing nail L60.0 ; Pain in right toe(s) M79.674 and Encounter for other specified surgical aftercare Z48.89 Assessments Encounter Date Diagnosis (ICD Code) Assessment Notes Treatment Notes Treatment Clinical Notes Section Notes 04/22/2025 Cellulitis of unspecified toe (ICD-10 - L03.039) continue oral antibiotic. Clean and apply betadine and gauze with tape daily. 04/22/2025 Ingrowing nail (ICD-10 - L60.0) Post Total Nail Avulsion: Cleansed area. A dry sterile compressive dressing was applied and the patient was given soaking instructions. 04/22/2025 Pain in right toe(s) (ICD-10 - M79.674) 04/22/2025 Encounter for other specified surgical aftercare (ICD-10 - Z48.89) Plan Of Treatment Medication Medication Name Sig Start Date Stop Date Notes Cephalexin 250 MG Capsule 1 capsule Oral ly Once a day; Duration: 10 days Treatment Notes Assessment Notes Cellulitis of unspecified toe continue o ral antibiotic. Clean and apply betadine and gauze with tape daily. Ingrowing nail Post Total Nail Avulsion: Cleansed area. A dry sterile compressive dressing was applied and the patient was given soaking instructions. Next Appt Details Follow Up: 1 Week,post nail, Reason: Provider Name:FRITZ Cerda CAROL PIPER, 09/16/2025 09:40:00 AM, [address] [place] [address], [id number], History and Physical Notes * HPI (History of Present Illness) Category Sub-Category Detail Notes Category Not es HPI Follow Up Visit Patient presents for follow-up visit for toenail surgery. , Patient states their problem is, improving. Patient states he is having mild swelling and discomfort., MA: ND Examination Category Sub-Category Detail Notes Category Not es Constitutional Constitutional The patient is a wake, alert, well developed, well groomed and well nourished. Dermatologic Skin findings: bilateral skin i s thin, atrophic and lacking pedal hair. Ingrown Nail Nail bed is clean an d clear right great toenail. cuticle area still has erythema present. There is mild serous drainage noted. There is pain on palpation. Musculoskeletal Muscle Strength Muscle strength is 5/5 in regards to dorsiflexion, plantarflexion, inversion, and eversion in bilateral lower extremities. Neurologic Mulders sign: bilateral, negative Gross sensation Gross sensation is i ntact to light touch Vascular Dorsalis pedis pulse: bilateral, 1/4 Posterior tibial pulse: bilaterally, 1/4 Progress Notes * LILIA BooDOB: 2 (75 yo M)Acc No.[id number]:04/22/2025 Patient: Boo Byers Provider: Eddie SNEED :1950 A ge:75 Y S ex:Male Date:04/22/2025 Address:[address] [place], [place] [id number] Subjective: * Chief Complaints: * F OLLOW UP NAIL SURGERY * HPI: H PI: Follow Up Visit P atcorinne presents for follow-up visit for toenail surgery. , Patient states their problem is, improving. Patient states he is having mild swelling and discomfort., MA: ND. * ROS: G eneral / Constitutional: Patient [...] Social History documented. * Medications: T akingWellbutrin Cephalexin 250 MG Capsule 1 capsule Orally Once a day , stop date 04/30/2025Medication List reviewed and reconciled with the patientTaking Wellbutrin Taking Cephalexin 250 MG Capsule 1 capsule Orally Once a day , stop date 04/30/2025Medication List reviewed and reconciled with the patient [...] lacking pedal hair.. Ingrown Nail N ail bed is clean and clear r ight great toenail. cuticle area still has erythema present. T here is mild serous drainage noted. ?There is pain on palpation.. M usculoskeletal: Muscle Strength M uscle strength is 5/5 in regards to dorsiflexion, plantarflexion, inversion, and eversion in bilateral lower extremities.. ? N eurologic: Mulders sign: b ilateral, negative. Gross sensation G ross sensation is intact to light touch.? V ascular: Dorsalis pedis pulse: b ilateral, /. Posterior tibial pulse: b ilaterally, 09/12. Assessment: * Assessment: 1. C ellulitis of unspecified toe - L03.039 (Primary) 2 . I ngrowing nail - L60.0 3 . P ain in right toe(s) - M79.674 4 . E ncounter for other specified surgical aftercare - Z48.89 Plan: * Treatment: 2. I ngrowing nail Notes: P ost Total Nail Avulsion: Cleansed area. A dry sterile compressive dressing was applied and the patient was given soaking instructions. * Procedure Codes: 9 9024 POSTOP FOLLOW-UP VISIT * Follow Up: 1 Week,post nail Billing Information: * Procedure Codes: 63423 POSTOP FOLLOW-UP VISIT. * Electronic signature of TRUNG SNEED DPM on 07/16/2025 at 11:15 AM LINING INSERTER Sign off status: Pending * Provider: Eddie SNEED Date: 0 04/22/2025 Generated for Jason ramirez/Soledad/Katharina on: 09/15/2024 11:15 AM LINING INSERTER
--- OUTSIDE RECORDS SUMMARY | 2025-05-06 03:20 | XMS_ITS ---
Author Organization [facility] Address [address] [place], [place] [address] Care Team Providers Care Computer Systems Software Architect Name Role Phone NAREN FRITZ Unavailable [phone] none, none Unavailable Unavailable Allergies No Known Allergies REASON FOR VISIT POST OP FOOT CHECK Medications Medication SIG (Take, Route, Frequency, Duration) Notes Start Date End Date Status Cephalexin 250 MG Capsule 1 capsule Oral ly Once a day; Duration: 10 days Active Wellbutrin Active Vital Signs Height 65 in 05/06/2025 Weight 245 lbs 05/06/2025 BMI 40.77 kg/m2 05/06/2025 Height-cm 165.1 cm 05/06/2025 Weight-kg 111.13 kg 05/06/2025 Encounters Encounter Location Date Provider Diagnosis [address] [id number] 05/06/2025 FRITZ SNEED Cellulitis of unspecified toe L03.039 ; Ingrowing nail L60.0 ; Pain in right toe(s) M79.674 and Encounter for other specified surgical aftercare Z48.89 Assessments Encounter Date Diagnosis (ICD Code) Assessment Notes Treatment Notes Treatment Clinical Notes Section Notes 05/06/2025 Cellulitis of unspecified toe (ICD-10 - L03.039) finished oral antibiotic. No bandaid needed. infection has resolved 05/06/2025 Ingrowing nail (ICD-10 - L60.0) Post Total Nail Avulsion: Cleansed area. dry and clean 05/06/2025 Pain in right toe(s) (ICD-10 - M79.674) 05/06/2025 Encounter for other specified surgical aftercare (ICD-10 - Z48.89) Plan Of Treatment Medication Medication Name Sig Start Date Stop Date Notes Cephalexin 250 MG Capsule 1 capsule Oral ly Once a day; Duration: 10 days Treatment Notes Assessment Notes Cellulitis of unspecified toe finished o ral antibiotic. No bandaid needed. infection has resolved Ingrowing nail Post Total Nail Avulsion: Cleansed area. dry and clean Next Appt Details Follow Up: 9 weeks, Reason: Provider Name:FRITZ Cerda CAROL DAVALOSANA, 09/16/2025 09:40:00 AM, [address] [place] [address], [phone], History and Physical Notes * HPI (History of Present Illness) Category Sub-Category Detail Notes Category Not es HPI Follow Up Visit Patient presents for follow-up visit for nail removal post-operative report, Patient states their problem is improving, MA: ND Examination Category Sub-Category Detail Notes Category Not es Constitutional Constitutional The patient is a wake, alert, well developed, well groomed and well nourished. Dermatologic Skin findings: bilateral skin i s thin, atrophic and lacking pedal hair. Ingrown Nail Nail bed is clean an d clear right great toenail. cuticle area no longer has erythema present. There is no serous drainage noted. There is no pain on palpation. Musculoskeletal Muscle Strength Muscle strength is 5/5 in regards to dorsiflexion, plantarflexion, inversion, and eversion in bilateral lower extremities. Neurologic Mulders sign: bilateral, negative Gross sensation Gross sensation is i ntact to light touch Vascular Dorsalis pedis pulse: bilateral, 1/4 Posterior tibial pulse: bilaterally, 1/4 Progress Notes * Boo RODRIGUESDOB: [birth year] (75 yo M)Acc No.[id number]:05/06/2025 Patient: Boo Byers Provider: Eddie SNEED :1950 A ge:75 Y S ex:Male Date:05/06/2025 Address:[address] [place], [place] [id number] Subjective: * Chief Complaints: * P OST OP FOOT CHECK * HPI: H PI: Follow Up Visit P atient presents for follow-up visit for nail removal post-operative report, Patient states their problem is improving, MA: ND. * ROS: G eneral / [...] No Social History documented. * Medications: T akingCephalexin 250 MG Capsule 1 capsule Orally Once a day Wellbutrin Medication List reviewed and reconciled with the patientTaking Cephalexin 250 MG Capsule 1 capsule Orally Once a day Taking Wellbutrin Medication List reviewed and reconciled with [...] clear r ight great toenail. cuticle area no longer has erythema present. T here is no serous drainage noted. ?There is no pain on palpation.. M usculoskeletal: Muscle Strength M uscle strength is 5/5 in regards to dorsiflexion, plantarflexion, inversion, and eversion in bilateral lower extremities.. ? N eurologic: Mulders sign: b ilateral, negative. Gross sensation G ross sensation is intact to light touch.? V ascular: Dorsalis pedis pulse: b ilateral, 1/4. Posterior tibial pulse: b ilaterally, 1. Assessment: * Assessment: 1. C ellulitis of unspecified toe - L03.039 (Primary) 2 . I ngrowing nail - L60.0 3 . P ain in right toe(s) - M79.674 4 . E ncounter for other specified surgical aftercare - Z48.89 Plan: * Treatment: 2. I ngrowing nail Notes: P ost Total Nail Avulsion: Cleansed area. dry and clean * Procedure Codes: 9 9024 POSTOP FOLLOW-UP VISIT * Follow Up: 9 weeks Billing Information: * Procedure Codes: 84409 POSTOP FOLLOW-UP VISIT. * Electronic signature of TRUNG SNEED DPM on 07/16/2025 at 11:14 AM FAMILY SERVICES WORKER Sign off status: Pending * Provider: Eddie SNEED Date: 0 05/06/2025 Generated for Jason ramirez/Soledad/Ciriloitting on: 1 09/15/2024 11:14 AM FAMILY SERVICES WORKER
--- OUTSIDE RECORDS SUMMARY | 2025-07-08 03:10 | XMS_ITS ---
Author Organization [facility] Address [address] [place], [place] [address] Care Team Providers Care Visually Impaired Teacher Name Role Phone FRITZ SNEED Unavailable [phone] none, none Unavailable Unavailable Allergies No Known Allergies REASON FOR VISIT *General care Medications Medication SIG (Take, Route, Frequency, Duration) Notes Start Date End Date Status Wellbutrin Active Cephalexin 250 MG Capsule 1 capsule Oral ly Once a day; Duration: 10 days Active Clotrimazole 1 % Cream 1 application Ext ernally Once a day; Duration: 30 days 07/08/2025 07/03/2026 Active Vital Signs Height 65 in 07/08/2025 Weight 245 lbs 07/08/2025 BMI 40.77 kg/m2 07/08/2025 Height-cm 165.1 cm 07/08/2025 Weight-kg 111.13 kg 07/08/2025 Encounters Encounter Location Date Provider Diagnosis [address] [id number] 07/08/2025 FRITZ SNEED Ingrowing nail L60.0 ; Pain in right toe(s) M79.674 ; Tinea unguium B35.1 ; Atherosclerosis of shoshone-paiute arteries of extremities with intermittent claudication, bilateral legs I70.213 and Acquired keratosis [keratoderma] palmaris et plantaris L85.1 Assessments Encounter Date Diagnosis (ICD Code) Assessment Notes Treatment Notes Treatment Clinical Notes Section Notes 07/08/2025 Ingrowing nail (ICD-10 - L60.0) Post Total Nail Avulsion: resolved Cleansed area. dry and clean 07/08/2025 Pain in right toe(s) (ICD-10 - M79.674) 07/08/2025 Tinea unguium (ICD-10 - B35.1) NAIL DEBRIDEMENT: Nails 1-5 Bilateral were debrided extensively with nail nippers and emery board, reducing length and girth to pink healthy tissue with any subungual debris and necrotic tissue removed 07/08/2025 Atherosclerosis of shoshone-paiute arteries of extremities with intermittent claudication, bilateral legs (ICD-10 - I70.213) Patient educated on risks and aggravating factors of PVD, including conservative treatment options such as a diet and exercise regimen to aid in slowing progression of vascular disease. Check and protect LE bilateral daily. Call if any changes or concerns. 07/08/2025 Acquired keratosis [keratoderma] palmaris et plantaris (ICD-10 - L85.1) Hyperkeratosis x 2: The skin was prepped with isopropyl alcohol. Using a 15-blade scalpel, the hyperkeratotic skin lesions were sharply debrided down to healthy appearing skin. Plan Of Treatment Medication Medication Name Sig Start Date Stop Date Notes Clotrimazole 1 % Cream 1 application Ext ernally Once a day; Duration: 30 days 07/08/2025 07/03/2026 Treatment Notes Assessment Notes Ingrowing nail Post Total Nail Avulsion: resolved Cleansed area. dry and clean Tinea unguium NAIL DEBRIDEMENT: Na ils 1-5 Bilateral were debrided extensively with nail nippers and emery board, reducing length and girth to pink healthy tissue with any subungual debris and necrotic tissue removed Atherosclerosis of shoshone-paiute ar teries of extremities with intermittent claudication, bilateral legs Patient educated on risks and aggravatin g factors of PVD, including conservative treatment options such as a diet and exercise regimen to aid in slowing progression of vascular disease. Check and protect LE bilateral daily. Call if any changes or concerns. Acquired keratosis [keratode rma] palmaris et plantaris Hyperkeratosis x 2: The skin was prepped with isopropyl alcohol. Using a 15-blade scalpel, the hyperkeratotic skin lesions were sharply debrided down to healthy appearing skin. Next Appt Details Follow Up: 9 weeks, Reason: Provider Name:FRITZ PIPER, 09/16/2025 09:40:00 AM, [address] [place] [address], [id number], History and Physical Notes * HPI (History of Present Illness) Category Sub-Category Detail Notes Category Not es HPI General care Patient presents to the office for diabetic foot care. Patient states that their nails are thickened, elongated and painful. Patient states that it is aggravated by shoe gear. Onset is gradual., Patient denies taking blood thinners., Date last seen by Dr. Tovar was April 2025., Initials ab Examination Category Sub-Category Detail Notes Category Not es Constitutional Constitutional The patient is a wake, alert, well developed, well groomed and well nourished. Dermatologic Skin findings: bilateral skin i s thin, atrophic and lacking pedal hair. Nail pathology: Nails 1-5 bilateral are elongated, thick, discolored, and dystrophic with subungual debris. They are painful to palpation Hyperkeratotic Skin Lesion There is evid ence of hyperkeratotic skin lesions present on the, bilateral distal aspect of the 1st digit Ingrown Nail Nail bed is clean an [...] * Boo RODRIGUESDOB: 2 (75 yo M)Acc No.[id number]:07/08/2025 Patient: Boo Byers Provider: Eddie SNEED :1950 A ge:75 Y S ex:Male Date:07/08/2025 Address:[address] [place], [place] [id number] Subjective: * Chief Complaints: * * General care * HPI: H PI: General care P atient presents to the office for diabetic foot care. Patient states that their nails are thickened, elongated and painful. Patient states that it is aggravated by shoe gear. Onset is gradual., Patient denies taking blood thinners., Date last seen by Dr. Tovar was April 2025., Initials ab. * ROS: G eneral / Constitutional: Patient [...] Past Hospitalization. Hospitalization Verified. * Family History: F amily History Verified.. N on-Contributory.. * Social History: Social History Verified. No [...] is thin, atrophic and lacking pedal hair.. Nail pathology: N ails 1-5 bilateral are elongated, thick, discolored, and dystrophic with subungual debris. They are painful to palpation. Hyperkeratotic Skin Lesion T here is evidence of hyperkeratotic skin lesions present on the, bilateral d istal aspect of the 1st digit. Ingrown Nail N ail bed is clean [...] ilateral, 1/4. Posterior tibial pulse: b ilaterally, 09/12. Assessment: * Assessment: 1. I ngrowing nail - L60.0 (Primary) 2 . P ain in right toe(s) - M79.674? 3. T inea unguium - B35.1 4 . A therosclerosis of shoshone-paiute arteries of extremities with intermittent claudication, bilateral legs - I70.213 5 . Acquired keratosis [keratoderma] palmaris et plantaris - L85.1 Plan: * Treatment: 2. T inea unguium Start Clotrimazole Cream, 1 %, 1 application, Externally, Once a day, 30 days, 1 Unspecified, Refills 11. Notes: NAIL DEBRIDEMENT: Nails 1-5 Bilateral were debrided extensively with nail nippers and emery board, reducing length and girth to pink healthy tissue with any subungual debris and necrotic tissue removed 3. A therosclerosis of shoshone-paiute arteries of extremities with intermittent claudication, bilateral legs Notes: Patient educated on risks and aggravating factors of PVD, including conservative treatment options such as a diet and exercise regimen to aid in slowing progression of vascular disease. Check and protect LE bilateral daily. Call if any changes or concerns. 4. A cquired keratosis [keratoderma] palmaris et plantaris Notes: Hyperkeratosis x 2: The skin was prepped with isopropyl alcohol. Using a 15-blade scalpel, the hyperkeratotic skin lesions were sharply debrided down to healthy appearing skin. * Preventive Medicine: Screenings: F all risk screening F all Risk Assessment: O ne fall without injury in the past year, P francisco of Care: Eddie ocumented, T ype of fall plan of care: B alance, strength and gait training or instruction provided. * Follow Up: 9 weeks Billing Information: * Procedure Codes: * Electronic signature of TRUNG SNEED DPM on 07/16/2025 at 11:14 AM HISTORY CARD CLERK Sign off status: Pending * Provider: Eddie SNEED Date: 1 Generated for Jason Ardon/Katharina on: 09/15/2024 11:14 AM HISTORY CARD CLERK
--- NOTE | ~2025-07-16 | XR_ITS ---
EXAMINATION: XR hand LT min 3V DATE: 07/16/2025 10:57 INDICATION: Left thumb osteoarthritis with decreased left pancreatic TECHNIQUE: Posteroanterior, oblique and lateral views of the left hand were obtained. COMPARISON: 09/11/2023 FINDINGS: 3 mm ulnar minus variance. Otherwise normal. No fracture. Polyarticular osteoarthritis, moderate severity at the first carpometacarpal and fifth distal interphalangeal joints and mild at the majority the remaining joints at the left hand and wrist. IMPRESSION: 1. Mild to moderate polyarticular osteoarthritis at the left hand and wrist. No acute osseous abnormality. Reviewed, dictated and finalized at location A. TIC SURGERY MANAGER
--- NOTE | ~2025-07-16 | XR_ITS ---
[id number] Indication: Cervical pain x5 years; worsening. NKI. Comparison: None Findings: Grade 1 anterolisthesis of C4 on C5, no fracture. Severe loss of disc height at C2-3, C3-4 C5-6 and C6-7 Soft tissues unremarkable Impression: No acute abnormality. Reviewed, dictated and finalized at location P. HOOKER Impression: No acute abnormality.
--- OUTSIDE RECORDS SUMMARY | 2025-07-16 11:14 | XMS_ITS | Encounter Summary ---
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 Gender Identity Not on file Sexual Orientation Not on file Occupation Industry Job Start Date Job End Date RETIRED Not on file Not on file Not on file documented as of this encounter Functional Status * BP Location Answer Date of Assessment Author Left arm 12/07/2020 9:02 AM [facility] Rosamaria, Yaneth, A * BP Location Answer Date of Assessment Author Left arm 12/07/2020 9:02 AM [facility] Yaneth Blank, RMA documented as of this encounter Plan of Treatment Not on file documented as of this encounter Goals Goal Patient Goal Type Associated Problems Recent Progress Patient-Stated? Author CCM Chronic Pain Care Plan Chronic Care Management Improving( 12:43 PM SUPERVISOR SCRAP PREPARATION) Rabia Davies, RN Note: Problem: Chronic Pain [...] on filedocumented in this encounter Care Teams Billing Specialist Relationship Specialty Start Date End Date David Casanova MD PCP - General Internal Medicine 10/02/18 04/06/25 Italia Acosta MD [address] [place] [address] PCP - General Family Medicine 04/07/25 Eamon Lucia, RN Registered Nurse 07/03/19 documented as of this encounter
--- OUTSIDE RECORDS SUMMARY | 2025-07-16 11:14 | XMS_ITS | Clinical Summary ---
Author Organization [facility] Address [address] [place] [address] Care Team Providers Care Board Attendant Name Role Phone David Casanova MD Primary Care Provider [phone] Source Comments [facility],non-owned Affiliates and Associated Physician Practices is amultiple site organization consisting of ambulatory clinics and hospital sitesin [place], [place], [place] and [place]. This disclosure is being madepursuant to the Care Everywhere program and may not contain all information available regarding this patient. Last updated 18.[facility] Allergies No known active allergies Medications * [...] PO Take by mouth once daily Active Rkip-[id number]-M-B [id number]-Pryr 160-1.7 MG TABS Acti ve metoprolol succinate [...] Recorded Patient Health Questionnaire-2 Score 0 01/14/2024 [facility] - [...] place to sleep or slept in a [facility]p (including now)? No 10/31/2022 Sex and Gender Information Value Date Recorded Sex Assigned at Not on file Legal Sex Male 7:45 PM MISSION PLANNER Gender Identity Not on file Sexual Orientation Not on file Last Filed Vital Signs Vital Sign Reading Time Taken Comments Blood Pressure 142/79 11/08/2022 7:52 AM MISSION PLANNER Pulse 57 11/08/2022 7:52 AM MISSION PLANNER Temperature 36.4 C (97.5 F) 11/08/2022 7:52 AM MISSION PLANNER Respiratory Rate 18 11/08/2022 7:52 AM MISSION [employer]NER Oxygen Saturation 96% 11/08/2022 7:52 AM MISSION PLANNER Inhaled Oxygen Concentration - - Weight 110.7 kg (244 lb) 06/11/2023 11:58 AM CDT Height 167.6 cm (5' 6) 06/11/2023 11:58 AM CDT Body Mass Index [...] EXAM WITH MONOFILAMENT 11/08/2022 DIABETES-HGB A1C 04/29/2023 10/30/2022 DIABETES-SERUM CREATININE 11/09/20232022, 11/07/2022, 11/06/2022, Additional history exists DEPRESSION SCREENING 09/09/2024 DIABETES - URINE PROTEIN SCREENING 09/09/2024 MEDICARE AWV CALENDAR YEAR 2024 COVID-19 VACCINE ( season) 2025 06/12/2021, 11/01/2020, 10/11/2020 INFLUENZA VACCINE (#1) 2025 05/21/2019, 2017 Respiratory Syncytial Virus (RSV) Vaccine Pt: or [...] this topic Medical Devices Implanted Type Area Oral Communication Instructor Device Identifier Shelf Expiration Date Model / Serial / Lot Graft Bone Canc 30ml Cube Frzdr Irr Implanted:Qty: 1 on 10/29/2022 by Shaggy Rodriguez MD at [facility] N/A: Spine Lumbar Allosource 03/28/2027 [id number] / / [id number] Graft Bone Accell Evo3 Dbm 10ml Ptty - [id number] Implanted:Qty: 1 on 10/29/2022 by Shaggy Rodriguez MD at [facility] N/A: Spine Lumbar Integra [employer]iences 09/05/2023 / [id number] / [id number] Graft Bone Accell Evo3 Dbm 10ml Ptty - [id number] Implanted:Qty: 1 on 10/29/2022 by Shaggy Rodriguez MD at [facility] N/A: Spine Lumbar Integra [employer] 09/05/2023 / [id number] / [id number] Eit Plif H 13mm, 8 Degrees, 04/06 Implanted:Qty: 1 on 10/29/2022 by Shaggy Rodriguez MD at [facility] N/A: Spine Lumbar [id number] / / [id number] Screw 7.5mm 45mm Pa Spne Pdcl Xpdm Ti Implanted:Qty: 4 on 10/29/2022 by Shaggy Rodriguez MD at [facility] N/A: Spine Lumbar Synthes Spine [id number] / / Screw 7.5mm 50mm Pa Spne Pdcl Xpdm Ti Implanted:Qty: 2 on 10/29/2022 by Shaggy Rodriguez MD at [facility] N/A: Spine Lumbar Synthes Spine [id number] / / Screw Set Ti 5.5mm Spne 1 Inr Ma Xpdm Implanted:Qty: 6 on 10/29/2022 by Shaggy Rodriguez MD at [facility] N/A: Spine Lumbar Synthes Spine [id number] / / 65mm Mike Implanted:Qty: 2 on 10/29/2022 by Shaggy Rodriguez MD at [facility] N/A: Spine Lumbar Synthes Spine [id number] / / Procedures Procedure Name Priority Date/Time Associated Diagnosis Comments BASIC METABOLIC PANEL (CALCIUM TOTAL) Routine 11/08/2022 4:32 AM MISSION PLANNER Spondylolisthesis, unspecified spinal region HEMOGLOBIN A1C Routine 10/30/2022 1:36 AM MISSION PLANNER from Last 3 Months or Most Recently Relevant to Health Maintenance Results * (ABNORMAL) BASIC METABOLIC PANEL (CALCIUM TOTAL) (11/08/2022 4:32 AM MISSION PLANNER) BUN 15 7 - 26 mg/dL 11/08/2022 5:28 AM [facility] Creatinine 0.82 0.71 - 1.16 mg/dL 11/08/2022 5:28 AM [facility] Sodium 138 136 - 145 mmol/L 11/08/2022 5:28 AM [facility] Potassium 3.9 3.5 - 4.5 mmol/L 11/08/2022 5:28 AM [facility] Chloride 108(H) 98 - 107 mmol/L 11/08/2022 5:28 AM [facility] CO2 21(L) 22 - 29 mmol/L 11/08/2022 5:28 AM [facility] Glucose 111 70 - 115 mg/dL 11/08/2022 5:28 AM [facility] Calcium 9.3 8.4 - 10.2 mg/dL 11/08/2022 5:28 AM [facility] Anion Gap 13 8 - 18 11/08/2022 5:28 AM [facility] BUN/Creatinine Ratio 18 7 - 23 11/08/2022 5:28 AM [facility] Osmolality Calculated 288 270 - 300 mOsm/kg 11/08/2022 5:28 AM [facility] eGFR by CKD-EPI >90 >=90 mL/min/1.7 3 m2 11/08/2022 5:28 AM [facility] Blood BLOOD SPECIMEN / Unknown Lab Venipuncture / Unknown 11/08/2022 4:32 AM MISSION [employer] 11/08/2022 4:59 AM MISSION [employer]NER Shaggy Rodriguez MD LAB - CHEMISTRY ORDERABLES Final Result Performing Organization Address [facility]/ZIP Co de Phone Number [facility] [address] [place] [address], [place] [phone] * HEMOGLOBIN A1C (10/30/2022 1:36 AM [facility]) Hemoglobin A1c 5.3 <=5.6 % 10/30/2022 11:47 AM [facility] Estimated Average Glucose 105 mg/dL 10/30/2022 11:47 AM [facility] Comment: HbA1c Interpretation: Normal : < 5.7% Pre-diabetes: 5.7-6.4% Diabetes: Equal to or greater than 6.5% Test results diagnostic of diabetes should be repeated for confirmation. Treatment target values recommended by ADA and other clinical organizations should be used to evaluate metabolic control in patients. Reference: [place] [employer], Standards of Care in Diabetes -2020 In patients 70 years and older consider HbA1c target range of 7.0-7.5% (Reference: Omi Garcia et al. JAMDA. 2012) The Sebia assay for the measurement of HbA1c is a National Glycohemoglobin Standardization Program (NGSP) certified method. Blood BLOOD SPECIMEN / Unknown Lab Venipuncture / Unknown 10/30/2022 1:36 AM MISSION PL[employer]NER 10/30/2022 2:37 AM MISSION PL[employer]NER Shaggy Rodriguez MD LAB - CHEMISTRY ORDERABLES Final Result Performing Organization Address City/[facility]/ZIP Co de Phone Number [facility] [address] [place] [address], [place] [phone] from Last 3 Months or Most Recently Relevant to Health Maintenance Insurance [employer] MANAGED MEDICARE ADV [facility] MANAGED MEDICARE ADV [place] [id number] Advance Directives * Full Code (Latest Code Status on File) Date Activated Date Inactivated Comments 10/29/2022 7:45 PM 11/08/2022 3:30 PM Care Teams Board Attendant Relationship Specialty Start Date End Date David Casanova MD [address] [place] [address] PCP - General 06/25/22
--- OUTSIDE RECORDS SUMMARY | 2025-07-16 11:14 | XMS_ITS | Clinical Summary ---
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 Gender Identity Not on file Sexual Orientation Not on file Plan of Treatment Health Maintenance Due Date Last Done Comments Colorectal Cancer Screening Colonoscopy (10 Years) 1950 Hepatitis C 02/07/1970 DTaP, Tdap and Td Vaccines ( 1 - Tdap) 02/07/1971 Pneumococcal Vaccine: 50+ Ye ars (1 of 1 - PCV) 02/07/2002 Zoster Vaccines (1 of 2) 02/07/2002 COVID-19 Vaccine ( - 2024-2 6 season) 2025 Influenza Adult (#1) 2025 RSV Immunization or 60+ Years (1 - 1-dose 75+ series) 02/07/2027 Hepatitis A Vaccines Aged Out No long er eligible based on patient's age to complete this topic Meningococcal B Vaccine Aged Out No l onger eligible based on patient's age to complete this topic Meningococcal Vaccine Aged Out No isamar braxton eligible based on patient's age to complete this topic RSV Immunizations Under 20 Months Aged Out No longer eligible based on patient's age to complete this topic Care Teams Vacuum Pan Operator Relationship Specialty Start Date End Date David Casanova MD [address] [place] [address] PCP - General INTERNAL MEDICINE 10/23/21
--- OUTSIDE RECORDS SUMMARY | 2025-07-16 11:14 | XMS_ITS | Encounter Summary ---
Author Organization [facility] Address [address] [place] [address] Care Team Providers Care Commercial Estimator Name Role Phone David Casanova MD Primary Care Provider [phone] Eamon Lucia RN Unavailable Unav ailable Italia Acosta MD Primary Care Provider Encounter Details Date Type Department Care Team (Late st Contact Info) Description 10/17/2021 Telephone [facility] [place] [facility] [address] [place], [place] [id number] Richie Garcia MD [phone] [place], [place] [id number] Social History Tobacco Use Types Packs/Day Years [...] on file Legal Sex Male 1:07 AM MANAGER 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 Minimize further functional decline 2. Maximize quality of life 3. Control pain Strategies: - Activity/exercise program recommendation - Conservative stepwise pain medicine strategy with multi-disciplinary approach - Recommend healthy lifestyle strategies and compensatory methods as needed documented as of this encounter Visit Diagnoses Not on filedocumented in this encounter Care Teams Commercial Estimator Relationship Specialty Start Date End Date David Casanova MD PCP - General Internal Medicine 10/02/18 04/06/25 Italia Acosta MD [address] [place] [address] PCP - General Family Medicine 04/07/25 Eamon Lucia, RN Registered Nurse 07/03/19 documented as of this encounter
--- OUTSIDE RECORDS SUMMARY | 2025-07-16 11:14 | XMS_ITS | Encounter Summary ---
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 Author [facility] Chronic Pain Care Plan Chronic Care Management Improving( 12:43 PM PBX MECHANIC) Rabia Davies, RN Note: Problem: Chronic Pain [...] on filedocumented in this encounter Care Teams Colorectal Surgeon Relationship Specialty Start Date End Date David Casanova MD PCP - General Internal Medicine 10/02/18 04/06/25 Italia Acosta MD [address] [place] [address] PCP - General Family Medicine 04/07/25 Eamon Lucia RN Registered Nurse 07/03/19 documented as of this encounter
--- OUTSIDE RECORDS SUMMARY | 2025-07-16 11:14 | XMS_ITS | Encounter Summary ---
Author Organization [facility] Healthcare Address [address] [place] [address] Care Team Providers Care Physiotherapy Assistant Name Role Phone Regino García MD Primary Care Provider [phone] David Casanova MD Primary Care Provider [phone] Eamon Lucia RN Unavailable Unav ailable Italia Acosta MD Primary Care Provider Encounter Details Date Type Department Care Team (Late st Contact Info) Description 03/05/2018 Telephone [facility] [place] [facility] 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
--- OUTSIDE RECORDS SUMMARY | 2025-07-16 11:14 | XMS_ITS | Encounter Summary ---
Author Organization [facility] Healthcare Address [address] [place] [address] Care Team Providers Care Putty And Caulking Supervisor Name Role Phone Regino García MD Primary Care Provider + [phone] David Casanova MD Primary Care Provider [phone] Eamon Lucia RN Unavailable Unav ailable Italia Acosta MD Primary Care Provider Reason for Visit * Reason Onset Date Comments Med Refill 08/05/2018 Encounter Details Date Type Department Care Team (Late st Contact Info) Description 08/05/2018 Telephone [facility] [address] [facility] [address] [place] [address] Richie Garcia MD [address] [facility] [address] [facility] [phone] [place], [place] [id number] Med Refill Social History Tobacco Use Types Packs/Day Years Used Date Smoking Tobacco: Never Assessed Sex and Gender Information Value Date Recorded Sex Assigned at Not on file 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 He was hesitant to make an appointment but I did convince him to see Darya. Appointment made for 7- @ 11 am. Refill sent to resident pool. ERS SUPERVISOR documented in this encounter Plan of Treatment Not on file documented as of this encounter Visit Diagnoses Not on filedocumented in this encounter Care Teams Putty And Caulking Supervisor Relationship Specialty Start Date End Date Regino García MD PCP - General 11/09/16 10/01/18 David Casanova MD PCP - General Internal Medicine 10/02/18 04/06/25 Italia Acosta MD [address] [place] [id number] PCP - General Family Medicine 04/07/25 Eamon Lucia, RN Registered Nurse 07/03/19 documented as of this encounter
--- OUTSIDE RECORDS SUMMARY | 2025-07-16 11:15 | XMS_ITS | Patient Health Record ---
Author Organization [facility] Address [address] [place], [place] [address] Care Team Providers Care Air Technician Name Role Phone FRITZ SNEED Unavailable [phone] none, none Unavailable Unavailable Allergies No Known Allergies Reason For Referral No Information Medications Medication SIG (Take, Route, Frequency, Duration) Notes Start Date End Date Status Wellbutrin Active Cephalexin 250 MG Capsule 1 capsule Oral ly Once a day; Duration: 10 days Active Clotrimazole 1 % Cream 1 application Ext ernally Once a day; Duration: 30 days 07/08/2025 07/03/2026 Active Vital Signs Height-cm 165.1 cm 07/08/2025 Weight-kg 111.13 kg 07/08/2025 Height 65 in 07/08/2025 Weight 245 lbs 07/08/2025 BMI 40.77 kg/m2 07/08/2025 Encounters Encounter Location Date Provider Diagnosis [address] [id number] 04/15/2025 FRITZ SNEED Cellulitis of unspecified toe L03.039 ; Ingrowing nail L60.0 and Pain in right toe(s) M79.[address] [id number] 04/22/2025 FRITZ SNEED Cellulitis of unspecified toe L03.039 ; Ingrowing nail L60.0 ; Pain in right toe(s) M79.674 and Encounter for other specified surgical aftercare Z48.[address] [id number] 05/06/2025 FRITZ SNEED Cellulitis of unspecified toe L03.039 ; Ingrowing nail L60.0 ; Pain in right toe(s) M79.674 and Encounter for other specified surgical aftercare Z48.[address] [id number] 07/08/2025 FRITZ SNEED Ingrowing nail L60.0 ; Pain in right toe(s) M79.674 ; Tinea unguium B35.1 ; 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 05/06/2025 Cellulitis of unspecified toe (ICD-10 - L03.039) finished oral antibiotic. No bandaid needed. infection has resolved 05/06/2025 Ingrowing nail (ICD-10 - L60.0) Post Total Nail Avulsion: Cleansed area. dry and clean 04/15/2025 Cellulitis of unspecified toe (ICD-10 - [...] and the patient was given soaking instructions. 07/08/2025 Ingrowing nail (ICD-10 - L60.0) Post Total Nail Avulsion: resolved Cleansed area. dry and clean 07/08/2025 Pain in right toe(s) (ICD-10 - M79.674) 04/15/2025 Pain in right toe(s) (ICD-10 - M79.674) 07/08/2025 Tinea unguium (ICD-10 - B35.1) NAIL DEBRIDEMENT: Nails 1-5 Bilateral were debrided extensively with nail nippers and emery board, reducing length and girth to pink healthy tissue with any subungual debris and necrotic tissue removed 05/06/2025 Pain in right toe(s) (ICD-10 - M79.674) 04/22/2025 Pain in right toe(s) (ICD-10 - M79.674) 04/22/2025 Encounter for other specified surgical aftercare (ICD-10 - Z48.89) 05/06/2025 Encounter for other specified surgical aftercare (ICD-10 - Z48.89) 07/08/2025 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 Plan Of Treatment Next Appt Details Provider Name:FRITZ PIPER, 09/16/2025 09:40:00 AM, [address] [place] [address], [phone], Insurance Providers Payer Name Payer Address Payer Phone Subscriber Number Group Number Insured Name Patient Relationship to Insured Coverage Start Date Coverage End Date [facility] [address] [address] [place], [place] [phone] [id number] Boo Rodrigues Self - patient is the insured Medical (General) History Medical History History ICD Code acid reflux Liver disease Diabetic varicose veins Blood clots Surgical History Surgery Date(Month/Year) Shoulder repair spinal fusion
--- OUTSIDE RECORDS SUMMARY | 2025-07-16 11:15 | XMS_ITS | Encounter Summary ---
Author Organization [facility] Healthcare Address [address] [place] [address] Care Team Providers Care Rn Navigator Name Role Phone David Casanova MD Primary Care Provider [phone] Eamon Lucia RN Unavailable Unav ailable Italia Acosta MD Primary Care Provider Reason for Visit * Reason Onset Date Comments Scheduling Appointments 08/17/2019 Encounter Details Date Type Department Care Team (Late st Contact Info) Description 08/17/2019 Telephone [facility] [place] [address] [facility] Advanced Medicine [address] [place] [address] Richie Garcia MD [address] [facility] [address] 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 Author [facility] Chronic Pain Care Plan Chronic Care Management Improving( 12:43 PM BACK TENDER CLOTH PRINTING) No Rabia Aquino RN Note: Problem: Chronic Pain Goals: 1. Minimize further functional decline 2. Maximize quality of life 3. Control pain Strategies: - Activity/exercise program recommendation - Conservative stepwise pain medicine strategy with multi-disciplinary approach - Recommend healthy lifestyle strategies and compensatory methods as needed documented as of this encounter Visit Diagnoses Not on filedocumented in this encounter Care Teams Rn Navigator Relationship Specialty Start Date End Date David Casanova MD PCP - General Internal Medicine 10/02/18 04/06/25 Italia Acosta MD [address] [place] [id number] PCP - General Family Medicine 04/07/25 Eamon Lucia, RN Registered Nurse 07/03/19 documented as of this encounter
--- OUTSIDE RECORDS SUMMARY | 2025-07-16 11:15 | XMS_ITS | Clinical Summary ---
Author Organization [facility] Address [address] [place] [address] Phone Care Team Providers Care Art Consultant Name Role Phone Unavailable Primary Care Provider [...] (1 of 2) 02/07/2002 INFLUENZA VACCINE (#1) 2025 RSV VACCINE (60+ or ) (1 - 1-dose 75+ series) 02/07/2027
--- OUTSIDE RECORDS SUMMARY | 2025-07-16 11:15 | XMS_ITS | Clinical Summary ---
Author Organization [facility] Address [address] [place] [address] Care Team Providers Care Sales Service Coordinator Name Role Phone Eamon Lucia RN Unavailable Unav ailable Italia Acosta MD Primary Care Provider Allergies No known active allergies Medications metoprolol [...] chloride (Jo 128) 5 % ophthalmic ointmentIndicati ons:[id number]-uitd erprint corneal dystrophy APPLY 1/4 INCH INTO BOTH EYES AT NIGHT 3.5 g 11 0 Active Additional Information Patient taking differently: 1 drop each eye Nightly, APPLY 1/4 INCH INTO BOTH EYES AT NIGHT,Indications: Corneal Edema, Informant: Self, Reported on 04/07/2025 montelukast (SINGULAIR) 10 mg tabletIndication s:allergies Take [...] Syndrome, nerve pain, Informant: Self, Reported on 04/07/2025 losartan (COZAAR) 100 mg tabletIndication s:hypertension Take 1 tablet (100 mg total) by mouth nightly at bedtime. 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 Rodrigues is a 75yo R-handed man with 2-8 years (unclear) of R hand tremor. History notable for tremor only with specific well-trained tasks such as screwing in a screw, which improves with cessation and resumption of activity, not associated with pain. Exam notable for bilateral blepharospasm, cervical dystonia (R shoulder raise), diminished arm swing with walking, and abnormal posture of both hands when holding a pencil associated with atypical tremor (jerky movements and curlicues on writing assessment) that worsened with prolonged holding. 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 His L hand is possibly also involved based on tremor assessment, but he also does not use his L hand for writing. He is not bothered by his eyelid movements or shoulder raise, and denies discomfort from them. We discussed that the treatment for this diagnosis is typically botulinum toxin injection, which he is not interested in at this time. We also talked about shaking out his hand after using it for a brief period and then returning to complete the task, or trying to use a wrist brace as a motor distraction with tasks. 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 Mild cognitive impairment 11/21/2023 Type 2 diabetes mellitus wit hout complication, without long-term current use of insulin 11/08/2022 Spondylolisthesis 10/29/2022 Parotid mass 08/21/2022 Overview (10/16/2023): DIAGNOSIS: Left parotid tumors PROCEDURE PERFORMED: (Abraham 09/30/23) Left parotidectomy Osteoarthritis of spine with radiculopathy, lumb ar region 04/27/2021 Overview (04/27/2021): Added automatically from request for surgery [id number] Frequent falls 02/21/2021 Primary osteoarthritis of right knee 11/17/2020 Lumbar spondylosis 06/17/2020 Overview (06/17/2020): Added automatically from request for surgery [id number] Chronic use of opiate drug for therapeutic purpo se 11/29/2019 Overview (10/08/2022): Chronic Opioid Therapy - 10/08/21 Current opioid: - tramadol - 100 mg QID = 400 mg max/day Morphine daily equivalent: 40 mg/day Other : NO NSAIDS - elevated his blood pressure Benzo : none Storage : told to keep secure Plan: Continue, encourage restricting uses possible Urine Drug Screen [facility] 11/10/19 - consistent with prescribed tramadol Urine Drug Screen [facility] 11/21/20 - consistent with prescribed tramadol Urine drug screen [facility] 07/04/22 - consistent with prescribed tramadol Lumbar radiculopathy 11/02/2019 Displacement of lumbar intervertebral disc 07/19 Nocturnal leg cramps 05/13/2019 Gkf-eon-ljvpyvsraca 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 Right posterior capsular opacification [...] Enlarged prostate Anxiety Type 2 diabetes mellitus Enlarged prostate Osteoarthritis Sleep apnea Wears CPAP [...] on file Legal Sex Male 1: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 Gender Identity Not on file Sexual Orientation Not on file Occupation Industry Job Start Date Job End Date RETIRED Not on file Not on file Not on file Last Filed Vital Signs Vital Sign Reading Time Taken Comments Blood Pressure 156/76 04/07/2025 1:40 PM CDT Pulse 58 04/07/2025 1:40 PM CDT Temperature 36.5 C (97.7 F) 05/27/2024 11:06 AM CDT Respiratory Rate 18 10/01/2023 7:57 AM CERTIFIED MEDICAL CODING SPECIALIST Oxygen Saturation 99% 05/27/2024 11:06 AM CDT Inhaled Oxygen Concentration - - Weight 117.5 kg (259 lb) 04/07/2025 1:40 PM CDT Height 167.6 cm (5' 6) 04/07/2025 1:40 PM CDT Body Mass Index 41.8 04/07/2025 1:40 PM CDT Plan of Treatment Health Maintenance Due Date Last Done Comments Albumin Creatinine Ratio, Urine 1952 Colon Cancer Screening-Colonoscopy 1950 Hepatitis C Screening 1950 Dilated Eye Exam 1950 Foot Exam 1950 Lipid Panel 1950 DTaP/Tdap/Td Vaccine (1 - Tdap) 02/07/1963 Hepatitis B Screening 02/07/1970 Pneumococcal vaccine 65+ (1 of 2 - PCV) 02/07/1971 Well Visit 65+ 02/07/2017 Hemoglobin A1C 04/29/2023 10/30/2022, 05/10, 11/28/2021, Additional history exists eGFR 05/28/2023 05/28/2022, 11/2021, 11/28/2021, Additional history exists Fall Risk Assessment 10/01/2024 10/01/2023 Covid-19 Vaccine (2024-2 6 season) 2025 06/12/2021, 11/01/2020, 10/11/2020 Influenza Vaccine (#1) 2025 , 05/21/2019, 05/28/2018 Depression Screening 04/07/2026 04/07/2025 Zoster Vaccine Completed 05/21/2019, 03/05/2019 Goals Goal Patient Goal Type Associated Problems Recent Progress Patient-Stated? Author [facility] Chronic Pain Care Plan Chronic Care Management Improving( 12:43 PM CERTIFIED MEDICAL CODING SPECIALIST) Rabia Davies, RN Note: Problem: Chronic Pain Goals: 1. Minimize further functional decline 2. Maximize quality of life 3. Control pain Strategies: - Activity/exercise program recommendation - Conservative stepwise pain medicine strategy with multi-disciplinary approach - Recommend healthy lifestyle strategies and compensatory methods as needed Medical Devices Implanted Type Area Railroad Track Inspector Device Identifier Shelf Expiration Date Model [...] 90 - 130 mL/min/1. 73 m2 [facility] Comment: Interpretive Data Reference Interval Normal >/= [...] 9:35 AM CDT 05/28/2022 10:25 AM CDT Yang Rose NP LAB BLOOD ORDERABLES Fin al Result Performing Organization Address [facility] Co de Phone Number [facility] [place] [place] [address] * POCT hemoglobin A1c (05/28/2022 9:16 AM CDT) Hgb A1C, POC 5.6 4.0 - 5.6 % [facility] Est Average Gluc POC 114 mg/dL [facility] Comment: The ADA recommends reporting an estimated Average Glucose (eAG) with all Hemoglobin A1c results using the equation derived from a study of 507 normal and diabetic adults. Minority populations were underrepresented and children were not included. (Diabetes Care 31:3175-6339, 2008). The eAG is not equivalent to a fasting glucose. Blood 05/28/2022 9:16 AM CDT 05/28/2022 9:16 AM CDT Dre Riggins MD POINT OF CARE TEST ORDERABLES F inal Result Performing Organization Address City/[facility]/ZIP Co de Phone Number [facility] [place] [place] [address] from Last 3 Months or Most Recently Relevant to Health Maintenance Insurance [address] [place] [address] MEDICARE [facility] MEDICARE ADVANT[facility]IC[facility] Address: [address] [address] [place] [address] [place] [address] Advance Directives For more information, please contact: [phone] * Full Code (Latest Code Status on File) Date Activated Date Inactivated Comments 09/30/2023 7:34 PM 10/01/2023 5:13 PM Care Teams Sales Service Coordinator Relationship Specialty Start Date End Date Italia Acosta MD [address] [place], [place] [id number] PCP - General Family Medicine 04/07/25 Eamon Lucia RN Registered Nurse 07/03/19
== END 2025-07-16 10:35 | disposition home or self-care (01) ==
LOC: CHSIMG 10:36
PROVIDERS: PCP Family Medicine; Visit Provider Family Medicine
DX: M18.12 Unilateral primary osteoarthritis of first carpometacarpal joint, left hand (principal); M54.2 Cervicalgia
CPT/HCPCS: 72040; 73130